=== PATIENT | female | born 1975 | race Caucasian/White ===

== ENCOUNTER → 2022-06-26 08:20 | Outpatient (BNVA) | payer OTHER, SELFPAY | PROVIDERS: PCP Internal Medicine; Visit Provider Internal Medicine Rheumatology | DX: M06.00 Rheumatoid arthritis without rheumatoid factor, unspecified site (principal); G56.00 Carpal tunnel syndrome, unspecified upper limb; M19.072 Primary osteoarthritis, left ankle and foot; F41.8 Other specified anxiety disorders; Z79.620 Long term (current) use of immunosuppressive biologic | CPT/HCPCS: 99212 ==

== ENCOUNTER 2022-06-26 09:45 | Outpatient (REF) | payer OTHER, SELFPAY ==
[2022-06-26 10:43] LABS: MANUAL DIFF FLAG NO
[2022-06-26 10:55] LABS: Basophils Absolute Auto 0.1 X10*3/uL (0.0-0.2); Basophils Percent Auto 1.2 % (0-2); Eosinophils Absolute Auto 0.4 X10*3/uL (0.0-0.4); Hemoglobin 13.3 g/dl (12.0-16.0); Imm Gran Abs Auto 0.02 X10*3/uL (0.00-0.03); Imm Gran Pct Auto 0.3 % (0.0-0.4); Lymphocytes Absolute Auto 2.3 X10*3/uL (1.2-4.9); Lymphocytes Percent Auto 35.8 % (20-40); Mean Corpuscular HGB Conc 33.3 g/dl (31.0-35.0); Mean Corpuscular Hemoglobin 30.9 pg (27.0-33.0); Mean Corpuscular Volume 92.8 fL (80.0-98.0); Mean Platelet Volume 11.5 fL (9.4-12.3); Monocytes Absolute Auto 0.7 X10*3/uL (0.1-1.2); Monocytes Percent Auto 10.6 % (2-11); Neutrophils Percent Auto 46.1 % (45-73); Platelet Count 248 X10*3/uL (160-400); Red Blood Count 4.31 X10*6/uL (4.20-5.50); Red Cell Distribution Width 12.5 % (11.0-16.0); White Blood Count 6.5 X10*3/uL (4.8-10.8)
[2022-06-26 11:38] LABS: Erythrocyte Sedimentation Rate 13 MM/HR (0-20)
[2022-06-26 11:39] LABS: Alanine Aminotransferase 19 U/L (0-31); Albumin Level 4.3 g/dL (3.5-5.0); Alkaline Phosphatase 86 U/L (39-117); Anion Gap 11 (12-20); Aspartate Amino Transferase 21 U/L (5-31); Bilirubin Total 0.3 mg/dL (0.0-1.0); Blood Urea Nitrogen 13 mg/dL (9-16); C Reactive Protein 0.31 mg/dL (< or = 0.50); Calcium 8.9 mg/dL (8.4-10.2); Carbon Dioxide 26 mmol/L (22-29); Chloride 106 mmol/L (96-108); Estimated Glomerular Filt Rate > 60; Glucose Random 98 mg/dL (60-115); Potassium 4.2 mmol/L (3.3-5.1); Sodium 139 mmol/L (135-145)
== END 2022-06-26 09:46 | disposition home or self-care (01) ==
LOC: HO.10HDL 09:45
PROVIDERS: Visit Provider Internal Medicine Rheumatology
DX: M06.00 Rheumatoid arthritis without rheumatoid factor, unspecified site (principal); M19.072 Primary osteoarthritis, left ankle and foot; F41.8 Other specified anxiety disorders; G56.00 Carpal tunnel syndrome, unspecified upper limb; Z79.899 Other long term (current) drug therapy; Z79.620 Long term (current) use of immunosuppressive biologic
CPT/HCPCS: 36415; 80053; 85025; 85652; 86140

== ENCOUNTER → 2022-10-09 10:07 | Outpatient (BNVA) | payer OTHER, SELFPAY | PROVIDERS: PCP Internal Medicine; Visit Provider Internal Medicine Rheumatology | DX: M06.062 Rheumatoid arthritis without rheumatoid factor, left knee (principal); M06.072 Rheumatoid arthritis without rheumatoid factor, left ankle and foot; G56.00 Carpal tunnel syndrome, unspecified upper limb; Q76.0 Spina bifida occulta; F17.200 Nicotine dependence, unspecified, uncomplicated; Z79.620 Long term (current) use of immunosuppressive biologic | CPT/HCPCS: 99212 ==

== ENCOUNTER 2023-01-01 10:37 | Outpatient (AMB) | payer OTHER, SELFPAY ==
--- NOTE | 2023-01-01 11:11 | A.OFFVIS_ITS ---
Intake Vital Signs 01/01/23 11:18 Height 4 ft 11 in Weight 141 lb 1.533 oz BMI 28.5 BP 122/62 Blood Pressure Location Lt brachial Position Sitting Pulse 75 Pulse Source Pulse Oximeter Temp 98.4 F Temp Source Skin Pulse Oximetry (%) 98 Oxygen Delivery Method Room Air Intake Visit Reasons: ra Intake Note: Here to follow up on RA. c/o worsening body pains Advertising Coordinator Required: No Accompanied by: Self / Same As Patient Allergies No Known Allergies Allergy (Verified 01/01/23 11:19) Medication List - Last Reconciled 01/01/23 by Haile Rodriguez MD adalimumab (Humira(CF) Pen) 40 mg (0.4 mL) subcut Q2W 56 days amlodipine-benazepril 5-10 mg 1 cap PO DAILY brexpiprazole (Rexulti) 1 mg PO DAILY calcium carbonate-vitamin D3 600 mg-5 mcg (200 unit) (Calcium 600 + D(3)) 1 tab PO BID cetirizine (Allergy Relief (cetirizine)) 10 mg PO DAILY PRN clonazepam 1 mg PO BID clonidine HCl 0.1 mg PO DAILY PRN clonidine HCl 0.2 mg PO BID cyclobenzaprine 10 mg PO BEDTIME PRN dextroamphetamine-amphetamine 10 mg 1 tab PO BID fluticasone propionate 50 mcg/actuation (Allergy Relief (fluticasone)) 2 sprays intranasal DAILY folic acid 1 mg PO DAILY hydrochlorothiazide 25 mg PO DAILY lamotrigine 200 mg PO BID levonorgestrel (Mirena) intrauterine methotrexate sodium 12.5 mg (5 x 2.5 mg) PO QWEEK naloxone 4 mg/actuation 0 sprays intranasal omeprazole 20 mg PO DAILY pravastatin 40 mg PO DAILY tramadol 50 mg PO Q6H PRN vortioxetine (Trintellix) 20 mg PO DAILY HPI HPI Comments History of Present Illness Details The patient returns for evaluation of her rheumatoid arthritis and osteoarthritis. She remains on the Humira 40 mg every 2 weeks, methotrexate 12.5 mg weekly, folic acid 1 mg daily, and tramadol 100 mg q.i.d.. In spite of this she has been having more pain in the hips and the knees. The hip pain is mostly lateral and radiates to the groin and sometimes with walking. She also notes that she cannot extend fully the left knee. This causes tightness and discomfort anteriorly. The left knee is a bit swollen. The chronic pain in the left ankle and foot remains about the same. She says she walks with a limp at this point. She remains on Rexulti, clonazepam, clonidine, cyclobenzaprine, Ritalin, lamotrigine, and Trintellix from her psychiatric provider. Those seem to be helping but she is more concerned about the joint pains currently. 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 PARKER (obstructive sleep apnea) CTS (carpal tunnel syndrome) Surgical History H/O wisdom tooth extraction History of cholecystectomy Family History Father Myocardial infarct Diabetes Hypertension Kidney disease Dialysis patient Brother Abuse, drug or alcohol Mother Thyroid disease Osteopenia Hypertension Social History (Updated 01/01/23 @ 11:21 by PANCHO Blankenship) Alcohol intake: current Alcohol intake frequency: holidays/special occasions only Patient Tobacco Use Status: Current everyday Tobacco user Cigarettes Per Day: 10 Review of Systems Const Details: Some weight gain and she admits she is less physically active than previously. Negative for appetite change, fever, chills, malaise Eyes Details: Negative for vision change, dry eyes,headaches and dizziness Card Details: Negative chest pain, edema and syncope Resp Details: Negative for SOB, cough and wheezing GI Details: Negative indigestion/heartburn, nausea, abdominal pain, bowel changes, diarrhea, constipation and bloody stool. Skin/Breast Details: Negative for itching, rash, hives, Raynaud's symptoms, sun sensitivity, and skin cancer Psych Details: Anxiety and depression symptoms seem stable. Endo Details: Negative for polyuria and polydypsia Carl/Lymph Details: Negative for excessive bruising or bleeding. Physical Exam Vital Signs: Last Vital Signs Temp 98.4 F 01/01/23 11:18 Pulse 75 01/01/23 11:18 BP 122/62 01/01/23 11:18 Pulse Ox 98 01/01/23 11:18 Oxygen Delivery Method Room Air 01/01/23 11:18 BMI result Body Mass Index 28.5 APPEARANCE: Patient in no acute distress EYES no redness, pupils equal and reactive to light, eyelids normal EXTREMITIES: No edema, no calf tenderness, normal peripheral pulses JOINT EXAM:?? Cervical Spine:.? Full range of motion without pain; no tenderness. Thoracic Spine:.? No scoliosis.? No tenderness on palpation. Lumbar Spine:.? Alignment normal.? Full range of motion without pain, no tenderness. Chest Wall:.? No tenderness, swelling, increased warmth or erythema. Hands:? Normal pain-free range of motion without tenderness, swelling, increased warmth or erythema. 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 Wrists:.? Normal pain-free range of motion with slight dorsal tenderness but no swelling, increased warmth or erythema. Elbows:? Right: She lacks about 10 degrees of full extension at the elbow.? Attempts at full extension are mildly uncomfortable.? There is mild tenderness over the joint space without swelling.? Left:? Normal pain-free range of motion without tenderness, swelling, increased warmth or erythema. Shoulders:.?? Full range of motion without pain. No tenderness, weakness, swelling, increased warmth or erythema. Hips:? Full range of motion with mild buttock and back discomfort at the extremes of internal or external rotation. Questionable groin discomfort with extremes of external rotation and abduction. No groin tenderness or mass. Hip bursa:.? No tenderness. Knees:? Right:? Mild pain with extremes of flexion or extension.? This pain is felt over the medial compartment. There is mild medial compartment tenderness. There is a minimal l effusion without mild patellofemoral crepitus or popliteal swelling. No redness or warmth. Left:? Mild patellofemoral crepitus with extremes of range of motion. There is mild to moderate pain with more than 45 degrees flexion extension; most of that pain occurs with full extension where she may have a small flexion contracture. There is a small effusion evident w ithout redness or warmth. Most of the tenderness is in the medial compartment but it is also evident a bit posteriorly and laterally. Ankles:? Right:? Normal pain-free range of motion with slight valgus deformity but no swelling or tenderness.? Left:? There is more marked valgus deformity, pain with attempts at inversion eversion, and mild to moderate medial and lateral tenderness.? Slight soft tissue swelling without increased warmth or erythema. Feet:? Left:? Some pes planus deformity and medial instep tenderness.? No swelling or redness or warmth.? Right:? Normal pain-free range of motion without tenderness, swelling, increased warmth or erythema. Tender points: Slight tenderness to digital palpation at the? trapezius,? knees, greater trochanter area bilaterally. ? Office Procedures Joint Injection/Drain Joint Injection/Drain Primary Site: left knee Injected: 40 mg of, Kenalog, with 1 mL of and 1% plain lidocaine Coding Details: With the patient's consent the left knee was prepped with ChloraPrep and alcohol. The skin was anesthetized with 2 cc of 1% lidocaine. The knee was then injected with 40 mg of triamcinolone and 1 cc of I % lidocaine. The patient tolerated the procedure with no immediate adverse effects. 84620 - Large joint Procedure code (CPT) selection complete Results Reviewed Results Reviewed: No labs since August. She has had transportation difficulty getting to the office. Assessment & Plan Assessment & Plan (1) Osteoarthritis of knees, bilateral: Code(s): M17.0 - Bilateral primary osteoarthritis of knee (2) Osteoarthritis of foot, left: Comment: OA at left ankle and foot due to RA Code(s): M19.072 - Primary osteoarthritis, left ankle and foot (3) detention (current) use of immunosuppressive biologic: Code(s): Z79.620 - detention (current) use of immunosuppressive biologic (4) Seronegative rheumatoid arthritis: Comment: Juvenile onset: Flare at age 3, age 9. RF negative. Pauciarticular involvement. RF and LEOPOLDO negative More persistent pains at age 21(1995). On methotrexate, sulfasalazine, hydroxychloroquine, sulfasalazine, Enbrel in the past: ? Responses to treatment. Methotrexate started 03/28 04/30 Humira added 03/04: methotrexate held for LFT elevations; restarted at a lower dose 06/05 Code(s): M06.00 - Rheumatoid arthritis without rheumatoid factor, unspecified site Plan Rheumatoid arthritis with a bit more pain in both knees, more on the left than the right. She seems to be walking with the knees flexed so that puts extra stress on the hip region where she has some discomfort. I cannot rule out some early DJD in the hips as well. I think we need to get her knees to be more flexible, particularly on the left. She is also overdue for lab work. A local corticosteroid injection for the left knee is recommended. We reviewed potential side effects of corticosteroid injections. With the patient's consent the left knee was prepped with ChloraPrep and alcohol. The skin was anesthetized with 2 cc of 1% lidocaine. The knee was then injected with 40 mg of triamcinolone and 1 cc of I % lidocaine. The patient tolerated the procedure with no immediate adverse effects. She will see how this works out over the next few weeks. I will also also send her for physical therapy. Knee radiographs are also recommended. She will try to get the lab work done today or at the [facility] lab site. We had expected that she could get the x- rays done in [place] but apparently there is no x-ray facility at that unit. We will aim for follow-up in 3 months. Orders: Orders C Reactive Protein 12/31/22 M06.00 - Rheumatoid arthritis without rheumatoid factor, unspecified site Aspartate Amino Transferase 12/31/22 M06.00 - Rheumatoid arthritis without rheumatoid factor, unspecified site, Z79.899 - Other jail (current) drug therapy XR knee LT 3V Today M06.00 - Rheumatoid arthritis without rheumatoid factor, unspecified site PT Evaluation and Treatment Today M06.00 - Rheumatoid arthritis without rheumatoid factor, unspecified site, M17.0 - Bilateral primary osteoarthritis of knee Alanine Aminotransferase 12/31/22 M06.00 - Rheumatoid arthritis without rheumatoid factor, unspecified site, Z79.899 - Other jail (current) drug therapy Erythrocyte Sedimentation Rate 12/31/22 M06.00 - Rheumatoid arthritis without rheumatoid factor, unspecified site Complete Blood Count Auto Diff 12/31/22 M06.00 - Rheumatoid arthritis without rheumatoid factor, unspecified site, Z79.899 - Other 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 control servicer (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) drug therapy Creatinine 12/31/22 M06.00 - Rheumatoid arthritis without rheumatoid factor, unspecified site, Z79.899 - Other jail (current) drug therapy XR knee RT 3V Today M06.00 - Rheumatoid arthritis without rheumatoid factor, unspecified site AMB Joint Injection/Aspiration Today M06.00 - Rheumatoid arthritis without rheumatoid factor, unspecified site, M17.0 - Bilateral primary osteoarthritis of knee Coding Level of Care Code Est Pt Level 3 (11459) Diagnoses Osteoarthritis of knees, bilateral M17.0 Osteoarthritis of foot, left M19.072 detention (current) use of immunosuppressive biologic Z79.620 Seronegative rheumatoid arthritis M06.00 CPT Codes Coding - 90517 Large joint: 89863 - Large joint ([id number])
[2023-01-01 11:18] VITALS: BP 122/62; PULSE 75; TEMP 36.9; O2SAT 98; BMI 28.5
== END 2023-01-01 12:05 | disposition home or self-care (01) ==
PROVIDERS: PCP Internal Medicine; Visit Provider Internal Medicine Rheumatology
DX: M06.09 Rheumatoid arthritis without rheumatoid factor, multiple sites (principal); M17.0 Bilateral primary osteoarthritis of knee; M19.072 Primary osteoarthritis, left ankle and foot; Z79.620 Long term (current) use of immunosuppressive biologic
CPT/HCPCS: 20610; 99213

== ENCOUNTER → 2023-01-01 10:37 | Outpatient (BNVA) | payer OTHER, SELFPAY | PROVIDERS: PCP Internal Medicine; Visit Provider Internal Medicine Rheumatology | DX: M06.00 Rheumatoid arthritis without rheumatoid factor, unspecified site (principal); M17.0 Bilateral primary osteoarthritis of knee; M19.072 Primary osteoarthritis, left ankle and foot; Z79.620 Long term (current) use of immunosuppressive biologic | CPT/HCPCS: 20610; 99212 ==

== ENCOUNTER 2023-01-02 10:25 | Outpatient (REF) | payer OTHER, SELFPAY ==
[2023-01-02 14:21] LABS: MANUAL DIFF FLAG NO
[2023-01-02 14:38] LABS: Basophils Percent Auto 0.1 % (0-2); Hematocrit 39.4 % (37.0-47.0); Hemoglobin 13.2 g/dl (12.0-16.0); Imm Gran Abs Auto 0.15 X10*3/uL (0.00-0.03); Imm Gran Pct Auto 0.8 % (0.0-0.4); Lymphocytes Absolute Auto 1.1 X10*3/uL (1.2-4.9); Lymphocytes Percent Auto 5.9 % (20-40); Mean Corpuscular HGB Conc 33.5 g/dl (31.0-35.0); Mean Corpuscular Hemoglobin 31.7 pg (27.0-33.0); Mean Corpuscular Volume 94.5 fL (80.0-98.0); Mean Platelet Volume 13.5 fL (9.4-12.3); Monocytes Absolute Auto 1.3 X10*3/uL (0.1-1.2); Monocytes Percent Auto 6.9 % (2-11); Neutrophils Percent Auto 86.3 % (45-73); Platelet Count 295 X10*3/uL (160-400); Red Blood Count 4.17 X10*6/uL (4.20-5.50); Red Cell Distribution Width 13.5 % (11.0-16.0); White Blood Count 18.6 X10*3/uL (4.8-10.8)
[2023-01-02 15:14] LABS: Erythrocyte Sedimentation Rate 11 MM/HR (0-20)
[2023-01-02 15:56] LABS: Alanine Aminotransferase 13 U/L (0-31); Aspartate Amino Transferase 15 U/L (5-31); Estimated Glomerular Filt Rate > 60
== END 2023-01-02 10:26 | disposition home or self-care (01) ==
LOC: HO.WFDLDS 10:25
PROVIDERS: Visit Provider Internal Medicine Rheumatology
DX: M06.00 Rheumatoid arthritis without rheumatoid factor, unspecified site (principal); Z79.899 Other long term (current) drug therapy
CPT/HCPCS: 36415; 82565; 84450; 84460; 85025; 85652; 86140

== ENCOUNTER 2023-03-27 10:35 | Outpatient (AMB) | payer OTHER, SELFPAY ==
--- NOTE | 2023-03-27 10:39 | A.OFFVIS_ITS ---
Intake Vital Signs 03/27/23 10:40 Height 4 ft 11 in Weight 141 lb 1.533 oz BMI 28.5 BP 152/104 H Blood Pressure Location Lt brachial Position Sitting Pulse 107 H Pulse Source Pulse Oximeter Temp 97 F Temp Source Skin Pulse Oximetry (%) 99 Oxygen Delivery Method Room Air Intake Visit Reasons: RA Intake Note: Patient presents to office today for RA follow up. Lockstitch Front Maker Required: No Accompanied by: Self / Same As Patient Allergies No Known Allergies Allergy (Verified 03/27/23 10:40) HPI HPI Comments History of Present Illness Details The patient returns today for evaluation of her rheumatoid arthritis and osteoarthritis. She remains on methotrexate 12.5 mg weekly, folic acid 1 mg daily, Humira 40 mg every 2 weeks, and tramadol 100 mg q.6 hours. The tramadol is prescribed by her primary doctor. She takes the tramadol mostly for left ankle and low back pain that is due to osteoarthritis. She remains on Trintellix, Adderall, clonidine, clonazepam, and Rexulti for her anxiety and depression. Anxiety and depression symptoms seem to be stable. At her last visit she had increased pain in the left knee and was having difficulty walking because of hip pain. I injected the knee and send her for physical therapy. She has now seen PT once. The injection helped quite a bit her left knee pain and some of the hip pain as well. She still has pain in the left ankle where she has osteoarthritis. 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 PARKER (obstructive sleep apnea) CTS (carpal tunnel syndrome) Surgical History H/O wisdom tooth extraction History of cholecystectomy Family History Father Myocardial infarct Diabetes Hypertension Kidney disease Dialysis patient Brother Abuse, drug or alcohol Mother Thyroid disease Osteopenia Hypertension Social History Alcohol intake: current Alcohol intake frequency: holidays/special occasions only Patient Tobacco Use Status: Current everyday Tobacco user Cigarettes Per Day: 10 Review of Systems Const Details: Negative for appetite change, weight change, fever, chills, malaise and fatigue Eyes Details: Negative for vision change, dry eyes,headaches and dizziness ENT Details: Negative for hearing change, tinnitus, oral ulcer, nose bleeds and oral dryness. Card Details: Negative chest pain, edema and syncope Resp Details: Negative for SOB, cough and wheezing GI Details: Negative indigestion/heartburn, nausea, abdominal pain, bowel changes, diarrhea, constipation and bloody stool. Skin/Breast Details: Negative for itching, rash, hives, Raynaud's symptoms, sun sensitivity, and skin cancer Neuro Details: Negative for epilepsy, palsy, stroke, changes in speech, tingling and weakness Endo Details: Negative for polyuria and polydypsia Carl/Lymph Details: Negative for excessive bruising or bleeding. Physical Exam Vital Signs: Last Vital Signs Temp 97 F 03/27/23 10:40 Pulse 107 H 03/27/23 10:40 BP 152/104 H 03/27/23 10:40 Pulse Ox 99 03/27/23 10:40 Oxygen Delivery Method Room Air 03/27/23 10:40 BMI result Body Mass Index 28.5 APPEARANCE: Patient in no acute distress EYES no redness, pupils equal and reactive to light, eyelids normal EXTREMITIES: No edema, no calf tenderness, normal peripheral pulses JOINT EXAM:?? Cervical Spine:.? Full range of motion without pain; no tenderness. Thoracic Spine:.? No scoliosis.? No tenderness on palpation. Lumbar Spine:.? Alignment normal.? Full range of motion without pain, no tenderness. Chest Wall:.? No tenderness, swelling, increased warmth or erythema. Hands:? Normal pain-free range of motion without tenderness, swelling, increased warmth or erythema. 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 Wrists:.? Normal pain-free range of motion with slight dorsal tenderness but no swelling, increased warmth or erythema. Elbows:? Right: She lacks about 10 degrees of full extension at the elbow.? Attempts at full extension are mildly uncomfortable.? There is mild tenderness over the joint space without swelling.? Left:? Normal pain-free range of motion without tenderness, swelling, increased warmth or erythema. Shoulders:.?? Full range of motion without pain. No tenderness, weakness, swelling, increased warmth or erythema. Hips:? Full range of motion with mild buttock and back discomfort at the extremes of internal or external rotation. No groin discomfort with extremes of external rotation and abduction. No groin tenderness or mass. Hip bursa:.? No tenderness. Knees:? Right:? no pain with extremes of flexion or extension.? There is mild medial compartment tenderness. There is a minimal l effusion without mild patellofemoral crepitus or popliteal swelling. No redness or warmth. Left:? Mild patellofemoral crepitus with slight discomfort at full flexion. There is a bit more discomfort with full extension. She has mild medial and posterior tenderness without swelling or effusion. No redness or warmth. Ankles:? Right:? Normal pain-free range of motion with slight valgus deformity but no swelling or tenderness.? Left:? There is more marked valgus deformity, pain with attempts at inversion or eversion but minimal range of motion in those directions is possible. There is mi the ild to moderate medial and lateral tenderness.? Slight soft tissue swelling without increased warmth or erythema. Feet:? Left:? Some pes planus deformity and medial instep tenderness.? No swelling or redness or warmth.? Right:? Normal pain-free range of motion without tenderness, swelling, increased warmth or erythema. Tender points: Slight tenderness to digital palpation at the? trapezius,? 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 RF negative. Pauciarticular involvement. RF and LEOPOLDO negative More persistent pains at age 21(1995). On methotrexate, sulfasalazine, hydroxychloroquine, sulfasalazine, Enbrel in the past: ? Responses to treatment. Methotrexate started 03/28 04/30 Humira added 03/04: methotrexate held for LFT elevations; restarted at a lower dose 06/05 Code(s): M06.00 - Rheumatoid arthritis without rheumatoid factor, unspecified site Plan She has had improvement with corticosteroid injection in the left knee and with the start of physical therapy. I encouraged her to continue with home exercises as taught to her in physical therapy. Today there are no significant signs of active inflammatory arthritis so I think the current treatment should be continued. She has been gaining weight and I cautioned her against further weight gain as that may exacerbate her lower extremity arthritic symptoms. She is going to follow through she says with the x-rays of the knees to asses to what extent there may be OA present radiographically. We know there is OA at the left ankle and foot from previous inflammatory arthritis. She had seen surgery about that in the past but was not interested. We will have her check lab work today to monitor her methotrexate use. A follow-up in 3 months with lab before that visit is recommended. 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
[2023-03-27 10:40] VITALS: BP 152/104; PULSE 107; TEMP 36.1; O2SAT 99; BMI 28.5
== END 2023-03-27 11:14 | disposition home or self-care (01) ==
PROVIDERS: PCP Internal Medicine; Visit Provider Internal Medicine Rheumatology
DX: M17.0 Bilateral primary osteoarthritis of knee (principal); M19.072 Primary osteoarthritis, left ankle and foot; Z79.620 Long term (current) use of immunosuppressive biologic; M06.00 Rheumatoid arthritis without rheumatoid factor, unspecified site
CPT/HCPCS: 99213

== ENCOUNTER 2023-03-27 10:35 | Outpatient (REF) | payer OTHER, SELFPAY ==
--- NOTE | ~2023-03-27 | XR_ITS ---
X-ray bilateral knees CLINICAL HISTORY: Rheumatoid arthritis. COMPARISON: No similar priors. TECHNIQUE: 3 views of each knee. FINDINGS: No acute fracture or subluxation. Moderate bilateral tricompartmental osteoarthritis with joint space narrowing, subcortical sclerosis and small marginal osteophytes more noticeable in the medial and patellofemoral compartments of both knees. Trace chondrocalcinosis in the right knee. No osseous erosions. No significant joint effusion. XR/XR knee LT 3V IMPRESSION: 1. No acute fracture or subluxation. 2. Moderate bilateral tricompartmental osteoarthritis. 3. Trace chondrocalcinosis in the right knee.
--- NOTE | ~2023-03-27 | XR_ITS ---
X-ray bilateral knees CLINICAL HISTORY: Rheumatoid arthritis. COMPARISON: No similar priors. TECHNIQUE: 3 views of each knee. FINDINGS: No acute fracture or subluxation. Moderate bilateral tricompartmental osteoarthritis with joint space narrowing, subcortical sclerosis and small marginal osteophytes more noticeable in the medial and patellofemoral compartments of both knees. Trace chondrocalcinosis in the right knee. No osseous erosions. No significant joint effusion. XR/XR knee RT 3V IMPRESSION: 1. No acute fracture or subluxation. 2. Moderate bilateral tricompartmental osteoarthritis. 3. Trace chondrocalcinosis in the right knee.
== END 2023-03-27 10:36 | disposition home or self-care (01) ==
LOC: HO.XRAY 10:35
PROVIDERS: PCP Internal Medicine; Visit Provider Internal Medicine Rheumatology
DX: M17.0 Bilateral primary osteoarthritis of knee (principal); M06.00 Rheumatoid arthritis without rheumatoid factor, unspecified site; M19.072 Primary osteoarthritis, left ankle and foot; Z79.620 Long term (current) use of immunosuppressive biologic
CPT/HCPCS: 73562; 99212

== ENCOUNTER 2023-03-27 11:40 | Outpatient (REF) | payer OTHER, SELFPAY ==
[2023-03-27 13:26] LABS: MANUAL DIFF FLAG NO
[2023-03-27 13:58] LABS: Basophils Absolute Auto 0.1 X10*3/uL (0.0-0.2); Basophils Percent Auto 1.1 % (0-2); Eosinophils Absolute Auto 0.3 X10*3/uL (0.0-0.4); Eosinophils Percent Auto 3.3 % (0-4); Hematocrit 42.8 % (37.0-47.0); Hemoglobin 14.2 g/dl (12.0-16.0); Imm Gran Abs Auto 0.04 X10*3/uL (0.00-0.03); Imm Gran Pct Auto 0.5 % (0.0-0.4); Lymphocytes Percent Auto 25.8 % (20-40); Mean Corpuscular HGB Conc 33.2 g/dl (31.0-35.0); Mean Corpuscular Hemoglobin 31.8 pg (27.0-33.0); Mean Platelet Volume 11.6 fL (9.4-12.3); Monocytes Absolute Auto 0.9 X10*3/uL (0.1-1.2); Monocytes Percent Auto 11.4 % (2-11); Neutrophils Absolute Auto 4.5 x10*3/uL (2.0-8.3); Neutrophils Percent Auto 57.9 % (45-73); Platelet Count 268 X10*3/uL (160-400); Red Blood Count 4.46 X10*6/uL (4.20-5.50); Red Cell Distribution Width 13.1 % (11.0-16.0); White Blood Count 7.8 X10*3/uL (4.8-10.8)
[2023-03-27 15:03] LABS: Erythrocyte Sedimentation Rate 7 MM/HR (0-20)
[2023-03-27 15:05] LABS: Alanine Aminotransferase 11 U/L (0-31); Aspartate Amino Transferase 17 U/L (5-31); C Reactive Protein 0.14 mg/dL (< or = 0.50); Estimated Glomerular Filt Rate > 60
== END 2023-03-27 11:41 | disposition home or self-care (01) ==
LOC: HO.10HDL 11:40
PROVIDERS: Visit Provider Internal Medicine Rheumatology
DX: M06.00 Rheumatoid arthritis without rheumatoid factor, unspecified site (principal); Z79.899 Other long term (current) drug therapy
CPT/HCPCS: 36415; 82565; 84450; 84460; 85025; 85652; 86140

== ENCOUNTER 2023-06-26 10:45 | Outpatient (AMB) | payer OTHER, SELFPAY ==
[2023-06-26 11:01] VITALS: BP 126/78; PULSE 92; O2SAT 97; BMI 28.9
--- NOTE | 2023-06-26 11:01 | A.OFFVIS_ITS ---
Intake Vital Signs 06/26/23 11:01 Height 4 ft 11 in Weight 142 lb 13.753 oz BMI 28.9 BP 126/78 Blood Pressure Location Rt brachial Position Sitting Pulse 92 Pulse Source Pulse Oximeter Pulse Oximetry (%) 97 Oxygen Delivery Method Room Air Intake Visit Reasons: ra Intake Note: Patient last seen by Dr Rosales on 03/27/23 presents today for follow up and test results. Liability Analyst Required: No Accompanied by: Self / Same As Patient Allergies No Known Allergies Allergy (Verified 06/26/23 11:04) Medication List - Last Reconciled 06/26/23 by Marquis Sousa MD adalimumab (Humira(CF) Pen) 40 mg (0.4 mL) subcut Q2W 56 days amlodipine-benazepril 5-10 mg 1 cap PO DAILY amoxicillin-pot clavulanate 875-125 mg 1 tab PO BID brexpiprazole (Rexulti) 1 mg PO DAILY calcium carbonate-vitamin D3 600 mg-5 mcg (200 unit) (Calcium 600 + D(3)) 1 tab PO BID celecoxib 100 mg PO BID cetirizine (Allergy Relief (cetirizine)) 10 mg PO DAILY PRN clonazepam 1 mg PO BID clonidine HCl 0.1 mg PO DAILY PRN clonidine HCl 0.2 mg PO BID cyclobenzaprine 10 mg PO BEDTIME PRN dextroamphetamine-amphetamine 15 mg 1 tab PO BID fluticasone propionate 50 mcg/actuation (Allergy Relief (fluticasone)) 2 sprays intranasal DAILY folic acid 1 mg PO DAILY hydrochlorothiazide 25 mg PO DAILY lamotrigine 200 mg PO BID levonorgestrel (Mirena) intrauterine methotrexate sodium 12.5 mg (5 x 2.5 mg) PO QWEEK naloxone 4 mg/actuation 0 sprays intranasal omeprazole 20 mg PO DAILY pravastatin 40 mg PO DAILY tramadol 50 mg PO Q6H PRN vortioxetine (Trintellix) 20 mg PO DAILY HPI HPI Comments History of Present Illness Details 48-year-old female with seronegative RA returns for follow-up. Last week patient was bitten by her cat on her left and right hands. She went to [facility] at [place]. She had significant swelling of both hands, worse on the left. She was admitted and received IV antibiotics for about a day and a half. She was discharged to complete a 10 day course of Augmentin. She is due for her methotrexate and Humira this . She states that the redness and pain of her hands has significant resolved but there is still some redness and pain. She is doing about the same overall. She continues to have left foot pain. Most recent history by Dr. Rodriguez 03/2023: The patient returns today for evaluation of her rheumatoid arthritis and osteoarthritis. She remains on methotrexate 12.5 mg weekly, folic acid 1 mg daily, Humira 40 mg every 2 weeks, and tramadol 100 mg q.6 hours. The tramadol is prescribed by her primary doctor. She takes the tramadol mostly for left ankle and low back pain that is due to osteoarthritis. She remains on Trintellix, Adderall, clonidine, clonazepam, and Rexulti for her anxiety and depression. Anxiety and depression symptoms seem to be stable. At her last visit she had increased pain in the left knee and was having difficulty walking because of hip pain. I injected the knee and send her for physical therapy. She has now seen PT once. The injection helped quite a bit her left knee pain and some of the hip pain as well. She still has pain in the left ankle where she has osteoarthritis. [facility] Medical History Hypertension Osteopenia Seizures Anemia Insomnia Depression with anxiety Hypercholesteremia Spina bifida occulta JRA (juvenile rheumatoid arthritis) Seronegative rheumatoid arthritis Allergic rhinitis custodial (current) use of immunosuppressive biologic PARKER (obstructive sleep apnea) CTS (carpal tunnel syndrome) Surgical History H/O wisdom tooth extraction History of cholecystectomy Family History Father Myocardial infarct Diabetes Hypertension Kidney disease Dialysis patient Brother Abuse, drug or alcohol Mother Thyroid disease Osteopenia Hypertension Social History Alcohol intake: current Alcohol intake frequency: holidays/special occasions only Patient Tobacco Use Status: Current everyday Tobacco user Cigarettes Per Day: 10 Review of Systems Const Denies fever(s) Musc Reports deformity and Reports arthralgias Physical Exam Vital Signs: Last Vital Signs Pulse 92 06/26/23 11:01 BP 126/78 06/26/23 11:01 Pulse Ox 97 06/26/23 11:01 Oxygen Delivery Method Room Air 06/26/23 11:01 BMI result Body Mass Index 28.9 Const General: cooperative, healthy appearing and comfortable Nutritional Appearance: overweight Orientation/consciousness: patient oriented x3 Limitations: no limitations HEENT Head: Yes normocephalic and Yes atraumatic Mouth: moist mucous membranes Resp Effort & Inspection: normal respiratory effort and able to speak in complete sentences Auscultation: clear to auscultation bilaterally Cardio Rate: regular rate Rhythm: regular rhythm Neuro General: patient oriented x3 Extrem Other: Minimal erythema at the left 2nd finger mild tenderness at the left 2nd PIP no warmth Mild erythema and tenderness at the right 4th finger, no warmth. Bilateral limited flexion of both knees Limited range of motion of left foot. Mild warmth at the dorsum of left foot No active synovitis noted Assessment & Plan Assessment & Plan (1) Seronegative rheumatoid arthritis: Comment: Juvenile onset: Flare at age 3, age 9. RF negative. Pauciarticular involvement. RF/CCP and LEOPOLDO negative More persistent pains at age 21(1995). On methotrexate, sulfasalazine, hydroxychloroquine, sulfasalazine, Enbrel in the past: ? Responses to treatment. Methotrexate started 03/28 04/30 Humira added 03/04: methotrexate held for LFT elevations; restarted at a lower dose 06/05 Code(s): M06.00 - Rheumatoid arthritis without rheumatoid factor, unspecified site Plan: This is a 48-year-old female with seronegative RA who returns for follow-up. Patient is doing about the same overall. There is no active synovitis on exam. She has bilateral knee pain and left ankle pain likely related to old damage from her inflammatory arthritis. At this point her pain is likely due to osteoarthritis. Last week, patient's Cat bit both her hands, she developed erythema and swelling of both her hands, she was admitted to the hospital and received IV antibiotics for 1 day. And discharged on Augmentin. The erythema has significantly resolved. Almost no swelling or tenderness. Advised patient to hold postpone Humira and methotrexate by 1 week. She has a follow-up appointment with hand surgeon next week. 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
== END 2023-06-26 11:32 | disposition home or self-care (01) ==
PROVIDERS: PCP Internal Medicine; Visit Provider Student in an Organized Health Care Education/Training Program
DX: M06.00 Rheumatoid arthritis without rheumatoid factor, unspecified site (principal); Z79.620 Long term (current) use of immunosuppressive biologic
CPT/HCPCS: 99214

== ENCOUNTER → 2023-06-26 10:45 | Outpatient (BNVA) | payer OTHER, SELFPAY | PROVIDERS: PCP Internal Medicine; Visit Provider Student in an Organized Health Care Education/Training Program | DX: M06.00 Rheumatoid arthritis without rheumatoid factor, unspecified site (principal); Z79.620 Long term (current) use of immunosuppressive biologic | CPT/HCPCS: 99212 ==

== ENCOUNTER 2023-11-07 13:15 | Outpatient (REF) | payer OTHER, SELFPAY ==
[2023-11-07 14:46] LABS: MANUAL DIFF FLAG NO
[2023-11-07 14:53] LABS: Basophils Absolute Auto 0.1 X10*3/uL (0.0-0.2); Basophils Percent Auto 0.9 % (0-2); Eosinophils Absolute Auto 0.3 X10*3/uL (0.0-0.4); Eosinophils Percent Auto 2.8 % (0-4); Hematocrit 43.8 % (37.0-47.0); Hemoglobin 14.8 g/dl (12.0-16.0); Imm Gran Abs Auto 0.05 X10*3/uL (0.00-0.03); Imm Gran Pct Auto 0.5 % (0.0-0.4); Lymphocytes Absolute Auto 2.4 X10*3/uL (1.2-4.9); Lymphocytes Percent Auto 23.4 % (20-40); Mean Corpuscular HGB Conc 33.8 g/dl (31.0-35.0); Mean Corpuscular Hemoglobin 31.5 pg (27.0-33.0); Mean Corpuscular Volume 93.2 fL (80.0-98.0); Mean Platelet Volume 11.7 fL (9.4-12.3); Monocytes Absolute Auto 0.8 X10*3/uL (0.1-1.2); Monocytes Percent Auto 7.9 % (2-11); Neutrophils Absolute Auto 6.6 x10*3/uL (2.0-8.3); Neutrophils Percent Auto 64.5 % (45-73); Platelet Count 357 X10*3/uL (160-400); Red Cell Distribution Width 13.3 % (11.0-16.0); White Blood Count 10.3 X10*3/uL (4.8-10.8)
[2023-11-07 15:22] LABS: Erythrocyte Sedimentation Rate 10 MM/HR (0-20)
[2023-11-07 15:33] LABS: Alanine Aminotransferase 19 U/L (0-31); Albumin Level 4.7 g/dL (3.5-5.0); Alkaline Phosphatase 74 U/L (39-117); Anion Gap 17 (12-20); Aspartate Amino Transferase 19 U/L (5-31); Bilirubin Total 0.3 mg/dL (0.0-1.0); Blood Urea Nitrogen 16 mg/dL (9-16); C Reactive Protein < 0.10 mg/dL (< or = 0.50); Calcium 10.3 mg/dL (8.4-10.2); Carbon Dioxide 26 mmol/L (22-29); Chloride 103 mmol/L (96-108); Estimated Glomerular Filt Rate > 60; Glucose Random 81 mg/dL (60-115); Potassium 3.9 mmol/L (3.3-5.1); Sodium 142 mmol/L (135-145); Total Protein 7.9 g/dL (6.5-8.0)
[2023-11-08 04:54] LABS: HBc Num1 0.11 S/CO (0.00-0.79); HBsAGNum1 0.27 S/CO (0.00-0.99); Hepatitis A Antibody IgM 0.14 Index (0-0.79); Hepatitis B Core Antibody Nonreactive (Nonreactive); Hepatitis B Surface Antigen Negative (Negative); ~HepC Num1 0.09 S/CO (0.00-0.79); ~Hepatitis A Antibody IgM Nonreactive (Nonreactive); ~Hepatitis B Surface Antibody REACTIVE (Nonreactive); ~Hepatitis C Antibody Nonreactive (Nonreactive)
[2023-11-09 22:37] LABS: TS Negative Control Passed; TS Panel A 2; TS Panel B 0; TS Positive Control Passed; TSpotTB Negative (Negative)
== END 2023-11-07 13:16 | disposition home or self-care (01) ==
LOC: HO.WFDLDS 13:15
PROVIDERS: Visit Provider Student in an Organized Health Care Education/Training Program
DX: M06.00 Rheumatoid arthritis without rheumatoid factor, unspecified site (principal); Z11.7 Encounter for testing for latent tuberculosis infection; Z11.59 Encounter for screening for other viral diseases; Z72.89 Other problems related to lifestyle; Z79.620 Long term (current) use of immunosuppressive biologic
CPT/HCPCS: 36415; 80053; 85025; 85652; 86140; 86481; 86704; 86706; 86709; 86803; 87340

== ENCOUNTER 2023-11-14 08:14 | Outpatient (AMB) | payer OTHER, SELFPAY ==
[2023-11-14 08:19] VITALS: BP 130/80; PULSE 104; O2SAT 98; BMI 29.6
--- NOTE | 2023-11-14 08:19 | MHC.OFFVIS ---
Vital Signs 11/14/23 08:19 Height 4 ft 11 in Weight 146 lb 6.191 oz BMI 29.6 BP 130/80 Blood Pressure Location Lt brachial Position Sitting Pulse 104 H Pulse Source Pulse Oximeter Pulse Oximetry (%) 98 Oxygen Delivery Method Room Air Intake Visit Reasons: RA/lm Intake Note: Patient last seen on 06/26/23 present today for follow up and test results. Allergies No Known Allergies Allergy (Verified 11/14/23 08:20) Medication List - Last Reconciled 11/14/23 by Marquis Sousa MD amlodipine-benazepril 5-10 mg 1 cap PO DAILY brexpiprazole (Rexulti) 1 mg PO DAILY calcium carbonate-vitamin D3 600 mg-5 mcg (200 unit) (Calcium 600 + D(3)) 1 tab PO BID celecoxib 100 mg PO BID cetirizine (Allergy Relief (cetirizine)) 10 mg PO DAILY PRN clonazepam 1 mg PO BID clonidine HCl 0.1 mg PO DAILY PRN clonidine HCl 0.2 mg PO BID cyclobenzaprine 10 mg PO BEDTIME PRN dextroamphetamine-amphetamine 15 mg 1 tab PO BID fluticasone propionate 50 mcg/actuation (Allergy Relief (fluticasone)) 2 sprays intranasal DAILY folic acid 1 mg PO DAILY Humira(CF) Pen (adalimumab) 40 mg (0.4 mL) subcut Q2W 56 days NS hydrochlorothiazide 25 mg PO DAILY lamotrigine 200 mg PO BID levonorgestrel (Mirena) intrauterine methotrexate sodium 12.5 mg (5 x 2.5 mg) PO QWEEK naloxone 4 mg/actuation 0 sprays intranasal omeprazole 20 mg PO DAILY pravastatin 40 mg PO DAILY vortioxetine (Trintellix) 20 mg PO DAILY HPI Comments Details: 48-year-old female with seronegative RA returns for follow-up. Remains on Humira 40 mg every other week and methotrexate 12.5 mg weekly. She states that she feels about the same overall in terms of her arthritis. Continues to have bilateral knee ache and stiffness , worse on the left, as well as left ankle pain with walking. No swelling. States that he was taking tramadol 50 mg daily prescribed by her PCP, she missed her urine drug screen and she was weaned off the tramadol. She has been off since September 23. She had some withdrawal symptoms with increased pain and some restlessness but it is improving Most recent history by Dr. Rodriguez 03/2023: The patient returns today for evaluation of her rheumatoid arthritis and osteoarthritis. She remains on methotrexate 12.5 mg weekly, folic acid 1 mg daily, Humira 40 mg every 2 weeks, and tramadol 100 mg q.6 hours. The tramadol is prescribed by her primary doctor. She takes the tramadol mostly for left ankle and low back pain that is due to osteoarthritis. She remains on Trintellix, Adderall, clonidine, clonazepam, and Rexulti for her anxiety and depression. Anxiety and depression symptoms seem to be stable. At her last visit she had increased pain in the left knee and was having difficulty walking because of hip pain. I injected the knee and send her for physical therapy. She has now seen PT once. The injection helped quite a bit her left knee pain and some of the hip pain as well. She still has pain in the left ankle where she has osteoarthritis. [facility] Medical History Hypertension Osteopenia Seizures Anemia Insomnia Depression with anxiety Hypercholesteremia Spina bifida occulta JRA (juvenile rheumatoid arthritis) Seronegative rheumatoid arthritis Allergic rhinitis intermediate (current) use of immunosuppressive biologic PARKER (obstructive sleep apnea) CTS (carpal tunnel syndrome) Surgical History H/O wisdom tooth extraction History of cholecystectomy Family History Father Myocardial infarct Diabetes Hypertension Kidney disease Dialysis patient Brother Abuse, drug or alcohol Mother Thyroid disease Osteopenia Hypertension Social History Alcohol intake: current Alcohol intake frequency: holidays/special occasions only Patient Tobacco Use Status: Current everyday Tobacco user Cigarettes Per Day: 10 Review of Systems Musc Reports arthralgias, Denies joint swelling and Reports stiffness Physical Exam Vital Signs: Last Vital Signs Pulse 104 H 11/14/23 08:19 BP 130/80 11/14/23 08:19 Pulse Ox 98 11/14/23 08:19 Oxygen Delivery Method Room Air 11/14/23 08:19 BMI result Body Mass Index 29.6 Const General: cooperative, healthy appearing and comfortable Nutritional Appearance: overweight Orientation/consciousness: patient oriented x3 Limitations: no limitations HEENT Head: Yes normocephalic and Yes atraumatic Mouth: moist mucous membranes Resp Effort & Inspection: normal respiratory effort and able to speak in complete sentences Auscultation: clear to auscultation bilaterally Cardio Rate: regular rate Rhythm: regular rhythm Neuro General: patient oriented x3 Extrem Other: No active synovitis both hands, wrists, elbows and shoulders Bilateral limited flexion of both knees , pain with full flexion-extension, slightly worse on the left Limited range of motion of left foot. Assessment & Plan Assessment & Plan (1) Seronegative rheumatoid arthritis: Comment: Juvenile onset: Flare at age 3, age 9. RF negative. Pauciarticular involvement. RF/CCP and LEOPOLDO negative More persistent pains at age 21(1995). On methotrexate, sulfasalazine, hydroxychloroquine, sulfasalazine, Enbrel in the past: ? Responses to treatment. Methotrexate started 03/28 04/30 Humira added effective 03/04: methotrexate held for LFT elevations; restarted at a lower dose 06/05 Code(s): M06.00 - Rheumatoid arthritis without rheumatoid factor, unspecified site Category: Medical Plan: This is a 48-year-old female with seronegative RA who returns for follow-up. On Humira 40 mg every other week and methotrexate 12.5 mg weekly. Patient is doing about the same overall. There is no active synovitis on exam. She has bilateral knee pain and left ankle pain likely related to old damage from her inflammatory arthritis. At this point her pain is likely due to osteoarthritis. 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 Side effects of Humira were discussed with the patient in detail including increased risk of infection, demyelinating disease, reactivation of latent TB, possible increased risk of solid and skin tumors. Patient fully aware. Advised patient to seek medical care [facility] if patient has an infection and advised patient to stop the medication until the infection is resolved. (3) Osteoarthritis of knees, bilateral: Code(s): M17.0 - Bilateral primary osteoarthritis of knee Category: Medical Qualifiers: Osteoarthritis type: other secondary Qualified Code(s): M17.4 - Other bilateral secondary osteoarthritis of knee Plan: Left knee seems to be more symptomatic than the right. Left knee was last injected by Dr. Rodriguez 12/2022 with improvement. Advised patient to monitor her symptoms, if the knee pain becomes progressively worse, she can call the office and we can schedule her for an injection Plan I spent 28 minutes reviewing patient's chart, evaluating patient, ordering diagnostic workup, counseling patient and documenting in the chart Orders: Orders Comprehensive Met. Panel 4 Months M06.00 - Rheumatoid arthritis without rheumatoid factor, unspecified site, Z79.620 - intermediate (current) use of immunosuppressive biologic C Reactive Protein 4 Months M06.00 - Rheumatoid arthritis without rheumatoid factor, unspecified site, Z79.620 - intermediate (current) use of immunosuppressive biologic Complete Blood Count Auto Diff 4 Months M06.00 - Rheumatoid arthritis without rheumatoid factor, unspecified site, Z79.620 - intermediate (current) use of immunosuppressive biologic Erythrocyte Sedimentation Rate 4 Months M06.00 - Rheumatoid arthritis without rheumatoid factor, unspecified site, Z79.620 - intermediate (current) use of immunosuppressive biologic Medications: Refilled Humira(CF) Pen (adalimumab) 40 mg (0.4 mL) subcut Q2W 56 days 2 ea 3RF NS M06.00 - Rheumatoid arthritis without rheumatoid factor, unspecified site methotrexate sodium 12.5 mg (5 x 2.5 mg) PO QWEEK 80 tabs 0RF M06.00 - Rheumatoid arthritis without rheumatoid factor, unspecified site Coding Level of Care Code Est Pt Level 4 (01712) Diagnoses Seronegative rheumatoid arthritis M06.00 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
== END 2023-11-14 08:41 | disposition home or self-care (01) ==
PROVIDERS: PCP Internal Medicine; Visit Provider Student in an Organized Health Care Education/Training Program
DX: M06.00 Rheumatoid arthritis without rheumatoid factor, unspecified site (principal); Z79.620 Long term (current) use of immunosuppressive biologic; M17.4 Other bilateral secondary osteoarthritis of knee
CPT/HCPCS: 99214

== ENCOUNTER → 2023-11-14 08:14 | Outpatient (BNVA) | payer OTHER, SELFPAY | PROVIDERS: PCP Internal Medicine; Visit Provider Student in an Organized Health Care Education/Training Program | DX: M06.00 Rheumatoid arthritis without rheumatoid factor, unspecified site (principal); M17.4 Other bilateral secondary osteoarthritis of knee; Z79.620 Long term (current) use of immunosuppressive biologic; Z79.631 Long term (current) use of antimetabolite agent | CPT/HCPCS: 99212 ==

== ENCOUNTER 2024-01-24 09:57 | Outpatient (AMB) | payer OTHER, SELFPAY ==
--- NOTE | 2024-01-24 10:15 | A.OFFVIS_ITS ---
Vital Signs 01/24/24 10:23 Height 4 ft 11 in Weight 141 lb 4 oz BMI 28.5 BP 191/97 H Blood Pressure Location Rt brachial Position Sitting Pulse 87 Pulse Source Pulse Oximeter Pulse Oximetry (%) 97 Oxygen Delivery Method Room Air Intake Visit Reasons: Chronic Pain/Juvenile Arthritis Intake Note: Pain today 11/23 Legal Cashier Required: No Accompanied by: Self / Same As Patient Allergies No Known Allergies Allergy (Verified 01/24/24 10:23) HPI HPI Chronic Pain/Juvenile Arthritis: Details: Patient is a pleasanst 48 years old female with history of chronic pain syndrome due to juvenile rheumatoid arthritis, seronegative rheumatoid arthritis, osteoarthritis of bilateral knee and left subtalar DJD due to RA, has custom AFO, fatigue, osteopenia, anxiety, depression, seizures x2 (2000 and 2007 stopped lorazepam), presents today for initial evaluation for chronic pain syndrome in multipe joints, including elbows, hands, hips, knees and feet. She reports pending evaluation by Orthopedics for potential left ankle fusion. 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 Today we are focusing on bilateral knee pain which significantly affects her daily activities, functioning, mobility, sleep and social interactions. She completed physical therapy at [facility] 9 months with improved function but no pain relief. Pain is constant which she rates at 8-9/10. Bilateral knee pain is localized to anterior aspects both knees with tenderness and occasional swelling per patient. No significant swelling or effusion today. Denies any fever or chills, back pain, instability, knee locking or buckling, bladder or bowel dysfunction or saddle anesthesia. Location: bilateral hands, knees, feet and hips Duration: Chronic pain for years, worsening since September when titrated off Tramadol Characteristics of symptom or complaint: Aching, stabbing, throbbing, shooting, sharp, burning, tingling, tight Aggravating or associated factors: Movements, climbing stairs, bending, standing, walking, cold weather Relieving factors: nothing was on tramadol 100 mg QID since 1996, NSAIDs Treatment: PT, chiropractic manipulation, TENS unit, cortisone injections- multiple [facility] Medical History Hypertension Osteopenia Seizures Anemia Insomnia Depression with anxiety Hypercholesteremia Spina bifida occulta JRA (juvenile rheumatoid arthritis) Seronegative rheumatoid arthritis Allergic rhinitis [facility] (current) use of immunosuppressive biologic PARKER (obstructive sleep apnea) CTS (carpal tunnel syndrome) Surgical History H/O wisdom tooth extraction History of cholecystectomy Family History Father Myocardial infarct Diabetes Hypertension Kidney disease Dialysis patient Brother Abuse, drug or alcohol Mother Thyroid disease Osteopenia Hypertension Social History Alcohol intake: current Alcohol intake frequency: holidays/special occasions only Patient Tobacco Use Status: Current everyday Tobacco user Cigarettes Per Day: 10 Review of Systems Const All systems reviewed & are unremarkable except as noted in HPI and below Physical Exam Vital Signs: Last Vital Signs Pulse 87 01/24/24 10:23 BP 191/97 H 01/24/24 10:23 Pulse Ox 97 01/24/24 10:23 Oxygen Delivery Method Room Air 01/24/24 10:23 BMI result Body Mass Index 28.5 General: Appears afebrile. Alert and oriented. Mood and affect appropriate. Follows and participates in conversation appropriately. Respiratory effort is unlabored. No cough. Able to transition from sit to stand unassisted. Ambulates with bilaterally normal heel strike and toe off. Extrem Right lower extremity: knee (Limited ROM due to pain) Details: normal to inspection, tenderness Location: of the patella, of the medial joint line and of the lateral joint line and crepitus; no swelling, no ecchymosis, no deformity and no unusual warmth Left lower extremity: knee (Limited ROM due to pain) Details: normal to inspection, tenderness Location: of the patella, of the medial joint line and of the lateral joint line and crepitus; no swelling, no ecchymosis and no unusual warmth Results Reviewed Results Reviewed: XR knee Bilateral 3V 03/27/23 CLINICAL HISTORY: Rheumatoid arthritis. COMPARISON: No similar priors. TECHNIQUE: 3 views of each knee. FINDINGS: No acute fracture or subluxation. Moderate bilateral tricompartmental osteoarthritis with joint space narrowing, subcortical sclerosis and small marginal osteophytes more noticeable in the medial and patellofemoral compartments of both knees. Trace chondrocalcinosis in the right knee. No osseous erosions. No significant joint effusion. IMPRESSION: 1. No acute fracture or subluxation. 2. Moderate bilateral tricompartmental osteoarthritis. 3. Trace chondrocalcinosis in the right knee. Assessment & Plan Assessment & Plan (1) Osteoarthritis of knees, bilateral: Code(s): M17.0 - Bilateral primary osteoarthritis of knee Category: Medical Qualifiers: Osteoarthritis type: other secondary Qualified Code(s): M17.4 - Other bilateral secondary osteoarthritis of knee (2) Bilateral knee pain: Code(s): M25.561 - Pain in right knee; M25.562 - Pain in left knee Category: Medical (3) Osteoarthritis of foot, left: Comment: OA at left ankle and foot due to RA Code(s): M19.072 - Primary osteoarthritis, left ankle and foot Category: Medical (4) Seronegative rheumatoid arthritis: Comment: Juvenile onset: Flare at age 3, age 9. RF negative. Pauciarticular involvement. RF/CCP and LEOPOLDO negative More persistent pains at age 21(1995). On methotrexate, sulfasalazine, hydroxychloroquine, sulfasalazine, Enbrel in the past: ? Responses to treatment. Methotrexate started 03/28 04/30 Humira added effective 03/04: methotrexate held for LFT elevations; restarted at a lower dose 06/05 Code(s): M06.00 - Rheumatoid arthritis without rheumatoid factor, unspecified site Category: Medical Plan Discussed interventional treatments for bilateral knee pain, including diagnostic vs therapeutic injections (cortisone vs gel), neuromodulation with PNS trials and genicular RFA procedures. Informational pamphlets provided to patient. Schedule Bilateral Knee Synvisc One intra-articular injections with local and fluoroscopy. If no significant pain relief, will proceed with diagnostic genicular nerve blocks for potential genicular RFA procedure. Expectations, risks and benefits were reviewed. Patient is aware she will be contacted to schedule this procedure. All questions were answered and the patient is in agreement of plan. Follow-up after injections and sooner as needed. Medications: New lidocaine 5% 2 patches topical DAILY 60 ea 0RF pain 30 days M17.4 - Other bilateral secondary osteoarthritis of knee, M25.561 - Pain in right knee, M25.562 - Pain in left knee Coding Level of Care Code New Pt Level 4 (94458) Complex EM visit Add On G2211 Diagnoses Other secondary osteoarthritis of both knees M17.4 Osteoarthritis type: other secondary Bilateral knee pain M25.561; M25.562 Osteoarthritis of foot, left M19.072 Seronegative rheumatoid arthritis M06.00
[2024-01-24 10:23] VITALS: BP 191/97; PULSE 87; O2SAT 97; BMI 28.5
== END 2024-01-24 11:00 | disposition home or self-care (01) ==
PROVIDERS: PCP Internal Medicine; Visit Provider Nurse Practitioner Family
DX: M17.4 Other bilateral secondary osteoarthritis of knee (principal); M25.561 Pain in right knee; M25.562 Pain in left knee; M19.072 Primary osteoarthritis, left ankle and foot; M06.00 Rheumatoid arthritis without rheumatoid factor, unspecified site
CPT/HCPCS: 99204; G2211

== ENCOUNTER → 2024-01-24 09:57 | Outpatient (BNVA) | payer OTHER, SELFPAY | PROVIDERS: PCP Internal Medicine; Visit Provider Nurse Practitioner Family | DX: M17.4 Other bilateral secondary osteoarthritis of knee (principal); M25.561 Pain in right knee; M25.562 Pain in left knee; G89.29 Other chronic pain; M08.00 Unspecified juvenile rheumatoid arthritis of unspecified site; M06.00 Rheumatoid arthritis without rheumatoid factor, unspecified site; M19.072 Primary osteoarthritis, left ankle and foot | CPT/HCPCS: 99202 ==

== ENCOUNTER 2024-02-21 06:24 | Outpatient (REF) | payer OTHER, SELFPAY | END 2024-02-21 06:25 | disposition home or self-care (01) | LOC: CF 06:24 | PROVIDERS: Visit Provider Internal Medicine | DX: M17.4 Other bilateral secondary osteoarthritis of knee (principal) | CPT/HCPCS: 20611; J7318 ==

== ENCOUNTER 2024-02-21 11:22 | Outpatient (REF) | payer OTHER, SELFPAY ==
[2024-02-21 12:40] LABS: MANUAL DIFF FLAG NO
[2024-02-21 12:52] LABS: Basophils Absolute Auto 0.1 X10*3/uL (0.0-0.2); Basophils Percent Auto 1.5 % (0-2); Eosinophils Absolute Auto 0.4 X10*3/uL (0.0-0.4); Eosinophils Percent Auto 4.9 % (0-4); Hematocrit 41.4 % (37.0-47.0); Hemoglobin 14.2 g/dl (12.0-16.0); Imm Gran Abs Auto 0.02 X10*3/uL (0.00-0.03); Imm Gran Pct Auto 0.3 % (0.0-0.4); Lymphocytes Absolute Auto 2.3 X10*3/uL (1.2-4.9); Lymphocytes Percent Auto 28.7 % (20-40); Mean Corpuscular HGB Conc 34.3 g/dl (31.0-35.0); Mean Corpuscular Hemoglobin 31.2 pg (27.0-33.0); Monocytes Absolute Auto 0.9 X10*3/uL (0.1-1.2); Monocytes Percent Auto 11.4 % (2-11); Neutrophils Absolute Auto 4.3 x10*3/uL (2.0-8.3); Neutrophils Percent Auto 53.2 % (45-73); Platelet Count 332 X10*3/uL (160-400); Red Blood Count 4.55 X10*6/uL (4.20-5.50); Red Cell Distribution Width 12.9 % (11.0-16.0)
[2024-02-21 13:28] LABS: Alanine Aminotransferase 16 U/L (0-31); Albumin Level 4.3 g/dL (3.5-5.0); Alkaline Phosphatase 75 U/L (39-117); Anion Gap 16 (12-20); Aspartate Amino Transferase 24 U/L (5-31); Bilirubin Total 0.5 mg/dL (0.0-1.0); Blood Urea Nitrogen 9 mg/dL (9-16); C Reactive Protein 0.23 mg/dL (< or = 0.50); Calcium 9.4 mg/dL (8.4-10.2); Carbon Dioxide 22 mmol/L (22-29); Chloride 107 mmol/L (96-108); Estimated Glomerular Filt Rate > 60; Glucose Random 101 mg/dL (60-115); Potassium 3.6 mmol/L (3.3-5.1); Sodium 141 mmol/L (135-145); Total Protein 7.5 g/dL (6.5-8.0)
[2024-02-21 13:33] LABS: Erythrocyte Sedimentation Rate 16 MM/HR (0-20)
== END 2024-02-21 11:23 | disposition home or self-care (01) ==
LOC: HO.LAB 11:22
PROVIDERS: PCP Internal Medicine; Visit Provider Student in an Organized Health Care Education/Training Program
DX: M06.00 Rheumatoid arthritis without rheumatoid factor, unspecified site (principal); Z79.620 Long term (current) use of immunosuppressive biologic
CPT/HCPCS: 36415; 80053; 85025; 85652; 86140

== ENCOUNTER 2024-02-21 11:44 | Outpatient (AMB) | payer OTHER, SELFPAY ==
[2024-02-21 11:49] VITALS: BP 147/87; PULSE 104; O2SAT 100
--- NOTE | 2024-02-21 11:49 | MHC.OFFVIS ---
Vital Signs 02/21/24 11:49 02/21/24 12:15 BP 147/87 H 158/87 H Blood Pressure Location Lt brachial Lt brachial Position Sitting Sitting Pulse 104 H 96 Pulse Source Pulse Oximeter Pulse Oximeter Pulse Oximetry (%) 100 98 Oxygen Delivery Method Room Air Room Air Intake Visit Reasons: Left knee Durolane Allergies No Known Allergies Allergy (Verified 01/24/24 10:23) HPI HPI Left knee Durolane: Details: Patient presents for scheduled procedure. Denies any recent cough, cold, infection, fever or other significant changes in medical history since last office visit. 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 PARKER (obstructive sleep apnea) CTS (carpal tunnel syndrome) Surgical History H/O wisdom tooth extraction History of cholecystectomy Family History Father Myocardial infarct Diabetes Hypertension Kidney disease Dialysis patient Brother Abuse, drug or alcohol Mother Thyroid disease Osteopenia Hypertension Social History Alcohol intake: current Alcohol intake frequency: holidays/special occasions only Patient Tobacco Use Status: Current everyday Tobacco user Cigarettes Per Day: 10 Physical Exam Vital Signs: Last Vital Signs Pulse 96 02/21/24 12:15 BP 158/87 H 02/21/24 12:15 Pulse Ox 98 02/21/24 12:15 Oxygen Delivery Method Room Air 02/21/24 12:15 Office Procedures AMB Joint Injection/Aspiration Joint Injection/Aspiration Primary Site: left knee Prep: site was prepped using sterile technique Injected: with 3 mL of (Durolane) and in the joint Approach Used: other (US guided supra-patellar) Procedure: The patient tolerated the procedure well Coding 80085 - Large joint Additional procedure code (CPT) needed Office Meds Durolane 60 mg/3 mL intra-articular syringe Performing Provider: Case Choi MD Performing Location: [facility] Administered by: Case Choi MD on 02/21/24 13:14 Dose Route Admin Location Dispensed Lot Number Expiration Date NDC Quarter Inspector 60 mg intra-articular 3 mL [id number] 07/14/26 Assessment & Plan Assessment & Plan (1) Osteoarthritis of knees, bilateral: Code(s): M17.0 - Bilateral primary osteoarthritis of knee Category: Medical Qualifiers: Osteoarthritis type: other secondary Qualified Code(s): M17.4 - Other bilateral secondary osteoarthritis of knee Plan Patient is status post procedure. Patient tolerated procedure well and was discharged home in stable condition with discharge instructions. All questions were answered. We will follow-up via telephone or in clinic to assess response to therapy. A follow-up appointment was made during today's visit. Orders: Orders US guide needle placement Today Brigette Marcelo APRN, AUTOMATION TEST DEVELOPER M25.561 - Pain in right knee, M25.562 - Pain in left knee AMB Joint Injection/Aspiration Today Case Choi MD M17.4 - Other bilateral secondary osteoarthritis of knee Coding Level of Care Code Procedure Only Diagnoses Other secondary osteoarthritis of both knees M17.4 Osteoarthritis type: other secondary CPT Codes Coding - 48849 Large joint: 05566 - Large joint ([id number])
[2024-02-21 12:15] VITALS: BP 158/87; PULSE 96; O2SAT 98
== END 2024-02-21 12:38 | disposition home or self-care (01) ==
LOC: HO.PMCPRC 11:44
PROVIDERS: PCP Internal Medicine; Visit Provider Internal Medicine
DX: M25.562 Pain in left knee (principal); M17.0 Bilateral primary osteoarthritis of knee
CPT/HCPCS: 20611

== ENCOUNTER 2024-02-22 08:16 | Outpatient (AMB) | payer OTHER, SELFPAY ==
--- NOTE | 2024-02-22 08:22 | A.OFFVIS_ITS ---
Vital Signs 02/22/24 08:25 Height 4 ft 11 in Weight 139 lb 1.787 oz BMI 28.1 BP 122/80 Blood Pressure Location Lt brachial Position Sitting Pulse 101 H Pulse Source Pulse Oximeter Pulse Oximetry (%) 98 Oxygen Delivery Method Room Air Intake Visit Reasons: RA/cm Intake Note: Patient presents for RA. Allergies No Known Allergies Allergy (Verified 02/22/24 08:24) Medication List - Last Reconciled 02/22/24 by Marquis Sousa MD amlodipine-benazepril 5-10 mg 1 cap PO DAILY brexpiprazole (Rexulti) 2 mg PO DAILY calcium carbonate-vitamin D3 600 mg-5 mcg (200 unit) (Calcium 600 + D(3)) 1 tab PO BID celecoxib 100 mg PO BID cetirizine (Allergy Relief (cetirizine)) 10 mg PO DAILY PRN clonazepam 1 mg PO BID clonidine HCl 0.1 mg PO DAILY PRN clonidine HCl 0.2 mg PO BID cyclobenzaprine 10 mg PO BEDTIME PRN dextroamphetamine-amphetamine 15 mg 1 tab PO BID fluticasone propionate 50 mcg/actuation (Allergy Relief (fluticasone)) 2 sprays intranasal DAILY folic acid 1 mg PO DAILY Humira(CF) Pen (adalimumab) 40 mg (0.4 mL) subcut Q2W 56 days NS hydrochlorothiazide 25 mg PO DAILY lamotrigine 200 mg PO BID levonorgestrel (Mirena) intrauterine lidocaine 5% 2 patches topical DAILY 30 days methotrexate sodium 12.5 mg (5 x 2.5 mg) PO QWEEK naloxone 4 mg/actuation 0 sprays intranasal omeprazole 20 mg PO DAILY pravastatin 40 mg PO DAILY vortioxetine (Trintellix) 20 mg PO DAILY HPI Comments Details: 48-year-old female with seronegative RA returns for follow-up. Remains on Humira 40 mg every other week and methotrexate 12.5 mg weekly. She states that her arthritis has been worse in the last few months. Affecting both her knees worse on the left as well as her left ankle. He denies any joint swelling. She was evaluated by pain management and had a Durolane injection in her left knee yesterday. She is scheduled to do the right knee next week. Most recent history by Dr. Rodriguez 03/2023: The patient returns today for evaluation of her rheumatoid arthritis and osteoarthritis. She remains on methotrexate 12.5 mg weekly, folic acid 1 mg daily, Humira 40 mg every 2 weeks, and tramadol 100 mg q.6 hours. The tramadol is prescribed by her primary doctor. She takes the tramadol mostly for left ankle and low back pain that is due to osteoarthritis. She remains on Trintellix, Adderall, clonidine, clonazepam, and Rexulti for her anxiety and depression. Anxiety and depression symptoms seem to be stable. At her last visit she had increased pain in the left knee and was having difficulty walking because of hip pain. I injected the knee and send her for physical therapy. She has now seen PT once. The injection helped quite a bit her left knee pain and some of the hip pain as well. She still has pain in the left ankle where she has osteoarthritis. 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 PARKER (obstructive sleep apnea) CTS (carpal tunnel syndrome) Surgical History H/O wisdom tooth extraction History of cholecystectomy Family History Father Myocardial infarct Diabetes Hypertension Kidney disease Dialysis patient Brother Abuse, drug or alcohol Mother Thyroid disease Osteopenia Hypertension Social History Alcohol intake: current Alcohol intake frequency: holidays/special occasions only Patient Tobacco Use Status: Current everyday Tobacco user Cigarettes Per Day: 10 Review of Systems [facility] [place] arthralgias, Denies joint swelling and Reports stiffness Physical Exam Vital Signs: Last Vital Signs Pulse 101 H 02/22/24 08:25 BP 122/80 02/22/24 08:25 Pulse Ox 98 02/22/24 08:25 Oxygen Delivery Method Room Air 02/22/24 08:25 BMI result Body Mass Index 28.1 Const General: cooperative, healthy appearing and comfortable Nutritional Appearance: overweight Orientation/consciousness: patient oriented x3 Limitations: no limitations HEENT Head: Yes normocephalic and Yes atraumatic Mouth: moist mucous membranes Resp Effort & Inspection: normal respiratory effort and able to speak in complete sentences Auscultation: clear to auscultation bilaterally Cardio Rate: regular rate Rhythm: regular rhythm Neuro General: patient oriented x3 Extrem Other: No active synovitis both hands, wrists, elbows and shoulders Bilateral limited flexion of both knees , pain with full flexion-extension, slightly worse on the left Limited range of motion of left ankle Assessment & Plan Assessment & Plan (1) Seronegative rheumatoid arthritis: Comment: Juvenile onset: Flare at age 3, age 9. RF negative. Pauciarticular involvement. RF/CCP and LEOPOLDO negative More persistent pains at age 21(1995). On methotrexate, sulfasalazine, hydroxychloroquine, sulfasalazine, Enbrel in the past: ? Responses to treatment. Methotrexate started 03/28 04/30 Humira added effective 03/04: methotrexate held for LFT elevations; restarted at a lower dose 06/05 Code(s): M06.00 - Rheumatoid arthritis without rheumatoid factor, unspecified site Category: Medical Plan: This is a 48-year-old female with seronegative RA who returns for follow-up. On Humira 40 mg every other week and methotrexate 12.5 mg weekly. Patient is doing about the same overall. There is no active synovitis on exam. Inflammatory markers are normal She has bilateral knee pain and left ankle pain likely related to old damage from her inflammatory arthritis. At this point her pain is likely due to osteoarthritis. 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 Side effects of Humira were discussed with the patient in detail including increased risk of infection, demyelinating disease, reactivation of latent TB, possible increased risk of solid and skin tumors. Patient fully aware. Advised patient to seek medical care [facility] if patient has an infection and advised patient to stop the medication until the infection is resolved. (3) Osteoarthritis of knees, bilateral: Code(s): M17.0 - Bilateral primary osteoarthritis of knee Category: Medical Qualifiers: Osteoarthritis type: other secondary Qualified Code(s): M17.4 - Other bilateral secondary osteoarthritis of knee Plan: Recently evaluated by pain management and had a Durolane injection yesterday by Pain Management and scheduled to do the right knee next week. Plan I spent 28 minutes reviewing patient's chart, evaluating patient, ordering diagnostic workup, counseling patient and documenting in the chart Orders: Orders Complete Blood Count Auto Diff 4 Months M06.00 - Rheumatoid arthritis without rheumatoid factor, unspecified site Comprehensive Met. 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
[2024-02-22 08:25] VITALS: BP 122/80; PULSE 101; O2SAT 98; BMI 28.1
== END 2024-02-22 08:47 | disposition home or self-care (01) ==
LOC: HO.RHE 08:16
PROVIDERS: PCP Internal Medicine; Visit Provider Student in an Organized Health Care Education/Training Program
DX: M06.00 Rheumatoid arthritis without rheumatoid factor, unspecified site (principal); Z79.620 Long term (current) use of immunosuppressive biologic; M17.4 Other bilateral secondary osteoarthritis of knee
CPT/HCPCS: 99214; G2211

== ENCOUNTER → 2024-02-22 08:16 | Outpatient (BNVA) | payer OTHER, SELFPAY | PROVIDERS: PCP Internal Medicine; Visit Provider Student in an Organized Health Care Education/Training Program | DX: M06.00 Rheumatoid arthritis without rheumatoid factor, unspecified site (principal); M17.4 Other bilateral secondary osteoarthritis of knee; Z79.620 Long term (current) use of immunosuppressive biologic | CPT/HCPCS: 99212 ==

== ENCOUNTER 2024-02-29 10:51 | Outpatient (AMB) | payer OTHER, SELFPAY ==
--- NOTE | 2024-02-29 10:53 | MHC.OFFVIS ---
Vital Signs 02/29/24 10:57 02/29/24 10:57 02/29/24 11:40 Height 4 ft 11 in Weight 131 lb BMI 26.5 BP 189/129 H 188/125 H 186/124 H Blood Pressure Location Lt brachial Rt brachial Rt radial Position Sitting Sitting Sitting Respiration 20 Pulse 143 H 148 H 124 H Pulse Source Pulse Oximeter Pulse Oximeter Palpation Pulse Oximetry (%) 97 97 Oxygen Delivery Method Room Air Room Air Comment bp recheck Intake Visit Reasons: pain s/p Synvisc inj Intake Note: Pain today 11/23 Fruit Cutter Required: No Accompanied by: Family/Other Allergies No Known Allergies Allergy (Verified 02/29/24 10:58) HPI Comments Details: Patient presents today to assess response to left knee Durolane injection on 02/22/[address] Choi. Patient reports she developed diarrhea, nausea and vomiting, decreased appetite, generalized weakness, headache and burning pain in right knee since injection. Denies redness, itching, swelling, or warmth since injection. She cancelled her right knee Durolane injection this week. Right knee is without swelling, erythema or swelling. Patient might had systemic reaction to Durolane injection. Reports mild improvement in her right knee pain, we will consider left knee Durolane in the future. Patient also presents with significantly elevated BP and heart rate without chest pain, nausea, headache, shortness of breaths, chest pressure or tightness, chills or fever, or cough. She reports taking amlodipine-benazepril and HCTZ this morning around 0800. She is advised to go to ER, patient reports she will go to [facility]. Patient attributes elevated BP due to constant and chronic daily pain. She has been taking tramadol for over 20 years and unfortunately has been titrated off tramadol by PCP due to missing her visit for transportations issues. On evaluation, it was determined that there was a continued need to continue palliative chronic opioid prescribing. PHQ-9 SCORE: 10 OPIOID RISK STRATIFICATION SURVEY SCORE: 21 Given this, patient is deemed to be a MODERATE RISK for chronic opioid addiction. 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 The patient understands that the medication she is requesting is an opioid, which carries risks of dependence, tolerance, hyperalgesia, addiction, respiratory failure and possibly . Patient verbalized understanding of this and accepted these risks on her own volition. The patient accepts the responsibility to adhere to the opioid medication use agreement. There is no evidence of misuse, abuse or diversion at this time. Patient is aware she will be required to attend monthly pill counts and if there are any discrepancies, because of her risk of addiction she will be suspended for ONE YEAR. 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 She reports pending evaluation by Orthopedics for potential left ankle fusion. 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 Today we are focusing on bilateral knee pain which significantly affects her daily activities, functioning, mobility, sleep and social interactions. She completed physical therapy at [facility] 9 months with improved function but no pain relief. Pain is constant which she rates at 8-9/10. Bilateral knee pain is localized to anterior aspects both knees with tenderness and occasional swelling per patient. No significant swelling or effusion today. Denies any fever or chills, back pain, instability, knee locking or buckling, bladder or bowel dysfunction or saddle anesthesia. Location: bilateral hands, knees, feet and hips Duration: Chronic pain for years, worsening since September when titrated off Tramadol Characteristics of symptom or complaint: Aching, stabbing, throbbing, shooting, sharp, burning, tingling, tight Aggravating or associated factors: Movements, climbing stairs, bending, standing, walking, cold weather Relieving factors: nothing was on tramadol 100 mg QID since 1996, NSAIDs Treatment: PT, chiropractic manipulation, TENS unit, cortisone injections-multiple [facility] Medical History Hypertension Osteopenia Seizures Anemia Insomnia Depression with anxiety Hypercholesteremia Spina bifida occulta JRA (juvenile rheumatoid arthritis) Seronegative rheumatoid arthritis Allergic rhinitis 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 PARKER (obstructive sleep apnea) CTS (carpal tunnel syndrome) Surgical History H/O wisdom tooth extraction History of cholecystectomy Family History Father Myocardial infarct Diabetes Hypertension Kidney disease Dialysis patient Brother Abuse, drug or alcohol Mother Thyroid disease Osteopenia Hypertension Social History Alcohol intake: current Alcohol intake frequency: holidays/special occasions only Patient Tobacco Use Status: Current everyday Tobacco user Cigarettes Per Day: 10 Review of Systems Const All systems reviewed & are unremarkable except as noted in HPI and below Physical Exam Vital Signs: Last Vital Signs Pulse 148 H 02/29/24 10:57 BP 188/125 H 02/29/24 10:57 Pulse Ox 97 02/29/24 10:57 Oxygen Delivery Method Room Air 02/29/24 10:57 BMI result Body Mass Index 26.5 General: Appears afebrile. Anxious. Alert and oriented. Mood and affect appropriate. Follows and participates in conversation appropriately. Respiratory effort is unlabored. No cough. Able to transition from sit to stand unassisted. Ambulates with bilaterally normal heel strike and toe off. Resp Effort & Inspection: normal respiratory effort, able to speak in complete sentences, no cough, no respiratory distress and symmetric chest movement Cardio Jugular venous distension: no JVD Rate: regular rate and tachycardic Peripheral pulses: Peripheral pulses 2+ throughout Extrem General: Yes capillary refill normal, Yes no clubbing, cyanosis or edema and Yes no calf tenderness Right lower extremity: knee (Limited ROM due to pain) Details: normal to inspection, tenderness Location: of the patella, of the medial joint line and of the lateral joint line and crepitus; no swelling, no ecchymosis, no deformity and no unusual warmth Left lower extremity: knee (Limited ROM due to pain) Details: normal to inspection, tenderness Location: of the patella, of the medial joint line and of the lateral joint line and crepitus; no swelling, no ecchymosis and no unusual warmth Quality Reporting (2019) Depression/Bipolar (159/160/161/177) PHQ-9: Total score: 10 Results Reviewed Results Reviewed: XR knee Bilateral 3V 03/27/23 CLINICAL HISTORY: Rheumatoid arthritis. COMPARISON: No similar priors. TECHNIQUE: 3 views of each knee. FINDINGS: No acute fracture or subluxation. Moderate bilateral tricompartmental osteoarthritis with joint space narrowing, subcortical sclerosis and small marginal osteophytes more noticeable in the medial and patellofemoral compartments of both knees. Trace chondrocalcinosis in the right knee. No osseous erosions. No significant joint effusion. IMPRESSION: 1. No acute fracture or subluxation. 2. Moderate bilateral tricompartmental osteoarthritis. 3. Trace chondrocalcinosis in the right knee. Assessment & Plan Assessment & Plan (1) Osteoarthritis of knees, bilateral: Code(s): M17.0 - Bilateral primary osteoarthritis of knee Category: Medical Qualifiers: Osteoarthritis type: other secondary Qualified Code(s): M17.4 - Other bilateral secondary osteoarthritis of knee (2) Bilateral knee pain: Code(s): M25.561 - Pain in right knee; M25.562 - Pain in left knee Category: Medical (3) Osteoarthritis of foot, left: Comment: OA at left ankle and foot due to RA Code(s): M19.072 - Primary osteoarthritis, left ankle and foot Category: Medical (4) Seronegative rheumatoid arthritis: Comment: Juvenile onset: Flare at age 3, age 9. RF negative. Pauciarticular involvement. RF/CCP and LEOPOLDO negative More persistent pains at age 21(1995). On methotrexate, sulfasalazine, hydroxychloroquine, sulfasalazine, Enbrel in the past: ? Responses to treatment. Methotrexate started 03/28 04/30 Humira added effective 03/04: methotrexate held for LFT elevations; restarted at a lower dose 06/05 Code(s): M06.00 - Rheumatoid arthritis without rheumatoid factor, unspecified site Category: Medical (5) Hypertension: Code(s): I10 - Essential (primary) hypertension Category: Medical Plan Patient is status post left knee Durolane last week with no pain relief and worsening of her left knee pain. She declined gel injection on the right knee this week and will continue to monitor her symptoms. Right knee is without swelling, erythema or swelling. Patient might had systemic reaction to Durolane injection. Reports mild improvement in her right knee pain, will consider left knee Durolane in the future. On evaluation, it was determined that there was a continued need to continue palliative chronic opioid prescribing. Risks and benefits were discussed with the patient. She believes she was more functional and less symptomatic on tramadol 50 mg BID prn which she was receiving for over 20 years. MassPAT was reviewed and is consistent with her history. Opiod risk-moderate. Will obtain UDS today. Patient is advised to go to ER to further evaluate elevated BP and HR. Patient declined [facility] [place] [facility] and prefers [facility] as this is closer to her home. Reports taking her regular BP medications around 0800 this morning. All questions were answered and the patient is in agreement of plan. Follow-up after injections and sooner as needed. Medications: New tramadol 50 mg PO BID 15 days PRN 30 tabs 0RF pain M06.00 - Rheumatoid arthritis without rheumatoid factor, unspecified site, M25.561 - Pain in right knee, M25.562 - Pain in left knee Coding Level of Care Code Est Pt Level 4 (81660) Complex EM visit Add On G2211 Diagnoses Other secondary osteoarthritis of both knees M17.4 Osteoarthritis type: other secondary Bilateral knee pain M25.561; M25.562 Osteoarthritis of foot, left M19.072 Seronegative rheumatoid arthritis M06.00 Hypertension I10 Additional Codes PHQ-9 - 94837 - PHQ-9 Billing: Yes ([id number]) PHQ-9 Over the last 2 weeks, how often have you been bothered by any of the following problems? 1. Little interest or pleasure in doing things: more than half the days 2. Feeling down, depressed, or hopeless: several days 3. Trouble falling or staying asleep, or sleeping too much: several days 4. Feeling tired or having little energy: more than half the days 5. Poor appetite or overeating: several days 6. Feeling bad about yourself - or that you are a failure or have let yourself or your family down: several days 7. Trouble concentrating on things, such as reading the newspaper or watching television: several days 8. Moving or speaking so slowly that other people could have noticed. Or the opposite - being so fidgety or restless that you have been moving around a lot more than usual: several days 9. Thoughts that you would be better off or of hurting yourself in some way: not at all Total score: 10 Depression Screening Interpretation: Positive Depression Screening Follow-up: Existing condition and In treatment Depression Screening Done: Yes 55768 - PHQ-9 Billing: Yes Source: Developed by Drs. Tre Michelle, Grazyna Gaston, Teo Good and colleagues, with an educational erasto from [employer]
[2024-02-29 10:57] VITALS: BP 188/125; BP 189/129; PULSE 143; PULSE 148; O2SAT 97; BMI 26.5
[2024-02-29 11:40] VITALS: BP 186/124; PULSE 124; RESP 20; O2SAT 97
== END 2024-02-29 11:45 | disposition home or self-care (01) ==
PROVIDERS: PCP Internal Medicine; Visit Provider Nurse Practitioner Family
DX: M17.4 Other bilateral secondary osteoarthritis of knee (principal); M25.561 Pain in right knee; M25.562 Pain in left knee; M19.072 Primary osteoarthritis, left ankle and foot; M06.00 Rheumatoid arthritis without rheumatoid factor, unspecified site; I10 Essential (primary) hypertension
CPT/HCPCS: 99214; G2211

== ENCOUNTER → 2024-02-29 10:51 | Outpatient (BNVA) | payer OTHER, SELFPAY | PROVIDERS: PCP Internal Medicine; Visit Provider Nurse Practitioner Family | DX: M17.4 Other bilateral secondary osteoarthritis of knee (principal); M25.561 Pain in right knee; M25.562 Pain in left knee; M19.072 Primary osteoarthritis, left ankle and foot; M06.00 Rheumatoid arthritis without rheumatoid factor, unspecified site; I10 Essential (primary) hypertension | CPT/HCPCS: 96127; 99212 ==

== ENCOUNTER 2024-03-10 09:11 | Outpatient (AMB) | payer OTHER, SELFPAY ==
--- NOTE | 2024-03-10 09:18 | MHC.OFFVIS ---
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 Patient was provided short script of tramadol given significant exacerbation of left knee pain s/p Durolane injection. She reports left knee pain has been minimal. She reports being more functional and less symptomatic with tramadol and is able to walk a longer distances without significant pain. Patient denies any changes to medications, medical history or recent hospitalizations. PHQ-9 SCORE: 10 OPIOID RISK STRATIFICATION SURVEY SCORE: 21 Given this, patient is deemed to be a MODERATE RISK for chronic opioid addiction. Educated patient on senior care effects of opioid use including sexual dysfunction, cardiac, renal and immunosuppressive effects. The patient understands that the medication she is requesting is an opioid, which carries risks of dependence, tolerance, hyperalgesia, addiction, respiratory failure and possibly . Patient verbalized understanding of this and accepted these risks on her own volition. The patient accepts the responsibility to adhere to the opioid medication use agreement. There is no evidence of misuse, abuse or diversion at this time. Patient is aware she will be required to attend monthly pill counts and if there are any discrepancies, because of her risk of addiction she will be suspended for ONE YEAR. 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 She reports pending evaluation by Orthopedics for potential left ankle fusion. 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 Today we are focusing on bilateral knee pain which significantly affects her daily activities, functioning, mobility, sleep and social interactions. She completed physical therapy at [facility] 9 months with improved function but no pain relief. Pain is constant which she rates at 8-9/10. Bilateral knee pain is localized to anterior aspects both knees with tenderness and occasional swelling per patient. No significant swelling or effusion today. Denies any fever or chills, back pain, instability, knee locking or buckling, bladder or bowel dysfunction or saddle anesthesia. Location: bilateral hands, knees, feet and hips Duration: Chronic pain for years, worsening since September when titrated off Tramadol Characteristics of symptom or complaint: Aching, stabbing, throbbing, shooting, sharp, burning, tingling, tight Aggravating or associated factors: Movements, climbing stairs, bending, standing, walking, cold weather Relieving factors: nothing was on tramadol 100 mg QID since 1996, NSAIDs Treatment: PT, chiropractic manipulation, TENS unit, cortisone injections-multiple [facility] Medical History Hypertension Osteopenia Seizures Anemia Insomnia Depression with anxiety Hypercholesteremia Spina bifida occulta JRA (juvenile rheumatoid arthritis) Seronegative rheumatoid arthritis 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 PARKER (obstructive sleep apnea) CTS (carpal tunnel syndrome) Surgical History H/O wisdom tooth extraction History of cholecystectomy Family History Father Myocardial infarct Diabetes Hypertension Kidney disease Dialysis patient Brother Abuse, drug or alcohol Mother Thyroid disease Osteopenia Hypertension Social History Alcohol intake: current Alcohol intake frequency: holidays/special occasions only Patient Tobacco Use Status: Current everyday Tobacco user Cigarettes Per Day: 10 Review of Systems Const All systems reviewed & are unremarkable except as noted in HPI and below Physical Exam Vital Signs: Last Vital Signs Pulse 63 03/10/24 09:22 BP 115/60 03/10/24 09:22 Pulse Ox 97 03/10/24 09:22 Oxygen Delivery Method Room Air 03/10/24 09:22 BMI result Body Mass Index 28.5 General: Appears afebrile. Alert and oriented. Mood and affect appropriate. Follows and participates in conversation appropriately. Respiratory effort is unlabored. No cough. No nasal discharge. Able to transition from sit to stand unassisted. Ambulates with bilaterally normal heel strike and toe off. Results Reviewed Results Reviewed: XR knee Bilateral 3V 03/27/23 CLINICAL HISTORY: Rheumatoid arthritis. COMPARISON: No similar priors. TECHNIQUE: 3 views of each knee. FINDINGS: No acute fracture or subluxation. Moderate bilateral tricompartmental osteoarthritis with joint space narrowing, subcortical sclerosis and small marginal osteophytes more noticeable in the medial and patellofemoral compartments of both knees. Trace chondrocalcinosis in the right knee. No osseous erosions. No significant joint effusion. IMPRESSION: 1. No acute fracture or subluxation. 2. Moderate bilateral tricompartmental osteoarthritis. 3. Trace chondrocalcinosis in the right knee. Assessment & Plan Assessment & Plan (1) Opioid contract exists: Code(s): Z79.891 - snf (current) use of opiate analgesic Category: Medical (2) Bilateral knee pain: Code(s): M25.561 - Pain in right knee; M25.562 - Pain in left knee Category: Medical (3) Seronegative rheumatoid arthritis: Comment: Juvenile onset: Flare at age 3, age 9. RF negative. Pauciarticular involvement. RF/CCP and LEOPOLDO negative More persistent pains at age 21(1995). On methotrexate, sulfasalazine, hydroxychloroquine, sulfasalazine, Enbrel in the past: ? Responses to treatment. Methotrexate started 03/28 04/30 Humira added effective 03/04: methotrexate held for LFT elevations; restarted at a lower dose 06/05 Code(s): M06.00 - Rheumatoid arthritis without rheumatoid factor, unspecified site Category: Medical (4) Osteoarthritis of knees, bilateral: Code(s): M17.0 - Bilateral primary osteoarthritis of knee Category: Medical Qualifiers: Osteoarthritis type: other secondary Qualified Code(s): M17.4 - Other bilateral secondary osteoarthritis of knee (5) Osteoarthritis of foot, left: Comment: OA at left ankle and foot due to RA Code(s): M19.072 - Primary osteoarthritis, left ankle and foot Category: Medical Plan Patient reports mild improvement in her left knee pain since Durolane injection 2 weeks ago. She had moderate exacerbation of pain immediately post injection but is doing well and will consider right knee Durolane injection in the future. On evaluation, it was determined that there was a continued need to continue palliative chronic opioid prescribing. Risks and benefits were discussed with the patient. She believes she was more functional and less symptomatic on tramadol 50 mg BID prn which she was receiving for over 20 years. MassPAT was reviewed and is consistent with her history. Opiod risk-moderate. Risks and benefits were discussed with the patient. The patient completed all pain management opioid program screening paperwork and contracts, which were reviewed in detail. Her UDS came back concordant Script provided for tramadol 50 mg BID prn. Side effects and precautions were reviewed with patient. Discussed with the patient the risks associated with benzodiazepine and opioid use. She is aware and verbalized an agreement to take the medications at least two hours apart and she has Narcan at home. All questions were answered and the patient is in agreement of plan. Follow-up after injections and sooner as needed. 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
[2024-03-10 09:22] VITALS: BP 115/60; PULSE 63; O2SAT 97; BMI 28.5
== END 2024-03-10 09:36 | disposition home or self-care (01) ==
PROVIDERS: PCP Internal Medicine; Visit Provider Nurse Practitioner Family
DX: Z79.891 Long term (current) use of opiate analgesic (principal); M25.561 Pain in right knee; M25.562 Pain in left knee; M06.00 Rheumatoid arthritis without rheumatoid factor, unspecified site; M17.4 Other bilateral secondary osteoarthritis of knee; M19.072 Primary osteoarthritis, left ankle and foot
CPT/HCPCS: 99214; G2211

== ENCOUNTER → 2024-03-10 09:11 | Outpatient (BNVA) | payer OTHER, SELFPAY | PROVIDERS: PCP Internal Medicine; Visit Provider Nurse Practitioner Family | DX: G89.4 Chronic pain syndrome (principal); M08.3 Juvenile rheumatoid polyarthritis (seronegative); M17.4 Other bilateral secondary osteoarthritis of knee; M19.072 Primary osteoarthritis, left ankle and foot; M25.561 Pain in right knee; M25.562 Pain in left knee; Z79.891 Long term (current) use of opiate analgesic | CPT/HCPCS: 99212 ==

== ENCOUNTER 2024-03-24 09:54 | Outpatient (AMB) | payer OTHER, SELFPAY ==
--- NOTE | 2024-03-24 09:57 | A.OFFVIS_ITS ---
Vital Signs 03/24/24 10:10 Height 4 ft 11 in Weight 140 lb BMI 28.3 BP 165/103 H Blood Pressure Location Rt brachial Position Standing Pulse 99 Pulse Source Pulse Oximeter Pulse Oximetry (%) 97 Oxygen Delivery Method Room Air Intake Visit Reasons: 2 week pill count Intake Note: Carmenza comes in today for a pill count to Tramadol, patient should have 10 tablets and presents with 7 tablets which she last took today 03/24/24 at 7am. Patient is unfortunately 3 tablets short which is over the daily limit to be short, patient also had 1 green tablet of another medication that was in her prescription bottle at the time of the count which was not counted. She states that she did not take any extra tablets of the Tramadol. 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 Patient is supposed to have #10 pills, in her possession she has #7 pills. Unfortunately, her pill count is over one day short. Patient declined she was taking more than twice daily of tramadol and states current medication regime is adequate. She stated it she must have left her extra tramadol pills at home at pill box and forgot to bring all medication in original container. Patient was apologetic and sad regarding this situation. She reports tramadol 50 mg BID prn allows her to be more functional and less symptomatic. We had a long discussion today about opioid medication contract and will give one pass. Patient is aware to always bring all of her prescribed medication in its original container without any other medication. Denies any constipation, nausea, sedation, dizziness, or urinary retention. Patient also reports significant improvement in left knee ROM and mobility with significant decrease in pain with bending and less tightness around left knee. She is requesting to proceed with Durolane injeciton for right knee. 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 She reports pending evaluation by Orthopedics for potential left ankle fusion. 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 Today we are focusing on bilateral knee pain which significantly affects her daily activities, functioning, mobility, sleep and social interactions. She completed physical therapy at [facility] 9 months with improved function but no pain relief. Pain is constant which she rates at 8-9/10. Bilateral knee pain is localized to anterior aspects both knees with tenderness and occasional swelling per patient. No significant swelling or effusion today. Denies any fever or chills, back pain, instability, knee locking or buckling, bladder or bowel dysfunction or saddle anesthesia. Location: bilateral hands, knees, feet and hips Duration: Chronic pain for years, worsening since September when titrated off Tramadol Characteristics of symptom or complaint: Aching, stabbing, throbbing, shooting, sharp, burning, tingling, tight Aggravating or associated factors: Movements, climbing stairs, bending, standing, walking, cold weather Relieving factors: nothing was on tramadol 100 mg QID since 1996, NSAIDs Treatment: PT, chiropractic manipulation, TENS unit, cortisone injections- multiple [facility] Medical History Hypertension Osteopenia Seizures Anemia Insomnia Depression with anxiety Hypercholesteremia Spina bifida occulta JRA (juvenile rheumatoid arthritis) Seronegative rheumatoid arthritis Allergic rhinitis 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 PARKER (obstructive sleep apnea) CTS (carpal tunnel syndrome) Surgical History H/O wisdom tooth extraction History of cholecystectomy Family History Father Myocardial infarct Diabetes Hypertension Kidney disease Dialysis patient Brother Abuse, drug or alcohol Mother Thyroid disease Osteopenia Hypertension Social History Alcohol intake: current Alcohol intake frequency: holidays/special occasions only Patient Tobacco Use Status: Current everyday Tobacco user Cigarettes Per Day: 10 Review of Systems Const All systems reviewed & are unremarkable except as noted in HPI and below Physical Exam General: Appears afebrile. Alert and oriented. Mood and affect appropriate. Follows and participates in conversation appropriately. Respiratory effort is unlabored. No cough. Able to transition from sit to stand unassisted. Ambulates with bilaterally normal heel strike and toe off. Resp Effort & Inspection: normal respiratory effort, able to speak in complete sentences, no cough, no respiratory distress and symmetric chest movement Extrem General: Yes capillary refill normal, Yes no clubbing, cyanosis or edema and Yes no calf tenderness Right lower extremity: knee (Limited ROM due to pain) Details: normal to inspection, tenderness Location: of the medial joint line and of the lateral joint line and crepitus; no swelling, no ecchymosis and no unusual warmth Left lower extremity: knee (Limited ROM due to pain) Details: normal to inspection, tenderness (mild TTP) Location: of the patella, of the medial joint line and of the lateral joint line and crepitus; no swelling, no ecchymosis and no unusual warmth Results Reviewed Results Reviewed: XR knee Bilateral 3V 03/27/23 CLINICAL HISTORY: Rheumatoid arthritis. COMPARISON: No similar priors. TECHNIQUE: 3 views of each knee. FINDINGS: No acute fracture or subluxation. Moderate bilateral tricompartmental osteoarthritis with joint space narrowing, subcortical sclerosis and small marginal osteophytes more noticeable in the medial and patellofemoral compartments of both knees. Trace chondrocalcinosis in the right knee. No osseous erosions. No significant joint effusion. IMPRESSION: 1. No acute fracture or subluxation. 2. Moderate bilateral tricompartmental osteoarthritis. 3. Trace chondrocalcinosis in the right knee. Assessment & Plan Assessment & Plan (1) Osteoarthritis of knees, bilateral: Code(s): M17.0 - Bilateral primary osteoarthritis of knee Category: Medical Qualifiers: Osteoarthritis type: other secondary Qualified Code(s): M17.4 - Other bilateral secondary osteoarthritis of knee (2) Bilateral knee pain: Code(s): M25.561 - Pain in right knee; M25.562 - Pain in left knee Category: Medical (3) Seronegative rheumatoid arthritis: Comment: Juvenile onset: Flare at age 3, age 9. RF negative. Pauciarticular involvement. RF/CCP and LEOPOLDO negative More persistent pains at age 21(1995). On methotrexate, sulfasalazine, hydroxychloroquine, sulfasalazine, Enbrel in the past: ? Responses to treatment. Methotrexate started 03/28 04/30 Humira added effective 03/04: methotrexate held for LFT elevations; restarted at a lower dose 06/05 Code(s): M06.00 - Rheumatoid arthritis without rheumatoid factor, unspecified site Category: Medical Plan Patient has shown accountability for her medication regimen and the pill count was short 1.5 days today. We had a long discussion today about opioid medication contract and will give one pass. Patient is aware to always bring all of her prescribed medication in its original container without any other medication. There is no evidence of misuse, abuse or diversion at this time. MassPat reviewed. Patient also reports significant improvement in left knee ROM and mobility with significant decrease in pain with bending and less tightness around left knee. She is requesting to proceed with Durolane injeciton for right knee. Schedule Right Knee Durolane intra-articular injections with local and fluoroscopy. Expectations, risks and benefits were reviewed. Patient is aware she will be contacted to schedule this procedure. All questions were answered and the patient is in agreement of plan. Follow-up in 4 weeks for pill count and after injections and sooner as needed. Medications: Changed From tramadol 50 mg PO BID 15 days PRN 30 tabs 0RF pain M06.00 - Rheumatoid arthritis without rheumatoid factor, unspecified site, M25.561 - Pain in right knee, M25.562 - Pain in left knee, Z79.891 - alf (current) use of opiate analgesic To tramadol 50 mg PO BID 30 days PRN 60 tabs 0RF pain M06.00 - Rheumatoid arthritis without rheumatoid factor, unspecified site, M25.561 - Pain in right knee, M25.562 - Pain in left knee, Z79.891 - alf (current) use of opiate analgesic Coding Level of Care Code Est Pt Level 4 (46881) Complex EM visit Add On G2211 Diagnoses Other secondary osteoarthritis of both knees M17.4 Osteoarthritis type: other secondary Bilateral knee pain M25.561; M25.562 Seronegative rheumatoid arthritis M06.00
[2024-03-24 10:10] VITALS: BP 165/103; PULSE 99; O2SAT 97; BMI 28.3
== END 2024-03-24 10:18 | disposition home or self-care (01) ==
PROVIDERS: PCP Internal Medicine; Visit Provider Nurse Practitioner Family
DX: M17.4 Other bilateral secondary osteoarthritis of knee (principal); M25.561 Pain in right knee; M25.562 Pain in left knee; M06.00 Rheumatoid arthritis without rheumatoid factor, unspecified site
CPT/HCPCS: 99214; G2211

== ENCOUNTER → 2024-03-24 09:54 | Outpatient (BNVA) | payer OTHER, SELFPAY | PROVIDERS: PCP Internal Medicine; Visit Provider Nurse Practitioner Family | DX: Z51.81 Encounter for therapeutic drug level monitoring (principal); M17.4 Other bilateral secondary osteoarthritis of knee; M06.00 Rheumatoid arthritis without rheumatoid factor, unspecified site | CPT/HCPCS: 99212 ==

== ENCOUNTER 2024-04-21 09:35 | Outpatient (REF) | payer OTHER, SELFPAY ==
--- NOTE | ~2024-04-21 | XR_ITS ---
CLINICAL HISTORY: M25.551 - Pain in right hip 5 view, pelvis and bilateral hips Comparison: None Findings: No acute fracture or dislocation. No significant arthritic change. The soft tissues are unremarkable. There is an intrauterine device within the pelvis. IMPRESSION: No acute findings. This document has been electronically signed by: Alida Kitchen MD on 04/22/2024 14:36:54
== END 2024-04-21 09:36 | disposition home or self-care (01) ==
LOC: HO.XRAY 09:35
PROVIDERS: PCP Internal Medicine; Visit Provider Nurse Practitioner Family
DX: M25.551 Pain in right hip (principal); M25.552 Pain in left hip; M25.561 Pain in right knee; M25.562 Pain in left knee; Z79.891 Long term (current) use of opiate analgesic; G89.4 Chronic pain syndrome
CPT/HCPCS: 73521; 99212

== ENCOUNTER 2024-04-21 09:35 | Outpatient (AMB) | payer OTHER, SELFPAY ==
--- NOTE | 2024-04-21 09:37 | A.OFFVIS_ITS ---
Vital Signs 04/21/24 09:46 Height 4 ft 11 in Weight 133 lb 2 oz BMI 26.9 BP 154/90 H Blood Pressure Location Rt brachial Position Sitting Pulse 101 H Pulse Source Pulse Oximeter Pulse Oximetry (%) 97 Oxygen Delivery Method Room Air Intake Visit Reasons: PILL COUNT Intake Note: Carmenza comes in today for a pill count to Tramadol, patient should have 20 tablets and presents with 21 tablets which she last took today 04/21/24 at 7:30am. Pain today 10/23 Patient resigned opioid contract in office, copy of signed contract was provided to patient. Product Safety Officer Required: No Accompanied by: Self / Same As Patient Allergies No Known Allergies Allergy (Verified 04/21/24 09:46) HPI Comments Details: Patient presents today for pill count. Patient is supposed to have #20 pills, in her possession she has #21 pills. This demonstrates a responsible attitude in regards to the medication regimen. Patient reports increased pain in bilateral hip without significant groin pain. Patient reports left knee has been doing well since gel injection and she is scheduled for right knee Durolane injection on 04/24/23. Denies any fever or chills, shortness of breaths, chest pain, weakness, bladder or bowel dysfunction, saddle anesthesia, constipation, nausea, sedation, dizziness, or urinary retention. Denies any changes to medications, medical history or recent hospitalizations. 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 She reports pending evaluation by Orthopedics for potential left ankle fusion. 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 Today we are focusing on bilateral knee pain which significantly affects her daily activities, functioning, mobility, sleep and social interactions. She completed physical therapy at [facility] 9 months with improved function but no pain relief. Pain is constant which she rates at 8-9/10. Bilateral knee pain is localized to anterior aspects both knees with tenderness and occasional swelling per patient. No significant swelling or effusion today. Denies any fever or chills, back pain, instability, knee locking or buckling, bladder or bowel dysfunction or saddle anesthesia. Location: bilateral hands, knees, feet and hips Duration: Chronic pain for years, worsening since September when titrated off Tramadol Characteristics of symptom or complaint: Aching, stabbing, throbbing, shooting, sharp, burning, tingling, tight Aggravating or associated factors: Movements, climbing stairs, bending, standing, walking, cold weather Relieving factors: nothing was on tramadol 100 mg QID since 1996, NSAIDs Treatment: PT, chiropractic manipulation, TENS unit, cortisone injections- multiple [facility] Medical History Hypertension Osteopenia Seizures Anemia Insomnia Depression with anxiety Hypercholesteremia Spina bifida occulta JRA (juvenile rheumatoid arthritis) Seronegative rheumatoid arthritis 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 PARKER (obstructive sleep apnea) CTS (carpal tunnel syndrome) Surgical History H/O wisdom tooth extraction History of cholecystectomy Family History Father Myocardial infarct Diabetes Hypertension Kidney disease Dialysis patient Brother Abuse, drug or alcohol Mother Thyroid disease Osteopenia Hypertension Social History Alcohol intake: current Alcohol intake frequency: holidays/special occasions only Patient Tobacco Use Status: Current everyday Tobacco user Cigarettes Per Day: 10 Review of Systems Const All systems reviewed & are unremarkable except as noted in HPI and below Physical Exam Vital Signs: Last Vital Signs Pulse 101 H 04/21/24 09:46 BP 154/90 H 04/21/24 09:46 Pulse Ox 97 04/21/24 09:46 Oxygen Delivery Method Room Air 04/21/24 09:46 BMI result Body Mass Index 26.9 General: Appears afebrile. Alert and oriented. Mood and affect appropriate. Follows and participates in conversation appropriately. Respiratory effort is unlabored. No cough. Able to transition from sit to stand unassisted. Ambulates with bilaterally normal heel strike and toe off. Resp Effort & Inspection: normal respiratory effort, able to speak in complete sentences, no cough, no respiratory distress and symmetric chest movement Back/Spine/Pelvis Other: No groin pain with I/E hip rotations. Cervical Spine: cervical ROM normal and No Cervical spine tenderness Thoracic/Lumbar Spine: thoracic and lumbar spine normal to inspection, Lasegue's sign negative, straight leg raise negative bilaterally, pain with thoraco-lumbar ROM, No thoracic spinal tenderness and No lumbar spinal tenderness Pelvis: no buttock tenderness Sacroiliac joints: bilaterally nontender Extrem General: Yes capillary refill normal, Yes no clubbing, cyanosis or edema and Yes no calf tenderness Results Reviewed Results Reviewed: XR knee Bilateral 3V 03/27/23 CLINICAL HISTORY: Rheumatoid arthritis. COMPARISON: No similar priors. TECHNIQUE: 3 views of each knee. FINDINGS: No acute fracture or subluxation. Moderate bilateral tricompartmental osteoarthritis with joint space narrowing, subcortical sclerosis and small marginal osteophytes more noticeable in the medial and patellofemoral compartments of both knees. Trace chondrocalcinosis in the right knee. No osseous erosions. No significant joint effusion. IMPRESSION: 1. No acute fracture or subluxation. 2. Moderate bilateral tricompartmental osteoarthritis. 3. Trace chondrocalcinosis in the right knee. 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 There is no evidence of misuse, abuse or diversion at this time. [employer] reviewed. Script sent for tramadol with increased dose of 50 mg TID prn with advanced date of 04/27/24. Patient has Narcan at home. Patient is aware of monitoring for side effects. Hips with pelvic view imaging to assess for degree of arthritis and degenerative changes. All questions were answered and the patient is in agreement with the plan. Follow up in 4 weeks for a pill count/xray review or sooner if needed. Orders: Orders XR hip BI 1V w/wo pel Today M25.551 - Pain in right hip, M25.552 - Pain in left hip Medications: New tramadol 50 mg PO TID 30 days PRN 90 tabs 0RF pain (scale score 7-10) M25.551 - Pain in right hip, M25.552 - Pain in left hip, M25.561 - Pain in right knee, M25.562 - Pain in left knee, Z79.891 - nursing home (current) use of opiate analgesic Coding Level of Care Code Est Pt Level 4 (02007) Complex EM visit Add On G2211 Diagnoses Bilateral hip pain M25.551; M25.552 Bilateral knee pain M25.561; M25.562 Opioid contract exists Z79.891 Chronic pain syndrome G89.4
[2024-04-21 09:46] VITALS: BP 154/90; PULSE 101; O2SAT 97; BMI 26.9
== END 2024-04-21 10:04 | disposition home or self-care (01) ==
PROVIDERS: PCP Internal Medicine; Visit Provider Nurse Practitioner Family
DX: M25.551 Pain in right hip (principal); M25.552 Pain in left hip; M25.561 Pain in right knee; M25.562 Pain in left knee; Z79.891 Long term (current) use of opiate analgesic; G89.4 Chronic pain syndrome
CPT/HCPCS: 99214; G2211

== ENCOUNTER → 2024-04-21 10:17 | Outpatient (BNV) | payer OTHER, SELFPAY | PROVIDERS: PCP Internal Medicine; Visit Provider Radiology Diagnostic Radiology | DX: M25.551 Pain in right hip (principal); M25.552 Pain in left hip | CPT/HCPCS: 73521 ==

== ENCOUNTER 2024-04-24 06:26 | Outpatient (REF) | payer OTHER, SELFPAY ==
--- NOTE | ~2024-04-24 | FL_ITS ---
EXAMINATION: FL GUIDANCE ONLY HISTORY: M25.561 - Pain in right knee COMPARISON: None available. TECHNIQUE: Fluoroscopy time: Less than 1 minute. Cumulative Dose: 0.131 mGy. DAP: 0.0141 uGy-m2 (microgray-meter squared). Images: 2. FINDINGS: Images demonstrate a needle within, and subsequently contrast within, the right knee joint. FL/FL guidance in treatment room IMPRESSION: Fluoroscopy during procedure. Please see procedure report for additional information. Electronically signed by: Tre Amor MD 05/05/2024 03:27 PM RONY
== END 2024-04-24 06:27 | disposition home or self-care (01) ==
LOC: CF 06:26
PROVIDERS: Visit Provider Internal Medicine
DX: M17.4 Other bilateral secondary osteoarthritis of knee (principal)
CPT/HCPCS: 20610; J7318; Q9967

== ENCOUNTER 2024-04-24 12:08 | Outpatient (AMB) | payer OTHER, SELFPAY ==
--- NOTE | 2024-04-24 12:17 | A.OFFVIS_ITS ---
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) use of immunosuppressive biologic PARKER (obstructive sleep apnea) CTS (carpal tunnel syndrome) Surgical History H/O wisdom tooth extraction History of cholecystectomy Family History Father Myocardial infarct Diabetes Hypertension Kidney disease Dialysis patient Brother Abuse, drug or alcohol Mother Thyroid disease Osteopenia Hypertension Social History Alcohol intake: current Alcohol intake frequency: holidays/special occasions only Patient Tobacco Use Status: Current everyday Tobacco user Cigarettes Per Day: 10 Physical Exam Vital Signs: Last Vital Signs Pulse 105 H 04/24/24 12:18 BP 165/102 H 04/24/24 12:18 Pulse Ox 98 04/24/24 12:18 Oxygen Delivery Method Room Air 04/24/24 12:18 Office Procedures AMB Joint Injection/Aspiration Joint Injection/Aspiration Primary Site: right knee Prep: site was prepped using sterile technique Injected: with 3 mL of and other (Durolane 3 mL) Approach Used: medial parapatellar (Fluoroscopy guided, with confirmation of Omnipaque injection/arthrogram) Procedure: The patient tolerated the procedure well Coding Details: Fluoroscopy images saved to the patient's record [id number] - Large joint Additional procedure code (CPT) needed Office Meds Durolane 60 mg/3 mL intra-articular syringe Performing Provider: Case Choi MD Performing Location: [facility] Administered by: Case Choi MD on 04/24/24 12:35 Dose Route Admin Location Dispensed Lot Number Expiration Date [employer] Produce Service Team Member 60 mg intra-articular 3 mL [id number] 04/15/26 [employer] Assessment & Plan Assessment & Plan (1) Osteoarthritis of knees, bilateral: Code(s): M17.0 - Bilateral primary osteoarthritis of knee Category: Medical Qualifiers: Osteoarthritis type: other secondary Qualified Code(s): M17.4 - Other bilateral secondary osteoarthritis of knee Plan Patient is status post right knee arthrogram followed by Durolane injection. Patient tolerated procedure well and was discharged home in stable condition with discharge instructions. All questions were answered. We will follow-up via telephone or in clinic to assess response to therapy. A follow-up appointment was made during today's visit. Orders: Orders FL guidance in treatment room Today Brigette Marcelo APRN, GAS APPLIANCE INSTALLER M25.561 - Pain in right knee, M25.562 - Pain in left knee AMB Joint Injection/Aspiration Today Case Choi MD M17.4 - Other bilateral secondary osteoarthritis of knee Medications: New Durolane (hyaluronate sodium, stabilized) 60 mg (3 mL) intra-articular ONCE 3 mL 0RF NS Case Choi MD M17.4 - Other bilateral secondary osteoarthritis of knee Coding Level of Care Code Procedure Only Diagnoses Other secondary osteoarthritis of both knees M17.4 Osteoarthritis type: other secondary CPT Codes Coding - Large joint: 72604 - Large joint ([id number])
[2024-04-24 12:18] VITALS: BP 165/102; PULSE 105; O2SAT 98
[2024-04-24 12:37] VITALS: BP 155/102; PULSE 100; O2SAT 97
== END 2024-04-24 12:29 | disposition home or self-care (01) ==
LOC: HO.PMCPRC 12:08
PROVIDERS: PCP Internal Medicine; Visit Provider Internal Medicine
DX: M25.561 Pain in right knee (principal)
CPT/HCPCS: 20610; 77002

== ENCOUNTER 2024-05-19 10:08 | Outpatient (AMB) | payer OTHER, SELFPAY ==
--- NOTE | 2024-05-19 10:18 | MHC.OFFVIS ---
Vital Signs 05/19/24 10:19 Height 4 ft 11 in Weight 128 lb 2 oz BMI 25.9 BP 170/97 H Blood Pressure Location Rt brachial Position Sitting Pulse 119 H Pulse Source Pulse Oximeter Intake Visit Reasons: PILL COUNT + post op Intake Note: Carmenza comes in today for a pill count to tramadol, patient should have 21 tablets and presents with 26 tablets which she last took today 05/19/24 at 7am. Pain today 10/23 Wiper Blender Required: No Accompanied by: Self / Same As Patient Allergies No Known Allergies Allergy (Verified 05/19/24 10:20) HPI Comments Details: Patient presents today for pill count. Patient is supposed to have #21 pills, in her possession she has #26 pills. This demonstrates a responsible attitude in regards to the medication regimen. Patient reports mild analgesia on current pain regime without any side effects. She also recently underwent right knee Durolane injection with partial pain relief but does notice increased ROM and better bending since procedure. Patient continues to have ongoing relief in her left knee. Reports increased generalized joint pain and body pain for past months and has follow up with Rheumatology next months. Denies any fever or chills, shortness of breaths, chest pain, weakness, bladder or bowel dysfunction, saddle anesthesia, constipation, nausea, sedation, dizziness, or urinary retention. Denies any changes to medications, medical history or recent hospitalizations. 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 She reports pending evaluation by Orthopedics for potential left ankle fusion. 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 Today we are focusing on bilateral knee pain which significantly affects her daily activities, functioning, mobility, sleep and social interactions. She completed physical therapy at [facility] 9 months with improved function but no pain relief. Pain is constant which she rates at 8-9/10. Bilateral knee pain is localized to anterior aspects both knees with tenderness and occasional swelling per patient. No significant swelling or effusion today. Denies any fever or chills, back pain, instability, knee locking or buckling, bladder or bowel dysfunction or saddle anesthesia. Location: bilateral hands, knees, feet and hips Duration: Chronic pain for years, worsening since September when titrated off Tramadol Characteristics of symptom or complaint: Aching, stabbing, throbbing, shooting, sharp, burning, tingling, tight Aggravating or associated factors: Movements, climbing stairs, bending, standing, walking, cold weather Relieving factors: nothing was on tramadol 100 mg QID since 1996, NSAIDs Treatment: PT, chiropractic manipulation, TENS unit, cortisone injections-multiple [facility] Medical History Hypertension Osteopenia Seizures Anemia Insomnia Depression with anxiety Hypercholesteremia Spina bifida occulta JRA (juvenile rheumatoid arthritis) Seronegative rheumatoid arthritis 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 PARKER (obstructive sleep apnea) CTS (carpal tunnel syndrome) Surgical History H/O wisdom tooth extraction History of cholecystectomy Family History Father Myocardial infarct Diabetes Hypertension Kidney disease Dialysis patient Brother Abuse, drug or alcohol Mother Thyroid disease Osteopenia Hypertension Social History Alcohol intake: current Alcohol intake frequency: holidays/special occasions only Patient Tobacco Use Status: Current everyday Tobacco user Cigarettes Per Day: 10 Review of Systems Const All systems reviewed & are unremarkable except as noted in HPI and below Physical Exam Vital Signs: Last Vital Signs Pulse 119 H 05/19/24 10:19 BP 170/97 H 05/19/24 10:19 BMI result Body Mass Index 25.9 General: Appears afebrile. Alert and oriented. Mood and affect appropriate. Follows and participates in conversation appropriately. Respiratory effort is unlabored. No cough. Able to transition from sit to stand unassisted. Ambulates with bilaterally normal heel strike and toe off. Back/Spine/Pelvis Other: No groin pain with I/E hip rotations. Cervical Spine: cervical ROM normal and No Cervical spine tenderness Thoracic/Lumbar Spine: thoracic and lumbar spine normal to inspection, Lasegue's sign negative, straight leg raise negative bilaterally, pain with thoraco-lumbar ROM, No thoracic spinal tenderness and No lumbar spinal tenderness Pelvis: no buttock tenderness Sacroiliac joints: bilaterally nontender Extrem General: Yes capillary refill normal, Yes no clubbing, cyanosis or edema and Yes no calf tenderness Psych Appearance: grossly normal and well kempt Mental Status: mental status grossly normal Speech and movement: Normal speech and movement present and Clear speech present Affect: normal affect Attitude: cooperative Thought process: Normal thought process present Thought content: Normal thought content present, suicidality (none), no hallucinations and Depressive thoughts present Insight: Good insight present (Psych) Judgement: Good judgement present (Psych) Results Reviewed Results Reviewed: XR knee Bilateral 3V 03/27/23 CLINICAL HISTORY: Rheumatoid arthritis. COMPARISON: No similar priors. TECHNIQUE: 3 views of each knee. FINDINGS: No acute fracture or subluxation. Moderate bilateral tricompartmental osteoarthritis with joint space narrowing, subcortical sclerosis and small marginal osteophytes more noticeable in the medial and patellofemoral compartments of both knees. Trace chondrocalcinosis in the right knee. No osseous erosions. No significant joint effusion. IMPRESSION: 1. No acute fracture or subluxation. 2. Moderate bilateral tricompartmental osteoarthritis. 3. Trace chondrocalcinosis in the right knee. XR hip BI 1V w/wo pel 04/22/24 5 view, pelvis and bilateral hips Comparison: None Findings: No acute fracture or dislocation. No significant arthritic change. The soft tissues are unremarkable. There is an intrauterine device within the pelvis. IMPRESSION: No acute findings. Assessment & Plan Assessment & Plan (1) Seronegative rheumatoid arthritis: Comment: Juvenile onset: Flare at age 3, age 9. RF negative. Pauciarticular involvement. RF/CCP and LEOPOLDO negative More persistent pains at age 21(1995). On methotrexate, sulfasalazine, hydroxychloroquine, sulfasalazine, Enbrel in the past: ? Responses to treatment. Methotrexate started 03/28 04/30 Humira added effective 03/04: methotrexate held for LFT elevations; restarted at a lower dose 06/05 Code(s): M06.00 - Rheumatoid arthritis without rheumatoid factor, unspecified site Category: Medical (2) Bilateral knee pain: Code(s): M25.561 - Pain in right knee; M25.562 - Pain in left knee Category: Medical (3) Opioid contract exists: Code(s): Z79.891 - penitentiary (current) use of opiate analgesic Category: Medical (4) Chronic pain syndrome: Code(s): G89.4 - Chronic pain syndrome Category: Medical (5) Bilateral hip pain: Code(s): M25.551 - Pain in right hip; M25.552 - Pain in left hip Category: Medical Plan Patient has shown accountability for her medication regimen and the pill count was accurate. There is no evidence of misuse, abuse or diversion at this time. [employer] reviewed. Script sent for tramadol with increased dose of 50 mg QID prn with advanced date of 05/24/24. Patient has Narcan at home. Patient is aware of monitoring for side effects. All questions were answered and the patient is in agreement with the plan. Follow up in 4-5 weeks for a pill count or sooner if needed. 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 50 mg PO Q6H 30 days PRN 120 tabs 0RF pain G89.4 - Chronic pain syndrome, M06.00 - Rheumatoid arthritis without rheumatoid factor, unspecified site, M25.561 - Pain in right knee, M25.562 - Pain in left knee, Z79.891 - penitentiary (current) use of opiate analgesic Coding Level of Care Code Est Pt Level 4 (96714) Complex EM visit Add On G2211 Diagnoses Seronegative rheumatoid arthritis M06.00 Bilateral knee pain M25.561; M25.562 Opioid contract exists Z79.891 Chronic pain syndrome G89.4 Bilateral hip pain M25.551; M25.552
[2024-05-19 10:19] VITALS: BP 170/97; PULSE 119; BMI 25.9
--- OUTSIDE RECORDS SUMMARY | 2024-05-19 10:47 | XMS_ITS | Encounter Summary ---
Author Organization [facility] Address [address] [place] [address] Care Team Providers Care Delinquency Prevention Officer Name Role Phone Lorin Norton MD Primary Care Provider Ameena Thompson MD Primary Care Provider Giovanna Anguiano Ch MD Primary Care Provider [phone] Reason for Visit * Reason Comments E-prescribe Rx Request Encounter Details Date Type Department Care Team Description 03/18/2019 Refill Rheumatology - [place] [address] [place] [id number] Haile Rodriguez MD E-prescribe Rx Request Social History Tobacco Use Types Packs/Day Years Used Date Smoking Tobacco: Former Cigarettes 0.5 17 Q uit: 2015 Smokeless Tobacco: Never Alcohol Use Standard Drinks/Week Comments No 0 (1 standard drink = 0.6 oz pur e alcohol) Sex Assigned at Date Recorded Female 12/27/2023 4:59 PM E DT Job Start Date Occupation Industry Not on file Not on file Not on file documented as of this encounter Miscellaneous Notes * Telephone Encounter - Lizette Duncan M.A. - 03/18/2019 2:21 PM EST Lab Results Component Value Date WBC 10.9 03/06/2019 HGB 15.4 03/06/2019 HCT 46.4 03/06/2019 MCV 96.1 03/06/2019 PLTCT 314 03/06/2019 Lab Results Component Value Date ALB 4.6 03/06/2019 SGOT 55 03/06/2019 SGPT 76 03/06/2019 TBILI 0.5 03/06/2019 DBILI 0.1 08/18/2016 IBILI 0.2 08/18/2016 ALKPHOS 84 03/06/2019 TP 7.6 03/06/2019 * Telephone Encounter - Arlet Vargas - 03/18/2019 2:03 PM EST Refill request. documented in this encounter Plan of Treatment Not on file documented as of this encounter Visit Diagnoses Diagnosis Seronegative rheumatoid arthritis (HCC) Rheumatoid arthritis documented in this encounter Care Teams Delinquency Prevention Officer Relationship Specialty Start Date End Date Lorin Norton MD PCP - General Internal Medicine 01/25/15 07/15/20 Ameena Medellin MD PCP - General Internal Medicine 07/16/20 10/10/20 Keiko Anguiano MD [address] [place] [id number] PCP - General Internal Medicine 10/11/20 documented as of this encounter
--- OUTSIDE RECORDS SUMMARY | 2024-05-19 10:47 | XMS_ITS | Encounter Summary ---
Author Organization [facility] Address [address] [place] [address] Care Team Providers Care Forest Fire Prevention Specialist Name Role Phone Lorin Norton MD Primary Care Provider Ameena Thompson MD Primary Care Provider Giovanna Anguiano Ch MD Primary Care Provider +1 -[phone] Reason for Visit * Reason Comments E-prescribe Rx Request Encounter Details Date Type Department Care Team Description 03/17/2019 Refill Medicine/Pediatrics - [address] [phone] Jase Lemos MD E-prescribe Rx Request Social History Tobacco [...] encounter Miscellaneous Notes * Telephone Encounter - Emy Cross - 03/17/2019 11:34 AM EST Rx sent to pharmacy. * Telephone Encounter - Maged Erwin M.A. - 03/17/2019 10:56 AM EST Rx pended, * Telephone Encounter - Jeannie Henry - 03/17/2019 10:13 AM EST Patient would like script to be: E-PRESCRIBED/FAXED TO PHARMACY WHEN WAS THE PATIENT'S LAST APPOINTMENT IN ADULT MEDICINE? 03-06-19 WHEN WAS THE LAST TIME THE PATIENT SAW THEIR PCP? Same as above Does patient have an upcoming appointment? Yes 08-18-19 (THE MEDICATION REQUESTED IS ON THE MED LIST ABOVE) All of the medications requested were on the CURRENT MEDS list Did you check the Pharmacy information above?: YES Patient wants: 30 -day supply Is this a mail order prescription request ? NO If the refill is from a FAXED refill request what is the RX # listed on the fax? N/A Patients current insurance carrier is: Payor: [employer] [facility] MCR / Plan: [facility] / Product Type: HMO [id number] documented in this encounter Plan of Treatment Not on file documented as of this encounter Visit Diagnoses Not on filedocumented in this encounter Care Teams Forest Fire Prevention Specialist Relationship Specialty Start Date End Date Lorin Norton MD PCP - General Internal Medicine 01/25/15 07/15/20 Ameena Medellin MD PCP - General Internal Medicine 07/16/20 10/10/20 Keiko Anguiano, [address] [place] [address] PCP - General Internal Medicine 10/11/20 documented as of this encounter
--- OUTSIDE RECORDS SUMMARY | 2024-05-19 10:47 | XMS_ITS | Encounter Summary ---
Author Organization [facility] Address [address] [place] [address] Care Team Providers Care Cosmetology Instructor Name Role Phone Lorin Norton MD Primary Care Provider Ameena Thompson MD Primary Care Provider Giovanna Anguiano Ch MD Primary Care Provider +1 -[phone] Encounter Details Date Type Department Care Team Description 06/18/2019 [facility] Medical Records [address] [place] [address] Abstract, Provider Social History Tobacco Use Types Packs/Day Years [...] on file documented as of this encounter Plan of Treatment Not on file documented as of this encounter Visit Diagnoses Not on filedocumented in this encounter Care Teams Cosmetology Instructor Relationship Specialty Start Date End Date Lorin Norton MD PCP - General Internal Medicine 01/25/15 07/15/20 Ameena Medellin MD PCP - General Internal Medicine 07/16/20 10/10/20 Keiko Anguiano MD [address] [place] [address] PCP - General Internal Medicine 10/11/20 documented as of this encounter
--- OUTSIDE RECORDS SUMMARY | 2024-05-19 10:47 | XMS_ITS | Encounter Summary ---
Author Organization [facility] Address [address] [place] [address] Care Team Providers Care Maple Syrup Maker Name Role Phone Lorin Norton MD Primary Care Provider Ameena Thompson MD Primary Care Provider Giovanna Anguiano Ch MD Primary Care Provider +1 -[phone] Encounter Details Date Type Department Care Team Description 08/12/2019 [facility] Medical [facility] [address] [place] [address] Abstract, Provider Social History Tobacco Use Types [...] on filedocumented in this encounter Care Teams Maple Syrup Maker Relationship Specialty Start Date End Date Lorin Norton MD PCP - General Internal Medicine 01/25/15 07/15/20 Ameena Medellin MD PCP - General Internal Medicine 07/16/20 10/10/20 Keiko Anguiano MD [address] [place] [address] PCP - General Internal Medicine 10/11/20 documented as of this encounter
--- OUTSIDE RECORDS SUMMARY | 2024-05-19 10:47 | XMS_ITS | Encounter Summary ---
Author Organization [facility] Address [address] [place] [address] Care Team Providers Care Machine Precision Etcher Name Role Phone Lorin Norton MD Primary Care Provider Ameena Thompson MD Primary Care Provider Giovanna Anguiano Ch MD Primary Care Provider +1 -[phone] Reason for Visit * Reason Comments E-prescribe Rx Request Encounter Details Date Type Department Care Team Description 06/22/2019 Refill Rheumatology - [place] [address] [place] [address] Haile Rodriguez MD E-prescribe Rx Request Social [...] encounter Miscellaneous Notes * Telephone Encounter - Sylwia Cruz L.P.N. - 06/24/2019 9:24 AM EDT She is fine... Taking 3 tabs This was a pharmacy error * Telephone Encounter - Haile Rodriguez MD - 06/23/2019 5:17 PM EDT Brisa, please call patient [phone] (home) [phone] (work) I sent in a prescription for 12 weeks of this about a month ago. Why is there a request for refill?If she taking more than 3 tablets once a week? Haile Rodriguez MD * Telephone Encounter - Lizette Duncan M.A. - 06/23/2019 11:35 AM EDT Last Appt: 05/12 Next visit: 07/10 Lab Results Component Value Date WBC 9.0 04/24/2019 HGB 15.4 04/24/2019 HCT 46.7 04/24/2019 MCV 95.5 04/24/2019 PLTCT 313 04/24/2019 Lab Results Component Value Date ALB 4.0 05/26/2019 SGOT 15 05/26/2019 SGPT 16 05/26/2019 TBILI 0.3 05/26/2019 DBILI 0.1 05/26/2019 IBILI 0.2 05/26/2019 ALKPHOS 74 05/26/2019 TP 7.0 05/26/2019 * Telephone Encounter - Dimas Radford - 06/23/2019 11:31 AM EDT Patient would like script to be: E-PRESCRIBED/FAXED TO PHARMACY WHEN WAS THE PATIENT'S LAST APPOINTMENT IN ADULT MEDICINE? 05/12/2019 WHEN WAS THE LAST TIME THE PATIENT SAW THEIR PCP? Same as above Does patient have an upcoming appointment? Yes 07/11/2019 (THE MEDICATION REQUESTED IS ON THE MED [...] N/A Patients current insurance carrier is: Payor: [employer] [facility] MCR / Plan: [facility] / Product Type: HMO [id number] documented in this encounter Plan of Treatment Not on file documented as of this encounter Visit Diagnoses Diagnosis Seronegative rheumatoid arthritis (HCC) Rheumatoid arthritis documented in this encounter Care Teams Machine Precision Etcher Relationship Specialty Start Date End Date Lorin Norton MD PCP - General Internal Medicine 01/25/15 07/15/20 Ameena Medellin MD PCP - General Internal Medicine 07/16/20 10/10/20 Keiko Anguiano MD [address] [place] [address] PCP - General Internal Medicine 10/11/20 documented as of this encounter
--- OUTSIDE RECORDS SUMMARY | 2024-05-19 10:48 | XMS_ITS | Encounter Summary ---
Author Organization [facility] Address [address] [place] [address] Care Team Providers Care Manager Family Name Role Phone Lorin Norton MD Primary Care Provider Ameena Thompson MD Primary Care Provider Giovanna Anguiano Ch MD Primary Care Provider +1 [phone] Encounter Details Date Type Department Care Team Description 11/22/2016 [facility] Medical Records [address] [place] [address] Abstract, Provider Social History Tobacco Use Types [...] on filedocumented in this encounter Care Teams Manager Family Relationship Specialty Start Date End Date Lorin Norton MD PCP - General Internal Medicine 01/25/15 07/15/20 Ameena Medellin MD PCP - General Internal Medicine 07/16/20 10/10/20 Keiko Anguiano MD [address] [place] [address] PCP - General Internal Medicine 10/11/20 documented as of this encounter
--- OUTSIDE RECORDS SUMMARY | 2024-05-19 10:48 | XMS_ITS | Encounter Summary ---
Author Organization [facility] Address [address] [place] [address] Care Team Providers Care Sterile Instrument Technician Name Role Phone Lorin Norton MD Primary Care Provider Ameena Thompson MD Primary Care Provider Giovanna Anguiano Ch MD Primary Care Provider +1 [phone] Encounter Details Date Type Department Care Team Description 08/12/2019 Telephone Rheumatology - [place] [address] [place] [address] Haile Rodriguez MD Social History Tobacco Use Types Packs/Day Years [...] encounter Miscellaneous Notes * Telephone Encounter - Haile Rodriguez MD - 08/12/2019 3:[address] Rodriguez * Telephone Encounter - Lizette Duncan M.A. - 08/12/2019 2:22 PM EDT FYI, patient will be doing August labs at the end of September. documented in this encounter Plan of Treatment Not on file documented as of this encounter Visit Diagnoses Not on filedocumented in this encounter Care Teams Sterile Instrument Technician Relationship Specialty Start Date End Date Lorin Norton MD PCP - General Internal Medicine 01/25/15 07/15/20 Ameena Medellin MD PCP - General Internal Medicine 07/16/20 10/10/20 Keiko Anguiano MD [address] [place] [address] PCP - General Internal Medicine 10/11/20 documented as of this encounter
--- OUTSIDE RECORDS SUMMARY | 2024-05-19 10:48 | XMS_ITS | Encounter Summary ---
Author Organization [facility] Address [address] [place] [address] Care Team Providers Care Yarder Boss Name Role Phone Lorin Norton MD Primary Care Provider Ameena Thompson MD Primary Care Provider Giovanna Anguiano Ch MD Primary Care Provider [phone] [phone] Encounter Details Date Type Department Care Team Description 02/15/2017 [facility] Medical Records [address] [place] [address] Abstract, Provider Social History Tobacco Use Types [...] on filedocumented in this encounter Care Teams Yarder Boss Relationship Specialty Start Date End Date Lorin Norton MD PCP - General Internal Medicine 01/25/15 07/15/20 Ameena Medellin MD PCP - General Internal Medicine 07/16/20 10/10/20 Keiko Anguiano MD [address] [place] [address] PCP - General Internal Medicine 10/11/20 documented as of this encounter
--- OUTSIDE RECORDS SUMMARY | 2024-05-19 10:48 | XMS_ITS | Encounter Summary ---
Author Organization [facility] Address [address] [place] [address] Care Team Providers Care Fixed Wing Aircraft Flight Engineer Name Role Phone Ameena Medellin MD Primary Care Provider Giovanna Anguiano Ch MD Primary Care Provider [phone] [phone] Reason for Referral * EXTERNAL (Routine) - Authorized/Booked Specialty Diagnoses / Procedures Referred By Contmahin bo Referred To Contact Podiatry Diagnoses Osteoarthritis of left ankle and foot Seronegative rheumatoid arthritis (HCC) Procedures REFERRAL TO PODIATRY (OUT OF NETWORK) Haile Rodriguez MD [address] [place] [address] External Podiatry Referral ID Status Reason Start Date Expiration Date V isits Requested Visits Authorized [id number] Authorized/B ooked 07/16/2020 11/03/2020 1 1 Encounter Details Date Type Department Care Team Description 07/16/2020 Telephone Rheumatology - [address] [address] Haile Rodriguez MD Social History Tobacco Use Types Packs/Day Years Used Date Smoking Tobacco: Every Day Cigarettes 0.5 28 Started: 11/10/2018 Smokeless Tobacco: Never Alcohol Use Standard Drinks/Week Comments No 0 (1 standard drink = 0.6 oz pur e alcohol) Sex Assigned at Date Recorded Female 12/27/2023 4:59 PM E DT Job Start Date Occupation Industry Not on file Not on file Not on file COVID-19 Exposure Response Date Recorded In the last month, have you been in contact with someone who was confirmed or suspected to have Coronavirus / COVID-19? No / Unsure 07/13/2020 8:12 AM EDT documented as of this encounter Miscellaneous Notes * Telephone Encounter - Johanna Sage L.P.N. - 07/16/2020 9:52 AM EDT Referral to Podiatry pended to Dr Rodriguez documented in this encounter Plan of Treatment Not on file documented as of this encounter Visit Diagnoses Diagnosis Osteoarthritis of left ankle and foot- Primary Seronegative rheumatoid arthritis (HCC) Rheumatoid arthritis documented in this encounter Care Teams Fixed Wing Aircraft Flight Engineer Relationship Specialty Start Date End Date Ameena Medellin MD PCP - General Internal Medicine 07/16/20 10/10/20 Keiko Anguiano MD [address] [place] [address] PCP - General Internal Medicine 10/11/20 documented as of this encounter
--- OUTSIDE RECORDS SUMMARY | 2024-05-19 10:48 | XMS_ITS | Encounter Summary ---
Author Organization [facility] Address [address] [place] [address] Care Team Providers Care Cement Worker Name Role Phone Tim Flor MD Primary Care Provider Unavail Lorin Mejía MD Primary Care Provider Ameena Thompson MD Primary Care Provider Giovanna Anguiano Ch MD Primary Care Provider [phone] [phone] Encounter Details Date Type Department Care Team Description 10/06/2013 Release of Information Medical Records [address] [place] [address] Abstract, Provider Social History Tobacco Use Types Packs/Day Years Used Date Smoking Tobacco: Every Day Cigarettes 1 17 Smokeless Tobacco: Never Alcohol Use Standard Drinks/Week [...] on filedocumented in this encounter Care Teams Cement Worker Relationship Specialty Start Date End Date Tim Flor MD PCP - General 01/06/08 01/24/15 Lorin Norton MD PCP - General Internal Medicine 01/25/15 07/15/20 Ameena Medellin MD PCP - General Internal Medicine 07/16/20 10/10/20 Keiko Anguiano MD [address] [place] [address] PCP - General Internal Medicine 10/11/20 documented as of this encounter
--- OUTSIDE RECORDS SUMMARY | 2024-05-19 10:48 | XMS_ITS | Encounter Summary ---
Author Organization [facility] Address [address] [place] [address] Care Team Providers Care Auto Customize Painter Name Role Phone Lorin Norton MD Primary Care Provider Ameena Thompson MD Primary Care Provider Giovanna Anguiano Primary Care Provider [phone] -[phone] Reason for Visit * Reason Comments E-prescribe Rx Request Encounter Details Date Type Department Care Team Description 07/15/2020 Refill Adult Medicine - [place] [address] [place] [address] Ameena Medellin MD E-prescribe Rx Request Social History Tobacco [...] encounter Miscellaneous Notes * Telephone Encounter - Mirian Jacinto - 07/15/2020 1:59 PM EDT Patient would like script to be: E-PRESCRIBED/FAXED TO PHARMACY WHEN WAS THE PATIENT'S LAST APPOINTMENT IN ADULT MEDICINE? 04/29/20 WHEN WAS THE LAST TIME THE PATIENT SAW THEIR PCP? Same as above Does patient have an upcoming appointment? Yes 10/27/20 (THE MEDICATION REQUESTED IS ON THE MED LIST ABOVE) All of the medications requested were on the CURRENT MEDS list Did you check the Pharmacy information above?: YES Patient wants: 90 -day supply Is this a mail order prescription request ? NO If the refill is from a FAXED refill request what is the RX # listed on the fax? N/A Patients current insurance carrier is: Payor: [employer] [facility] [employer] MCR / Plan: [facility] / Product Type: HMO [id number] documented in this encounter Plan of Treatment Not on file documented as of this encounter Visit Diagnoses Not on filedocumented in this encounter Care Teams Auto Customize Painter Relationship Specialty Start Date End Date Lorin Norton MD PCP - General Internal Medicine 01/25/15 07/15/20 Ameena Medellin MD PCP - General Internal Medicine 07/16/20 10/10/20 Keiko Anguiano MD [address] [place] [address] PCP - General Internal Medicine 10/11/20 documented as of this encounter
--- OUTSIDE RECORDS SUMMARY | 2024-05-19 10:48 | XMS_ITS | Encounter Summary ---
Author Organization [facility] Address [address] [place] [address] Care Team Providers Care Program Associate Name Role Phone Lorin Norton MD Primary Care Provider Ameena Thompson MD Primary Care Provider Giovanna Anguiano Ch MD Primary Care Provider [phone] [phone] Reason for Visit * Reason Onset Date Comments Prior Authorization 08/11/2019 FUADIRA APPRO DELLA Encounter Details Date Type Department Care Team Description 08/11/2019 Telephone Rheumatology - [address] [address] Haile Rodriguez MD Prior Authorization (HUMIRA APPROVED) Social History Tobacco Use Types Packs/Day Years [...] Telephone Encounter - Lizette Duncan M.A. - 08/11/2019 8:40 AM EDT Ladan Pen approved from 08/08/19 to 08/07/20. PA # not provided Papers filed. Script already sent to [facility] on 08/04/19. Approval faxed today. PA done through [facility], paper form. documented in this encounter Plan of Treatment Not on file documented as of this encounter Visit Diagnoses Not on filedocumented in this encounter Care Teams Program Associate Relationship Specialty Start Date End Date Lorin Norton MD PCP - General Internal Medicine 01/25/15 07/15/20 Ameena Medellin MD PCP - General Internal Medicine 07/16/20 10/10/20 Keiko Anguiano MD [address] [place] [address] PCP - General Internal Medicine 10/11/20 documented as of this encounter
--- OUTSIDE RECORDS SUMMARY | 2024-05-19 10:48 | XMS_ITS | Encounter Summary ---
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
--- OUTSIDE RECORDS SUMMARY | 2024-05-19 10:48 | XMS_ITS | Encounter Summary ---
Author Organization [facility] Address [address] [place] [address] Care Team Providers Care Machine Ceramic Coater Name Role Phone Lorin Norton MD Primary Care Provider Ameena Thompson MD Primary Care Provider Giovanna Anguiano Ch MD Primary Care Provider +1 -[phone] Encounter Details Date Type Department Care Team Description 09/11/2019 [facility] Medical Records [address] [place] [address] Abstract, Provider Social History Tobacco Use Types [...] on filedocumented in this encounter Care Teams Machine Ceramic Coater Relationship Specialty Start Date End Date Lorin Norton MD PCP - General Internal Medicine 01/25/15 07/15/20 Ameena Medellin MD PCP - General Internal Medicine 07/16/20 10/10/20 Keiko Anguiano MD [address] [place] [address] PCP - General Internal Medicine 10/11/20 documented as of this encounter
--- OUTSIDE RECORDS SUMMARY | 2024-05-19 10:48 | XMS_ITS | Encounter Summary ---
Author Organization [facility] Address [address] [place] [address] Care Team Providers Care Departmental Shipping Clerk Name Role Phone Keiko Anguiano MD Primary Care Provider +1 -[phone] Encounter Details Date Type Department Care Team Description 02/27/2022 [facility] Medical Records [address] [place] [address] Abstract, Provider Social History Tobacco Use Types Packs/Day Years Used Date Smoking Tobacco: Every Day Cigarettes 0.5 28 Started: 11/10/2018 Smokeless Tobacco: Never Alcohol Use Standard Drinks/Week Comments Yes 0 (1 standard drink = 0.6 oz pur e alcohol) social Sex Assigned at Date Recorded Female 12/27/2023 4:59 PM E DT Job Start Date Occupation Industry Not on file Not on file Not on file COVID-19 Exposure Response Date Recorded In the last 10 days, have yo u been in contact with someone who was confirmed or suspected to have Coronavirus/COVID-19? No / Unsure 03/02/2022 2:17 PM EST documented as of this encounter Plan of Treatment Not on file documented as of this encounter Visit Diagnoses Not on filedocumented in this encounter Care Teams Departmental Shipping Clerk Relationship Specialty Start Date End Date Keiko Anguiano MD [address] [place] [address] PCP - General Internal Medicine 10/11/20 documented as of this encounter
--- OUTSIDE RECORDS SUMMARY | 2024-05-19 10:48 | XMS_ITS | Encounter Summary ---
Author Organization [facility] Address [address] [place] [address] Care Team Providers Care Winder Hand Name Role Phone Tim Flor MD Primary Care Provider Unavail Lorin Mejía MD Primary Care Provider Ameena Thompson MD Primary Care Provider Unavailronen Anguiano Ch MD Primary Care Provider +1 -[phone] Encounter Details Date Type Department Care Team Description 08/12/2013 [facility] Medical Records [address] [place] [address] Tuan Mota MD Social History Tobacco Use Types Packs/Day [...] on filedocumented in this encounter Care Teams Winder Hand Relationship Specialty Start Date End Date Tim Flor MD PCP - General 01/06/08 01/24/15 Lorin Norton MD PCP - General Internal Medicine 01/25/15 07/15/20 Ameena Medellin MD PCP - General Internal Medicine 07/16/20 10/10/20 Keiko Anguiano, [address] [place] [id number] PCP - General Internal Medicine 10/11/20 documented as of this encounter
--- OUTSIDE RECORDS SUMMARY | 2024-05-19 10:48 | XMS_ITS | Encounter Summary ---
Author Organization [facility] Address [address] [place] [address] Care Team Providers Care Working Supervisor Name Role Phone Lorin Norton MD Primary Care Provider Ameena Thompson MD Primary Care Provider Giovanna Anguiano Ch MD Primary Care Provider +1 -[phone] Encounter Details Date Type Department Care Team Description 12/24/2018 [facility] Medical Records [address] [place] [address] Abstract, Provider Social History Tobacco Use Types [...] on filedocumented in this encounter Care Teams Working Supervisor Relationship Specialty Start Date End Date Lorin Norton MD PCP - General Internal Medicine 01/25/15 07/15/20 Ameena Medellin MD PCP - General Internal Medicine 07/16/20 10/10/20 Keiko Anguiano MD [address] [place] [address] PCP - General Internal Medicine 10/11/20 documented as of this encounter
--- OUTSIDE RECORDS SUMMARY | 2024-05-19 10:48 | XMS_ITS | Encounter Summary ---
Author Organization [facility] Address [address] [place] [address] Care Team Providers Care Assembler Wire Group Name Role Phone Ameena Medellin MD Primary Care Provider Giovanna Anguiano Ch MD Primary Care Provider [phone] -[phone] Reason for Visit * Reason Onset Date Comments Prior Authorization 08/27/2020 Encounter Details Date Type Department Care Team Description 08/27/2020 Telephone Rheumatology - [place] [address] [place] [address] Haile Rodriguez MD Prior Authorization Social History Tobacco Use Types Packs/Day Years [...] Notes * Telephone Encounter - Johanna Sage L.P.NHerbie - 08/30/2020 4:52 PM EDT Humira Pen 40 mg /0.4 ml approved from 08/30/2020 to 08/30/2021 PA # N/A PA done through [facility] on CMM ID# n/a Approval dates to pharmacy Script faxed to [facility] Papers filed. Patient notified Provider notified * Telephone Encounter - Haile Rodriguez MD - 08/29/2020 8:25 PM EDT CMMeds form completed on line Haile Rodriguez MD * Telephone Encounter - Johanna SanchezPHerbieN. - 08/27/2020 11:33 AM EDT Prior authorization [facility] filled out on CMM and forwarded to provider. Humira pen 40 mg /0.4 ml ID # [id number] To be faxed to [facility] documented in this encounter Plan of Treatment Not on file documented as of this encounter Visit Diagnoses Diagnosis Seronegative rheumatoid arthritis (HCC)- Primary Rheumatoid arthritis documented in this encounter Care Teams Assembler Wire Group Relationship Specialty Start Date End Date Ameena Medellin MD PCP - General Internal Medicine 07/16/20 10/10/20 Keiko Anguiano MD [address] [place] [address] PCP - General Internal Medicine 10/11/20 documented as of this encounter
--- OUTSIDE RECORDS SUMMARY | 2024-05-19 10:48 | XMS_ITS | Clinical Summary ---
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 12:26 PM [facility] MCHC 32.9 32.0 - 37.0 g/dL LAB HEMETOLOGY METHOD 04/22/2024 12:26 PM [facility] RDW 13.0 11.0 - 15.0 % LAB HEMETOLOGY METHOD 04/22/2024 12:26 PM [facility] Platelets 331 130 - 400 K/mcL LAB HEMETOLOGY METHOD 04/22/2024 12:26 PM [facility] MPV 13.6(H) 7.0 - 11.0 FL LAB HEMETOLOGY METHOD 04/22/2024 12:26 PM [facility] NRBC 0.0 <1.0 % LAB HEMETOLOGY METHOD 04/22/2024 12:26 PM [facility] NRBC Absolute 0.00 <0.10 K/mcL LAB HEMETOLOGY METHOD 04/22/2024 12:26 PM [facility] Neutrophils Relative 52.8 % LAB HEMETOLOGY METHOD 04/22/2024 12:26 PM [facility] Lymphocytes Relative 31.6 % LAB HEMETOLOGY METHOD 04/22/2024 12:26 PM [facility] Monocytes Relative 7.6 % LAB HEMETOLOGY METHOD 04/22/2024 12:26 PM [facility] Eosinophils Relative 6.8 % LAB HEMETOLOGY METHOD 04/22/2024 12:26 PM [facility] Basophils Relative 0.9 % LAB HEMETOLOGY METHOD 04/22/2024 12:26 PM [facility] Immature Granulocytes Relative 0.3 % LAB HEMETOLOGY METHOD 04/22/2024 12:26 PM EST [facility] Neutrophils Absolute 3.98 1.50 - 7.00 K/mcL LAB HEMETOLOGY METHOD 04/22/2024 12:26 PM [facility] Lymphocytes Absolute 2.38 1.00 - 5.00 K/mcL LAB HEMETOLOGY METHOD 04/22/2024 12:26 PM [facility] Monocytes Absolute 0.57 0.20 - 1.00 K/mcL LAB HEMETOLOGY METHOD 04/22/2024 12:26 PM [facility] Eosinophils Absolute 0.51(H) 0.00 - 0.50 K/mcL LAB HEMETOLOGY METHOD 04/22/2024 12:26 PM [facility] Basophils Absolute 0.07 0.00 - 0.20 K/mcL LAB HEMETOLOGY METHOD 04/22/2024 12:26 PM [facility] Immature Granulocytes Absolute 0.02 0.00 - 0.03 K/mcL LAB HEMETOLOGY METHOD 04/22/2024 12:26 PM [facility] Blood Venous blood specimen / Unknown Venipuncture / Unknown 04/22/2024 10:37 AM EST 04/22/2024 10:37 AM EST Jeffrey MEDRANO LAB BLOOD ORDERABLES [facility] [address] [place] [address], * Vitamin D 1,25 dihydroxy (04/22/2024 10:37 AM EST) Pathologist [facility] Vitamin D, 1, 25-Dihydroxy 45 20 - 79 pg/mL 04/24/2024 7:51 PM EST [facility] Comment: Vitamin D 1, 25 dihydroxy levels should be primarily used to assess Vitamin D status in patients with renal disease and hypercalcemia. Vitamin D 1,25-dihydroxy levels are generally less than 5 pg/mL in end stage renal disease patients. The preferred initial test for assessing Vitamin D status in the general population is Vitamin D 25-hydroxy (VITD). Test performed at [facility], [address] , [place], [place] ??[address] ? [phone] Елена Ritchie MD, PhD - Training Mgr Blood Venous blood specimen / Unknown Venipuncture / Unknown 04/22/2024 10:37 AM EST 04/22/2024 10:37 AM EST Jeffrey MEDRANO LAB BLOOD ORDERABLES [facility] [address] [place] [address] * Triiodothyronine free (04/22/2024 10:37 AM EST) T3, Free 379 230 - 420 pcg/dL LAB CHEMISTRY METHOD 04/22/2024 3:11 PM EST [facility] Blood Venous blood specimen / Unknown Venipuncture / Unknown 04/22/2024 10:37 AM EST 04/22/2024 10:37 AM EST Jeffrey MEDRANO LAB BLOOD ORDERABLES Performing Organization Address City/[facility]/ZIP Co de Phone Number [facility] [address] [place] [address], * (ABNORMAL) Comprehensive metabolic panel (04/22/2024 10:37 AM EST) Only the most recent of2 resultswithin the time period is included. Sodium 137 133 - 145 mmol/L LAB CHEMISTRY METHOD 04/22/2024 2:13 PM EST [facility] Potassium 3.6 3.5 - 5.5 mmol/L LAB CHEMISTRY METHOD 04/22/2024 2:13 PM [facility] Chloride 105 96 - 110 mmol/L LAB CHEMISTRY METHOD 04/22/2024 2:13 PM EST [facility] CO2 29 21 - 32 mmol/L LAB CHEMISTRY METHOD 04/22/2024 2:13 PM [facility] Anion Gap 3 3 - 11 LAB CHEMISTRY METHOD 04/22/2024 2:13 PM [facility] Glucose 101(H) 70 - 100 mg/dL LAB CHEMISTRY METHOD 04/22/2024 2:13 PM [facility] BUN 8 5 - 25 mg/dL LAB CHEMISTRY METHOD 04/22/2024 2:13 PM [facility] Creatinine 0.88 0.50 - 1.10 mg/dL LAB CHEMISTRY METHOD 04/22/2024 2:13 PM [facility] eGFR 81 >=60 mL/min/1. 73m2 LAB CHEMISTRY METHOD 04/22/2024 2:13 PM [facility] Comment:Calculation based on the??Chronic Kidney Disease Epidemiology Collaboration (CKD-EPI) equation refit??without adjustment for race. BUN/Creatinine Ratio 9.1 LAB CHEMISTRY METHOD 04/22/2024 2:13 PM [facility] Calcium 8.8 8.5 - 10.5 mg/dL LAB CHEMISTRY METHOD 04/22/2024 2:13 PM [facility] AST (SGOT) 16 10 - 42 unit/L LAB CHEMISTRY METHOD 04/22/2024 2:13 PM [facility] ALT (SGPT) 23 10 - 60 unit/L LAB CHEMISTRY METHOD 04/22/2024 2:13 PM [facility] Alkaline Phosphatase 71 42 - 121 unit/L LAB CHEMISTRY METHOD 04/22/2024 2:13 PM [facility] Total Protein 7.4 6.0 - 8.0 g/dL LAB CHEMISTRY METHOD 04/22/2024 2:13 PM [facility] Albumin 4.1 3.2 - 5.0 g/dL LAB CHEMISTRY METHOD 04/22/2024 2:13 PM [facility] Total Bilirubin 0.3 0.0 - 1.4 mg/dL LAB CHEMISTRY METHOD 04/22/2024 2:13 PM EST [facility] Blood Venous blood specimen / Unknown Venipuncture / Unknown 04/22/2024 10:37 AM EST 04/22/2024 10:37 AM EST Jeffrey MEDRANO LAB BLOOD ORDERABLES [facility] [address] [place] [address], * Cervical Cancer Screening: HPV (10/20/2022) Pathologist [facility] Cervical Cancer Screening: HPV No interpretation with Negative, abstracted Historical Provider MD ROSELYN Rudd from Last 3 Months or Most Recently Relevant to Health Maintenance Care Teams Bareback Rider Relationship Specialty Start Date End Date Aby Anguiano MD [address] [place] [id number] PCP - General Internal Medicine 10/11/20
--- OUTSIDE RECORDS SUMMARY | 2024-05-19 10:49 | XMS_ITS | Encounter Summary ---
Author Organization [facility] Address [address] [place] [address] Care Team Providers Care Manager Cardiac Cath Name Role Phone Tim Flor MD Primary Care Provider Unavail Lorin Mejía MD Primary Care Provider UnavailAmeena Magaña MD Primary Care Provider Unavaila christi Anguiano Ch MD Primary Care Provider +1 -[phone] Reason for Referral * Specialist (Routine) - Authorized/Booked Specialty Diagnoses / Procedures Referred By Contmahin bo Referred To Contact Rheumatology Procedures REFERRAL TO RHEUMATOLOGY Tim Flor MD Schumacher, James R., MD Referral ID Status Reason Start Date Expiration Date V isits Requested Visits Authorized NOT REQUIRED Authorized/ Booked 01/29/2013 01/29/2014 1 1 Reason for Visit * Reason Onset Date Comments Prototype Machinist Feedback 01/29/2013 Dr Rodriguez Encounter Details Date Type Department Care Team Description 01/29/2013 Telephone Medicine/Pediatrics - [address] [phone] Tim Flor MD Prototype Machinist Feedback (Dr Rodriguez) Social History Tobacco Use Types Packs/Day Years [...] encounter Miscellaneous Notes * Telephone Encounter - Tim Flor MD - 01/29/2013 11:54 AM EDT Referral completed. * Telephone Encounter - Mayte Damian - 01/29/2013 11:16 AM EDT Please review this patients new referral request. The referral has been pended. Please complete thefollowing: If approved> sign order If denied>please give instructions and route to your practice nursing pool. Practice nurse should inform referrals and the patient if denied. * Telephone Encounter - Martha Diaz - 01/29/2013 11:09 AM EDT Request for a referral to a [facility] Specialist for a patient with a [facility] PCP. If patient does NOT have a [facility] PCP they must obtain a referral from their PCP before being seen-do not submit request to Referrals department-contact patient. Dakota MEDRANO and Antonio MEDRANO should not see patients with community PCP's as they are not billed as specialists. Specialty patient is being referred to: rheumatology Name of Specialist patient is seeing: Dr Rodriguez Reason/diagnosis for visit: rheumatoid arthritis Date of appoinment: no appt yet If retro, date referral needs to start: Tim Flor Payor: [employer] Plan: [employer] Product Type: MEDICARE [id number] documented in this encounter Plan of Treatment Not on file documented as of this encounter Visit Diagnoses Not on filedocumented in this encounter Care Teams Manager Cardiac Cath Relationship Specialty Start Date End Date Tim Flor MD PCP - General 01/06/08 01/24/15 Lorin Norton MD PCP - General Internal Medicine 01/25/15 07/15/20 Ameena Medellin MD PCP - General Internal Medicine 07/16/20 10/10/20 Keiko Anguiano MD [address] [place] [address] [place] [address] PCP - General Internal Medicine 10/11/20 documented as of this encounter
--- OUTSIDE RECORDS SUMMARY | 2024-05-19 10:49 | XMS_ITS | Encounter Summary ---
Author Organization [facility] Address [address] [place] [address] Care Team Providers Care Stock Selector Name Role Phone Lorin Norton MD Primary Care Provider Ameena Thompson MD Primary Care Provider Giovanna Anguiano Ch MD Primary Care Provider [phone] [phone] Encounter Details Date Type Department Care Team Description 03/14/2016 [facility] Medical Records [address] [place] [address] Abstract, Provider Social History Tobacco Use Types [...] on filedocumented in this encounter Care Teams Stock Selector Relationship Specialty Start Date End Date Lorin Norton MD PCP - General Internal Medicine 01/25/15 07/15/20 Ameena Medellin MD PCP - General Internal Medicine 07/16/20 10/10/20 Keiko Anguiano MD [address] [place] [address] PCP - General Internal Medicine 10/11/20 documented as of this encounter
--- OUTSIDE RECORDS SUMMARY | 2024-05-19 10:49 | XMS_ITS | Encounter Summary ---
Author Organization [facility] Address [address] [place] [address] Care Team Providers Care Air Twist Operator Name Role Phone Lorin Norton MD Primary Care Provider Ameena Thompson MD Primary Care Provider Giovanna Anguiano Ch MD Primary Care Provider [phone] [phone] Reason for Visit * Reason Onset Date Comments refill request 04/15/2020 Encounter Details Date Type Department Care Team Description 04/15/2020 Refill Rheumatology - [place] [address] [place] [address] Haile Rodriguez MD refill request Social History Tobacco Use Types Packs/Day Years Used Date Smoking Tobacco: Every Day Cigarettes 0.5 17 Started: 11/10/2018 Smokeless Tobacco: Never Alcohol Use Standard Drinks/Week Comments No 0 (1 standard drink = 0.6 oz pur e alcohol) Sex Assigned at Date Recorded Female 12/27/2023 4:59 PM E DT Job Start Date Occupation Industry Not on file Not on file Not on file documented as of this encounter Miscellaneous Notes * Telephone Encounter - Johanna Sage L.P.N. 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
--- OUTSIDE RECORDS SUMMARY | 2024-05-19 10:49 | XMS_ITS | Encounter Summary ---
Author Organization [facility] Address [address] [place] [address] Care Team Providers Care Aquaculture Director Name Role Phone Lorin Norton MD Primary Care Provider Ameena Thompson MD Primary Care Provider Giovanna Anguiano Ch MD Primary Care Provider [phone] [phone] Encounter Details Date Type Department Care Team Description 12/11/2019 [facility] Medical Records [address] [place] [address] Abstract, Provider Social History Tobacco Use Types Packs/Day Years Used Date Smoking Tobacco: Former Cigarettes 0.5 17 S tarted: 11/10/2018 Smokeless Tobacco: Never Alcohol Use Standard [...] on filedocumented in this encounter Care Teams Aquaculture Director Relationship Specialty Start Date End Date Lorin Norton MD PCP - General Internal Medicine 01/25/15 07/15/20 Ameena Medellin MD PCP - General Internal Medicine 07/16/20 10/10/20 Keiko Anguiano MD [address] [place] [id number] PCP - General Internal Medicine 10/11/20 documented as of this encounter
--- OUTSIDE RECORDS SUMMARY | 2024-05-19 10:49 | XMS_ITS | Encounter Summary ---
Author Organization [facility] Address [address] [place] [address] Care Team Providers Care Intake Rn Name Role Phone Keiko Anguiano MD Primary Care Provider [phone] Reason for Visit * Reason Comments E-prescribe Rx Request Encounter Details Date Type Department Care Team Description 04/11/2022 Refill Adult Medicine - [place] [address] [place] [address] Keiko Anguiano MD [address] [place] [address] E-prescribe Rx Request Social History Tobacco Use [...] encounter Miscellaneous Notes * Telephone Encounter - Aby Wilcox M.A. - 04/11/2022 3:32 PM EST Images from the original note were not included. Controlled substance contract and last issue date of medication reviewed. Patient is due for medication. Medication request(s) pended for review Last appt- 03/02/22 Next appt- 04/26/22 Last appt w/ PCP- 11/29/21 Lab Results Component Value Date URBENZO NONE DETECTED 01/11/2022 UROPIATES NONE DETECTED 01/11/2022 UROXYCODONE NONE DETECTED 01/11/2022 URBARBITUATE NONE DETECTED 01/11/2022 PAINAMPHETAM POSITIVE 01/11/2022 PAINCOCAINE NONE DETECTED 01/11/2022 PAINCANNABIN NONE DETECTED 01/11/2022 ADOBE ARCHITECT * Telephone Encounter - Guille Bryant - 04/11/2022 3:12 PM EST Patient would like script to be: E-PRESCRIBED/FAXED TO PHARMACY WHEN WAS THE PATIENT'S LAST APPOINTMENT IN ADULT MEDICINE? 03/02/2022 WHEN WAS THE LAST TIME THE PATIENT SAW THEIR PCP? Does patient have an upcoming appointment? Yes 04/26/2022 (THE MEDICATION REQUESTED IS ON THE MED [...] N/A Patients current insurance carrier is: Payor: [employer] [facility] MCR / Plan: [facility] / Product Type: HMO [id number] documented in this encounter Plan of Treatment Not on file documented as of this encounter Visit Diagnoses Diagnosis Osteoarthritis of ankle and foot, left documented in this encounter Care Teams Intake Rn Relationship Specialty Start Date End Date Keiko Anguiano MD [address] [place] [id number] PCP - General Internal Medicine 10/11/20 documented as of this encounter
--- OUTSIDE RECORDS SUMMARY | 2024-05-19 10:49 | XMS_ITS | Encounter Summary ---
Author Organization [facility] Address [address] [place] [address] Care Team Providers Care Battery Mechanic Name Role Phone Tim Flor MD Primary Care Provider Unavail Lorin Mejía MD Primary Care Provider Ameena Thompson MD Primary Care Provider Giovanna Anguiano Ch MD Primary Care Provider [phone] [phone] Encounter Details Date Type Department Care Team Description 03/12/2012 Flat Grinder Operator Report Medical Records [address] [place] [address] Social History Tobacco Use Types Packs/Day Years [...] on filedocumented in this encounter Care Teams Battery Mechanic Relationship Specialty Start Date End Date Tim Flor MD PCP - General 01/06/08 01/24/15 Lorin Norton MD PCP - General Internal Medicine 01/25/15 07/15/20 Ameena Medellin MD PCP - General Internal Medicine 07/16/20 10/10/20 Keiko Anguiano MD [address] [place] [address] PCP - General Internal Medicine 10/11/20 documented as of this encounter
--- OUTSIDE RECORDS SUMMARY | 2024-05-19 10:49 | XMS_ITS | Encounter Summary ---
Author Organization [facility] Address [address] [place] [address] Care Team Providers Care Signal Technician Name Role Phone Tim Flor MD Primary Care Provider Unavail Lorin Mejía MD Primary Care Provider Ameena Thompson MD Primary Care Provider Unavailronen Anguiano Ch MD Primary Care Provider [phone] [phone] Encounter Details Date Type Department Care Team Description 06/11/2012 Artillery Maintenance Supervisor Report Medical Records [address] [place] [address] Toby Cleaning MD Social History Tobacco Use Types Packs/Day [...] on filedocumented in this encounter Care Teams Signal Technician Relationship Specialty Start Date End Date Tim Flor MD PCP - General 01/06/08 01/24/15 Lorin Norton MD PCP - General Internal Medicine 01/25/15 07/15/20 Ameena Medellin MD PCP - General Internal Medicine 07/16/20 10/10/20 Keiko Anguiano, [address] [place] [id number] PCP - General Internal Medicine 10/11/20 documented as of this encounter
--- OUTSIDE RECORDS SUMMARY | 2024-05-19 10:49 | XMS_ITS | Encounter Summary ---
Author Organization [facility] Address [address] [place] [address] Care Team Providers Care Electronic Equipment Repairer Name Role Phone Keiko Anguiano MD Primary Care Provider [phone] [phone] Encounter Details Date Type Department Care Team Description 12/27/2023 Refill Adult Medicine - [place] [address] [place] [address] Jeffrey Cruz PA-C [address] [place] [address] Social History Tobacco Use Types Packs/Day Years [...] on filedocumented in this encounter Care Teams Electronic Equipment Repairer Relationship Specialty Start Date End Date Keiko Anguiano MD [address] [place] [address] PCP - General Internal Medicine 10/11/20 documented as of this encounter
--- OUTSIDE RECORDS SUMMARY | 2024-05-19 10:49 | XMS_ITS | Encounter Summary ---
Author Organization [facility] Address [address] [place] [address] Care Team Providers Care Home Care Manager Rn Name Role Phone Keiko Anguiano MD Primary Care Provider [phone] [phone] Encounter Details Date Type Department Care Team Description 10/08/2023 Pt. Non Urgent Medic al Question Adult Medicine - [place] [address] [place] [address] Jeffrey Cruz PA-C [address] [place] [address] Social History Tobacco Use Types Packs/Day Years [...] encounter Miscellaneous Notes * Telephone Encounter - Dorinda Lim L.P.N. - 10/08/2023 12:49 PM EDT From: [facility] To: Milan Cruz Sent: 10/08/2023 12:23 PM EDT Subject: UTI I forgot to let you know last Sunday appointment,that I have been having UTI.,for few weeks now. documented in this encounter Plan of Treatment Not on file documented as of this encounter Visit Diagnoses Not on filedocumented in this encounter Care Teams Home Care Manager Rn Relationship Specialty Start Date End Date Keiko Anguiano MD [address] [place] [address] PCP - General Internal Medicine 10/11/20 documented as of this encounter
--- OUTSIDE RECORDS SUMMARY | 2024-05-19 10:49 | XMS_ITS | Encounter Summary ---
Author Organization [facility] Address [address] [place] [address] Care Team Providers Care Web Development Manager Name Role Phone Lorin Norton MD Primary Care Provider Ameena Thompson MD Primary Care Provider Giovanna Anguiano Ch MD Primary Care Provider [phone] [phone] Encounter Details Date Type Department Care Team Description 02/18/2020 [facility] Medical Records [address] [place] [address] Abstract, Provider Social History Tobacco Use Types [...] have Coronavirus / COVID-19? No / Unsure 01/23/2020 9:01 AM EDT documented as of this encounter Plan of Treatment Not on file documented as of this encounter Visit Diagnoses Not on filedocumented in this encounter Care Teams Web Development Manager Relationship Specialty Start Date End Date Lorin Norton MD PCP - General Internal Medicine 01/25/15 07/15/20 Ameena Medellin MD PCP - General Internal Medicine 07/16/20 10/10/20 Keiko Anguiano, [address] [place] [address] [place] [address] PCP - General Internal Medicine 10/11/20 documented as of this encounter
--- OUTSIDE RECORDS SUMMARY | 2024-05-19 10:49 | XMS_ITS | Encounter Summary ---
Author Organization [facility] Address [address] [place] [address] Care Team Providers Care Gravure Press Set Up Operator Name Role Phone Lorin Norton MD Primary Care Provider Ameena Thompson MD Primary Care Provider Giovanna Anguiano Ch MD Primary Care Provider +1 -[phone] Encounter Details Date Type Department Care Team Description 2018 [facility] Medical Records [address] [place] [address] Abstract, Provider Social History Tobacco Use Types [...] on filedocumented in this encounter Care Teams Gravure Press Set Up Operator Relationship Specialty Start Date End Date Lorin Norton MD PCP - General Internal Medicine 01/25/15 07/15/20 Ameena Medellin MD PCP - General Internal Medicine 07/16/20 10/10/20 Keiko Anguiano MD [address] [place] [address] PCP - General Internal Medicine 10/11/20 documented as of this encounter
--- OUTSIDE RECORDS SUMMARY | 2024-05-19 10:49 | XMS_ITS | Encounter Summary ---
Author Organization [facility] Address [address] [place] [address] Care Team Providers Care Telecom Analyst Name Role Phone Lorin Norton MD Primary Care Provider Ameena Thompson MD Primary Care Provider Giovanna Anguiano Ch MD Primary Care Provider [phone] [phone] Encounter Details Date Type Department Care Team Description 11/10/2015 Controlled Substance Contract with Plan Medical Records [address] [place] [address] Lorin Norton MD Social History Tobacco Use [...] on filedocumented in this encounter Care Teams Telecom Analyst Relationship Specialty Start Date End Date Lorin Norton MD PCP - General Internal Medicine 01/25/15 07/15/20 Ameena Medellin MD PCP - General Internal Medicine 07/16/20 10/10/20 Keiko Anguiano MD [address] [place] [address] PCP - General Internal Medicine 10/11/20 documented as of this encounter
--- OUTSIDE RECORDS SUMMARY | 2024-05-19 10:49 | XMS_ITS | Encounter Summary ---
Author Organization [facility] Address [address] [place] [address] Care Team Providers Care Factory Supervisor Name Role Phone Keiko Anguiano MD Primary Care Provider [phone] [phone] Encounter Details Date Type Department Care Team Description 12/27/2023 Refill Adult Medicine - [place] [address] [place] [address] Jeffrey Cruz PA-C [address] [place] [address] Social History Tobacco Use Types Packs/Day Years [...] on filedocumented in this encounter Care Teams Factory Supervisor Relationship Specialty Start Date End Date Keiko Anguiano MD [address] [place] [address] PCP - General Internal Medicine 10/11/20 documented as of this encounter
--- OUTSIDE RECORDS SUMMARY | 2024-05-19 10:49 | XMS_ITS | Encounter Summary ---
Author Organization [facility] Address [address] [place] [address] Care Team Providers Care Residence Director Name Role Phone Lorin Norton MD Primary Care Provider Ameena Thompson MD Primary Care Provider Giovanna Anguiano Ch MD Primary Care Provider [phone] [phone] Reason for Visit * Reason Comments E-prescribe Rx Request Encounter Details Date Type Department Care Team Description 01/20/2016 Refill Rheumatology - [place] [address] [place] [address] Haile Rodriguez MD E-prescribe Rx Request Social [...] Telephone Encounter - Sylwia Cruz L.P.N. - 01/24/2016 3:25 PM EDT called and informed * Telephone Encounter - Luci Lora MD - 01/21/2016 1:38 PM EDT Only refilled 2 weeks of the medication. Needs labs prior to more refills. Labs are ordered . Please ask patient to do labs prior to more refills . BH * Telephone Encounter - Katya Adam M.A. - 01/21/2016 9:38 AM EDT Component Value Date WBC 11.3 11/08/2015 HGB 13.4 11/08/2015 HCT 40.7 11/08/2015 MCV 93.3 11/08/2015 PLTCT 438 11/08/2015 Component Value Date ALB 4.5 03/05/2014 SGOT 25 11/08/2015 SGPT 36 11/08/2015 TBILI 0.2 03/05/2014 DBILI 0.1 03/05/2014 IBILI 0.1 03/05/2014 ALKPHOS 104 03/05/2014 TP 7.6 03/05/2014 * Telephone Encounter - Lala Weber - 01/21/2016 8:20 AM EDT Patient would like script to be: E-PRESCRIBED/FAXED TO PHARMACY WHEN WAS THE PATIENT'S LAST APPOINTMENT IN ADULT MEDICINE? 11/08/15 WHEN WAS THE LAST TIME THE PATIENT SAW THEIR PCP? Does patient have an upcoming appointment? (THE MEDICATION REQUESTED IS ON THE MED LIST ABOVE) All of the medications requested were on the CURRENT MEDS list Did you check the Pharmacy information above?: YES Patient wants: 30 -day supply Is this a mail order prescription request ? NO Patients current insurance carrier is: [place] / Product Type: MEDICARE [id number] documented in this encounter Plan of Treatment Not on file documented as of this encounter Visit Diagnoses Not on filedocumented in this encounter Care Teams Residence Director Relationship Specialty Start Date End Date Lorin Norton MD PCP - General Internal Medicine 01/25/15 07/15/20 Ameena Medellin MD PCP - General Internal Medicine 07/16/20 10/10/20 Keiko Anguiano MD [address] [place] [address] PCP - General Internal Medicine 10/11/20 documented as of this encounter
--- OUTSIDE RECORDS SUMMARY | 2024-05-19 10:49 | XMS_ITS | Encounter Summary ---
Author Organization [facility] Address [address] [place] [address] Care Team Providers Care Moss Gatherer Name Role Phone Keiko Anguiano MD Primary Care Provider [phone] [phone] Encounter Details Date Type Department Care Team Description 12/27/2023 Refill Adult Medicine - [facility] [address] [place] [address] Jeffrey Cruz PA-C [address] [place] [address] Social History Tobacco Use Types Packs/Day Years [...] arthritis documented in this encounter Care Teams Moss Gatherer Relationship Specialty Start Date End Date Keiko Anguiano MD [address] [place] [address] PCP - General Internal Medicine 10/11/20 documented as of this encounter
--- OUTSIDE RECORDS SUMMARY | 2024-05-19 10:49 | XMS_ITS | Encounter Summary ---
Author Organization [facility] Address [address] [place] [address] Care Team Providers Care Forest Supervisor Name Role Phone Tim Flor MD Primary Care Provider Unavail Lorin Mejía MD Primary Care Provider Ameena Thompson MD Primary Care Provider Unavailronen Anguiano Ch MD Primary Care Provider [phone] Encounter Details Date Type Department Care Team Description 05/22/2012 Respiratory Physician Report Medical Records [address] [place] [address] Jeffrey Dejesus Social History Tobacco Use Types Packs/Day Years [...] filedocumented in this encounter Care Teams Forest Supervisor Relationship Specialty Start Date End Date Tim Flor MD PCP - General 01/06/08 01/24/15 Lorin Norton MD PCP - General Internal Medicine 01/25/15 07/15/20 Ameena Medellin MD PCP - General Internal Medicine 07/16/20 10/10/20 Keiko Anguiano MD [address] [place] [address] PCP - General Internal Medicine 10/11/20 documented as of this encounter
--- OUTSIDE RECORDS SUMMARY | 2024-05-19 10:49 | XMS_ITS | Encounter Summary ---
Author Organization [facility] Address [address] [place] [address] Care Team Providers Care Public Safety Teacher Name Role Phone Lorin Norton MD Primary Care Provider Ameena Thompsno MD Primary Care Provider Giovanna Anguiano Ch MD Primary Care Provider [phone] [phone] Encounter Details Date Type Department Care Team Description 06/15/2020 [facility] Medical Records [address] [place] [address] Abstract, Provider Social History Tobacco Use Types [...] have Coronavirus / COVID-19? No / Unsure 06/16/2020 10:58 AM EST documented as of this encounter Plan of Treatment Not on file documented as of this encounter Visit Diagnoses Not on filedocumented in this encounter Care Teams Public Safety Teacher Relationship Specialty Start Date End Date Lorin Norton MD PCP - General Internal Medicine 01/25/15 07/15/20 Ameena Medellin MD PCP - General Internal Medicine 07/16/20 10/10/20 Keiko Anguiano, [address] [place] [address] PCP - General Internal Medicine 10/11/20 documented as of this encounter
--- OUTSIDE RECORDS SUMMARY | 2024-05-19 10:49 | XMS_ITS | Encounter Summary ---
Author Organization [facility] Address [address] [place] [address] Care Team Providers Care Incubator Tender Name Role Phone Keiko Anguiano MD Primary Care Provider [phone] [phone] Encounter Details Date Type Department Care Team Description 12/27/2023 Refill Adult Medicine - [place] [address] [place] [address] Jeffrey Cruz PA-C [address] [place] [address] Social History Tobacco Use Types Packs/Day Years [...] on filedocumented in this encounter Care Teams Incubator Tender Relationship Specialty Start Date End Date Keiko Anguiano MD [address] [place] [address] PCP - General Internal Medicine 10/11/20 documented as of this encounter
--- OUTSIDE RECORDS SUMMARY | 2024-05-19 10:49 | XMS_ITS | Encounter Summary ---
Author Organization [facility] Address [address] [place] [address] Care Team Providers Care Still Operator Brandy Name Role Phone Lorin Norton MD Primary Care Provider Ameena Thompson MD Primary Care Provider Giovanna Anguiano Ch MD Primary Care Provider [phone] [phone] Encounter Details Date Type Department Care Team Description 01/22/2018 [facility] Medical Records [address] [place] [address] Abstract, Provider Social History Tobacco Use Types [...] on filedocumented in this encounter Care Teams Still Operator Brandy Relationship Specialty Start Date End Date Lorin Norton MD PCP - General Internal Medicine 01/25/15 07/15/20 Ameena Medellin MD PCP - General Internal Medicine 07/16/20 10/10/20 Keiko Anguiano MD [address] [place] [address] PCP - General Internal Medicine 10/11/20 documented as of this encounter
--- OUTSIDE RECORDS SUMMARY | 2024-05-19 10:50 | XMS_ITS | Encounter Summary ---
Author Organization [facility] Address [address] [place] [address] Care Team Providers Care Assistant Engineer Name Role Phone Keiko Anguiano MD Primary Care Provider [phone] [phone] Encounter Details Date Type Department Care Team Description 05/17/2023 Pt. Non Urgent Medic al Question Adult Medicine - [place] [address] [place] [address] Keiko Anguiano MD [address] [place] [address] Social History Tobacco Use Types Packs/Day Years [...] Telephone Encounter - Dorinda Lim L.P.N. - 05/17/2023 11:46 AM EST From: [facility] To: Brandon Anguiano Sent: 05/17/2023 11:24 AM EST Subject: Flu I had instED come over yesterday and I tested negative for covid, strep and flu. He advised me to continue using inhaler. Doctor prescribed me benzonatate 100mg, and said to use either my Flonase or saline rinse. Also continue musinex. I'm still feeling rundown, but can breathe through nose. Do to transportation issues, I have not pic ked up my prescription yet. I will get it tomorrow. Also my chest sounded clear. documented in this encounter Plan of Treatment Not on file documented as of this encounter Visit Diagnoses Not on filedocumented in this encounter Care Teams Assistant Engineer Relationship Specialty Start Date End Date Keiko Anguiano MD [address] [place] [address] PCP - General Internal Medicine 10/11/20 documented as of this encounter
--- OUTSIDE RECORDS SUMMARY | 2024-05-19 10:50 | XMS_ITS | Encounter Summary ---
Author Organization [facility] Address [address] [place] [address] Care Team Providers Care Plating Inspector Name Role Phone Keiko Anguiano MD Primary Care Provider [phone] [phone] Encounter Details Date Type Department Care Team Description 03/30/2023 Tongue And Groove Machine Operator Report Medical Records [address] [place] [address] Haile Rodriguez MD Social History Tobacco Use [...] on filedocumented in this encounter Care Teams Plating Inspector Relationship Specialty Start Date End Date Keiko Anguiano MD [address] [place] [address] PCP - General Internal Medicine 10/11/20 documented as of this encounter
--- OUTSIDE RECORDS SUMMARY | 2024-05-19 10:50 | XMS_ITS | Encounter Summary ---
Author Organization [facility] Address [address] [place] [address] Care Team Providers Care Homeland Security Program Specialist Name Role Phone Keiko Anguiano MD Primary Care Provider [phone] [phone] Encounter Details Date Type Department Care Team Description 03/13/2023 Orders Only Medical Records [address] [place] [address] Keiko Anguiano MD [address] [place] [address] Social History Tobacco Use Types Packs/Day Years [...] on file documented as of this encounter Procedures Procedure Name Priority Date/Time Associated Diagnosis Comments OUTSIDE MAMMO Routine 08/25/2022 documented in this encounter Results * OUTSIDE MAMMO (08/25/2022) Keiko Anguiano MD RADIOLOGY documented in this encounter Visit Diagnoses Not on filedocumented in this encounter Care Teams Homeland Security Program Specialist Relationship Specialty Start Date End Date Keiko Anguiano MD [address] [place] [address] PCP - General Internal Medicine 10/11/20 documented as of this encounter
--- OUTSIDE RECORDS SUMMARY | 2024-05-19 10:50 | XMS_ITS | Encounter Summary ---
Author Organization [facility] Address [address] [place] [address] Care Team Providers Care Continuous Improvement Coordinator Name Role Phone Keiko Anguiano MD Primary Care Provider [phone] [phone] Reason for Referral * Non LUPE (Routine) - Authorized/Booked Specialty Diagnoses / Procedures Referred By Susana bo Referred To Contact Endocrinology Procedures REFERRAL TO ENDOCRINOLOGY Jeffrey Cruz PA-C [address] [place], [place] [facility]/[address] [address] Referral ID Status Reason Start Date Expiration Date V isits Requested Visits Authorized [id number] Authorized/B ooked 09/29/2022 09/29/2023 1 1 Encounter Details Date Type Department Care Team Description 09/29/2022 Orders Only Adult Medicine - [place] [address] [place] [address] Jeffrey Cruz PA-C [address] [place] [address] Social History Tobacco Use Types Packs/Day Years [...] suspected to have Coronavirus/COVID-19? No / Unsure 09/28/2022 1:43 PM EDT documented as of this encounter Plan of Treatment Not on file documented as of this encounter Visit Diagnoses Not on filedocumented in this encounter Care Teams Continuous Improvement Coordinator Relationship Specialty Start Date End Date Keiok Anguiano MD [address] [place] [address] PCP - General Internal Medicine 10/11/20 documented as of this encounter
--- OUTSIDE RECORDS SUMMARY | 2024-05-19 10:50 | XMS_ITS | Encounter Summary ---
Author Organization [facility] Address [address] [place] [address] Care Team Providers Care Shipping & Receiving Lead Name Role Phone Keiko Anguiano MD Primary Care Provider [phone] [phone] Reason for Visit * Reason Onset Date Comments Provider Call Back 08/22/2022 Encounter Details Date Type Department Care Team Description 08/22/2022 Telephone [facility] [address] [phone] Dorinda Martell MD [address] [address] Provider Call Back Social History Tobacco Use Types Packs/Day Years [...] suspected to have Coronavirus/COVID-19? No / Unsure 08/16/2022 10:08 AM EDT documented as of this encounter Miscellaneous Notes * Telephone Encounter - Marielena Montez - 09/04/2022 9:04 AM EDT Spoke to pt, she is going to lab today to repeat UA and culture * Telephone Encounter - Nicol Lopez - 08/23/2022 10:06 AM EDT Surgery cancelled, patient still taking abx for a UTI. Urinalysis and culture pended. Will need to reschedule surgery. * Telephone Encounter - Nicol Lopez - 08/22/2022 1:[address] Martell, Please advise, happy to call the patient and follow up on this, just need to know how to proceed. Looks like she tried reaching out to PCP, but they are leaving this up to the surgeons discretion. -Nicol * Telephone Encounter - Tanvi Casiano - 08/22/2022 9:38 AM EDT Received call from patient, she states she is having SX tomorrow with Dr Martell for [facility], and she noticed yesterday that her eyes were very itchy, and she oticed a discharge from one of her eyelids. She is going to call her PCP today, to see if she possibly may have [facility]. She states she will call our office back once she speaks with her PCP office. Please call patient back at [phone]. Thanks. documented in this encounter Plan of Treatment Not on file documented as of this encounter Results * URINE, CULTURE (09/28/2022 3:02 PM EDT) Urine (Urine) 09/28/2022 3:0 2 PM EDT 09/28/2022 3:03 PM EDT Narrative [facility] - 09/29/2022 1:35 PM EDT Release to patient->Immediate 10,000 - 49,000 CFU/mL NORMAL SKIN/UROGENITAL DAXA PRESENT. Dorinda Martell MD LAB [employer] documented in this encounter Visit Diagnoses Diagnosis Preoperative testing- Primary Preoperative examination, unspecified Urinary tract infection without hematuria, site unspecified documented in this encounter Care Teams Shipping & Receiving Lead Relationship Specialty Start Date End Date Keiko Anguiano MD [address] [place] [address] PCP - General Internal Medicine 10/11/20 documented as of this encounter
--- OUTSIDE RECORDS SUMMARY | 2024-05-19 10:50 | XMS_ITS | Encounter Summary ---
Author Organization [facility] Address [address] [place] [address] Care Team Providers Care Certified Control Systems Technician Name Role Phone Keiko Anguiano MD Primary Care Provider [phone] [phone] Reason for Visit * Reason Comments E-prescribe Rx Request Encounter Details Date Type Department Care Team Description 08/02/2021 Refill Rheumatology - [place] [address] [place] [address] Haile Rodriguez MD E-prescribe Rx Request Social [...] suspected to have Coronavirus/COVID-19? No / Unsure 08/02/2021 1:02 PM EDT documented as of this encounter Miscellaneous Notes * Telephone Encounter - Jeanette Khan M.A. - 08/03/2021 1:46 PM EDT Patient would like script to be: E-PRESCRIBED/FAXED TO PHARMACY WHEN WAS THE PATIENT'S LAST APPOINTMENT IN ADULT MEDICINE? 05/13/21 WHEN WAS THE LAST TIME THE PATIENT SAW THEIR PCP? Same as above Does patient have an upcoming appointment? Yes 08/29/21 (THE MEDICATION REQUESTED IS ON THE MED LIST ABOVE) All of the medications requested were on the CURRENT MEDS list Did you check the Pharmacy information above?: NO Patient wants: 30 -day supply Is this a mail order prescription request ? NO If the refill is from a FAXED refill request what is the RX # listed on the fax? N/A Patients current insurance carrier is: Payor: [employer] [facility] / Plan: [facility] / Product Type: HMO [id number] documented in this encounter Plan of Treatment Not on file documented as of this encounter Visit Diagnoses Diagnosis Seronegative rheumatoid arthritis (HCC) Rheumatoid arthritis documented in this encounter Care Teams Certified Control Systems Technician Relationship Specialty Start Date End Date Keiko Anguiano MD [address] [place] [address] PCP - General Internal Medicine 10/11/20 documented as of this encounter
--- OUTSIDE RECORDS SUMMARY | 2024-05-19 10:50 | XMS_ITS | Encounter Summary ---
Author Organization [facility] Address [address] [place] [address] Care Team Providers Care Nuts And Bolts Assembler Name Role Phone Keiko Anguiano MD Primary Care Provider [phone] [phone] Encounter Details Date Type Department Care Team Description 04/10/2023 Orders Only Adult Medicine - [place] [address] [place] [address] Breana de la vega Ch, MD [address] [place] [address] Osteoarthritis of ankle and foot, left Social History Tobacco Use Types Packs/Day Years [...] left documented in this encounter Care Teams Nuts And Bolts Assembler Relationship Specialty Start Date End Date Keiko Anguiano MD [address] [place] [address] PCP - General Internal Medicine 10/11/20 documented as of this encounter
--- OUTSIDE RECORDS SUMMARY | 2024-05-19 10:50 | XMS_ITS | Encounter Summary ---
Author Organization [facility] Address [address] [place] [address] Care Team Providers Care Wire Frame Maker Name Role Phone Lorin Norton MD Primary Care Provider Ameena Thompson MD Primary Care Provider Giovanna Anguiano Ch MD Primary Care Provider [phone] [phone] Encounter Details Date Type Department Care Team Description 05/11/2017 [facility] Medical Records [address] [place] [address] Abstract, Provider Social History Tobacco Use Types [...] on filedocumented in this encounter Care Teams Wire Frame Maker Relationship Specialty Start Date End Date Lorin Norton MD PCP - General Internal Medicine 01/25/15 07/15/20 Ameena Medellin MD PCP - General Internal Medicine 07/16/20 10/10/20 Keiko Anguiano MD [address] [place] [address] PCP - General Internal Medicine 10/11/20 documented as of this encounter
--- OUTSIDE RECORDS SUMMARY | 2024-05-19 10:50 | XMS_ITS | Data Portability ---
Author Organization [facility] [employer] [facility] [employer] [facility] Address [address] [place] [id number] Care Team Providers Care Flattening Machine Operator Name Role Phone [facility] Referring Provider Assessment Encounter Date Assessment Date Assessment LastModified by Organization Details LastModified Time 05/16/2023 05/16/2023 I have reviewed and agree with the assessment and plan as documented by the associate scientist. I provided real time medical direction for this encounter and was immediately available to provide additional phone based assistance as needed. History as noted by associate scientist. Pt with history of RA on MTX, reports URI symptoms since Apr 04 with cough, rhinorrhea, congestion and sore throat. She was seen in the ED on May 04 and reportedly tested negative for Covid and RSV. Pt diagnosed with bronchitis and was treated with 5 days of azithromycin, prednisone and an albuterol inhaler. She has also been using Mucinex but ran out. Pt reports that she initially felt improved symptoms after completing the azithromycin and prednisone but since then, her symptoms have returned with cough productive of clear sputum, rhinorrhea, congestion and sore throat. She denies any fevers, chills, CP or SOB. On exam, pt appears well. Vitals are normal, lungs clear. Rapid Flu, Covid and strep all negative. Impression: Pt with viral URI with likely viral bronchitis. No e/o pneumonia at this time. Covid/Flu/Strep all negative. Diagnosis d/w pt. She is requesting Flonase as she has run out. I prescribe Flonase to use as well as benzonatate and guaifenesin for her symptoms. Pt is informed that she will likely have to pay for the benzonatate, but she still wants it prescribed. Pt told to call and f/u with her primary care team if her symptoms do not start to improve after 1 week, and to call or seek medical attention with any worsening or new symptoms, discussed with her. [email or web address] Not available 05/16/2023 15:12:17 Plan of Treatment Reminders Order Date Submit Date Provider Last Modified By Organization Details Last Modified Time Details Appointments None recorded. Lab rapid SARS CoV 2 Ag, QL IA, respiratory specimen 2023 [facility], [address] [place] [address], [id number], 4 13:36:28 rapid flu (A+B) 2023 [facility], [address] [place] [address], [id number], 4 13:36:29 rapid strep group A, throat 2023 [facility], [address] [place] [address], [id number], 4 13:36:30 Referral None recorded. Procedures None recorded. Surgeries None recorded. Imaging None recorded. Medication Orders fluticasone propionate 50 mcg/actuati on nasal spray,suspe nsion 2023 024 [facility], [address] [place], [id number], 4 13:36:29 guaifenesin ER 600 mg tablet, extended release 12 hr 2023 024 [facility], [address] [place], [id number], 4 13:36:28 benzonatate 100 mg capsule 2023 024 [facility], [address] [place], [id number], 4 13:36:28 Patient TargetsNo targets recorded. Patient InstructionsNo instructions recorded. Reason for Referral None Reported. Results Created Date Observation Date Name Description Value Unit Range Abnormal Flag Note LastModifiedBy Organization Detail LastModifiedTime 05/16/19 24 05/16/2023 rapid strep group A, throa t Strep negati ve Not Available Main - [facility] ed [address] [place] [address], [id number], 05/16/2023 13:30:48 05/16/19 24 05/16/2023 rapid flu (A+B) Flu negati ve Not Available [facility] ed [address] [place] [address], [id number], 05/16/2023 13:30:39 05/16/19 24 05/16/2023 rapid SARS CoV 2 Ag, QL IA, respi rator y speci men rapid SARS CoV 2 Ag, QL IA, respiratory specimen negati ve Not Available [facility] ed [address] [place] [address], [id number], 05/16/2023 13:30:26 Result Notes None recorded. Medical Equipment None Reported. Medications Name Sig Start Date Stop Date Status Note LastModified by Organization Details LastModified Time cyclobenzapr ine 10 mg tablet TAKE 1 TABLET BY MOUTH DAILY NEEDED FOR MUSCLE SPASMS. active Not Available Not Available No t Available amoxicillin 500 mg capsule TAKE 1 TABLET BY MOUTH THREE TIMES A DAY FOR 7 DAYS active Not Available Not Available N ot Available lamotrigine 150 mg tablet TAKE 1 TABLET BY MOUTH TWICE A DAY active Not Available Not Available No t Available clonidine HCl 0.1 mg tablet TAKE 1 TABLET BY MOUTH ONCE A DAY NEEDED ANXIETY active Not Available Not Available No t Available lamotrigine 200 mg tablet TAKE 1 TABLET BY MOUTH TWICE A DAY active Not Available Not Available No t Available cetirizine 10 mg tablet TAKE 1 TABLET BY MOUTH EVERY DAY active Not Available Not Available No t Available azithromycin 250 mg tablet TAKE 1 TABLET BY MOUTH DAILY FOR 4 DAYS active Not Available Not Available N ot Available pravastatin 40 mg tablet TAKE 1 TABLET BY MOUTH EVERY DAY active Not Available Not Available No t Available prednisone 20 mg tablet TAKE 2 TABLETS BY MOUTH DAILY FOR 4 DAYS active Not Available Not Available N ot Available dextroamphet amine-amphet amine 10 mg tablet TAKE 1 TABLET BY MOUTH TWICE A DAY active Not Available Not Available No t Available clonazepam 0.5 mg tablet TAKE 1 TABLET BY MOUTH THREE TIMES A DAY active Not Available Not Available Not Available prednisone 5 mg tablet TAKE 4 TABS ONCE DAILY X3 DAYS, 3TABS DAILY X3 DAYS, THEN 2TABS X3 DAYS THEN ONE DAILY FOR 3 DAYS active Not Available Not Available No t Available clonazepam 1 mg tablet TAKE 1 TABLET BY MOUTH TWICE A DAY active Not Available Not Available No t Available amlodipine 5 mg tablet TAKE 1 TABLET BY MOUTH EVERY DAY active Not Available Not Available No t Available tramadol 50 mg tablet TAKE 2 TABLETS BY MOUTH 2 TIMES DAILY FOR 28 DAYS. active Not Available Not Available No t Available lamotrigine 25 mg tablet TAKE 2 TABLETS BY MOUTH EVERY MORNING WITH 150 MG TABLET FOR TOTAL MORNING DOSE OF 200 MG active Not Available Not Available No t Available clonidine HCl 0.2 mg tablet TAKE 2 TABLETS BY MOUTH EVERY DAY AT BEDTIME active Not Available Not Available No t Available methotrexate sodium 2.5 mg tablet 12.5 MG (5 X 2.5 MG) ORALLY EVERY WEEK active Not Available Not Available N ot Available amlodipine 5 mg-benazepri l 10 mg capsule TAKE 1 CAPSULE BY MOUTH DAILY FOR 360 DAYS. active Not Available Not Available No t Available benzonatate 100 mg capsule TAKE 1 CAPSULE BY MOUTH THREE TIMES A DAY NEEDED FOR 10 DAYS active Not Available Not Available Not Available dextroamphet amine-amphet amine 15 mg tablet TAKE 1 TABLET BY MOUTH TWICE A DAY active Not Available Not Available No t Available omeprazole 20 mg capsule,antonio yed release TAKE 1 CAPSULE BY MOUTH EVERY DAY active Not Available Not Available No t Available folic acid 1 mg tablet TAKE 1 TABLET BY MOUTH EVERY DAY active Not Available Not Available No t Available codeine 10 mg-guaifenes in 100 mg/5 mL oral liquid TAKE 5 ML BY MOUTH 3 TIMES DAILY NEEDED FOR COUGH FOR UP TO 10 DAYS. active Not Available Not Available No t Available hydrochlorot hiazide 25 mg tablet TAKE 1 TABLET BY MOUTH EVERY DAY active Not Available Not Available No t Available celecoxib 100 mg capsule TAKE 1 CAPSULE BY MOUTH TWICE A DAY active Not Available Not Available No t Available fluticasone propionate 50 mcg/actuatio n nasal spray,suspen nolberto USE 1 SPRAY TO BOTH NOSTRILS ONCE DAILY active Not Available Not Available N ot Available dextroamphet amine-amphet amine 5 mg tablet TAKE 2 TABLETS BY MOUTH TWICE DAILY. active Not Available Not Available No t Available nitrofuranto in monohydrate/ macrocrystal s 100 mg capsule TAKE 1 CAPSULE BY MOUTH TWICE A DAY FOR 5 DAYS active Not Available Not Available No t Available guaifenesin ER 600 mg tablet, extended release 12 hr Take 1 tablet every 12 hours by oral route as needed for 28 days. 2023 active Not Available Not Available Not Avai lable Rexulti 1 mg tablet TAKE 1 TABLET BY MOUTH EVERY DAY active Not Available Not Available No t Available Rexulti 2 mg tablet TAKE 1 TABLET BY MOUTH EVERY DAY active Not Available Not Available No t Available naloxone 4 mg/actuation nasal spray PLEASE SEE ATTACHED FOR DETAILED DIRECTIONS active Not Available Not Available N ot Available Trintellix 20 mg tablet TAKE 1 TABLET BY MOUTH EVERY DAY WITH FOOD active Not Available Not Available No t Available Humira(CF) Pen 40 mg/0.4 mL subcutaneous kit active Not Available Not Available Not Available Vitals Date Recorded Body weight Respiratory rate Body temperature Heart rate Body height Oxygen saturation Oxygen saturation in Arterial blood by Pulse oximetry Systolic blood pressure Diastolic blood pressure Provider Name and Address Organization Details Last Updated DateTime 4 86364.6 g 14 /min 98.4 [degF] 98 /min 167.64 cm 98 % 98 % 124 mm[Hg] 86 mm[Hg] Not Available [facility] - production 13:24:49 Social History None recorded. Functional Status None recorded. Mental Status None recorded. Family History Nothing Reported. Medical History No medical history recorded. Gynecological HistoryNo gynecological history recorded. Obstetrics History GPAL:G 0 P 0 0 0 0 Past Encounters Encounter ID Performer Location Encounter Start Date Encounter Closed Date Diagnosis/Indication Diagnosis SNOMED-CT Code Diagnosis ICD10 Code Diagnosis Note [id number] Thomas Garsia MD Main - [facility] [address] [place] [phone] 05/16/2023 13:24:32 05/17/2023 09:29:40 Viral upper respiratory tract infection 507844262 J06.9 Health Concerns Section Related Observation LastModified by Organization Detai ls LastModified Time None Recorded Concern Status LastModified by Organization Details LastModified Time None Recorded Advance Directives Directive None Recorded Payers Encounter Date Sequence Insurance Name Policy Number Policy Sinha Covered Member ID Sinha Member ID Guarantor Name 05/16/2023 1 [facility] - DOS ON OR AFTER 2022 - DUAL ELIGIBLE - LONG TERM OPTIONS AND ONE CARE (MEDICARE REPLACEMENT/AD VANTAGE - HMO) [facility] [id number] [facility] Notes Date Note Type Note Provider Name and Address Organization Details Recorded Time 05/16/2023 text/html This was a supervised home visit with associate scientist Tuan Martin. [facility] Nurse Triage Notes (Padmini Marin): Reason For Request: pt reporting flu symptoms>runny nose, rough cough, run down, sore throat, sneezing, weakness>symptoms persisting since APR 04 2023>mbr mentions bad immune system. Chief Complaints: Cough, Weakness/Lethargy PMH: Hypertension, Other Allergies: No Known Comments: Member is a a 48 yr old female Member has had symptoms since apr 04. Member on apr 06 had a PCP appt , was tested for COVID and RSV and was negative, encouraged her to rest and manage symptoms. Member then got worse and PCP diagnosed member with bronchitis and was prescribed cough syrup, then went to the ER , which confirmed bronchitis, was given prednisone and inhaler. Member called PCP and told her to call [facility] . Member is still having congestion , cough, sore throat. Member completed meds but is taking OTC Nyquil . Member has JR Arthritis , HTN , High Chol, depression, PTSD . ADD .................. .................. .................. .................. .................. .................. .................. ............... Business Administration Teacher Note From Tuan Martin: PT caox3 complains of runny congested nose, sore throat, productive cough that keeps her up at night. Pt reports she ended zpak 6 days ago, felt better, now has felt symptoms again for the last 3 days. Pt denies tiredness, n/v/d, chest pain or difficulty breathing. Pt states she has run out of mucinex and flonase. Pt was in ED May 04, 2023. Pt pink warm and dry, secondary exam unremarkable. Oropharynx unremarkable, neck supple, lung sounds clear, negative increased work of breathing. Pt negative for covid flu and strep via rapid POC. [facility] will Rx flonase, mucinex and benzonatate to pt's local pharmacy. Supportive care including nasal decongestant, fluids, nasal rinse, and red flags and pt education discussed. .................. .................. .................. .................. .................. .................. .................. ............... Disposition: Fulfilled Thomas Garsia MD [address] [facility],[address], [place], [phone], [employer] 05/16/2023 15:12:32 OBGyn Episode No OBEpisode recorded.
--- OUTSIDE RECORDS SUMMARY | 2024-05-19 10:50 | XMS_ITS | Encounter Summary ---
Author Organization [facility] Address [address] [place] [address] Care Team Providers Care Copy Operator Name Role Phone Keiko Anguiano MD Primary Care Provider [phone] [phone] Encounter Details Date Type Department Care Team Description 05/17/2021 PNO Controlled Substance Contract Medical Records [address] [place] [address] Vanessa Alvarado PA-C Social History Tobacco Use Types Packs/Day Years [...] have Coronavirus / COVID-19? No / Unsure 05/13/2021 11:19 AM EST documented as of this encounter Plan of Treatment Not on file documented as of this encounter Visit Diagnoses Not on filedocumented in this encounter Care Teams Copy Operator Relationship Specialty Start Date End Date Keiko Anguiano, [address] [place] [address] PCP - General Internal Medicine 10/11/20 documented as of this encounter
--- OUTSIDE RECORDS SUMMARY | 2024-05-19 10:50 | XMS_ITS | Encounter Summary ---
Author Organization [facility] Address [address] [place] [address] Care Team Providers Care Medical Staff Director Name Role Phone Keiko Anguiano MD Primary Care Provider [phone] [phone] Encounter Details Date Type Department Care Team Description 04/27/2023 Refill Adult Medicine - [place] [address] [place] [address] eKiko Anguiano MD [address] [place] [address] Social History Tobacco Use Types Packs/Day Years [...] on filedocumented in this encounter Care Teams Medical Staff Director Relationship Specialty Start Date End Date Keiko Anguiano MD [address] [place] [address] PCP - General Internal Medicine 10/11/20 documented as of this encounter
--- OUTSIDE RECORDS SUMMARY | 2024-05-19 10:50 | XMS_ITS | Encounter Summary ---
Author Organization [facility] Address [address] [place] [address] Care Team Providers Care Client Strategist Name Role Phone Keiko Anguiano MD Primary Care Provider [phone] [phone] Encounter Details Date Type Department Care Team Description 09/23/2021 Mender [employer]s Report Medical Records [address] [place] [address] Horacio Barnrad MD Social History Tobacco Use Types Packs/Day [...] suspected to have Coronavirus/COVID-19? No / Unsure 08/29/2021 1:12 PM EDT documented as of this encounter Plan of Treatment Not on file documented as of this encounter Visit Diagnoses Not on filedocumented in this encounter Care Teams Client Strategist Relationship Specialty Start Date End Date Keiko Anguiano MD [address] [place] [address] PCP - General Internal Medicine 10/11/20 documented as of this encounter
--- OUTSIDE RECORDS SUMMARY | 2024-05-19 10:50 | XMS_ITS | Encounter Summary ---
Author Organization [facility] Address [address] [place] [address] Care Team Providers Care Steel Plate Caulker Name Role Phone Keiko Anguiano MD Primary Care Provider [phone] [phone] Encounter Details Date Type Department Care Team Description 09/27/2023 Orders Only Medical Records [address] [place] [address] Keiko Anguiano MD [address] [place] [address] Social History Tobacco Use Types Packs/Day Years [...] Date/Time Associated Diagnosis Comments OUTSIDE MAMMO Routine 08/29/2023 documented in this encounter Results * OUTSIDE MAMMO (08/29/2023) Keiko Anguiano MD RADIOLOGY documented in this encounter Visit Diagnoses Not on filedocumented in this encounter Care Teams Steel Plate Caulker Relationship Specialty Start Date End Date Keiko Anguiano MD [address] [place] [address] PCP - General Internal Medicine 10/11/20 documented as of this encounter
--- OUTSIDE RECORDS SUMMARY | 2024-05-19 10:50 | XMS_ITS | Encounter Summary ---
Author Organization [facility] Address [address] [place] [address] Care Team Providers Care Construction Project Assistant Name Role Phone Keiko Anguiano MD Primary Care Provider [phone] [phone] Encounter Details Date Type Department Care Team Description 12/13/2020 Orders Only Medical Records [address] [place] [address] Tyra Lezama PA-C Social History Tobacco Use Types Packs/Day [...] Name Priority Date/Time Associated Diagnosis Comments OUTSIDE SLEEP STUDY Routine 11/30/2020 documented in this encounter Results * OUTSIDE SLEEP STUDY (11/30/2020) Tyra Lezama PA-C PULMONOLOGY documented in this encounter Visit Diagnoses Not on filedocumented in this encounter Care Teams Construction Project Assistant Relationship Specialty Start Date End Date Keiko Anguiano MD [address] [place] [address] PCP - General Internal Medicine 10/11/20 documented as of this encounter
--- OUTSIDE RECORDS SUMMARY | 2024-05-19 10:50 | XMS_ITS | Encounter Summary ---
Author Organization [facility] Address [address] [place] [address] Care Team Providers Care Coke Crane Operator Name Role Phone Keiko Anguiano MD Primary Care Provider [phone] [phone] Encounter Details Date Type Department Care Team Description 08/09/2021 [facility] Medical Records [address] [place] [address] Abstract, Provider Social History Tobacco Use Types [...] on filedocumented in this encounter Care Teams Coke Crane Operator Relationship Specialty Start Date End Date Keiko Anguiano MD [address] [place] [address] PCP - General Internal Medicine 10/11/20 documented as of this encounter
--- OUTSIDE RECORDS SUMMARY | 2024-05-19 10:50 | XMS_ITS | Encounter Summary ---
Author Organization [facility] Address [address] [place] [address] Care Team Providers Care Extrusion Supervisor Name Role Phone Tim Flor MD Primary Care Provider Unavail Lorin Mejía MD Primary Care Provider Ameena Thompson MD Primary Care Provider Unavailronen Anguiano Ch MD Primary Care Provider [phone] [phone] Encounter Details Date Type Department Care Team Description 08/18/2014 PUBLIC HEALTH ADVISOR/[employer] Report Medical Records [address] [place] [address] Abstract, Provider Social History Tobacco Use Types [...] on filedocumented in this encounter Care Teams Extrusion Supervisor Relationship Specialty Start Date End Date Tim Flor MD PCP - General 01/06/08 01/24/15 Lorin Norton MD PCP - General Internal Medicine 01/25/15 07/15/20 Ameena Medellin MD PCP - General Internal Medicine 07/16/20 10/10/20 Keiko Anguiano, [address] [place] [id number] PCP - General Internal Medicine 10/11/20 documented as of this encounter
--- OUTSIDE RECORDS SUMMARY | 2024-05-19 10:50 | XMS_ITS | Encounter Summary ---
Author Organization [facility] Address [address] [place] [address] Care Team Providers Care Power Shovel Engineer Name Role Phone Keiko Anguiano MD Primary Care Provider [phone] [phone] Encounter Details Date Type Department Care Team Description 03/27/2023 Financial Investment Adviser Report Medical Records [address] [place] [address] Haile Rodriguez MD Social History Tobacco Use [...] on filedocumented in this encounter Care Teams Power Shovel Engineer Relationship Specialty Start Date End Date Keiko Anguiano MD [address] [place] [address] PCP - General Internal Medicine 10/11/20 documented as of this encounter
--- OUTSIDE RECORDS SUMMARY | 2024-05-19 10:50 | XMS_ITS | Encounter Summary ---
Author Organization [facility] Address [address] [place] [address] Care Team Providers Care Principal Archaeologist Name Role Phone Keiko Anguiano MD Primary Care Provider [phone] [phone] Reason for Visit * Reason Comments E-prescribe Rx Request Encounter Details Date Type Department Care Team Description 10/29/2020 Refill Adult Medicine - [place] [address] [place] [address] Lisa Oakley PA-C E-prescribe Rx Request Social History Tobacco Use [...] have Coronavirus / COVID-19? No / Unsure 10/25/2020 1:36 PM EDT documented as of this encounter Miscellaneous Notes * Telephone Encounter - Jazlyn Gao - 10/29/2020 10:32 AM EDT Patient would like script to be: E-PRESCRIBED/FAXED TO PHARMACY WHEN WAS THE PATIENT'S LAST APPOINTMENT IN ADULT MEDICINE? 04/29/20 WHEN WAS THE LAST TIME THE PATIENT SAW THEIR PCP? Does patient have an upcoming appointment? Yes 11/10/20 (THE MEDICATION REQUESTED IS ON THE MED [...] N/A Patients current insurance carrier is: Payor: [employer] / Plan: [facility] / Product Type: HMO [id number] documented in this encounter Plan of Treatment Not on file documented as of this encounter Visit Diagnoses Not on filedocumented in this encounter Care Teams Principal Archaeologist Relationship Specialty Start Date End Date Keiko Anguiano MD [address] [place] [id number] PCP - General Internal Medicine 10/11/20 documented as of this encounter
--- OUTSIDE RECORDS SUMMARY | 2024-05-19 10:50 | XMS_ITS | Encounter Summary ---
Author Organization [facility] Address [address] [place] [address] Care Team Providers Care Last Puller Name Role Phone Keiko Anguiano MD Primary Care Provider [phone] [phone] Encounter Details Date Type Department Care Team Description 06/18/2023 [facility] Medical Records [address] [place] [address] Zach Harris MD Social History Tobacco Use Types Packs/Day [...] on filedocumented in this encounter Care Teams Last Puller Relationship Specialty Start Date End Date Keiko Anguiano MD [address] [place] [address] PCP - General Internal Medicine 10/11/20 documented as of this encounter
--- OUTSIDE RECORDS SUMMARY | 2024-05-19 10:50 | XMS_ITS | Encounter Summary ---
Author Organization [facility] Address [address] [place] [address] Care Team Providers Care Bone Crusher Name Role Phone Keiko Anguiano MD Primary Care Provider [phone] [phone] Encounter Details Date Type Department Care Team Description 08/09/2023 Automation Tender Report Medical Records [address] [place] [address] Abstract, Provider Social History Tobacco Use Types [...] on filedocumented in this encounter Care Teams Bone Crusher Relationship Specialty Start Date End Date Keiko Anguiano, [address] [place] [address] PCP - General Internal Medicine 10/11/20 documented as of this encounter
--- OUTSIDE RECORDS SUMMARY | 2024-05-19 10:50 | XMS_ITS | Encounter Summary ---
Author Organization [facility] Address [address] [place] [address] Care Team Providers Care Freezer Worker Name Role Phone Keiko Anguiano MD Primary Care Provider [phone] [phone] Encounter Details Date Type Department Care Team Description 10/14/2021 Water Chemist Report Medical Records [address] [place] [address] Theron Colunga Social History Tobacco Use Types Packs/Day Years [...] suspected to have Coronavirus/COVID-19? No / Unsure 10/14/2021 2:35 PM EDT documented as of this encounter Plan of Treatment Not on file documented as of this encounter Visit Diagnoses Not on filedocumented in this encounter Care Teams Freezer Worker Relationship Specialty Start Date End Date Keiko Anguiano MD [address] [place] [address] PCP - General Internal Medicine 10/11/20 documented as of this encounter
--- OUTSIDE RECORDS SUMMARY | 2024-05-19 10:50 | XMS_ITS | Encounter Summary ---
Author Organization [facility] Address [address] [place] [address] Care Team Providers Care Shorthand Teacher Name Role Phone Keiko Anguiano MD Primary Care Provider [phone] Encounter Details Date Type Department Care Team Description 11/23/2020 [facility] Medical Records [address] [place] [address] Abstract, Provider Social History Tobacco Use Types [...] have Coronavirus / COVID-19? No / Unsure 11/10/2020 10:12 AM EDT documented as of this encounter Plan of Treatment Not on file documented as of this encounter Visit Diagnoses Not on filedocumented in this encounter Care Teams Shorthand Teacher Relationship Specialty Start Date End Date Keiko Anguiano, [address] [place] [address] PCP - General Internal Medicine 10/11/20 documented as of this encounter
--- OUTSIDE RECORDS SUMMARY | 2024-05-19 10:50 | XMS_ITS | Encounter Summary ---
Author Organization [facility] Address [address] [place] [address] Care Team Providers Care Early Head Start Teacher Name Role Phone Keiko Anguiano MD Primary Care Provider [phone] Encounter Details Date Type Department Care Team Description 06/20/2023 Telephone Adult Medicine - [place] [address] [place] [address] Jeffrey Cruz PA-C [address] [place] [address] Social History Tobacco Use Types Packs/Day Years [...] encounter Miscellaneous Notes * Telephone Encounter - Jenise Lisa M.A. - 06/20/2023 12:29 PM EST Patient received bone density in 03/2023. documented in this encounter Plan of Treatment Not on file documented as of this encounter Visit Diagnoses Not on filedocumented in this encounter Care Teams Early Head Start Teacher Relationship Specialty Start Date End Date Keiko Anguiano, [address] [place] [address] [place] [address] PCP - General Internal Medicine 10/11/20 documented as of this encounter
--- OUTSIDE RECORDS SUMMARY | 2024-05-19 10:51 | XMS_ITS | Encounter Summary ---
Author Organization [facility] Address [address] [place] [address] Care Team Providers Care Mastic Floor Layer Name Role Phone Kieko Anguiano MD Primary Care Provider [phone] Encounter Details Date Type Department Care Team Description 03/05/2023 Pt. Non Urgent Medical Question Adult Medicine - [place] [address] [place] [address] Mer huang Ch, MD [address] [place] [address] Osteoarthritis of ankle and foot, left Social [...] Telephone Encounter - Dorinda Lim L.P.N. - 03/05/2023 12:47 PM EST From: Carmenza Pastrana To: Brandon Anguiano Sent: 03/05/2023 11:31 AM EST Subject: Missed a urine screen test I was supposed to come on to do a urine test on the and could not get a ride. I just figured out how to use my chart yesterday. I message on the about coming in another time. I'm away for holiday and tramadol due .i have been on tramadol for 30 years and since I will not receive it. Extweek I don' t know if I should go to a detox center to avoid withdrawal. I don't know what to do. Itried to not take it 4 a day and got very sick please let me what to do when I I run out on . Could u please give me some advice because I'm scared and don't know what to do or where to go. Should I go to hospital? Do I get new doctors. I have no car and the car service I use was booked on , that is why I couldn't make it in. t ried to reach out to you to via phone but didn't hear back. I have never had a problem in 30 years with tramadol. I have always come in for test. So I would just like to no what to do. Who do I call. I return home on Sunday. I'm so concerned about withdrawal. Is there any other medicine to help me? If you have a chance please let me know. Do I goto an outpatient, I've [employer] what to do about dealing with rheumatoid arthritis pain. I j ust don't know. My number is [phone], Dr. Rodriguez is leaving and I don't think they prescribe. Note said from youwe would discuss tramadol before refill do on . Please let me know what I should do, thanks..Carmenza pastrana, 1975 documented in this encounter Plan of Treatment Not on file documented as of this encounter Visit Diagnoses Diagnosis Osteoarthritis of ankle and foot, left documented in this encounter Care Teams Mastic Floor Layer Relationship Specialty Start Date End Date Keiko Anguiano MD [address] [place] [id number] PCP - General Internal Medicine 10/11/20 documented as of this encounter
--- OUTSIDE RECORDS SUMMARY | 2024-05-19 10:51 | XMS_ITS | Encounter Summary ---
Author Organization [facility] Address [address] [place] [address] Care Team Providers Care Artificial Stone Applicator Name Role Phone Aby Anguiano MD Primary Care Prov ider Encounter Details Date Type Department Care Team (Late st Contact Info) Description 05/08/2024 8:02 AM EST Anesthesia Event [facility] Endoscopy [address] [place] [address] Tony Parham DO [address] [place] [address] Nessa Henry CRNA [address] [place] [address] Anesthesia Record Procedure Summary Procedure Name Responsible Anesthesiologist Anesthesia Start Time Anesthesia Stop Time COLONOSCOPY Tony Parham DO 05/08/24 0802 0829 Events Date Time Event Comment 05/08/2024 0740 0802 An Start 0803 An Start Data The patient wa s reevaluated immediately before moderate or deep sedation use and before anesthesia induction. 0803 In Room 0805 Anesthesia Ready 0824 an stop data 0826 Out of Room 0827 Handoff to RN I completed my handoff to the receiving nurse during which we: 1. Identified the patient 2. Identified the responsible provider 3. Reviewed the pertinent medical history 4. Discussed the surgical course 5. Reviewed intra-op anesthesia management and issues during anesthesia 6. Set expectations for post-procedure period 7. Allowed opportunity for questions and acknowledgement of understanding. 828 An Stop Meds Name Total propofol (DIPRIVAN) injection 10 mg/mL 2 00 mg lidocaine PF (XYLOCAINE-MPF) local injec tion 2% 50 mg lactated Ringer's infusion 100 mL * Agents No agents on file. * Blood No blood administrations on file. Lines, Drains, and Airways Type Details Placement Removal Peripheral IV Placement Date: 05/08/24; Placement Time: 738; Catheter Size: 20 G; Orientation: Posterior, Right; Location: Hand; Site Prep: Chlorhexidine; Insertion Attempts: 1; Patient Tolerance: Tolerated well; Removal Date: 05/08/24; Removal Time: 84805/08/24 07 by Alina Lynn RN 05/08/24 08 by Lupe Leong RN documented in this encounter Social History Tobacco Use Types Packs/Day Years [...] care for your loved ones. For example, director child development center or elderly care for an older adult? [...] on file documented as of this encounter Progress Notes * Nessa Henry CRNA - 05/08/2024 8:30 AM EST Patient: Carmenza House Procedure Summary Date: 05/08/24 Room / Location: [facility] Endoscopy Anesthesia Start: 801 Anesthesia Stop: 828 Procedure: COLONOSCOPY Diagnosis: Colon cancer screening (Screening for colorectal malignant neoplasm) Scheduled Providers: Flo Fernandez MD; Tony Parham DO; Nessa Henry CRNA Responsible Provider: Tony Parahm DO Anesthesia Type: MAC ASA Status: 3 Anesthesia Plan: MAC Last Vitals: Vitals Value Taken Time BP 99/72 05/08/24 0830 Temp 05/08/24 0830 Pulse 64 05/08/24 0830 Resp 10 05/08/24 0830 SpO2 100 05/08/24 0830 No data recorded Anesthesia Post Evaluation Patient location during evaluation: PACU (phase 2) Patient participation: complete - patient participated Level of consciousness: awake Pain score: 0 Pain management: adequate Anesthetic complications: no Cardiovascular status: stable Respiratory status: spontaneous ventilation Hydration status: acceptable Comments: Report to RN VSS No c/o. Nausea: No Vomiting: No There were no known notable events for this encounter. * Tony Parham DO - 05/08/2024 7:39 AM EST 49 y.o. 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 Ht Readings from Last 1 Encounters: 05/08/24 1.499 m (59 ) Wt Readings from Last 1 Encounters: 05/08/24 59 kg (130 lb) Body mass index is 26.26 kg/m??. Past Medical History: Diagnosis Date Allergic rhinitis 08/27/2013 DX:Allergic rhinitis Anemia DX:Anemia Depression DX:Depression Depressive disorder, not elsewhere classified 03/03/2008 DX:Depressive disorder, not elsewhere classified Elevated serum alkaline phosphatase level DX:Elevated serum alkaline phosphatase level GERD (gastroesophageal reflux disease) Hypertension Insomnia, unspecified 03/03/2008 DX:Insomnia, unspecified JRA (juvenile rheumatoid arthritis) ([facility]) 03/03/2008 DX:JRA (juvenile rheumatoid arthritis) ([facility]) intermediate frame tender current use of immunosuppressive drug 07/11/2019 DX:intermediate frame tender current use of immunosuppressive drug PARKER (obstructive sleep apnea) Osteopenia DX:Osteopenia; COMMENT: Fosamax RA (rheumatoid arthritis) ([facility]) DX:RA (rheumatoid arthritis) ([facility]) Seizure ([facility]) DX:Seizure ([facility]); COMMENT: x 2 Subclinical hypothyroidism 04/25/2024 Vitamin D deficiency DX:Vitamin D deficiency Past Surgical History: Procedure Laterality Date CHOLECYSTECTOMY 1996 PROCEDURE: HISTORICAL CHOLECYSTECTOMY; COMMENT: Lap WISDOM TOOTH EXTRACTION PROCEDURE: HISTORICAL WISDOM TEETH EXTRACTION Denies anesthesia complications No Known Allergies Current Outpatient Medications on File Prior to Encounter Medication Sig Dispense Refill amLODIPine-benazepril (LOTREL) 5-10 mg per capsule Take 1 Capsule by mouth daily. amphetamine-dextroamphetamine (ADDERALL) 10 mg tablet Take 1.5 tablets (15 mg total) by mouth 2 (two) times a day. Take 1 Tablet by mouth 2 times daily. brexpiprazole (Rexulti) 1 mg tablet Take 1 Tablet by mouth daily. calcium carbonate-vitamin D3 600 mg-5 mcg (200 unit) per tablet 1 po bid celecoxib (CeleBREX) 100 mg capsule TAKE 1 CAPSULE BY MOUTH TWICE A DAY 180 capsule 0 cetirizine (ZyrTEC) 10 mg tablet TAKE 1 TABLET BY MOUTH EVERY DAY cloNIDine (CATAPRES) 0.1 mg tablet TAKE 1 TABLET BY MOUTH ONCE A DAY NEEDED ANXIETY cloNIDine (CATAPRES) 0.2 mg tablet 3 tablets HS fluticasone propionate (FLONASE) 50 mcg/actuation nasal spray INSTILL 2 SPRAYS INTO NOSTRILS DAILY DIRECTED folic acid (FOLVITE) 1 mg tablet Take 1 Tablet by mouth daily. hydroCHLOROthiazide (HYDRODIURIL) 25 mg tablet Daily lamoTRIgine (LaMICtal) 100 mg tablet 1 tablet in the am, 1.5 tablet at bedtime levonorgestreL (MIRENA) 21 mcg/24hr (up to 8 yrs) 52 mg IUD 1 Each by Intrauterine route once. methotrexate 2.5 mg tablet 1 tablet (2.5 mg total) 1 (one) time per week Take 5 Tablets by mouth once a week. omeprazole (PriLOSEC) [address] capsule TAKE 1 CAPSULE BY MOUTH EVERY DAY pravastatin (PRAVACHOL) 40 mg tablet Take 1 Tablet by mouth daily. traMADoL (ULTRAM) 50 mg tablet TAKE 1 TABLET BY MOUTH TWICE DAILY FOR 15 DAYS NEEDED FOR PAIN vortioxetine (TRINTELLIX) 10 mg tablet Take 20 mg by mouth daily. adalimumab (Humira,CF, Pen) 40 mg/0.4 mL pen Inject 0.4 mL (40 mg total) under the skin every 14 (fourteen) days. cyclobenzaprine (FLEXERIL) 10 mg tablet Take 1 Tablet by mouth daily as needed for Muscle spasms. methotrexate 25 mg/mL solution Weekly naloxone (Narcan) 4 mg/0.1 mL nasal spray PLEASE SEE ATTACHED FOR DETAILED DIRECTIONS No current facility-administered medications on file prior to encounter. Current In-hospital Medications Prior to Admission medications Medication Sig Start Date End Date Taking? Authorizing Provider amLODIPine-benazepril (LOTREL) 5-10 mg per capsule Take 1 Capsule by mouth daily. 10/01/23 Yes Historical Provider, amphetamine-dextroamphetamine (ADDERALL) 10 mg tablet Take 1.5 tablets (15 mg total) by mouth 2 (two) times a day. Take 1 Tablet by mouth 2 times daily. Yes Historical Provider, brexpiprazole (Rexulti) 1 mg tablet Take 1 Tablet by mouth daily. 09/25/22 Yes Historical Provider, calcium carbonate-vitamin D3 600 mg-5 mcg (200 unit) per tablet 1 po bid 09/23/08 Yes Historical Provider, celecoxib (CeleBREX) 100 mg capsule TAKE 1 CAPSULE BY MOUTH TWICE A DAY 04/02/24 Yes Aby Anguiano MD cetirizine (ZyrTEC) 10 mg tablet TAKE 1 TABLET BY MOUTH EVERY DAY 01/21/24 Yes Historical Provider, cloNIDine (CATAPRES) 0.1 mg tablet TAKE 1 TABLET BY MOUTH ONCE A DAY NEEDED ANXIETY 09/06/22 Yes Historical Provider, cloNIDine (CATAPRES) 0.2 mg tablet 3 tablets HS Yes Historical Provider, fluticasone propionate (FLONASE) 50 mcg/actuation nasal spray INSTILL 2 SPRAYS INTO NOSTRILS DAILY DIRECTED 04/06/21 Yes Historical Provider, folic acid (FOLVITE) 1 mg tablet Take 1 Tablet by mouth daily. 01/21/24 Yes Historical Provider, hydroCHLOROthiazide (HYDRODIURIL) 25 mg tablet Daily Yes Historical Provider, lamoTRIgine (LaMICtal) 100 mg tablet 1 tablet in the am, 1.5 tablet at bedtime Yes Historical Provider, levonorgestreL (MIRENA) 21 mcg/24hr (up to 8 yrs) 52 mg IUD 1 Each by Intrauterine route once. Yes Historical Provider, methotrexate 2.5 mg tablet 1 tablet (2.5 mg total) 1 (one) time per week Take 5 Tablets by mouth once a week. 01/17/22 Yes Historical Provider, omeprazole (PriLOSEC) [address] capsule TAKE 1 CAPSULE BY MOUTH EVERY DAY 01/21/24 Yes Historical Provider, pravastatin (PRAVACHOL) 40 mg tablet Take 1 Tablet by mouth daily. 01/21/24 Yes Historical Provider, traMADoL (ULTRAM) 50 mg tablet TAKE 1 TABLET BY MOUTH TWICE DAILY FOR 15 DAYS NEEDED FOR PAIN Yes Historical Provider, vortioxetine (TRINTELLIX) 10 mg tablet Take 20 mg by mouth daily. 03/06/19 Yes Historical Provider, adalimumab (Humira,CF, Pen) 40 mg/0.4 mL pen Inject 0.4 mL (40 mg total) under the skin every 14 (fourteen) days. Historical Provider, cyclobenzaprine (FLEXERIL) 10 mg tablet Take 1 Tablet by mouth daily as needed for Muscle spasms. 01/21/24 Historical Provider, methotrexate 25 mg/mL solution Weekly Historical Provider, naloxone (Narcan) 4 mg/0.1 mL nasal spray PLEASE SEE ATTACHED FOR DETAILED DIRECTIONS 08/03/20 Historical Provider, Social History Tobacco Use Smoking status: Every Day Current packs/day: 0.50 Average packs/day: 0.5 packs/day for 30.1 years (15.0 ttl pk-yrs) Types: Cigarettes Start date: 04/1994 Smokeless tobacco: Never Vaping Use Vaping status: Never Used Substance Use Topics Alcohol use: Yes Drug use: No Is the patient a current smoker (e.g. cigarette, cigar, pip, e-cigarette, or mariajuana)? Yes [] No[] Patient previously instructed to abstain from smoking on the day of procedure? Yes [] No[] Patient smoked on the day of procedure? Yes [] No[] ASPIRE smoking VBR: [] Not interested in quitting [] Interested in quitting- referred to treatment [] Interested in quitting - treatment provided Visit Vitals BP 109/78 Pulse 72 Temp 36.5 ??C (97.7 ??F) Resp 20 Ht 1.499 m (59 ) Wt 59 kg (130 lb) SpO2 98% BMI 26.26 kg/m?? Smoking Status Every Day BSA 1.54 m?? LABS: Lab Results Component Value Date WBC 7.5 04/22/2024 HGB 13.6 04/22/2024 HCT 41.4 04/22/2024 MCV 94.1 04/22/2024 PLT 331 04/22/2024 Lab Results Component Value Date GLUCOSE 101 (H) 04/22/2024 CALCIUM 8.8 04/22/2024 NA 137 04/22/2024 K 3.6 04/22/2024 CO2 29 04/22/2024 CL 105 04/22/2024 BUN 8 04/22/2024 CREATININE 0.88 04/22/2024 No results found for: INR , PROTIME No results found for: PTT EKG No results found for this or any previous visit (from the past 4464 hour(s)). ECHO No results found for this or any previous visit. CATH No results found for this or any previous visit. Relevant Problems Cardio (+) Essential hypertension Pulmonary (+) Obstructive sleep apnea Neuro/Psych (+) Seizure (CMS/HCC) Endo (+) Subclinical hypothyroidism GI (+) GERD (gastroesophageal reflux disease) Other (+) Anemia in chronic illness (+) JRA (juvenile rheumatoid arthritis) (CMS/HCC) (+) Seronegative rheumatoid arthritis (CMS/HCC) Clinical information reviewed: Tobacco Allergies Meds Problems Med Hx Surg Hx OB Status Fam Hx Soc Hx Anesthesia Plan ASA 3 Anesthesia Plan: MAC Anesthesia Risks Discussed serious complications Induction method: intravenous Anesthetic plan and risks discussed with patient. Anesthesia Evaluation Patient summary reviewed Airway Mallampati: II Dental - normal exam Pulmonary - normal exam Cardiovascular - normal exam Neuro/Psych GI/Hepatic/Renal Endo/Other Abdominal PONV RISK SCORE: 1 Vitals: 05/08/24 0728 BP: 109/78 Pulse: 72 Resp: 20 Temp: 36.5 ??C (97.7 ??F) SpO2: 98% Weight: 59 kg (130 lb) Height: 1.499 m (59 ) SpO2 Readings from Last 1 Encounters: 05/08/24 98% WBC Date Value Ref Range Status 04/22/2024 7.5 4.8 - 10.8 K/mcL Final RBC Date Value Ref Range Status 04/22/2024 4.40 3.80 - 4.80 M/mcL Final Hemoglobin Date Value Ref Range Status 04/22/2024 13.6 11.5 - 16.0 g/dL Final Hematocrit Date Value Ref Range Status 04/22/2024 41.4 35.0 - 47.0 % Final Platelets Date Value Ref Range Status 04/22/2024 331 130 - 400 K/mcL Final MCV Date Value Ref Range Status 04/22/2024 94.1 79.0 - 98.0 FL Final No Known Allergies STOP BANG: No data recorded NPO Status: Time of Last Liquid: 0530 documented in this encounter Plan of Treatment Upcoming Encounters Date Type Department Care Team (Late st Contact Info) Description 09/25/2024 9:30 AM EDT Office Visit Adult Medicine - [place] [address] [place] [address] Jeffrey Cruz PA [address] [place], [place] documented as of this encounter Visit Diagnoses Not on filedocumented in this encounter Administered Medications Inactive Administered Medications - up to 3 most recent administrations Medication Order MAR Action Action Date Dose Rate Site lactated Ringer's infusion 100 mL/hr, intravenous, Continuous, Starting on Melissa 05/08/24 at 0800, Preprocedure New Bag 05/08/2024 7:59 AM EST lidocaine (PF) (XYLOCAINE-MPF) 2 % injection injection, As needed, Starting on Melissa 05/08/24 at 0805, Anesthesia Intraprocedure Given 05/08/2024 8:05 AM EST 50 mg propofoL (DIPRIVAN) injection intravenous, As needed, Starting on Melissa 05/08/24 at 0805, Anesthesia Intraprocedure Given 05/08/2024 8:20 AM EST 50 mg Given 05/08/2024 8:15 AM EST 50 mg Given 05/08/2024 8:05 AM EST 100 mg documented in this encounter Additional Health Concerns Assessment Noted Time PHQ-9 Depression Total Score: 11 024 2:45 PM EST documented as of this encounter Care Teams Artificial Stone Applicator Relationship Specialty Start Date End Date Aby Anguiano MD [address] [place], [place] PCP - General Internal Medicine 10/11/20 documented as of this encounter
--- OUTSIDE RECORDS SUMMARY | 2024-05-19 10:51 | XMS_ITS | Encounter Summary ---
Author Organization [facility] Address [address] [place] [address] Care Team Providers Care Offline Cutter Name Role Phone Aby Anguiano MD Primary Care Prov ider Encounter Details Date Type Department Care Team ([facility] st Contact Info) Description 05/06/2024 Telephone Gastroenterology - [address] [phone] Flo Fernandez MD [address] [address] Social History Tobacco Use Types Packs/Day Years [...] Record ed Within the last 3 months, geovani carcamo many times did you visit the emergency [...] care for your loved ones. For example, early childhood services coordinator or elderly care for an older adult? [...] as of this encounter Progress Notes * Juju Novoa MA - 05/07/2024 7:32 AM EST Lmom instructions sent to my chart. * Saumya Haney - 05/06/2024 4:16 PM EST PT CALLED NEEDING PREP INSTRUCTIONS FOR 05/08/24 PROCEDURE. documented in this encounter Plan of Treatment Upcoming Encounters Date Type Department Care Team (Late st Contact Info) Description 09/25/2024 9:30 AM EDT Office Visit Adult Medicine - [place] [address] [place] [address] Jeffrey Cruz PA [address] [place] [address] documented as of this encounter Visit Diagnoses Not on filedocumented in this encounter Additional Health Concerns Assessment Noted Time PHQ-9 Depression Total Score: 11 024 2:45 PM EST documented as of this encounter Care Teams Offline Cutter Relationship Specialty Start Date End Date Aby Anguiano MD [address] [place] [address] PCP - General Internal Medicine 10/11/20 documented as of this encounter
--- OUTSIDE RECORDS SUMMARY | 2024-05-19 10:51 | XMS_ITS | Encounter Summary ---
Author Organization [facility] Address [address] [place] [address] Care Team Providers Care Rf Technician Name Role Phone Aby Anguiano MD Primary Care Prov ider Reason for Referral * Hospital - Outpatient (Routine) - Closed Specialty Diagnoses / Procedures Referred By Susana t Referred To Contact Gastroenterology Diagnoses Colon cancer screening Procedures COLONOSCOPY Anesthesia - MAC; RUST ENDOSCOPY Flo Fernandez MD [address] [address] [facility] Endoscopy [address] [place] [address] Referral ID Status Reason Start Date Expiration Date Visits Re quested Visits Authorized [id number] Closed 04/11/2024 04/11/2025 1 1 Reason for Visit * Hospital - Outpatient (Routine) - Closed Specialty Diagnoses / Procedures Referred By Susana bo Referred To Contact Gastroenterology Diagnoses Colon cancer screening Procedures COLONOSCOPY Anesthesia - MAC; RUST ENDOSCOPY Flo Fernandez MD [address] [address] [facility] Endoscopy [address] [place] [address] Referral ID Status Reason Start Date Expiration Date Visits Re quested Visits Authorized [id number] Closed 04/11/2024 04/11/2025 1 1 Encounter Details Date Type Department Care Team (Latest Contact Info) Description 05/08/2024 7:07 AM EST - 05/08/2024 11:59 PM EST Hospital Encounter [facility] Endoscopy [address] [place] [address] Flo Fernandez MD 229 [facility] [address] [place] [address] Nessa Henry CRNA [address] [place] [address] Tuan Berry MD [address] [place] [address] Colon cancer screening Discharge Disposition: Home or Self Care Social History Tobacco Use Types Packs/Day Years [...] for your loved ones. For example, children's minister or elderly care for an older adult? [...] on file documented as of this encounter Last Filed Vital Signs Vital Sign Reading [...] Mass Index 26.26 05/08/2024 7:28 AM EST documented in this encounter Discharge Instructions * Attachments The following attachments cannot be sent through Care Everywhere. * Colonoscopy: Post-op (Burmese) documented in this encounter Medications at Time of Discharge Medication Sig Dispensed Refills Start Date End Date amLODIPine-benazepril (LOTREL) 5-10 mg per capsule Take 1 Capsule by mouth daily. 10/01/2023 amphetamine-dextroamp hetamine (ADDERALL) 10 mg tablet Take 1.5 tablets (15 mg total) by mouth 2 (two) times a day. Take 1 Tablet by mouth 2 times daily. brexpiprazole (Rexulti) 1 mg tablet Take 1 Tablet by mouth daily. 09/25/2022 calcium carbonate-vitamin D3 600 mg-5 mcg (200 unit) per tablet 1 po bid 09/23/2008 celecoxib (CeleBREX) 100 mg capsule TAKE 1 CAPSULE BY MOUTH TWICE A DAY 180 capsule 04/02/2024 cetirizine (ZyrTEC) 10 mg tablet TAKE 1 TABLET BY MOUTH EVERY DAY 01/21/2024 cloNIDine (CATAPRES) 0.1 mg tablet TAKE 1 TABLET BY MOUTH ONCE A DAY NEEDED ANXIETY 09/06/2022 cloNIDine (CATAPRES) 0.2 mg tablet 3 tablets HS fluticasone propionate (FLONASE) 50 mcg/actuation nasal spray INSTILL 2 SPRAYS INTO NOSTRILS DAILY DIRECTED 04/06/2021 folic acid (FOLVITE) 1 mg tablet Take 1 Tablet by mouth daily. 01/21/2024 hydroCHLOROthiazide (HYDRODIURIL) 25 mg tablet Daily lamoTRIgine (LaMICtal) 100 mg tablet 1 tablet in the am, 1.5 tablet at bedtime levonorgestreL (MIRENA) 21 mcg/24hr (up to 8 yrs) 52 mg IUD 1 Each by Intrauterine route once. methotrexate 2.5 mg tablet 1 tablet (2.5 mg total) 1 (one) time per week Take 5 Tablets by mouth once a week. 01/17/2022 omeprazole (PriLOSEC) [address] capsule TAKE 1 CAPSULE BY MOUTH EVERY DAY 01/21/2024 pravastatin (PRAVACHOL) 40 mg tablet Take 1 Tablet by mouth daily. 01/21/2024 traMADoL (ULTRAM) 50 mg tablet TAKE 1 TABLET BY MOUTH TWICE DAILY FOR 15 DAYS NEEDED FOR PAIN vortioxetine (TRINTELLIX) 10 mg tablet Take 20 mg by mouth daily. 03/06/2019 adalimumab (Humira,CF, Pen) 40 mg/0.4 mL pen Inject 0.4 mL (40 mg total) under the skin every 14 (fourteen) days. cyclobenzaprine (FLEXERIL) 10 mg tablet Take 1 Tablet by mouth daily as needed for Muscle spasms. 01/21/2024 methotrexate 25 mg/mL solution Weekly naloxone (Narcan) 4 mg/0.1 mL nasal spray PLEASE SEE ATTACHED FOR DETAILED DIRECTIONS 08/03/2020 documented as of this encounter Discharge Disposition Disposition Code Departure Means Destination Home or Self Care documented in this encounter Progress Notes * Jenise Tidwell RN - 05/08/2024 8:11 AM EST Abdominal pressure applied flaviastacy dolan * Alina Lynn RN - 05/08/2024 7:22 AM EST Problem: Cognitive:Periop Procedure - Minor Goal: Knowledge of disease or condition will improve Outcome: Progressing Problem: Sensory:Periop Procedure - Minor Goal: Demonstrates/reports adequate pain control Outcome: Progressing PATIENT VERBALIZES UNDERSTANDING OF DISCHARGE INSTRUCTIONS documented in this encounter H&P Notes * Flo Fernandez MD - 05/08/2024 8:00 AM EST Pre-Op Diagnosis: Screen Proposed Procedure: colon Performing Surgeon/MD/Endoscopist: Flo Fernandez MD Medical/History: Past Medical History: Diagnosis Date Allergic rhinitis 08/27/2013 DX:Allergic rhinitis Anemia DX:Anemia Depression DX:Depression Depressive disorder, not elsewhere classified 03/03/2008 DX:Depressive disorder, not elsewhere classified Elevated serum alkaline phosphatase level DX:Elevated serum alkaline phosphatase level GERD (gastroesophageal reflux disease) Hypertension Insomnia, unspecified 03/03/2008 DX:Insomnia, unspecified JRA (juvenile rheumatoid arthritis) ([facility]) 03/03/2008 DX:JRA (juvenile rheumatoid arthritis) ([facility]) 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/11/2019 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 PARKER (obstructive sleep apnea) Osteopenia DX:Osteopenia; COMMENT: Fosamax RA (rheumatoid arthritis) ([facility]) DX:RA (rheumatoid arthritis) (HCC) Seizure ([facility]) DX:Seizure ([facility]); COMMENT: x 2 Subclinical hypothyroidism 04/25/2024 Vitamin D deficiency DX:Vitamin D deficiency Past Surgical History: Procedure Laterality Date CHOLECYSTECTOMY 1996 PROCEDURE: HISTORICAL CHOLECYSTECTOMY; COMMENT: Lap WISDOM TOOTH EXTRACTION PROCEDURE: HISTORICAL WISDOM TEETH EXTRACTION Medications/Allergies: Prior to Admission medications Medication Sig Start [...] ATTACHED FOR DETAILED DIRECTIONS 08/03/20 Historical Provider, Patient Age:49 y.o. Vitals: Vitals: 05/08/24 0728 BP: 109/78 Pulse: 72 Resp: 20 Temp: 36.5 ??C (97.7 ??F) SpO2: 98% Physical Exam: Mental Status: Clear HEENT: WNL Heart: WNL Lungs: WNL Abdomen: WNL Extremities: WNL Neuro: WNL Labs: Imaging: Diagnosis/Plan: Colonoscopy documented in this encounter Plan of Treatment Upcoming Encounters Date Type Department Care Team (Late st Contact Info) Description 09/25/2024 9:30 AM EDT Office Visit Adult Medicine [facility] [address] [place] [address] Jeffrey Cruz PA [address] [place] [address] Pending Results Name Type Priority Associated Diagnoses Date /Time POC , urine NO CHARGE screening manually resulted Point of Care Testing Routine 05/08/2024 7:38 AM EST Scheduled Orders Name Type Priority Associated Diagnoses Orde r Schedule POC , urine NO CHARGE screening manually resulted Point of Care Testing Routine Once for 1 Occurrences starting 05/08/2024 until 05/08/2024 documented as of this encounter Procedures Procedure Name Priority Date/Time Associated Diagnosis Comments COLONOSCOPY Routine 05/08/2024 8:26 AM EST Colon cancer screening documented in this encounter Results * COLONOSCOPY Anesthesia - MAC; RUST ENDOSCOPY (05/08/2024 8:26 AM EST) Anatomical Region Laterality Modality Endoscopy 05/08/2024 8:05 AM EST Impressions 05/08/2024 8:25 AM EST - The entire examined colon is normal on direct and ? retroflexion views. ? - No specimens collected. Recommendation: ?- Repeat colonoscopy in 10 years for screening ? purposes. Narrative 05/08/2024 8:25 AM EST [facility] GI Patient Name: Carmenza House Procedure Date: [...] malignant neoplasm ? of colon CPT copyright 2020 [employer]. All rights reserved. The codes documented in this report are preliminary and upon heat and frost insulator review may be revised to meet current compliance requirements. Flo Fernandez MD 05/08/2024 8:25:10 AM This report has been signed electronically.Flo Fernandez MD Number of Addenda: 0 Note Initiated On: 05/08/2024 8:05 AM Scope In: Scope Out: ? Endoscopy Department at [facility] - [address] [place] [address], ? [place] [address] Procedure Note Flo Fernandez MD - 05/08/2024 [facility] GI Patient Name: Carmenza House Procedure Date: [...] for malignantneoplasm of colon CPT copyright 2020 [employer]. All rights reserved. The codes documented in this report are preliminary and upon heat and frost insulator reviewmay be revised to meet current compliance requirements. Flo Fernandez MD 05/08/2024 8:25:10 AM This report has been signed electronically.lFo Fernandez MD Number of Addenda: 0 Note Initiated On: 05/08/2024 8:05 AM Scope In: Scope Out: Endoscopy Department at [facility] - [address] [place] [id number] IMPRESSION: - The entire examined colon is normal on direct and retroflexion views. - No specimens collected. Recommendation: - Repeat colonoscopy in 10 years for screening purposes. Flo Fernandez MD GI~PROCEDURE ORDERA BLES documented in this encounter Visit Diagnoses Diagnosis Colon cancer screening Special screening for malignant neoplasms, colon documented in this encounter Historical Medications * This list may reflect changes made after this encounter. Medication Sig Dispensed Refills Start Date End Date adalimumab (Humira,CF, Pen) 40 mg/0.4 mL pen Inject 0.4 mL (40 mg total) under the skin every 14 (fourteen) days. added in this encounter Orders Medications Ordered That Frederick ht Not Have Been Administered Count Last Ordered Date First Ordered Date lactated Ringer's infusion 1 05/08/2024 sodium chloride 0.9 % flush 10 mL 2 025 Discharge Count Last Ordered Date First Orde red Date DISCHARGE PATIENT 1 05/08/2024 documented in this encounter Additional Health Concerns Assessment Noted Time PHQ-9 Depression Total Score: 11 024 2:45 PM EST documented as of this encounter Care Teams Rf Technician Relationship Specialty Start Date End Date Aby Anguiano MD [address] [place] [address] PCP - General Internal Medicine 10/11/20 documented as of this encounter
--- OUTSIDE RECORDS SUMMARY | 2024-05-19 10:51 | XMS_ITS | Encounter Summary ---
Author Organization [facility] Address [address] [place] [address] Care Team Providers Care Automatic Vulcanizing Lead Operator Name Role Phone Keiko Anguiano MD Primary Care Provider [phone] Reason for Visit * Reason Onset Date Comments CSC Urine Drug Screen 02/12/2023 Encounter Details Date Type Department Care Team Description 02/12/2023 Telephone Adult Medicine - [place] [address] [place] [address] Keiko Anguiano MD [address] [place] [address] [facility] Urine Drug Screen Social History Tobacco Use Types Packs/Day Years [...] encounter Miscellaneous Notes * Telephone Encounter - Keiko Anguiano MD - 02/19/2023 3:44 PM EST Thank you letter sent * Telephone Encounter - Aby Wilcox M.A. - 02/19/2023 3:26 PM EST Okay, letter pended - FYI updated CSC Violation * Telephone Encounter - Keiko Anguiano MD - 02/19/2023 12:07 PM EST Then she has violated her contract we should send her a letter I will start tapering on her next refill she is on high-dose of tramadol. This is going to be difficult * Telephone Encounter - bAy Wilcox M.A. - 02/19/2023 8:08 AM EST Pt was advised to complete UDS for 02/15/23 when she had transportation. UDS was NOT completed. Please advise. * Telephone Encounter - Aby Wilcox M.A. - 02/13/2023 1:59 PM EDT Pt advised * Telephone Encounter - Keiko Anguiano MD - 02/13/2023 1:25 PM EDT Okay to wait * Telephone Encounter - bAy Wilcox M.A. - 02/13/2023 1:22 PM EDT Spoke with patient - states does not have any transportation until and is asking if she can complete UDS on . Please advise. * Telephone Encounter - Barbara Sanchez - 02/13/2023 1:19 PM EDT Pt notified of UDS at 1:18pm 02/13/23. * Telephone Encounter - Aby Wilcox M.A. - 02/12/2023 11:29 AM EDT 1st Message left for pt to call back. Needs to be informed of UDS must be performed within 24 hoursof notification. * Telephone Encounter - Keiko Anguiano MD - 02/12/2023 10:54 AM EDT Order signed * Telephone Encounter - Aby Wilcox M.A. - 02/12/2023 9:05 AM EDT DUE for UDS - orders pended, please sign and route back to route back to [facility] [employer] Refills Pool B ( P [phone] pool # ) documented in this encounter Plan of Treatment Scheduled Orders Name Type Priority Associated Diagnoses Orde r Schedule [facility] DRUG SCREENING OPIATES 1 OR MORE Lab Routine Encounter for long-term (current) use of medications Expected: 02/12/2023, Expires: 02/12/2024 DRUG OF ABUSE SCREEN Lab Routine Encounter for long-term (current) use of medications Expected: 02/12/2023, Expires: 02/12/2024 OXYCODONE, URINE Lab Routine Encounter for long-term (current) use of medications Expected: 02/12/2023, Expires: 02/12/2024 [facility] DRUG SCREENING CANNABINOIDS NATURAL Lab Routine Encounter for long-term (current) use of medications Expected: 02/12/2023, Expires: 02/12/2024 [facility] DRUG SCREENING COCAINE Lab Routine Encounter for long-term (current) use of medications Expected: 02/12/2023, Expires: 02/12/2024 [facility] DRUG SCREEN QUANT AMPHETAMINES 3 OR 4 Lab Routine Encounter for long-term (current) use of medications Expected: 02/12/2023, Expires: 02/12/2024 [facility] DRUG/SUBSTANCE DEFINITIVE QUAL/QUANT NOS 1-3 Lab Routine Encounter for long-term (current) use of medications Expected: 02/12/2023, Expires: 02/12/2024 [facility] DRUG SCREENING BENZODIAZEPINES 1-12 Lab Routine Encounter for long-term (current) use of medications Expected: 02/12/2023, Expires: 02/12/2024 documented as of this encounter Visit Diagnoses Diagnosis Encounter for long-term (current) use of medications- Primary Encounter for long-term (current) use of other medications documented in this encounter Care Teams Automatic Vulcanizing Lead Operator Relationship Specialty Start Date End Date Keiko Anguiano MD [address] [place] [address] PCP - General Internal Medicine 10/11/20 documented as of this encounter
== END 2024-05-19 10:28 | disposition home or self-care (01) ==
PROVIDERS: PCP Internal Medicine; Visit Provider Nurse Practitioner Family
DX: G89.4 Chronic pain syndrome (principal); M25.561 Pain in right knee; M25.562 Pain in left knee; Z79.891 Long term (current) use of opiate analgesic; M06.00 Rheumatoid arthritis without rheumatoid factor, unspecified site; M25.551 Pain in right hip; M25.552 Pain in left hip
CPT/HCPCS: 99214; G2211

== ENCOUNTER → 2024-05-19 10:08 | Outpatient (BNVA) | payer OTHER, SELFPAY | PROVIDERS: PCP Internal Medicine; Visit Provider Nurse Practitioner Family | DX: Z51.81 Encounter for therapeutic drug level monitoring (principal); F11.20 Opioid dependence, uncomplicated; M06.00 Rheumatoid arthritis without rheumatoid factor, unspecified site; M25.561 Pain in right knee; M25.562 Pain in left knee; M25.551 Pain in right hip; M25.552 Pain in left hip; G89.4 Chronic pain syndrome; Z79.891 Long term (current) use of opiate analgesic | CPT/HCPCS: 99212 ==

== ENCOUNTER 2024-06-16 09:31 | Outpatient (AMB) | payer OTHER, SELFPAY ==
--- NOTE | 2024-06-16 09:45 | A.OFFVIS_ITS ---
Vital Signs 06/16/24 09:52 Height 4 ft 11 in Weight 123 lb 2 oz BMI 24.9 BP 157/86 H Blood Pressure Location Rt brachial Position Sitting Pulse 119 H Pulse Source Pulse Oximeter Pulse Oximetry (%) 98 Oxygen Delivery Method Room Air Intake Visit Reasons: PILL COUNT Intake Note: Carmenza comes in today for a pill count to tramadol, patient should have 28 tablets and presents with 34 tablets which she last took today 06/16/24 at 6:45am. Pain today 10/23 Allergies No Known Allergies Allergy (Verified 06/16/24 09:52) HPI Comments Details: Patient presents today for pill count. Patient is supposed to have #28 pills, in her possession she has #34 pills. This demonstrates a responsible attitude in regards to the medication regimen. Patient reports reasonable analgesia on current pain regime without any side effects. Patient reports current medication regime does not alleviate all of her pain related to RA but does allow her to be more functional and less symptomatic. She is seeing Rheumatology next week. Denies any fever or chills, shortness of breaths, chest pain, weakness, bladder or bowel dysfunction, saddle anesthesia, constipation, nausea, sedation, dizziness, or urinary retention. Denies any changes to medications, medical history or recent hospitalizations. 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 She reports pending evaluation by Orthopedics for potential left ankle fusion. 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 Today we are focusing on bilateral knee pain which significantly affects her daily activities, functioning, mobility, sleep and social interactions. She completed physical therapy at [facility] 9 months with improved function but no pain relief. Pain is constant which she rates at 8-9/10. Bilateral knee pain is localized to anterior aspects both knees with tenderness and occasional swelling per patient. No significant swelling or effusion today. Denies any fever or chills, back pain, instability, knee locking or buckling, bladder or bowel dysfunction or saddle anesthesia. Location: bilateral hands, knees, feet and hips Duration: Chronic pain for years, worsening since September when titrated off Tramadol Characteristics of symptom or complaint: Aching, stabbing, throbbing, shooting, sharp, burning, tingling, tight Aggravating or associated factors: Movements, climbing stairs, bending, standing, walking, cold weather Relieving factors: nothing was on tramadol 100 mg QID since 1996, NSAIDs Treatment: PT, chiropractic manipulation, TENS unit, cortisone injections- multiple [facility] Medical History Hypertension Osteopenia Seizures Anemia Insomnia Depression with anxiety Hypercholesteremia Spina bifida occulta JRA (juvenile rheumatoid arthritis) Seronegative rheumatoid arthritis Allergic rhinitis 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 PARKER (obstructive sleep apnea) CTS (carpal tunnel syndrome) Surgical History H/O wisdom tooth extraction History of cholecystectomy Family History Father Myocardial infarct Diabetes Hypertension Kidney disease Dialysis patient Brother Abuse, drug or alcohol Mother Thyroid disease Osteopenia Hypertension Social History Alcohol intake: current Alcohol intake frequency: holidays/special occasions only Patient Tobacco Use Status: Current everyday Tobacco user Cigarettes Per Day: 10 Review of Systems Const All systems reviewed & are unremarkable except as noted in HPI and below Physical Exam General: Appears afebrile. Alert and oriented. Mood and affect appropriate. Follows and participates in conversation appropriately. Respiratory effort is unlabored. No cough. Able to transition from sit to stand unassisted. Ambulates with bilaterally normal heel strike and toe off. Psych Appearance: grossly normal and well kempt Mental Status: mental status grossly normal Speech and movement: Normal speech and movement present and Clear speech present Affect: normal affect Attitude: cooperative Thought process: Normal thought process present Thought content: Normal thought content present, suicidality (none), no hallucinations and No Depressive thoughts present Insight: Good insight present (Psych) Judgement: Good judgement present (Psych) Assessment & Plan Assessment & Plan (1) Bilateral knee pain: Code(s): M25.561 - Pain in right knee; M25.562 - Pain in left knee Category: Medical (2) Opioid contract exists: Code(s): Z79.891 - intermediate project manager (current) use of opiate analgesic Category: Medical (3) Chronic pain syndrome: Code(s): G89.4 - Chronic pain syndrome Category: Medical (4) Bilateral hip pain: Code(s): M25.551 - Pain in right hip; M25.552 - Pain in left hip Category: Medical Plan Patient has shown accountability for her medication regimen and the pill count was accurate. There is no evidence of misuse, abuse or diversion at this time. MassPat reviewed. Script sent for tramadol with increased dose of 50 mg QID prn with advanced date of 06/20/24. Patient has Narcan at home. Patient is aware of monitoring for side effects. All questions were answered and the patient is in agreement with the plan. Follow up in 4-5 weeks for a pill count or sooner if needed. Medications: Refilled tramadol Partial Fill upon patient request. 50 mg PO Q6H 30 days PRN 120 tabs 1RF pain G89.4 - Chronic pain syndrome, M06.00 - Rheumatoid arthritis without rheumatoid factor, unspecified site, M25.561 - Pain in right knee, M25.562 - Júnior n in left knee, Z79.891 - intermediate project manager (current) use of opiate analgesic Coding Level of Care Code Est Pt Level 4 (41647) Complex EM visit Add On G2211 Diagnoses Bilateral knee pain M25.561; M25.562 Opioid contract exists Z79.891 Chronic pain syndrome G89.4 Bilateral hip pain M25.551; M25.552
[2024-06-16 09:52] VITALS: BP 157/86; PULSE 119; O2SAT 98; BMI 24.9
--- OUTSIDE RECORDS SUMMARY | 2024-06-16 10:31 | XMS_ITS | Encounter Summary ---
Author Organization [facility] Address [address] [place] [address] Care Team Providers Care Armature [employer]inder [employer] Name Role Phone Keiko Anguiano MD Primary Care Provider [phone] Encounter Details Date Type Department Care Team Description 02/27/2022 [facility] Medical Records [address] [place] [address] Abstract, Provider Social History Tobacco Use Types [...] on filedocumented in this encounter Care Teams Armature [employer] Relationship Specialty Start Date End Date Keiko Anguiano MD [address] [place] [address] PCP - General Internal Medicine 10/11/20 documented as of this encounter
--- OUTSIDE RECORDS SUMMARY | 2024-06-16 10:31 | XMS_ITS | Encounter Summary ---
Author Organization [facility] Address [address] [place] [address] Care Team Providers Care Medical Massage Therapist Name Role Phone Lorin Norton MD Primary Care Provider Ameena Thompson MD Primary Care Provider Giovanna Anguiano Ch MD Primary Care Provider [phone] Encounter Details Date Type Department Care Team Description 08/12/2019 Telephone Rheumatology - [place] [address] [place] [address] Haile Rodriguez MD Social History Tobacco Use [...] filedocumented in this encounter Care Teams Medical Massage Therapist Relationship Specialty Start Date End Date Lorin Norton MD PCP - General Internal Medicine 01/25/15 07/15/20 Ameena Medellin MD PCP - General Internal Medicine 07/16/20 10/10/20 Keiko Anguiano MD [address] [place] [address] PCP - General Internal Medicine 10/11/20 documented as of this encounter
--- OUTSIDE RECORDS SUMMARY | 2024-06-16 10:31 | XMS_ITS | Encounter Summary ---
Author Organization [facility] Address [address] [place] [address] Care Team Providers Care Assistant Printer Floor Covering Name Role Phone Tim Flor MD Primary Care Provider Unavail Lorin Mejía MD Primary Care Provider Ameena Thompson MD Primary Care Provider Giovanna Anguiano Ch MD Primary Care Provider [phone] Encounter Details Date Type Department Care Team Description 10/06/2013 Release of Information Medical Records [address] [place] [id number] Abstract, Provider Social History Tobacco Use Types [...] filedocumented in this encounter Care Teams Assistant Printer Floor Covering Relationship Specialty Start Date End Date Tim Flor MD PCP - General 01/06/08 01/24/15 Lorin Norton MD PCP - General Internal Medicine 01/25/15 07/15/20 Ameena Medellin MD PCP - General Internal Medicine 07/16/20 10/10/20 Keiko Anguiano MD [address] [place] [id number] PCP - General Internal Medicine 10/11/20 documented as of this encounter
--- OUTSIDE RECORDS SUMMARY | 2024-06-16 10:31 | XMS_ITS | Encounter Summary ---
Author Organization [facility] Address [address] [place] [address] Care Team Providers Care Wire Coiner Name Role Phone Lorin Norton MD Primary Care Provider Ameena Thompson MD Primary Care Provider Giovanna Anguiano Ch MD Primary Care Provider [phone] Reason for Visit * Reason Comments E-prescribe Rx Request Encounter Details Date Type Department Care Team Description 10/17/2018 Refill Rheumatology - [place] [address] [place] [id number] Haile Rodriguez MD E-prescribe Rx Request Social [...] encounter Miscellaneous Notes * Telephone Encounter - Lorin Villafana L.P.N. - 10/21/2018 9:30 AM EDT Faxed to pharmacy * Telephone Encounter - Lorin Villafana L.P.N. - 10/21/2018 8:31 AM EDT Lab Results Component Value Date WBC 9.5 09/05/2018 HGB 14.4 09/05/2018 HCT 45.2 09/05/2018 MCV 95.8 09/05/2018 PLTCT 320 09/05/2018 Lab Results Component Value Date ALB 4.8 08/18/2016 SGOT 14 08/14/2018 SGPT 26 08/14/2018 TBILI 0.3 08/18/2016 DBILI 0.1 08/18/2016 IBILI 0.2 08/18/2016 ALKPHOS 85 08/18/2016 TP 7.3 08/18/2016 * Telephone Encounter - Betty Guerrero - 10/18/2018 7:29 AM EDT Patient would like script to be: E-PRESCRIBED/FAXED TO PHARMACY ?? WHEN WAS THE PATIENT'S LAST APPOINTMENT IN ADULT MEDICINE? 09/05/18 ?? WHEN WAS THE LAST TIME THE PATIENT SAW THEIR PCP? Same as above ?? Does patient have an upcoming appointment? Yes 01/10/19 ?? (THE MEDICATION REQUESTED IS ON THE MED LIST ABOVE) All of the medications requested were on the CURRENT MEDS list ?? Did you check the Pharmacy information above?: YES ?? Patient wants: 90 -day supply ?? Is this a mail order prescription request ? NO ?? If the refill is from a FAXED refill request what is the RX # listed on the fax? N/A ? Patients current insurance carrier is: Payor: [employer] [facility] M[employer] / Plan: [facility] [place] [place] / Product Type: HMO [id number] ? documented in this encounter Plan of Treatment Not on file documented as of this encounter Visit Diagnoses Diagnosis Seronegative rheumatoid arthritis (HCC) Rheumatoid arthritis documented in this encounter Care Teams Wire Coiner Relationship Specialty Start Date End Date Lorin Norton MD PCP - General Internal Medicine 01/25/15 07/15/20 Ameena Medellin MD PCP - General Internal Medicine 07/16/20 10/10/20 Keiko Anguiano MD [address] [place] [id number] PCP - General Internal Medicine 10/11/20 documented as of this encounter
--- OUTSIDE RECORDS SUMMARY | 2024-06-16 10:31 | XMS_ITS | Encounter Summary ---
Author Organization [facility] Address [address] [place] [address] Care Team Providers Care Nutrition Services Associate Name Role Phone Tim Flor MD Primary Care Provider Unavail Lorin Mejía MD Primary Care Provider Ameena Thompson MD Primary Care Provider Unavailronen Anguiano Ch MD Primary Care Provider [phone] Encounter Details Date Type Department Care Team Description 10/02/2013 Extrusion Die Corrector Report Medical Records [address] [place] [address] Gerson Tinajero Social History Tobacco Use Types Packs/Day Years [...] on filedocumented in this encounter Care Teams Nutrition Services Associate Relationship Specialty Start Date End Date Tim Flor MD PCP - General 01/06/08 01/24/15 Lorin Norton MD PCP - General Internal Medicine 01/25/15 07/15/20 Ameena Medellin MD PCP - General Internal Medicine 07/16/20 10/10/20 Keiko Anguiano, [address] [place] [address] [id number] PCP - General Internal Medicine 10/11/20 documented as of this encounter
--- OUTSIDE RECORDS SUMMARY | 2024-06-16 10:31 | XMS_ITS | Encounter Summary ---
Author Organization [facility] Address [address] [place] [address] Care Team Providers Care Charge Loader Name Role Phone Keiko Anguiano MD Primary Care Provider [phone] Encounter Details Date Type Department Care Team Description 11/17/2021 Leaflet Distributor Report Medical Records [address] [place] [address] Wali Sawyer MD Social History Tobacco Use Types Packs/Day [...] suspected to have Coronavirus/COVID-19? No / Unsure 10/18/2021 1:03 PM EDT documented as of this encounter Plan of Treatment Not on file documented as of this encounter Visit Diagnoses Not on filedocumented in this encounter Care Teams Charge Loader Relationship Specialty Start Date End Date Keiko Anguiano MD [address] [place] [address] PCP - General Internal Medicine 10/11/20 documented as of this encounter
--- OUTSIDE RECORDS SUMMARY | 2024-06-16 10:31 | XMS_ITS | Encounter Summary ---
Author Organization [facility] Address [address] [place] [address] Care Team Providers Care Injection Molding Technician Name Role Phone Lorin Norton MD Primary Care Provider Ameena Thompson MD Primary Care Provider Giovanna Anguiano Ch MD Primary Care Provider [phone] Reason for Visit * Reason Comments E-prescribe Rx Request Encounter Details Date Type Department Care Team Description 06/22/2019 Refill Rheumatology - [place] [address] [place] [id number] Haile Rodriguez MD E-prescribe Rx Request Social [...] Miscellaneous Notes * Telephone Encounter - Sylwia Crzu L.P.N. - 06/24/2019 9:24 AM EDT She is fine... Taking 3 tabs This was a pharmacy error * Telephone Encounter - Haile Rodriguez MD - 06/23/2019 5:17 PM EDT Brisa, please call patient [phone] (home) [phone] (work) I sent in a prescription for [...] N/A Patients current insurance carrier is: Payor: [employer] [facility] M[facility] / Plan: [facility] / Product Type: HMO [id number] documented in this encounter Plan of Treatment Not on file documented as of this encounter Visit Diagnoses Diagnosis Seronegative rheumatoid arthritis (HCC) Rheumatoid arthritis documented in this encounter Care Teams Injection Molding Technician Relationship Specialty Start Date End Date Lorin Norton MD PCP - General Internal Medicine 01/25/15 07/15/20 Ameena Medellin MD PCP - General Internal Medicine 07/16/20 10/10/20 Keiko Anguiano MD [address] [place] [id number] PCP - General Internal Medicine 10/11/20 documented as of this encounter
--- OUTSIDE RECORDS SUMMARY | 2024-06-16 10:31 | XMS_ITS | Encounter Summary ---
Author Organization [facility] Address [address] [place] [address] Care Team Providers Care Oracle [employer]ile [employer]m Consultant Name Role Phone Lorin Norton MD Primary Care Provider Ameena Thompson MD Primary Care Provider Giovanna Anguiano Ch MD Primary Care Provider [phone] Encounter Details Date Type Department Care Team Description 02/17/2019 Refill Adult Medicine [address] [address] Lorin Norton MD Social History Tobacco Use [...] left documented in this encounter Care Teams [employer] Consultant Relationship Specialty Start Date End Date Lorin Norton MD PCP - General Internal Medicine 01/25/15 07/15/20 Ameena Medellin MD PCP - General Internal Medicine 07/16/20 10/10/20 Keiko Anguiano MD [address] [place] [address] PCP - General Internal Medicine 10/11/20 documented as of this encounter
--- OUTSIDE RECORDS SUMMARY | 2024-06-16 10:31 | XMS_ITS | Encounter Summary ---
Author Organization [facility] Address [address] [place] [address] Care Team Providers Care Lan Administrator Name Role Phone Lorin Norton MD Primary Care Provider Ameena Thompson MD Primary Care Provider Giovanna Anguiano Ch MD Primary Care Provider [phone] Encounter Details Date Type Department Care Team Description 07/03/2016 [facility] Medical Records [address] [place] [address] Abstract, Provider Social History Tobacco Use Types [...] on filedocumented in this encounter Care Teams Lan Administrator Relationship Specialty Start Date End Date Lorin Norton MD PCP - General Internal Medicine 01/25/15 07/15/20 Ameena Medellin MD PCP - General Internal Medicine 07/16/20 10/10/20 Keiko Anguiano MD [address] [place] [id number] PCP - General Internal Medicine 10/11/20 documented as of this encounter
--- OUTSIDE RECORDS SUMMARY | 2024-06-16 10:31 | XMS_ITS | Encounter Summary ---
Author Organization [facility] Address [address] [place] [address] Care Team Providers Care Medical Educator Name Role Phone Lorin Norton MD Primary Care Provider Ameena Thompson MD Primary Care Provider Giovanna Anguiano Ch MD Primary Care Provider [phone] Encounter Details Date Type Department Care Team Description 11/22/2016 [facility] Medical Records [address] [place] [address] Abstract, Provider Social History Tobacco Use Types [...] filedocumented in this encounter Care Teams Medical Educator Relationship Specialty Start Date End Date Lorin Norton MD PCP - General Internal Medicine 01/25/15 07/15/20 Ameena Medellin MD PCP - General Internal Medicine 07/16/20 10/10/20 Keiko Anguiano MD [address] [place] [id number] PCP - General Internal Medicine 10/11/20 documented as of this encounter
--- OUTSIDE RECORDS SUMMARY | 2024-06-16 10:31 | XMS_ITS | Clinical Summary ---
Author Organization [facility] [address] Address [address] [place] [address] Phone Care Team Providers Care Custom Tailor Apprentice Name Role Phone Aby Anguiano MD Primary Care Prov ider Allergies No known active allergies Medications amLODIPine-bhargav zepril (LOTREL) 5-10 mg per capsule Take 1 Capsule by mouth daily. 4 Active brexpiprazole (Rexulti) 1 mg tablet Take 1 Tablet by mouth daily. 3 Active calcium carbonate-vitam in D3 600 mg-5 mcg (200 unit) per tablet 1 po bid 9 Active cetirizine (ZyrTEC) 10 mg tablet TAKE 1 TABLET BY MOUTH EVERY DAY 4 Active cloNIDine (CATAPRES) 0.1 mg tablet TAKE 1 TABLET BY MOUTH ONCE A DAY NEEDED ANXIETY 3 Active cloNIDine (CATAPRES) 0.2 mg tablet 3 tablets HS Active cyclobenzaprine (FLEXERIL) 10 mg tablet Take 1 Tablet by mouth daily as needed for Muscle spasms. 4 Active amphetamine-dex troamphetamine (ADDERALL) 10 mg tablet Take 1.5 tablets (15 mg total) by mouth 2 (two) times a day. Take 1 Tablet by mouth 2 times daily. Active fluticasone propionate (FLONASE) 50 mcg/actuation nasal spray INSTILL 2 SPRAYS INTO NOSTRILS DAILY DIRECTED 1 Active folic acid (FOLVITE) 1 mg tablet Take 1 Tablet by mouth daily. 4 Active hydroCHLOROthia zide (HYDRODIURIL) 25 mg tablet Daily Active lamoTRIgine (LaMICtal) 100 mg tablet 1 tablet in the am, 1.5 tablet at bedtime Active levonorgestreL (MIRENA) 21 mcg/24hr (up to 8 yrs) 52 mg IUD 1 Each by Intrauterine route once. Active methotrexate 2.5 mg tablet 1 tablet (2.5 mg total) 1 (one) time per week Take 5 Tablets by mouth once a week. 2 Active naloxone (Narcan) 4 mg/0.1 mL nasal spray PLEASE SEE ATTACHED FOR DETAILED DIRECTIONS 1 Active omeprazole (PriLOSEC) [address] capsule TAKE 1 CAPSULE BY MOUTH EVERY DAY 4 Active pravastatin (PRAVACHOL) 40 mg tablet Take 1 Tablet by mouth daily. 4 Active vortioxetine (TRINTELLIX) 10 mg tablet Take 20 mg by mouth daily. 9 Active methotrexate 25 mg/mL solution Weekly Activ e traMADoL (ULTRAM) 50 mg tablet TAKE 1 TABLET BY MOUTH TWICE DAILY FOR 15 DAYS NEEDED FOR PAIN Active celecoxib (CeleBREX) 100 mg capsule TAKE 1 CAPSULE BY MOUTH TWICE A DAY 180 capsule 4 Active adalimumab (Humira,CF, Pen) 40 mg/0.4 mL [...] 08/03/2021 Obstructive sleep apnea 12/13/2020 Overview (01/31/2024): [facility] Home Sleep Apnea Test: Date 11/30/2020; Wt [...] Description 05/08/2024 8:02 AM EST Anesthesia Event [facility] Endoscopy [address] [place] [phone] Tony Parham DO Pierce, Trudy A, CRNA 05/08/2024 7:07 AM EST - 05/08/2024 11:59 PM EST Hospital Encounter [facility] Endoscopy [address] [place] [phone] Flo Fernandez MD Pierce, Trudy A, CRNA Dasilva, John E, MD Colon cancer screening Discharge Disposition: Home or Self Care 05/06/2024 Telephone Gastroenterology - [address] [phone] Flo Fernandez MD 04/11/2024 Telephone Gastroenterology - [address] [phone] Juju Novoa [place] 04/11/2024 Telephone Gastroenterology - [address] [phone] Flo Fernandez MD 03/18/2024 10:45 AM EST Office Visit Adult Medicine [address] [phone] Jeffrey Cruz PA Adult general medical examination [...] Surgical History Surgery Date Site/Laterality Comments CHOLECYSTECTOMY 1996 PROCEDURE: HISTORICAL CHOLECYSTECTOMY; COMMENT: Lap WISDOM TOOTH EXTRACTION PROCEDURE: HISTORICAL WISDOM TEETH EXTRACTION Medical History Medical History Date Comments RA (rheumatoid arthritis) ([facility]) DX:RA (rheumatoid arthritis) ([facility]) Osteopenia DX:Osteopenia; C OMMENT: Fosamax Depression DX:Depression Seizure ([facility]) DX:Seizure ( C); COMMENT: x 2 JRA (juvenile rheumatoid art hritis) ([facility]) 03/03/2008 DX:JRA (juvenile rheumatoid arthritis) ([facility]) Insomnia, unspecified 03/03/2008 DX:Insomni a, unspecified Depressive disorder, not els ewhere classified 03/03/2008 DX:Depressive disorder, not elsewhere classified Vitamin D deficiency DX:Vitamin D deficiency Anemia DX:Anemia Elevated serum alkaline phos phatase level DX:Elevated serum alkaline phosphatase level Allergic rhinitis 08/27/2013 DX:Allergic rh initis longterm current use of immunosuppressive drug 07/11/2019 DX:buttermaker continuous churn current use of immunosuppressive drug Subclinical hypothyroidism [...] Date Smoking Tobacco: Every Day Cigarettes 0.5 30.2 Started: 04/1994 Smokeless Tobacco: Never Alcohol Use [...] care for your loved ones. For example, attendant children's institution or elderly care for an older adult? [...] ed Physical Abuse 05/08/2024 Verbal Abuse 05/08/2024 Comments No Sex and Gender Information Value Date Recorded Sex Assigned at Not on file Legal Sex Female 9:41 PM EST Gender Identity Not on file Sexual Orientation Not on file Obstetrics History Last Filed [...] 9:30 AM EDT Office Visit Adult Medicine [place] [address] [place] [phone] Jeffrey Cruz PA [address] [place] [address] Health Maintenance Due Date Last Done Comments [...] on patient's age to complete this topic Meningococcal B Vacine Aged Out No lo nger eligible based on patient's age to complete [...] Maintenance Results * COLONOSCOPY Anesthesia - MAC; SP ENDOSCOPY (05/08/2024 8:26 AM EST) Anatomical Region Laterality Modality Endoscopy 05/08/2024 8:05 AM EST Impressions 05/08/2024 8:25 AM EST - The entire examined colon is normal on direct and ? retroflexion views. ? - No specimens collected. Recommendation: ?- Repeat colonoscopy in 10 years for screening ? purposes. Narrative 05/08/2024 8:25 AM EST [facility] GI Patient Name: Carmenza House Procedure [...] malignant neoplasm ? of colon CPT copyright 202 [employer]. All rights reserved. The codes documented in this report are preliminary and upon pasting inspector review may be revised to meet current compliance requirements. Flo Fernandez MD 05/08/2024 8:25:10 AM This report has been signed electronically.Flo Fernandez MD Number of Addenda: 0 Note Initiated On: 05/08/2024 8:05 AM Scope In: Scope Out: ? Endoscopy Department at [facility] - [address] [place] [address], ? [place] [address] Procedure Note Flo Fernandez MD - 05/08/2024 [facility] GI Patient Name: Carmenza House Procedure [...] screening for malignantneoplasm of colon CPT copyright 202 [employer]. All rights reserved. The codes documented in this report are preliminary and upon pasting inspector reviewmay be revised to meet current compliance requirements. Flo Fernandez MD 05/08/2024 8:25:10 AM This report has been signed electronically.Flo Fernandez MD Number of Addenda: 0 Note Initiated On: 05/08/2024 8:05 AM Scope In: Scope Out: Endoscopy Department at [facility] - [address] [place] [phone] IMPRESSION: - The entire examined colon is normal on direct and retroflexion views. - No specimens collected. Recommendation: - Repeat colonoscopy in 10 years for screening purposes. Flo Fernandez MD GI~PROCEDURE ORDERABLES Fin al Result * Hepatitis C antibody (04/22/2024 10:37 AM EST) [facility] Hepatitis C Antibody Negative Negative LAB CHEMISTRY METHOD 04/22/2024 3:00 PM [facility] Blood Venous blood specimen / Unknown Venipuncture / Unknown 04/22/2024 10:37 AM EST 04/22/2024 10:37 AM EST Jeffrey MEDRANO LAB BLOOD ORDERABLES Final Res ult [facility] [address] [place] [address], [place] [phone] * (ABNORMAL) Urinalysis with reflex microscopic (04/22/2024 10:37 AM EST) [facility] Specific [place] Urine 1.020 1.003 - 1.030 LAB URINALYSIS - AUTOMATED METHOD 04/22/2024 2:42 PM [facility] pH, Urine 6.0 5.0 - 8.0 pH LAB URINALYSIS - AUTOMATED METHOD 04/22/2024 2:42 PM [facility] Leukocytes, Urine Small(A) Negative LAB URINALYSIS - AUTOMATED METHOD 04/22/2024 2:42 PM [facility] Nitrite, Urine Positive(A) Negative LAB URINALYSIS - AUTOMATED METHOD 04/22/2024 2:42 PM [facility] Protein, Urine Negative <=Trace mg/dL LAB URINALYSIS - AUTOMATED METHOD 04/22/2024 2:42 PM [facility] Glucose, Urine Negative Negative mg/dL LAB URINALYSIS - AUTOMATED METHOD 04/22/2024 2:42 PM [facility] Ketones, Urine Negative Negative mg/dL LAB URINALYSIS - AUTOMATED METHOD 04/22/2024 2:42 PM [facility] Urobilinogen , Urine 0.2 0.2 - 1.0 mg/dL LAB URINALYSIS - AUTOMATED METHOD 04/22/2024 2:42 PM [facility] Bilirubin, Urine Negative Negative LAB URINALYSIS - AUTOMATED METHOD 04/22/2024 2:42 PM [facility] Blood, Urine Negative Negative LAB URINALYSIS - AUTOMATED METHOD 04/22/2024 2:42 PM [facility] RBC, Urine 2.1 0 - 4 /HPF LAB URINALYSIS - AUTOMATED METHOD 04/22/2024 2:42 PM [facility] WBC, Urine 40.5(H) 0 - 4 /HPF LAB URINALYSIS - AUTOMATED METHOD 04/22/2024 2:42 PM [facility] Squamous Epithelial, Urine >100(H) 0 - 60 /LPF LAB URINALYSIS - AUTOMATED METHOD 04/22/2024 2:42 PM [facility] Bacteria, Urine Many(A) Negative /HPF LAB URINALYSIS - AUTOMATED METHOD 04/22/2024 2:42 PM [facility] Hyaline Casts, Urine 0.00 0 - 3 /LPF LAB URINALYSIS - AUTOMATED METHOD 04/22/2024 2:42 PM [facility] Urine Urine specimen obtained by clean catch procedure / Unknown Non-blood Collection / Unknown 04/22/2024 10:37 AM EST 04/22/2024 10:37 AM EST us Jeffrey MEDRANO LAB URINE ORDERABLES Final Res ult Performing Organization Address [facility]/ZIP Co de Phone Number [facility] [address] [place] [address], [place] [phone] * (ABNORMAL) Thyroid stimulating hormone with reflex to free t4 and free t3 (04/22/2024 10:37 AM EST) TSH 4.41(H) 0.40 - 4.00 mcIU/mL LAB CHEMISTRY METHOD 04/22/2024 2:21 PM EST [facility] Blood Venous blood specimen / Unknown Venipuncture / Unknown 04/22/2024 10:37 AM EST 04/22/2024 10:37 AM EST Jeffrey MEDRANO LAB BLOOD ORDERABLES Final Res ult Performing Organization Address [facility] de Phone Number [facility] [address] [place] [address], [place] [phone] * Free thyroxine with reflex to free triiodothyronine (04/22/2024 10:37 AM EST) [facility] Free T4 1.14 0.70 - 1.80 ng/dL LAB CHEMISTRY METHOD 04/22/2024 2:46 PM EST [facility] Blood Venous blood specimen / Unknown Venipuncture / Unknown 04/22/2024 10:37 AM EST 04/22/2024 10:37 AM EST us Jeffrey MEDRANO LAB BLOOD ORDERABLES Final Res ult Performing Organization Address [facility] Co de Phone Number [facility] [address] [place] [address], [place] [phone] * (ABNORMAL) Lipid panel with reflex to direct LDL (04/22/2024 10:37 AM EST) Cholesterol 232(H) 0 - 200 mg/dL LAB CHEMISTRY METHOD 04/22/2024 2:13 PM EST [facility] Triglycerides 168(H) 0 - 150 mg/dL LAB CHEMISTRY METHOD 04/22/2024 2:13 PM [facility] HDL 64 >=40 mg/dL LAB CHEMISTRY METHOD 04/22/2024 2:13 PM [facility] LDL Calculated 134(H) 0 - 100 mg/dL LAB CHEMISTRY METHOD 04/22/2024 2:13 PM EST [facility] VLDL Cholesterol Joe 33.6 mg/dL LAB CHEMISTRY METHOD 04/22/2024 2:13 PM [facility] Non HDL Chol. (LDL+VLDL) 168(H) <145 mg/dL LAB CHEMISTRY METHOD 04/22/2024 2:13 PM [facility] Chol/HDL Ratio 3.6 0.0 - 4.4 LAB CHEMISTRY METHOD 04/22/2024 2:13 PM [facility] Blood Venous blood specimen / Unknown Venipuncture / Unknown 04/22/2024 10:37 AM EST 04/22/2024 10:37 AM EST us Jeffrey MEDRANO LAB BLOOD ORDERABLES Final Res ult [facility] [address] [place] [address], * (ABNORMAL) CBC auto differential (04/22/2024 10:37 AM EST) WBC 7.5 4.8 - 10.8 K/mcL LAB HEMETOLOGY METHOD 04/22/2024 12:26 PM [facility] RBC 4.40 3.80 - 4.80 M/mcL LAB HEMETOLOGY METHOD 04/22/2024 12:26 PM [facility] Hemoglobin 13.6 11.5 - 16.0 g/dL LAB HEMETOLOGY METHOD 04/22/2024 12:26 PM [facility] Hematocrit 41.4 35.0 - 47.0 % LAB HEMETOLOGY METHOD 04/22/2024 12:26 PM [facility] MCV 94.1 79.0 - 98.0 FL LAB HEMETOLOGY METHOD 04/22/2024 12:26 PM [facility] MCH 30.9 27.0 - 32.0 pcg LAB HEMETOLOGY METHOD 04/22/2024 12:26 PM [facility] MCHC 32.9 32.0 - 37.0 g/dL LAB HEMETOLOGY METHOD 04/22/2024 12:26 PM [facility] RDW 13.0 11.0 - 15.0 % LAB HEMETOLOGY METHOD 04/22/2024 12:26 PM [facility] Platelets 331 130 - 400 K/mcL LAB HEMETOLOGY METHOD 04/22/2024 12:26 PM [facility] MPV 13.6(H) 7.0 - 11.0 FL LAB HEMETOLOGY METHOD 04/22/2024 12:26 PM [facility] NRBC 0.0 <1.0 % LAB HEMETOLOGY METHOD 04/22/2024 12:26 PM [facility] NRBC Absolute 0.00 <0.10 K/mcL LAB HEMETOLOGY METHOD 04/22/2024 12:26 PM [facility] Neutrophils Relative 52.8 % LAB HEMETOLOGY METHOD 04/22/2024 12:26 PM [facility] Lymphocytes Relative 31.6 % LAB HEMETOLOGY METHOD 04/22/2024 12:26 PM [facility] Monocytes Relative 7.6 % LAB HEMETOLOGY METHOD 04/22/2024 12:26 PM [facility] Eosinophils Relative 6.8 % LAB HEMETOLOGY METHOD 04/22/2024 12:26 PM [facility] Basophils Relative 0.9 % LAB HEMETOLOGY METHOD 04/22/2024 12:26 PM [facility] Immature Granulocytes Relative 0.3 % LAB HEMETOLOGY METHOD 04/22/2024 12:26 PM [facility] Neutrophils Absolute 3.98 1.50 - 7.00 K/mcL LAB HEMETOLOGY METHOD 04/22/2024 12:26 PM [facility] Lymphocytes Absolute 2.38 1.00 - 5.00 K/mcL LAB HEMETOLOGY METHOD 04/22/2024 12:26 PM [facility] Monocytes Absolute 0.57 0.20 - 1.00 K/mcL LAB HEMETOLOGY METHOD 04/22/2024 12:26 PM [facility] Eosinophils Absolute 0.51(H) 0.00 - 0.50 K/mcL LAB HEMETOLOGY METHOD 04/22/2024 12:26 PM [facility] Basophils Absolute 0.07 0.00 - 0.20 K/mcL LAB HEMETOLOGY METHOD 04/22/2024 12:26 PM [facility] Immature Granulocytes Absolute 0.02 0.00 - 0.03 K/mcL LAB HEMETOLOGY METHOD 04/22/2024 12:26 PM [facility] Blood Venous blood specimen / Unknown Venipuncture / Unknown 04/22/2024 10:37 AM EST 04/22/2024 10:37 AM EST us Jeffrey MEDRANO LAB BLOOD ORDERABLES Final Res ult [facility] [address] [place] [address], * Vitamin D 1,25 dihydroxy (04/22/2024 10:37 AM EST) Pathologist [facility] Vitamin D, 1, 25-Dihydroxy 45 20 - 79 pg/mL 04/24/2024 7:[address] [facility] Comment: Vitamin D 1, 25 dihydroxy levels should be primarily used to assess Vitamin D status in patients with renal disease and hypercalcemia. Vitamin D 1,25-dihydroxy levels are generally less than 5 pg/mL in end stage renal disease patients. The preferred initial test for assessing Vitamin D status in the general population is Vitamin D 25-hydroxy (VITD). Test performed at [facility], [address] , [place], [place] ??[address] ? [phone] Елена Ritchie MD, PhD - Steel Construction Worker Blood Venous blood specimen / Unknown Venipuncture / Unknown 04/22/2024 10:37 AM EST 04/22/2024 10:37 AM EST Jeffrey MEDRANO LAB BLOOD ORDERABLES Final Res ult [facility] [address] [place] [address] * Triiodothyronine free (04/22/2024 10:37 AM EST) [facility] T3, Free 379 230 - 420 pcg/dL LAB CHEMISTRY METHOD 04/22/2024 3:11 PM EST [facility] Blood Venous blood specimen / Unknown Venipuncture / Unknown 04/22/2024 10:37 AM EST 04/22/2024 10:37 AM EST Jeffrey MEDRANO LAB BLOOD ORDERABLES Final Res ult [facility] [address] [place] [address], [place] [phone] * (ABNORMAL) Comprehensive metabolic panel (04/22/2024 10:37 AM EST) Only the most recent of2 resultswithin the time period is included. [facility] Sodium 137 133 - 145 mmol/L LAB CHEMISTRY METHOD 04/22/2024 2:13 PM [facility] Potassium 3.6 3.5 - 5.5 mmol/L LAB CHEMISTRY METHOD 04/22/2024 2:13 PM [facility] Chloride 105 96 - 110 mmol/L LAB CHEMISTRY METHOD 04/22/2024 2:13 PM [facility] CO2 29 21 - 32 mmol/L LAB CHEMISTRY METHOD 04/22/2024 2:13 PM [facility] Anion Gap 3 3 - 11 LAB CHEMISTRY METHOD 04/22/2024 2:13 PM [facility] Glucose 101(H) 70 - 100 mg/dL LAB CHEMISTRY METHOD 04/22/2024 2:13 PM [facility] BUN 8 5 - 25 mg/dL LAB CHEMISTRY METHOD 04/22/2024 2:13 PM [facility] Creatinine 0.88 0.50 - 1.10 mg/dL LAB CHEMISTRY METHOD 04/22/2024 2:13 PM [facility] eGFR 81 >=60 mL/min/1. 73m2 LAB CHEMISTRY METHOD 04/22/2024 2:13 PM [facility] Comment:Calculation based on the??Chronic Kidney Disease Epidemiology Collaboration (CKD-EPI) equation refit??without adjustment for race. BUN/Creatinine Ratio 9.1 LAB CHEMISTRY METHOD 04/22/2024 2:13 PM [facility] Calcium 8.8 8.5 - 10.5 mg/dL LAB CHEMISTRY METHOD 04/22/2024 2:13 PM [facility] AST (SGOT) 16 10 - 42 unit/L LAB CHEMISTRY METHOD 04/22/2024 2:13 PM [facility] ALT (SGPT) 23 10 - 60 unit/L LAB CHEMISTRY METHOD 04/22/2024 2:13 PM [facility] Alkaline Phosphatase 71 42 - 121 unit/L LAB CHEMISTRY METHOD 04/22/2024 2:13 PM [facility] Total Protein 7.4 6.0 - 8.0 g/dL LAB CHEMISTRY METHOD 04/22/2024 2:13 PM EST [facility] Albumin 4.1 3.2 - 5.0 g/dL LAB CHEMISTRY METHOD 04/22/2024 2:13 PM EST [facility] Total Bilirubin 0.3 0.0 - 1.4 mg/dL LAB CHEMISTRY METHOD 04/22/2024 2:13 PM EST [facility] Blood Venous blood specimen / Unknown Venipuncture / Unknown 04/22/2024 10:37 AM EST 04/22/2024 10:37 AM EST Jeffrey MEDRANO LAB BLOOD ORDERABLES Final Res ult [facility] [address] [place] [address], * Cervical Cancer Screening: HPV (10/20/2022) Pathologist [facility] Cervical Cancer Screening: HPV No interpretation with Negative, abstracted Historical Provider HEALTH MAINTENANCE Final Result from Last 3 Months or Most Recently Relevant to Health Maintenance Insurance [facility] MEDICARE Member Subscriber Plan / Payer (Ef fective 2018-Present) Name:[facility] Relation to Subscriber:Self Name:C[facility]enza [facility] Payer ID:[id number] Group ID:[id number] Type:Not on file Address: [place] [address] [place] [id number] Care Teams Custom Tailor Apprentice Relationship Specialty Start Date End Date Aby Anguiano MD [address] [place] [id number] PCP - General Internal Medicine 10/11/20
--- OUTSIDE RECORDS SUMMARY | 2024-06-16 10:31 | XMS_ITS | Encounter Summary ---
Author Organization [facility] Address [address] [place] [address] Care Team Providers Care Culturist Name Role Phone Lorin Norton MD Primary Care Provider Ameena Thompson MD Primary Care Provider Giovanna Anguiano Ch MD Primary Care Provider [phone] Reason for Visit * Reason Onset Date Comments Prior Authorization 08/11/2019 FUADIRA APPRO DELLA Encounter Details Date Type Department Care Team Description 08/11/2019 Telephone Rheumatology - [address] [address] Haile Rodriguez MD Prior Authorization (HUMIRA APPROVED) [...] on filedocumented in this encounter Care Teams Culturist Relationship Specialty Start Date End Date Lorin Norton MD PCP - General Internal Medicine 01/25/15 07/15/20 Ameena Medellin MD PCP - General Internal Medicine 07/16/20 10/10/20 Keiko Anguiano MD [address] [place] [address] PCP - General Internal Medicine 10/11/20 documented as of this encounter
--- OUTSIDE RECORDS SUMMARY | 2024-06-16 10:31 | XMS_ITS | Encounter Summary ---
Author Organization [facility] Address [address] [place] [address] Care Team Providers Care Child Center Assistant Name Role Phone Ameena Medellin MD Primary Care Provider Giovanna Anguiano Ch MD Primary Care Provider [phone] Reason for Referral * EXTERNAL (Routine) - Authorized/Booked Specialty Diagnoses / Procedures Referred By Contmahin bo Referred To Contact Podiatry Diagnoses Osteoarthritis of left ankle and foot Seronegative rheumatoid arthritis (HCC) Procedures REFERRAL TO PODIATRY (OUT OF NETWORK) Haile Rodriguez MD [address] [place] [id number] External Podiatry Referral ID Status Reason Start Date Expiration Date V isits Requested Visits Authorized [id number] Authorized/B ooked 07/16/2020 11/03/2020 1 1 Encounter Details Date Type Department Care Team Description 07/16/2020 Telephone Rheumatology - [address] [address] Haile Rodriguez MD Social History Tobacco Use [...] arthritis documented in this encounter Care Teams Child Center Assistant Relationship Specialty Start Date End Date Ameena Medellin MD PCP - General Internal Medicine 07/16/20 10/10/20 Keiko Anguiano MD [address] [place] [address] PCP - General Internal Medicine 10/11/20 documented as of this encounter
--- OUTSIDE RECORDS SUMMARY | 2024-06-16 10:31 | XMS_ITS | Encounter Summary ---
Author Organization [facility] Address [address] [place] [address] Care Team Providers Care Community Marketing Manager Name Role Phone Lorin Norton MD Primary Care Provider Ameena Thompson MD Primary Care Provider Giovanna Anguiano Ch MD Primary Care Provider [phone] Reason for Visit * Reason Comments E-prescribe Rx Request Encounter Details Date Type Department Care Team Description 11/08/2016 Refill Rheumatology - [place] [address] [place] [id number] Haile Rodriguez MD E-prescribe Rx Request Social [...] encounter Miscellaneous Notes * Telephone Encounter - Venturamanav Prabhakar - 11/08/2016 9:06 AM EDT MAIL ORDER REFILL REQUEST When was the patients last visit with PCP?: 02/24/16 When was the patients last visit in Medicine: 08/18/16 Does the patient have a future appointment? Yes 02/19/17 Is the doctor here today?: YES Is the med requested on the list?:Yes What mail order pharmacy does patient have?: [facility] Let the patient know that if their pharmacy is participating we will automatically route this mail order refill to them via their mail order pharmacy. Is the following the patients current home address: [address] [address] yes If their mail order pharmacy is NOT a participating pharmacy we can:Print script and mail to their home address Is this the patients current medical insurance carrier? [place] / [place] / Product Type: MED[place]ARE [id number] YES documented in this encounter Plan of Treatment Not on file documented as of this encounter Visit Diagnoses Diagnosis Seronegative rheumatoid arthritis (HCC) Rheumatoid arthritis documented in this encounter Care Teams Community Marketing Manager Relationship Specialty Start Date End Date Lorin Norton MD PCP - General Internal Medicine 01/25/15 07/15/20 Ameena Medellin MD PCP - General Internal Medicine 07/16/20 10/10/20 Keiko Anguiano MD [address] [place] [address] PCP - General Internal Medicine 10/11/20 documented as of this encounter
--- OUTSIDE RECORDS SUMMARY | 2024-06-16 10:31 | XMS_ITS | Encounter Summary ---
Author Organization [facility] Address [address] [place] [address] Care Team Providers Care Radiology Specialist Name Role Phone Lorin Norton MD Primary Care Provider Ameena Thompson MD Primary Care Provider Giovanna Anguiano Ch MD Primary Care Provider [phone] [phone] Reason for Visit * Reason Comments E-prescribe Rx Request Encounter Details Date Type Department Care Team Description 03/18/2019 Refill Rheumatology - [place] [address] [place] [address] Haile Rodriguez MD E-prescribe Rx Request Social [...] arthritis documented in this encounter Care Teams Radiology Specialist Relationship Specialty Start Date End Date Lorin Norton MD PCP - General Internal Medicine 01/25/15 07/15/20 Ameena Medellin MD PCP - General Internal Medicine 07/16/20 10/10/20 Keiko Anguiano MD [address] [place] [address] PCP - General Internal Medicine 10/11/20 documented as of this encounter
--- OUTSIDE RECORDS SUMMARY | 2024-06-16 10:31 | XMS_ITS | Encounter Summary ---
Author Organization [facility] Address [address] [place] [address] Care Team Providers Care Clinical Resource Nurse Name Role Phone Lorin Norton MD Primary Care Provider Ameena Thompson MD Primary Care Provider Giovanna Anguiano Ch MD Primary Care Provider [phone] [phone] Reason for Visit * Reason Comments E-prescribe Rx Request Encounter Details Date Type Department Care Team Description 03/17/2019 Refill Medicine/Pediatrics - [address] [address] Jase Lemos MD E-prescribe Rx Request Social [...] N/A Patients current insurance carrier is: Payor: [employer] [facility] MCR / Plan: ONE [facility] / Product Type: HMO [id number] documented in this encounter Plan of Treatment Not on file documented as of this encounter Visit Diagnoses Not on filedocumented in this encounter Care Teams Clinical Resource Nurse Relationship Specialty Start Date End Date Lorin Norton MD PCP - General Internal Medicine 01/25/15 07/15/20 Ameena Medellin MD PCP - General Internal Medicine 07/16/20 10/10/20 Keiko Anguiano, [address] [place] [address] PCP - General Internal Medicine 10/11/20 documented as of this encounter
--- OUTSIDE RECORDS SUMMARY | 2024-06-16 10:31 | XMS_ITS | Encounter Summary ---
Author Organization [facility] Address [address] [place] [address] Care Team Providers Care Ring Conductor Name Role Phone Lorin Norton MD Primary Care Provider Ameena Thompson MD Primary Care Provider Giovanna Anguiano Ch MD Primary Care Provider [phone] [phone] Reason for Visit * Reason Comments E-prescribe Rx Request Encounter Details Date Type Department Care Team Description 06/24/2019 Refill Rheumatology - [place] [address] [place] [address] Haile Rodriguez MD E-prescribe Rx Request Social [...] Telephone Encounter - Lizette Duncan M.A. - 06/24/2019 2:05 PM EDT Last Appt: 05/12 Next visit: 07/10 Lab Results Component Value Date WBC 9.0 04/24/2019 HGB 15.4 04/24/2019 HCT 46.7 04/24/2019 MCV 95.5 04/24/2019 PLTCT 313 04/24/2019 Lab Results Component Value Date ALB 4.0 05/26/2019 SGOT 15 05/26/2019 SGPT 16 05/26/2019 TBILI 0.3 05/26/2019 DBILI 0.1 05/26/2019 IBILI 0.2 05/26/2019 ALKPHOS 74 05/26/2019 TP 7.0 05/26/2019 * Telephone Encounter - Dimas Radford - 06/24/2019 11:43 AM EDT Patient would like script to [...] N/A Patients current insurance carrier is: Payor: [employer] MCR / Plan: ONE CARE [facility] / Product Type: HMO [id number] * Telephone Encounter - Gwendolyn Abbott - 06/24/2019 11:43 AM EDT Patient would like script to be: E-PRESCRIBED/FAXED TO PHARMACY WHEN WAS THE PATIENT'S LAST APPOINTMENT IN ADULT MEDICINE? 03-06-19 WHEN WAS THE LAST TIME THE PATIENT SAW THEIR PCP? Same as above Does patient have an upcoming appointment? Yes 08-19-19 (THE MEDICATION REQUESTED IS ON THE MED LIST ABOVE) One or some of the medications requested were on the HISTORICAL MED list Did you check the Pharmacy information above?: YES Patient wants: 30 -day supply Is this a mail order prescription request ? NO If the refill is from a FAXED refill request what is the RX # listed on the fax? N/A Patients current insurance carrier is: Payor: [employer] [facility] [employer] MCR / Plan: [facility] / Product Type: HMO [place] documented in this encounter Plan of Treatment Not on file documented as of this encounter Visit Diagnoses Diagnosis Seronegative rheumatoid arthritis (HCC) Rheumatoid arthritis documented in this encounter Care Teams Ring Conductor Relationship Specialty Start Date End Date Lorin Norton MD PCP - General Internal Medicine 01/25/15 07/15/20 Ameena Medellin MD PCP - General Internal Medicine 07/16/20 10/10/20 Keiko Anguiano MD [address] [place] [address] PCP - General Internal Medicine 10/11/20 documented as of this encounter
--- OUTSIDE RECORDS SUMMARY | 2024-06-16 10:32 | XMS_ITS | Encounter Summary ---
Author Organization [facility] Address [address] [place] [address] Care Team Providers Care Data Support Analyst Name Role Phone Lorin Norton MD Primary Care Provider Ameena Thompson MD Primary Care Provider Giovanna Anguiano Ch MD Primary Care Provider [phone] Encounter Details Date Type Department Care Team Description 01/24/2018 Release of Information Medical Records [address] [place] [address] Abstract, Provider Social History Tobacco Use Types [...] on filedocumented in this encounter Care Teams Data Support Analyst Relationship Specialty Start Date End Date Lorin Norton MD PCP - General Internal Medicine 01/25/15 07/15/20 Ameena Medellin MD PCP - General Internal Medicine 07/16/20 10/10/20 Keiko Anguiano MD [address] [place] [address] PCP - General Internal Medicine 10/11/20 documented as of this encounter
--- OUTSIDE RECORDS SUMMARY | 2024-06-16 10:32 | XMS_ITS | Encounter Summary ---
Author Organization [facility] Address [address] [place] [address] Care Team Providers Care Bias Binding Cutter Name Role Phone Keiko Anguiano MD Primary Care Provider [phone] [phone] Encounter Details Date Type Department Care Team Description 03/30/2023 Licensed Chemical Spray Technician Report Medical Records [address] [place] [address] Haile Rodriguez MD Social History Tobacco Use [...] on filedocumented in this encounter Care Teams Bias Binding Cutter Relationship Specialty Start Date End Date Keiko Anguiano MD [address] [place] [address] PCP - General Internal Medicine 10/11/20 documented as of this encounter
--- OUTSIDE RECORDS SUMMARY | 2024-06-16 10:32 | XMS_ITS | Encounter Summary ---
Author Organization [facility] Address [address] [place] [address] Care Team Providers Care Wood Boat Builder Supervisor Name Role Phone Lorin Norton MD Primary Care Provider Ameena Thompson MD Primary Care Provider Giovanna Anguiano Ch MD Primary Care Provider [phone] Encounter Details Date Type Department Care Team Description 02/18/2018 [facility] Medical Records [address] [place] [address] Abstract, Provider Social History Tobacco Use Types [...] on filedocumented in this encounter Care Teams Wood Boat Builder Supervisor Relationship Specialty Start Date End Date Lorin Norton MD PCP - General Internal Medicine 01/25/15 07/15/20 Ameena Medellin MD PCP - General Internal Medicine 07/16/20 10/10/20 Keiko Anguiano MD [address] [place] [address] PCP - General Internal Medicine 10/11/20 documented as of this encounter
--- OUTSIDE RECORDS SUMMARY | 2024-06-16 10:32 | XMS_ITS | Encounter Summary ---
Author Organization [facility] Address [address] [place] [address] Care Team Providers Care Refrigerator Assembler Name Role Phone Lorin Norton MD Primary Care Provider Ameena Thompson MD Primary Care Provider Giovanna Anguiano Ch MD Primary Care Provider [phone] [phone] Encounter Details Date Type Department Care Team Description 09/03/2015 Release of Information Medical Records [address] [place] [address] Abstract, Provider Social History Tobacco Use Types [...] on filedocumented in this encounter Care Teams Refrigerator Assembler Relationship Specialty Start Date End Date Lorin Norton MD PCP - General Internal Medicine 01/25/15 07/15/20 Ameena Medellni MD PCP - General Internal Medicine 07/16/20 10/10/20 Keiko Anguiano MD [address] [place] [address] PCP - General Internal Medicine 10/11/20 documented as of this encounter
--- OUTSIDE RECORDS SUMMARY | 2024-06-16 10:32 | XMS_ITS | Encounter Summary ---
Author Organization [facility] Address [address] [place] [address] Care Team Providers Care Law Firm Receptionist Name Role Phone Tim Flor MD Primary Care Provider Unavail Lorin Mejía MD Primary Care Provider Ameena Thompson MD Primary Care Provider Unavailronen Anguiano Ch MD Primary Care Provider [phone] Encounter Details Date Type Department Care Team Description 12/12/2011 Processing Inspector Report Medical Records [address] [place] [address] Toby Cleaning MD Social History Tobacco Use [...] on filedocumented in this encounter Care Teams Law Firm Receptionist Relationship Specialty Start Date End Date Tim Flor MD PCP - General 01/06/08 01/24/15 Lorin Norton MD PCP - General Internal Medicine 01/25/15 07/15/20 Ameena Medellin MD PCP - General Internal Medicine 07/16/20 10/10/20 Keiko Anguiano, [address] [place] [id number] PCP - General Internal Medicine 10/11/20 documented as of this encounter
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
--- OUTSIDE RECORDS SUMMARY | 2024-06-16 10:32 | XMS_ITS | Encounter Summary ---
Author Organization [facility] Address [address] [place] [address] Care Team Providers Care Shuttle Truck Driver Name Role Phone Keiko Anguiano MD Primary Care Provider [phone] [phone] Reason for Referral * EXTERNAL (Priority) - Authorized/Booked Specialty Diagnoses / Procedures Referred By Susana bo Referred To Contact PAIN MANAGEMENT / Pain Management Procedures REFERRAL TO PAIN MANAGEMENT Jeffrey Cruz PA-C [address] [place] [id number] Default, Provider Referral ID Status Reason Start Date Expiration Date V isits Requested Visits Authorized [id number] Authorized/B ooked 01/01/2024 12/31/2024 1 1 Encounter Details Date Type Department Care Team Description 12/31/2023 Pt. Non Urgent Medic al Question Adult Medicine - [place] [address] [place] [address] Jeffrey Cruz PA-C [address] [place] [address] Social History Tobacco Use Types Packs/Day Years [...] Telephone Encounter - Dorinda Lim L.P.N. - 12/31/2023 2:45 PM EDT From: Carmenza Pastrana To: Milan Cruz Sent: 12/31/2023 2:13 PM EDT Subject: Pain management Hel, I wanted to let you know that the referral for pain management at [facility] never gotthere. I've tried dealing with the pain but has gotten worse and was wondering if I can get a referral for the [facility] pain management center at [address] [place] [address]. I spoke to them and they take my insurance,they just said I needed a referral. Thank you, Carmenza pastrana documented in this encounter Plan of Treatment Not on file documented as of this encounter Visit Diagnoses Not on filedocumented in this encounter Care Teams Shuttle Truck Driver Relationship Specialty Start Date End Date Keiko Anguiano MD [address] [place] [address] PCP - General Internal Medicine 10/11/20 documented as of this encounter
--- OUTSIDE RECORDS SUMMARY | 2024-06-16 10:32 | XMS_ITS | Encounter Summary ---
Author Organization [facility] Address [address] [place] [address] Care Team Providers Care Field Property Loss Specialist Name Role Phone Keiko Anguiano MD Primary Care Provider [phone] [phone] Reason for Visit * Reason Comments E-prescribe Rx Request Encounter Details Date Type Department Care Team Description 04/11/2022 Refill Adult Medicine - [place] [address] [place] [address] Keiko Anguiano MD [address] [place] [address] E-prescribe Rx Request Social History Tobacco Use [...] NONE DETECTED 01/11/2022 PAINCANNABIN NONE DETECTED 01/11/2022 LUMBER CUTTER * Telephone Encounter - Guille Bryant - [...] N/A Patients current insurance carrier is: Payor: [employer] [facility] [employer] MCR / Plan: ONE [facility] / Product Type: HMO [id number] documented in this encounter Plan of Treatment Not on file documented as of this encounter Visit Diagnoses Diagnosis Osteoarthritis of ankle and foot, left documented in this encounter Care Teams Field Property Loss Specialist Relationship Specialty Start Date End Date Keiko Anguiano MD [address] [place] [address] PCP - General Internal Medicine 10/11/20 documented as of this encounter
--- OUTSIDE RECORDS SUMMARY | 2024-06-16 10:32 | XMS_ITS | Data Portability ---
Author Organization [employer] [facility] [employer] Address [address] [place] [id number] Care Team Providers Care Finance Lead Name Role Phone [facility] PRIMARY CARE Referring Provider Assessment Encounter Date Assessment Date Assessment LastModified by Organization Details LastModified Time 05/16/2023 05/16/2023 I have reviewed and agree with the assessment and plan as documented by the cheese sprayer. I provided real time medical direction for this encounter and was immediately available to provide additional phone based assistance as needed. History as noted by cheese sprayer. Pt with history of RA on MTX, [...] 2 Ag, QL IA, respiratory specimen 2023 [facility], [address] [place] [address], [id number], 4 13:36:28 rapid flu (A+B) 2023 [facility], [address] [place] [address], [id number], 4 13:36:29 rapid strep group A, throat 2023 [facility], [address] [place] [address], [id number], 4 13:36:30 Referral None recorded. Procedures None recorded. Surgeries None recorded. Imaging None recorded. Medication Orders fluticasone propionate 50 mcg/actuati on nasal spray,suspe nsion [address] [id number], [address] [place], [address], 4 13:36:29 guaifenesin ER 600 mg tablet, extended release [address] [facility], [address] [place], [address], 4 13:36:28 benzonatate 100 mg capsule [address] [facility], [address] [place], [address], 4 13:36:28 Patient TargetsNo targets recorded. Patient InstructionsNo instructions recorded. Reason for Referral None Reported. Results Created Date Observation Date Name Description Value Unit Range Abnormal Flag Note LastModifiedBy Organization Detail LastModifiedTime 05/16/19 24 05/16/2023 rapid strep group A, throa t Strep negati ve Not Available Main - [facility] ed [address] [place] [address], [id number], 05/16/2023 13:30:48 05/16/19 24 05/16/2023 rapid flu (A+B) Flu negati ve Not Available [facility] ed [address] [place] [address], [id number], 05/16/2023 13:30:39 05/16/19 24 05/16/2023 rapid SARS CoV 2 Ag, QL IA, respi rator y speci men rapid SARS CoV 2 Ag, QL IA, respiratory specimen negati ve Not Available [facility] ed [address] [place] [address], [id number], 05/16/2023 13:30:26 Result Notes None recorded. Medical [...] Address Organization Details Last Updated DateTime 4 98929.6 g 14 /min 98.4 [degF] 98 /min [...] SNOMED-CT Code Diagnosis ICD10 Code Diagnosis Note 56100 Thomas Garsia MD Main - [facility] [address] [place] [phone] 05/16/2023 13:24:32 05/17/2023 09:29:40 Viral upper respiratory tract infection 967779364 J06.9 Health Concerns Section Related Observation LastModified by Organization Detai ls LastModified Time None Recorded Concern Status LastModified by Organization Details LastModified Time None Recorded Advance Directives Directive None Recorded Payers Encounter Date Sequence Insurance Name Policy Number Policy Sinha Covered Member ID Sinha Member ID Guarantor Name 05/16/2023 1 [facility] - DOS ON OR AFTER 2022 - DUAL ELIGIBLE - [facility] OPTIONS AND ONE CARE (MEDICARE REPLACEMENT/AD VANTAGE - HMO) [facility] [id number] [facility] Notes Date Note Type Note Provider Name and Address Organization Details Recorded Time 05/16/2023 text/html This was a supervised home visit with cheese sprayer Tuan Martin. CRC Nurse Triage Notes (Padmini [...] .................. .................. .................. .................. .................. .................. ............... [facility] Note From Tuan Martin: PT caox3 complains [...] covid flu and strep via rapid POC. [facility] will Rx flonase, mucinex and benzonatate to pt's local pharmacy. Supportive care including nasal decongestant, fluids, nasal rinse, and red flags and pt education discussed. .................. .................. .................. .................. .................. .................. .................. ............... Disposition: Fulfilled Thomas Garsia MD [address] [facility],[address], [place], [address], pushd - [facility] 05/16/2023 15:12:32 OBGyn Episode No OBEpisode recorded.
--- OUTSIDE RECORDS SUMMARY | 2024-06-16 10:32 | XMS_ITS | Encounter Summary ---
Author Organization [facility] Address [address] [place] [address] Care Team Providers Care Sludge Mill Operator Name Role Phone Keiko Anguiano MD Primary Care Provider +1 -[phone] Encounter Details Date Type Department Care Team Description 04/10/2023 Orders Only Adult Medicine - [place] [address] [place] [address] Breana de la vega Ch, MD [address] [place] [address] Osteoarthritis of ankle and foot, left Social [...] left documented in this encounter Care Teams Sludge Mill Operator Relationship Specialty Start Date End Date Keiko Anguiano MD [address] [place] [address] PCP - General Internal Medicine 10/11/20 documented as of this encounter
--- OUTSIDE RECORDS SUMMARY | 2024-06-16 10:32 | XMS_ITS | Encounter Summary ---
Author Organization [facility] Address [address] [place] [address] Care Team Providers Care Infusion Nurse Name Role Phone Tim Flor MD Primary Care Provider Unavail Lorin Mejía MD Primary Care Provider Ameena Thompson MD Primary Care Provider Giovanna Anguiano Ch MD Primary Care Provider +1 -[phone] Encounter Details Date Type Department Care Team Description 03/12/2012 Jigger Operator Report Medical Records [address] [place] [address] Social History Tobacco Use Types Packs/Day Years [...] on filedocumented in this encounter Care Teams Infusion Nurse Relationship Specialty Start Date End Date Tim Flor MD PCP - General 01/06/08 01/24/15 Lorin Norton MD PCP - General Internal Medicine 01/25/15 07/15/20 Ameena Medellin MD PCP - General Internal Medicine 07/16/20 10/10/20 Keiko Anguiano MD [address] [place] [address] PCP - General Internal Medicine 10/11/20 documented as of this encounter
--- OUTSIDE RECORDS SUMMARY | 2024-06-16 10:32 | XMS_ITS | Encounter Summary ---
Author Organization [facility] Address [address] [place] [address] Care Team Providers Care It Business Analyst Name Role Phone Keiko Anguiano MD Primary Care Provider +1 -[phone] Encounter Details Date Type Department Care Team Description 05/17/2021 PNO Controlled Substance Contract Medical Records [address] [place] [address] Vanessa Alvarado PA-C Social History Tobacco Use [...] on filedocumented in this encounter Care Teams It Business Analyst Relationship Specialty Start Date End Date Keiko Anguiano, [address] [place] [address] PCP - General Internal Medicine 10/11/20 documented as of this encounter
--- OUTSIDE RECORDS SUMMARY | 2024-06-16 10:32 | XMS_ITS | Encounter Summary ---
Author Organization [facility] Address [address] [place] [address] Care Team Providers Care Lubricator Granulator Name Role Phone Lorin Norton MD Primary Care Provider Ameena Thompson MD Primary Care Provider Giovanna Anguiano Ch MD Primary Care Provider +1 -[phone] Encounter Details Date Type Department Care Team Description 06/15/2020 SCAN Medical Records [address] [place] [address] Abstract, Provider Social History Tobacco Use Types [...] on filedocumented in this encounter Care Teams Lubricator Granulator Relationship Specialty Start Date End Date Lorin Norton MD PCP - General Internal Medicine 01/25/15 07/15/20 Ameena Medellin MD PCP - General Internal Medicine 07/16/20 10/10/20 Keiko Anguiano, [address] [place] [address] PCP - General Internal Medicine 10/11/20 documented as of this encounter
--- OUTSIDE RECORDS SUMMARY | 2024-06-16 10:32 | XMS_ITS | Encounter Summary ---
Author Organization [facility] Address [address] [place] [address] Care Team Providers Care Cellophane Tester Name Role Phone Keiko Anguiano MD Primary Care Provider [phone] -[phone] Encounter Details Date Type Department Care Team Description 03/13/2023 Orders Only Medical Records [address] [place] [address] Keiko Anguiano MD [address] [place] [address] Social History Tobacco Use Types Packs/Day Years [...] on filedocumented in this encounter Care Teams Cellophane Tester Relationship Specialty Start Date End Date Keiko Anguiano MD [address] [place] [address] PCP - General Internal Medicine 10/11/20 documented as of this encounter
--- OUTSIDE RECORDS SUMMARY | 2024-06-16 10:32 | XMS_ITS | Encounter Summary ---
Author Organization [facility] Address [address] [place] [address] Care Team Providers Care Paraffin Plant Sweater Operator Name Role Phone Lorin Norton MD Primary Care Provider Ameena Thompson MD Primary Care Provider Giovanna Anguiano Ch MD Primary Care Provider [phone] -[phone] Encounter Details Date Type Department Care Team Description 04/25/2018 Release of Information Medical Records [address] [place] [address] Abstract, Provider Social History Tobacco Use Types [...] on filedocumented in this encounter Care Teams Paraffin Plant Sweater Operator Relationship Specialty Start Date End Date Lorin Norton MD PCP - General Internal Medicine 01/25/15 07/15/20 Ameena Medellin MD PCP - General Internal Medicine 07/16/20 10/10/20 Keiko Agnuiano MD [address] [place] [address] PCP - General Internal Medicine 10/11/20 documented as of this encounter
--- OUTSIDE RECORDS SUMMARY | 2024-06-16 10:32 | XMS_ITS | Encounter Summary ---
Author Organization [facility] Address [address] [place] [address] Care Team Providers Care Spring Inspector Name Role Phone Lorin Norton MD Primary Care Provider Ameena Thompson MD Primary Care Provider Giovanna Anguiano Ch MD Primary Care Provider [phone] [phone] Reason for Visit * Reason Comments E-prescribe Rx Request Encounter Details Date Type Department Care Team Description 04/15/2020 Refill Rheumatology - [place] [address] [place] [address] Haile Rodriguez MD E-prescribe Rx Request Social [...] Encounter - Johanna Sage L.P.N. - 04/15/2020 12:00 PM EST 2nd msg left for pt to call me re Sally Sage L.P.N. Ext [phone] * Telephone Encounter - Johanna Sage L.P.N. - 04/15/2020 9:53 AM EST Message left for patient to return my call. Johanna Sage L.P.N. Tramadol hard copy faxed to pharmacy * Telephone Encounter - Haile Rodriguez MD - 04/15/2020 9:21 AM EST Lesli, please call patient [phone] (home) [phone] (work) Is she taking the Chantix? We got the starter pack in February so she should just be on 1 mg daily at this point. In that case she would need just the [address] Rodriguez * Telephone Encounter - Johanna Sage L.P.N. - 04/15/2020 9:08 AM EST [facility] report reviewed today for [facility] documented in this encounter Plan of Treatment Not on file documented as of this encounter Visit Diagnoses Diagnosis Osteoarthritis of ankle and foot, left Osteoarthritis of left ankle and foot Tobacco use disorder documented in this encounter Care Teams Spring Inspector Relationship Specialty Start Date End Date Lorin Norton MD PCP - General Internal Medicine 01/25/15 07/15/20 Ameena Medellin MD PCP - General Internal Medicine 07/16/20 10/10/20 Keiko Anguiano MD [address] [place] [address] PCP - General Internal Medicine 10/11/20 documented as of this encounter
--- OUTSIDE RECORDS SUMMARY | 2024-06-16 10:32 | XMS_ITS | Encounter Summary ---
Author Organization [facility] Address [address] [place] [address] Care Team Providers Care Launch Manager Name Role Phone Lorin Norton MD Primary Care Provider Ameena Thompson MD Primary Care Provider Giovanna Anguiano Ch MD Primary Care Provider [phone] [phone] Encounter Details Date Type Department Care Team Description 02/18/2020 [facility] Medical Records [address] [place] [address] Abstract, Provider Social History Tobacco Use Types [...] on filedocumented in this encounter Care Teams Launch Manager Relationship Specialty Start Date End Date Lorin Norton MD PCP - General Internal Medicine 01/25/15 07/15/20 Ameena Medellin MD PCP - General Internal Medicine 07/16/20 10/10/20 Keiko Anguiano, [address] [place] [address] [place] [address] PCP - General Internal Medicine 10/11/20 documented as of this encounter
--- OUTSIDE RECORDS SUMMARY | 2024-06-16 10:32 | XMS_ITS | Encounter Summary ---
Author Organization [facility] Address [address] [place] [address] Care Team Providers Care Manager Transfer Name Role Phone Tim Flor MD Primary Care Provider Unavail Lorin Mejía MD Primary Care Provider Ameena Thompson MD Primary Care Provider Unavailronen Anguiano Ch MD Primary Care Provider [phone] [phone] Encounter Details Date Type Department Care Team Description 06/11/2012 Field Cane Scaler Helper Report Medical Records [address] [place] [address] Toby Cleaning MD Social History Tobacco Use [...] filedocumented in this encounter Care Teams Manager Transfer Relationship Specialty Start Date End Date Tim Flor MD PCP - General 01/06/08 01/24/15 Lroin Norton MD PCP - General Internal Medicine 01/25/15 07/15/20 Ameena Medellin MD PCP - General Internal Medicine 07/16/20 10/10/20 Keiko Anguiano, [address] [place] [id number] PCP - General Internal Medicine 10/11/20 documented as of this encounter
--- OUTSIDE RECORDS SUMMARY | 2024-06-16 10:32 | XMS_ITS | Encounter Summary ---
Author Organization [facility] Address [address] [place] [address] Care Team Providers Care Pricer Name Role Phone Tim Flor MD Primary Care Provider Unavail Lorin Mejía MD Primary Care Provider Ameena Thompson MD Primary Care Provider Unavailronen Anguiano Ch MD Primary Care Provider +1 [phone] Encounter Details Date Type Department Care Team Description 04/29/2014 CLEANER TOUCH UP WORKER/[facility] Report Medical Records [address] [place] [address] Abstract, Provider Social History Tobacco Use Types [...] on filedocumented in this encounter Care Teams Pricer Relationship Specialty Start Date End Date Tim Flor MD PCP - General 01/06/08 01/24/15 Lorin Norton MD PCP - General Internal Medicine 01/25/15 07/15/20 Ameena Medellin MD PCP - General Internal Medicine 07/16/20 10/10/20 Keiko Anguiano, [address] [place] [id number] PCP - General Internal Medicine 10/11/20 documented as of this encounter
--- OUTSIDE RECORDS SUMMARY | 2024-06-16 10:32 | XMS_ITS | Encounter Summary ---
Author Organization [facility] Address [address] [place] [address] Care Team Providers Care Imaging Manager Name Role Phone Keiko Anguiano MD Primary Care Provider [phone] [phone] Encounter Details Date Type Department Care Team Description 06/26/2022 Interlocking Installer Report Medical Records [address] [place] [address] Haile Rodriguez MD Social History Tobacco Use [...] on filedocumented in this encounter Care Teams Imaging Manager Relationship Specialty Start Date End Date Keiko Anguiano MD [address] [place] [address] PCP - General Internal Medicine 10/11/20 documented as of this encounter
--- OUTSIDE RECORDS SUMMARY | 2024-06-16 10:32 | XMS_ITS | Patient Health Record ---
Author Organization [facility] Address [address] [place] [address] Care Team Providers Care Tombstone Polisher Name Role Phone Aby Sarkar Primary Care Provide r Theron Ayala Unavailable [phone] Allergies No Known Allergies Reason For Referral No Information Medications Medication SIG (Take, Route, Frequency, Duration) Notes Start Date End Date Status cloNIDine 0.3 MG/24HR 1 patch to skin Transdermal for 30 day(s) Active Humira Active Adderall 7.5 MG 1 tablet Orally Twic e a day Active Methotrexate 2.5 MG as directed Orally Active Trintellix 20 MG 1 tablet Orally Once a day for 30 day(s) Active lamoTRIgine Active KlonoPIN 1 MG 1 tablet Orally Once a day Active Physical Therapy . . . 2-3x/week for 3- 4 weeks Active PriLOSEC Active Cetirizine HCl 10 MG 1 tablet Orally Onc e a day for 30 day(s) Active hydroCHLOROthiazide 25 MG 1 tablet in th e morning Orally Once a day for 30 day(s) Active Pravastatin Sodium 40 MG 1 tablet Orally Once a day for 30 day(s) Active Folic Acid Active traMADol HCl 50 MG 1 tablet as needed O rally Once a day Active Night Splint AFO - L1930 as directed Active Voltaren 1 % as directed Externally Active Custom Orthotics as directed A ctive Social History Tobacco Use: Social History Observation Description Date Details (start date - stop date) Current Smoker NA - NA Tobacco Use/Smoking Question Answer Notes Are you a: current smoker Alcohol Screen Question Answer Notes Did you have a drink contain ing alcohol in the past year? Yes How often did you have a dri nk containing alcohol in the past year? 2 to 4 times a month (2 points) Points 2 Interpretation Negative Tobacco use other than smoking: Question Answer Notes Are you an other tobacco user? No Problems Problem Type SNOMED Code ICD Code Onset Dates Problem Status W/U Status Risk Notes Problem Localized, primary osteoarthritis of the ankle and/or foot ([id number]) Primary osteoarthritis , left ankle and foot (M19.072) Active confirmed Problem [id number] JRA (juvenile rheumatoid arthritis) (M08.00) Active confirmed Plan Of Treatment Pending Test Test Name Order Date X ray : Ankle, left 3V 10/14/2021 X ray : Foot, left 3V 10/14/2021 Insurance Providers Payer Name Payer Address Payer Phone Subscriber Number Group Number Insured Name Patient Relationship to Insured Coverage Start Date Coverage End Date [facility] Claims [address] [place] [phone] [id number] [facility] i Self - patient is the insured Medical (General) History Medical History History ICD Code Anxiety Arthritis Depression Gall bladder problems High blood pressure Numbness Psychiatric disorder Reflux ( GERD) ptsd Surgical History Surgery Date(Month/Year) gall bladder 1997
--- OUTSIDE RECORDS SUMMARY | 2024-06-16 10:32 | XMS_ITS | Encounter Summary ---
Author Organization [facility] Address [address] [place] [address] Care Team Providers Care Expressive Therapist Name Role Phone Lorin Norton MD Primary Care Provider Ameena Thompson MD Primary Care Provider Giovanna Anguiano Ch MD Primary Care Provider [phone] [phone] Encounter Details Date Type Department Care Team Description 03/12/2017 SCAN Medical Records [address] [place] [address] Abstract, Provider Screening breast examination Social History Tobacco Use Types Packs/Day Years [...] Procedure Name Priority Date/Time Associated Diagnosis Comments SCR MAMMO BI INCL CAD Routine 02/28/2017 Screening breast examination documented in this encounter Results * SCR MAMMO BI INCL CAD (02/28/2017) Lorin Norton MD MAMMOGRAPHY documented in this encounter Visit Diagnoses Diagnosis Screening breast examination Other screening breast examination documented in this encounter Care Teams Expressive Therapist Relationship Specialty Start Date End Date Lorin Norton MD PCP - General Internal Medicine 01/25/15 07/15/20 Ameena Medellin MD PCP - General Internal Medicine 07/16/20 10/10/20 Keiko Anguiano, [address] [place] [address] PCP - General Internal Medicine 10/11/20 documented as of this encounter
--- OUTSIDE RECORDS SUMMARY | 2024-06-16 10:32 | XMS_ITS | Encounter Summary ---
Author Organization [facility] Address [address] [place] [address] Care Team Providers Care Foundry Worker General Name Role Phone Lorin Norton MD Primary Care Provider Ameena Thompson MD Primary Care Provider Giovanna Anguiano Ch MD Primary Care Provider +1 -[phone] Reason for Visit * Reason Comments E-prescribe Rx Request Encounter Details Date Type Department Care Team Description 01/20/2016 Refill Rheumatology - [place] [address] [place] [address] Haile Rodriguez MD E-prescribe Rx Request Social [...] / Plan: [place] / Product Type: MEDICARE [id number] documented in this encounter Plan of Treatment Not on file documented as of this encounter Visit Diagnoses Not on filedocumented in this encounter Care Teams Foundry Worker General Relationship Specialty Start Date End Date Lorin Norton MD PCP - General Internal Medicine 01/25/15 07/15/20 Ameena Medellin MD PCP - General Internal Medicine 07/16/20 10/10/20 Keiko Anguiano MD [address] [place] [address] PCP - General Internal Medicine 10/11/20 documented as of this encounter
--- OUTSIDE RECORDS SUMMARY | 2024-06-16 10:32 | XMS_ITS | Encounter Summary ---
Author Organization [facility] Address [address] [place] [address] Care Team Providers Care Fixed Income Portfolio Manager Name Role Phone Lorin Norton MD Primary Care Provider Ameena Thompson MD Primary Care Provider Giovanna Anguiano Ch MD Primary Care Provider +1 -[phone] Encounter Details Date Type Department Care Team Description 03/14/2016 [facility] Medical Records [address] [place] [address] Abstract, Provider Social History Tobacco Use Types [...] on filedocumented in this encounter Care Teams Fixed Income Portfolio Manager Relationship Specialty Start Date End Date Lorin Norton MD PCP - General Internal Medicine 01/25/15 07/15/20 Ameena Medellin MD PCP - General Internal Medicine 07/16/20 10/10/20 Keiko Anguiano MD [address] [place] [address] PCP - General Internal Medicine 10/11/20 documented as of this encounter
--- OUTSIDE RECORDS SUMMARY | 2024-06-16 10:32 | XMS_ITS | Encounter Summary ---
Author Organization [facility] Address [address] [place] [address] Care Team Providers Care Mica Sizer Name Role Phone Lorin Norton MD Primary Care Provider Ameena Thompson MD Primary Care Provider Giovanna Anguiano Ch MD Primary Care Provider +1 -[phone] Encounter Details Date Type Department Care Team Description 05/11/2017 [facility] Medical Records [address] [place] [address] Abstract, Provider Social History Tobacco Use Types [...] on filedocumented in this encounter Care Teams Mica Sizer Relationship Specialty Start Date End Date Lorin Norton MD PCP - General Internal Medicine 01/25/15 07/15/20 Ameena Medellin MD PCP - General Internal Medicine 07/16/20 10/10/20 Keiko Anguiano MD [address] [place] [address] PCP - General Internal Medicine 10/11/20 documented as of this encounter
--- OUTSIDE RECORDS SUMMARY | 2024-06-16 10:32 | XMS_ITS | Encounter Summary ---
Author Organization [facility] Address [address] [place] [address] Care Team Providers Care Juice Mixer Name Role Phone Tim Flor MD Primary Care Provider Unavail Lorin Mejía MD Primary Care Provider Ameena Thompson MD Primary Care Provider Unavailronen Anguiano Ch MD Primary Care Provider +1 -[phone] Encounter Details Date Type Department Care Team Description 05/22/2012 Cloth Painter Report Medical Records [address] [place] [address] Jeffrey Dejesus Social History Tobacco Use Types [...] on filedocumented in this encounter Care Teams Juice Mixer Relationship Specialty Start Date End Date Tim Flor MD PCP - General 01/06/08 01/24/15 Lorin Norton MD PCP - General Internal Medicine 01/25/15 07/15/20 Ameena Medellin MD PCP - General Internal Medicine 07/16/20 10/10/20 Keiko Anguiano MD [address] [place] [address] PCP - General Internal Medicine 10/11/20 documented as of this encounter
--- OUTSIDE RECORDS SUMMARY | 2024-06-16 10:32 | XMS_ITS | Encounter Summary ---
Author Organization [facility] Address [address] [place] [address] Care Team Providers Care Floor And Wall Applier Liquid Name Role Phone Keiko Anguiano MD Primary Care Provider +1 -[phone] Encounter Details Date Type Department Care Team Description 06/18/2023 [facility] Medical Records [address] [place] [address] Zach Harris MD Social History Tobacco Use [...] on filedocumented in this encounter Care Teams Floor And Wall Applier Liquid Relationship Specialty Start Date End Date Keiko Anguiano MD [address] [place] [address] PCP - General Internal Medicine 10/11/20 documented as of this encounter
--- OUTSIDE RECORDS SUMMARY | 2024-06-16 10:32 | XMS_ITS | Encounter Summary ---
Author Organization [facility] Address [address] [place] [address] Care Team Providers Care Registered Art Therapist Name Role Phone Lorin Norton MD Primary Care Provider Ameena Thompson MD Primary Care Provider Giovanna Anguiano Ch MD Primary Care Provider +1 -[phone] Encounter Details Date Type Department Care Team Description 01/22/2018 [facility] Medical Records [address] [place] [address] Abstract, Provider Social History Tobacco Use Types [...] on filedocumented in this encounter Care Teams Registered Art Therapist Relationship Specialty Start Date End Date Lorin Norton MD PCP - General Internal Medicine 01/25/15 07/15/20 Ameena Medellin MD PCP - General Internal Medicine 07/16/20 10/10/20 Keiko Anguiano MD [address] [place] [address] PCP - General Internal Medicine 10/11/20 documented as of this encounter
--- OUTSIDE RECORDS SUMMARY | 2024-06-16 10:32 | XMS_ITS | Encounter Summary ---
Author Organization [facility] Address [address] [place] [address] Care Team Providers Care Hide Curer Name Role Phone Tim Flor MD Primary Care Provider Unavail Lorin Mejía MD Primary Care Provider Ameena Thompson MD Primary Care Provider Giovanna Anguiano Ch MD Primary Care Provider [phone] [phone] Encounter Details Date Type Department Care Team Description 04/05/2011 [facility] Medical Records [address] [place] [address] Abstract, Provider Social History Tobacco Use Types [...] on filedocumented in this encounter Care Teams Hide Curer Relationship Specialty Start Date End Date Tim Flor MD PCP - General 01/06/08 01/24/15 Lorin Norton MD PCP - General Internal Medicine 01/25/15 07/15/20 Ameena Medellin MD PCP - General Internal Medicine 07/16/20 10/10/20 Keiko Anguiano MD [address] [place] [id number] PCP - General Internal Medicine 10/11/20 documented as of this encounter
--- OUTSIDE RECORDS SUMMARY | 2024-06-16 10:32 | XMS_ITS | Encounter Summary ---
Author Organization [facility] Address [address] [place] [address] Care Team Providers Care Subway Repair Supervisor Name Role Phone Keiko Anguiano MD Primary Care Provider [phone] -[phone] Encounter Details Date Type Department Care Team Description 05/17/2023 Pt. Non Urgent Medic al Question Adult Medicine - [place] [address] [place] [address] Keiko Anguiano MD [address] [place] [address] Social History Tobacco Use Types Packs/Day Years [...] on filedocumented in this encounter Care Teams Subway Repair Supervisor Relationship Specialty Start Date End Date Keiko Anguiano MD [address] [place] [address] PCP - General Internal Medicine 10/11/20 documented as of this encounter
--- OUTSIDE RECORDS SUMMARY | 2024-06-16 10:32 | XMS_ITS | Encounter Summary ---
Author Organization [facility] Address [address] [place] [address] Care Team Providers Care Program Services Planner Name Role Phone Keiko Anguiano MD Primary Care Provider [phone] -[phone] Encounter Details Date Type Department Care Team Description 12/27/2023 Refill Adult Medicine - [place] [address] [place] [address] Jeffrey Cruz PA-C [address] [place] [address] Social History Tobacco Use Types Packs/Day Years [...] filedocumented in this encounter Care Teams Program Services Planner Relationship Specialty Start Date End Date Keiko Anguiano MD [address] [place] [address] PCP - General Internal Medicine 10/11/20 documented as of this encounter
--- OUTSIDE RECORDS SUMMARY | 2024-06-16 10:32 | XMS_ITS | Encounter Summary ---
Author Organization [facility] Address [address] [place] [address] Care Team Providers Care Flag Maker Name Role Phone Keiko Anguiano MD Primary Care Provider [phone] -[phone] Reason for Visit * Reason Onset Date Comments lab test 05/05/2022 Encounter Details Date Type Department Care Team Description 05/05/2022 Telephone Adult Medicine - [place] [address] [place], [place] [id number] Keiko Anguiano MD [address] [place] [address] lab test Social History Tobacco Use Types Packs/Day Years [...] was confirmed or suspected to have Coronavirus/COVID-19? Unable to assess 04/25/2022 2:35 PM EST documented as of this encounter Miscellaneous Notes * Telephone Encounter - Veronica Adam M.A. - 05/08/2022 9:20 AM EST Just an FYI--Patient called stating she was asked to come in and have a cholesterol lab work done this week, but she was tested positive for covid on 05/02/22 and have symptoms. Patient is stating shewill come in ad do the lab work as soon as she will be negative for Covid. * Telephone Encounter - Guille Bryant - 05/05/2022 4:40 PM EST Patient called stating she was asked to come in and have a cholesterol lab work done this week, butshe was tested positive for covid on 05/02/22 and have symptoms. Patient is stating she will come inad do the lab work as soon as she will be negative for Covid---FYI documented in this encounter Plan of Treatment Not on file documented as of this encounter Visit Diagnoses Not on filedocumented in this encounter Care Teams Flag Maker Relationship Specialty Start Date End Date Keiko Anguiano MD [address] [place] [address] PCP - General Internal Medicine 10/11/20 documented as of this encounter
--- OUTSIDE RECORDS SUMMARY | 2024-06-16 10:33 | XMS_ITS | Encounter Summary ---
Author Organization [facility] Address [address] [place] [address] Care Team Providers Care Drying Can Worker Name Role Phone Keiko Anguiano MD Primary Care Provider [phone] [phone] Encounter Details Date Type Department Care Team Description 12/13/2020 Orders Only Medical Records [address] [place] [address] Tyra Lezama PA-C Social History Tobacco Use [...] on filedocumented in this encounter Care Teams Drying Can Worker Relationship Specialty Start Date End Date Keiko Anguiano MD [address] [place] [address] PCP - General Internal Medicine 10/11/20 documented as of this encounter
--- OUTSIDE RECORDS SUMMARY | 2024-06-16 10:33 | XMS_ITS | Encounter Summary ---
Author Organization [facility] Address [address] [place] [address] Care Team Providers Care Hollow Core Door Frame Assembler Name Role Phone Keiko Anguiano MD Primary Care Provider [phone] [phone] Encounter Details Date Type Department Care Team Description 06/20/2023 Telephone Adult Medicine - [place] [address] [place] [address] Jeffrey Cruz PA-C [address] [place] [address] Social History Tobacco Use Types Packs/Day Years [...] on filedocumented in this encounter Care Teams Hollow Core Door Frame Assembler Relationship Specialty Start Date End Date Keiko Anguiano, [address] [place] [address] [place] [address] PCP - General Internal Medicine 10/11/20 documented as of this encounter
--- OUTSIDE RECORDS SUMMARY | 2024-06-16 10:33 | XMS_ITS | Encounter Summary ---
Author Organization [facility] Address [address] [place] [address] Care Team Providers Care Naturopathic Physician Name Role Phone Keiko Anguiano MD Primary Care Provider [phone] -[phone] Encounter Details Date Type Department Care Team Description 10/03/2022 [facility] Medical Records [address] [place] [address] Abstract, Provider Social History Tobacco Use Types [...] on filedocumented in this encounter Care Teams Naturopathic Physician Relationship Specialty Start Date End Date Keiko Anguiano MD [address] [place] [address] PCP - General Internal Medicine 10/11/20 documented as of this encounter
--- OUTSIDE RECORDS SUMMARY | 2024-06-16 10:33 | XMS_ITS | Encounter Summary ---
Author Organization [facility] Address [address] [place] [address] Care Team Providers Care Skating Rink Ice Maker Name Role Phone Keiko Anguiano MD Primary Care Provider +1 -[phone] Encounter Details Date Type Department Care Team Description 09/27/2023 Orders Only Medical Records [address] [place] [address] Keiko Anguiano MD [address] [place] [address] Social History Tobacco Use Types Packs/Day Years [...] on filedocumented in this encounter Care Teams Skating Rink Ice Maker Relationship Specialty Start Date End Date Keiko Anguiano MD [address] [place] [address] PCP - General Internal Medicine 10/11/20 documented as of this encounter
--- OUTSIDE RECORDS SUMMARY | 2024-06-16 10:33 | XMS_ITS | Encounter Summary ---
Author Organization [facility] Address [address] [place] [address] Care Team Providers Care Lead C Developer Name Role Phone Keiko nAguiano MD Primary Care Provider +1 -[phone] Encounter Details Date Type Department Care Team Description 07/05/2023 Manager Er Report Medical Records [address] [place] [address] Marquis Sousa MD Social History Tobacco Use Types Packs/Day [...] on filedocumented in this encounter Care Teams Lead C Developer Relationship Specialty Start Date End Date Keiko Anguiano MD [address] [place] [address] PCP - General Internal Medicine 10/11/20 documented as of this encounter
--- OUTSIDE RECORDS SUMMARY | 2024-06-16 10:33 | XMS_ITS | Encounter Summary ---
Author Organization [facility] Address [address] [place] [address] Care Team Providers Care Electronic Security Technician Name Role Phone Keiko Anguiano MD Primary Care Provider +1 -[phone] Encounter Details Date Type Department Care Team Description 11/23/2020 [facility] Medical Records [address] [place] [address] Abstract, Provider Social History Tobacco Use Types [...] filedocumented in this encounter Care Teams Electronic Security Technician Relationship Specialty Start Date End Date Keiko Anguiano, [address] [place] [address] PCP - General Internal Medicine 10/11/20 documented as of this encounter
--- OUTSIDE RECORDS SUMMARY | 2024-06-16 10:33 | XMS_ITS | Encounter Summary ---
Author Organization [facility] Address [address] [place] [address] Care Team Providers Care Information Support Project Manager Name Role Phone Keiko Anguiano MD Primary Care Provider +1 -[phone] Reason for Visit * Reason Onset Date Comments Provider Call Back 08/22/2022 Encounter Details Date Type Department Care Team Description 08/22/2022 Telephone [facility] [address] [phone] Dorinda Martell MD [address] [address] Provider Call Back Social History Tobacco Use [...] to see if she possibly may have [facility]. She states she will call our office back once she speaks with her PCP office. Please call patient back at [phone]. Thanks. documented in this encounter Plan of Treatment Not on file documented as of this encounter Results * URINE, CULTURE (09/28/2022 3:02 PM EDT) Urine (Urine) 09/28/2022 3:0 2 PM EDT 09/28/2022 3:03 PM EDT Narrative [facility] - 09/29/2022 1:35 PM EDT Release to patient->Immediate 10,000 - 49,000 CFU/mL NORMAL SKIN/UROGENITAL DAXA PRESENT. Dorinda Martell MD LAB [facility] documented in this encounter Visit Diagnoses Diagnosis Preoperative testing- Primary Preoperative examination, unspecified Urinary tract infection without hematuria, site unspecified documented in this encounter Care Teams Information Support Project Manager Relationship Specialty Start Date End Date Keiko Anguiano MD [address] [place] [address] PCP - General Internal Medicine 10/11/20 documented as of this encounter
--- OUTSIDE RECORDS SUMMARY | 2024-06-16 10:33 | XMS_ITS | Encounter Summary ---
Author Organization [facility] Address [address] [place] [address] Care Team Providers Care Steam Pipe Fitter Name Role Phone Keiko Anguiano MD Primary Care Provider [phone] [phone] Reason for Visit * Reason Comments E-prescribe Rx Request Encounter Details Date Type Department Care Team Description 11/10/2020 Refill Adult Medicine - [place] [address] [place] [address] Ameena Medellin MD E-prescribe Rx Request Social [...] encounter Miscellaneous Notes * Telephone Encounter - Savannah Estes - 11/10/2020 9:47 AM EDT Patient would like script to be: E-PRESCRIBED/FAXED TO PHARMACY WHEN WAS THE PATIENT'S LAST APPOINTMENT IN ADULT MEDICINE? 04/29/2020 WHEN WAS THE LAST TIME THE PATIENT SAW THEIR PCP? Does patient have an upcoming appointment? Yes 11/10/2020 (THE MEDICATION REQUESTED IS ON THE MED [...] N/A Patients current insurance carrier is: Payor: [employer] [facility] MCR / Plan: [facility] / Product Type: HMO [id number] documented in this encounter Plan of Treatment Not on file documented as of this encounter Visit Diagnoses Not on filedocumented in this encounter Care Teams Steam Pipe Fitter Relationship Specialty Start Date End Date Keiko Anguiano MD [address] [place] [address] PCP - General Internal Medicine 10/11/20 documented as of this encounter
--- OUTSIDE RECORDS SUMMARY | 2024-06-16 10:33 | XMS_ITS | Encounter Summary ---
Author Organization [facility] Address [address] [place] [address] Care Team Providers Care Sales Development Executive Name Role Phone Keiko Anguiano MD Primary Care Provider +1 -[phone] Reason for Visit * Reason Comments E-prescribe Rx Request Encounter Details Date Type Department Care Team Description 08/02/2021 Refill Rheumatology - [place] [address] [place] [address] Haile Rodriguez MD E-prescribe Rx Request Social [...] N/A Patients current insurance carrier is: Payor: [employer] [facility] MCR / Plan: [facility] / Product Type: HMO [id number] documented in this encounter Plan of Treatment Not on file documented as of this encounter Visit Diagnoses Diagnosis Seronegative rheumatoid arthritis (HCC) Rheumatoid arthritis documented in this encounter Care Teams Sales Development Executive Relationship Specialty Start Date End Date Keiko Anguiano MD [address] [place] [address] PCP - General Internal Medicine 10/11/20 documented as of this encounter
--- OUTSIDE RECORDS SUMMARY | 2024-06-16 10:33 | XMS_ITS | Encounter Summary ---
Author Organization [facility] Address [address] [place] [address] Care Team Providers Care Mexican Food Maker Name Role Phone Keiko Anguiano MD Primary Care Provider +1 -[phone] Encounter Details Date Type Department Care Team Description 02/17/2021 [facility] Medical Records [address] [place] [address] Abstract, Provider Social History Tobacco Use Types [...] on filedocumented in this encounter Care Teams Mexican Food Maker Relationship Specialty Start Date End Date Keiko Anguiano, [address] [place] [address] PCP - General Internal Medicine 10/11/20 documented as of this encounter
== END 2024-06-16 09:58 | disposition home or self-care (01) ==
PROVIDERS: PCP Internal Medicine; Visit Provider Nurse Practitioner Family
DX: M25.561 Pain in right knee (principal); M25.562 Pain in left knee; Z79.891 Long term (current) use of opiate analgesic; G89.4 Chronic pain syndrome; M25.551 Pain in right hip; M25.552 Pain in left hip
CPT/HCPCS: 99214; G2211

== ENCOUNTER → 2024-06-16 09:31 | Outpatient (BNVA) | payer OTHER, SELFPAY | PROVIDERS: PCP Internal Medicine; Visit Provider Nurse Practitioner Family | DX: Z51.81 Encounter for therapeutic drug level monitoring (principal); F11.20 Opioid dependence, uncomplicated; M25.561 Pain in right knee; M25.562 Pain in left knee; M25.551 Pain in right hip; M25.552 Pain in left hip; G89.4 Chronic pain syndrome; Z79.891 Long term (current) use of opiate analgesic | CPT/HCPCS: 99212 ==

== ENCOUNTER 2024-06-24 09:13 | Outpatient (AMB) | payer OTHER, SELFPAY ==
--- NOTE | 2024-06-24 09:15 | A.OFFVIS_ITS ---
Vital Signs 06/24/24 09:20 Height 4 ft 11 in Weight 128 lb 11.999 oz BMI 26.0 BP 115/78 Blood Pressure Location Lt brachial Position Sitting Pulse 75 Pulse Source Pulse Oximeter Pulse Oximetry (%) 97 Oxygen Delivery Method Room Air Intake Visit Reasons: RA Intake Note: Patient presents for RA. Allergies No Known Allergies Allergy (Verified 06/24/24 09:17) Medication List - Last Reconciled 06/24/24 by Jazzy Sarabia MD amlodipine-benazepril 5-10 mg 1 cap PO DAILY brexpiprazole (Rexulti) 2 mg PO DAILY calcium carbonate-vitamin D3 600 mg-5 mcg (200 unit) (Calcium 600 + D(3)) 1 tab PO BID celecoxib 100 mg PO BID cetirizine (Allergy Relief (cetirizine)) 10 mg PO DAILY PRN clonazepam 1 mg PO BID clonidine HCl 0.1 mg PO DAILY PRN clonidine HCl 0.2 mg PO BID dextroamphetamine-amphetamine 15 mg 1 tab PO BID fluticasone propionate 50 mcg/actuation (Allergy Relief (fluticasone)) 2 sprays intranasal DAILY folic acid 1 mg PO DAILY Humira(CF) Pen (adalimumab) 40 mg (0.4 mL) subcut Q2W 56 days NS hydrochlorothiazide 25 mg PO DAILY lamotrigine 200 mg PO BID levonorgestrel (Mirena) intrauterine lidocaine 5% 2 patches topical DAILY 30 days methotrexate sodium 12.5 mg (5 x 2.5 mg) PO QWEEK naloxone 4 mg/actuation 0 sprays intranasal omeprazole 20 mg PO DAILY pravastatin 40 mg PO DAILY tramadol 50 mg PO Q6H PRN 30 days vortioxetine (Trintellix) 20 mg PO DAILY HPI Comments Details: Patient is a 49-year-old female with hypertension, hyperlipidemia, seizure disorder, depression with anxiety, osteopenia, polyarticular osteoarthritis, and juvenile rheumatoid arthritis/seronegative rheumatoid arthritis here today for follow up Interval History: Patient last seen 02/22/[address] Sousa. At that time she was on Humira every other week and methotrexate 12.5 mg weekly. Noting that she has had worsening of her arthritis affecting both knees as well as her left ankle. Was in the process of getting Durolane injections in her knees. On exam there was no evidence of active synovitis and her pain was attributed to osteoarthritis and no changes were made to her medications. Today, Patient reports that she is in a lot of pain, especially involving her ankles (left) and her bilateral hips. Has been seeing pain management and was placed on Tramadol which has not helped much Unable to stand for prolonged periods Other joints feel achy with no associated swelling except the left ankle which she notes is definitely swollen. No stiffness to the hands but feels like her entire lower extremity bilaterally is stiff. Rheumatologic History: Juvenile onset: Flare at age 3, age 9. RF negative. Pauciarticular involvement. RF/CCP and LEOPOLDO negative More persistent pains at age 21(1995). On methotrexate, sulfasalazine, hydroxychloroquine, sulfasalazine, Enbrel in the past: ? Responses to treatment. Methotrexate started 03/28 04/30 Humira added effective 03/04: methotrexate held for LFT elevations; restarted at a lower dose 06/05 Most recent history by Dr. Rodriguez 03/2023: The patient returns today for evaluation of her rheumatoid arthritis and osteoarthritis. She remains on methotrexate 12.5 mg weekly, folic acid 1 mg daily, Humira 40 mg every 2 weeks, and tramadol 100 mg q.6 hours. The tramadol is prescribed by her primary doctor. She takes the tramadol mostly for left ankle and low back pain that is due to osteoarthritis. She remains on Trintellix, Adderall, clonidine, clonazepam, and Rexulti for her anxiety and depression. Anxiety and depression symptoms seem to be stable. At her last visit she had increased pain in the left knee and was having difficulty walking because of hip pain. I injected the knee and send her for physical therapy. She has now seen PT once. The injection helped quite a bit her left knee pain and some of the hip pain as well. She still has pain in the left ankle where she has osteoarthritis. Current Rheumatology Medication(s): Humira 40 mg every other week sc Methotrexate 12.5 mg weekly p.o. 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 PARKER (obstructive sleep apnea) CTS (carpal tunnel syndrome) Surgical History H/O wisdom tooth extraction History of cholecystectomy Family History Father Myocardial infarct Diabetes Hypertension Kidney disease Dialysis patient Brother Abuse, drug or alcohol Mother Thyroid disease Osteopenia Hypertension Social History Alcohol intake: current Alcohol intake frequency: holidays/special occasions only Patient Tobacco Use Status: Current everyday Tobacco user Cigarettes Per Day: 10 Review of Systems Const Details: Review of Systems Constitutional: Denies fever, chills, weight loss ENT: Denies vision changes, eye pain or eye redness, dental caries, dry mouth GI: Denies nausea, vomiting, diarrhea, abdominal pain, change in BM Pulm: Denies SOB, PAYNE, hemoptysis, wheezing Cards: Denies chest pain, palpitations Skin: Denies Raynaud's, rash, nail changes, photosensitivity, FURNACE TAPPER: Denies headaches, weakness, paresthesias, recurrent falls MSK: as per HPI All other systems reviewed and are unremarkable except noted above Physical Exam Vital Signs: Last Vital Signs Pulse 75 06/24/24 09:20 BP 115/78 06/24/24 09:20 Pulse Ox 97 06/24/24 09:20 Oxygen Delivery Method Room Air 06/24/24 09:20 BMI result Body Mass Index 26.0 Vital signs reviewed Physical Examination CONSTITUITIONAL Patient alert and cooperative. Well appearing and in no apparent painful distress HEENT Conjunctiva and sclera clear. ?Pupils equal round and reactive to light. ?No lymphadenopathy. ? CHEST/RESPIRATORY SYSTEM Normal respiratory effort and able to speak in complete sentences. ?Clear to auscultation bilaterally. ?No crackles, rales, rhonchi, wheezes heard. CARDIAC SYSTEM Regular rate and rhythm. ?S1 and S2 heard no murmurs. ?Radial pulses intact bilaterally MSK Hands: ?Good litigation assistant strength bilaterally. No deformities noted. ?No synovitis noted to the MCPs, PIPs or DIPs. ?TTP of the bilateral 1st MCPs Wrists: ?Full range of motion at the wrists without pain. ?No tenderness to palpation or synovitis noted to the wrists. Elbows: Full range of motion without pain. No tenderness, weakness, swelling, increased warmth or erythema. Shoulders: Full range of motion without pain. No tenderness, weakness, swelling, increased warmth or erythema. Hips: Full range of motion without pain. No pain with CANDELARIA bilateral. Mild pain elicited with FLAIR bilaterally Hip bursa: No tenderness to palpation Knees: ?Full range of motion. ?No tenderness, swelling, increased warmth or erythema.?No effusion or crepitations Ankles: Full range of motion. No swelling noted to the left ankle but there is TTP of the left ankle joint? Feet: ?Negative squeeze test. ?No tenderness to palpation or swelling of the MTPs. Tender points:?No tenderness to palpation of the bilateral trapezius, supraspinatus, greater trochanters, anterior costochondral junctions, bilateral gluteal areas, bilateral suboccipital muscle insertions SKIN Skin intact without rashes. Results Reviewed Results Reviewed: Laboratory Tests 11/07/23 02/21/24 13:16 12:37 WBC 8.0 RBC 4.55 Hgb 14.2 Hct 41.4 Plt Count 332 ESR 16 Sodium 141 Potassium 3.6 Chloride 107 Carbon Dioxide 22 BUN 9 Creatinine 0.74 AST 24 ALT 16 Alkaline Phosphatase 75 C-Reactive Protein 0.23 Total Protein 7.5 Hepatitis A IgM Ab Nonreactive Hep Bs Antigen Negative Hep Bs Antibody REACTIVE Hep B Core Total Ab Nonreactive Hepatitis C Ab (EIA) Nonreactive TB Test (T-Spot) Com Negative XR Bilateral Knees 03/2023 FINDINGS: No acute fracture or subluxation. Moderate bilateral tricompartmental osteoarthritis with joint space narrowing, subcortical sclerosis and small marginal osteophytes more noticeable in the medial and patellofemoral compartments of both knees. Trace chondrocalcinosis in the right knee. No osseous erosions. No significant joint effusion. IMPRESSION: 1. No acute fracture or subluxation. 2. Moderate bilateral tricompartmental osteoarthritis. 3. Trace chondrocalcinosis in the right knee. Assessment & Plan Assessment & Plan (1) Seronegative rheumatoid arthritis: Comment: Juvenile onset: Flare at age 3, age 9. RF negative. Pauciarticular involvement. RF/CCP and LEOPOLDO negative More persistent pains at age 21(1995). On methotrexate, sulfasalazine, hydroxychloroquine, sulfasalazine, Enbrel in the past: ? Responses to treatment. Methotrexate started 03/28 04/30 Humira added effective 03/04: methotrexate held for LFT elevations; restarted at a lower dose 06/05 Code(s): M06.00 - Rheumatoid arthritis without rheumatoid factor, unspecified site Category: Medical Plan: #JRA/Seronegative RA Patient with juvenile onset rheumatoid arthritis. Has had a very longstanding history of rheumatoid arthritis. Currently her rheumatoid arthritis is in remission with no evidence of synovitis on examination. I do believe that her current pain is due to osteoarthritic changes involving her L-spine and her left ankle. No changes or escalation of therapy required Plan - Humira 40mg every other week - Methotrexate 12.5mg weekly - Folic acid 1 mg daily - Labs today: CBC, CMP, ESR, CRP, hepatitis panel, T spot - RTC 4 months - Labs before visit: CBC, CMP, ESR, CRP (2) Polyarticular osteoarthritis: Code(s): M15.9 - Polyosteoarthritis, unspecified Plan: #Polyarticular OA Patient with polyarticular osteoarthritis and a back rheumatoid arthritis. Discussed with the patient extensively the diagnosis of osteoarthritis and that there is no cure for it at this time. I will check x-rays of her ankles and her L-spine. Based on the findings of the ankle I will send her to do an ultrasound-guided injection of the left ankle. 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 Limit alcohol and avoid Bactrim ? 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 Plan: #Long-term Use of TNF Inhibitors: Ladan Discussed with the patient the benefits and risks of TNF inhibitors for the management of the rheumatic condition Benefits include reduce pain, maintenance of remission and reduction of flares as well as ?progression of the disease Risks include injection sites/infusion reactions, serious infections (such as bacterial infections, opportunistic infections), malignancy, delaminating syndromes, autoimmune phenomena, CHF exacerbations, palmar plantar psoriasis and cytopenias Recommended rotating injection sites, and holding medication during and for up to 1 week after resolution of a febrile illness or open skin wound Plan I spent 35 minutes reviewing the record and labs, taking a history, examining the patient, discussing the treatment plan and documenting in the medical record Orders: Orders Complete Blood Count Auto Diff 4 Months M06.00 - Rheumatoid arthritis without rheumatoid factor, unspecified site C Reactive Protein 4 Months M06.00 - Rheumatoid arthritis without rheumatoid factor, unspecified site Erythrocyte Sedimentation Rate 4 Months M06.00 - Rheumatoid arthritis without rheumatoid factor, unspecified site Comprehensive Met. Panel Today M06.00 - Rheumatoid arthritis without rheumatoid factor, unspecified site C Reactive Protein Today M06.00 - Rheumatoid arthritis without rheumatoid factor, unspecified site T Spot TB Today M06.00 - Rheumatoid arthritis without rheumatoid factor, unspecified site HIV Ab/Ag Today M06.00 - Rheumatoid arthritis without rheumatoid factor, unspecified site XR ankle RT min 3V Today G89.29 - Other chronic pain, M19.279 - Secondary osteoarthritis, unspecified ankle and foot, M19.90 - Unspecified osteoarthritis, unspecified site, M54.9 - Dorsalgia, unspecified Comprehensive Met. Panel 4 Months M06.00 - Rheumatoid arthritis without rheumatoid factor, unspecified site Complete Blood Count Auto Diff Today M06.00 - Rheumatoid arthritis without rheumatoid factor, unspecified site Erythrocyte Sedimentation Rate Today M06.00 - Rheumatoid arthritis without rheumatoid factor, unspecified site Hepatitis A,B,C Profile Today M06.00 - Rheumatoid arthritis without rheumatoid factor, unspecified site XR DEXA axial skeleton Today M81.0 - Age-related osteoporosis without current pathological fracture XR ankle LT min 3V Today G89.29 - Other chronic pain, M19.279 - Secondary osteoarthritis, unspecified ankle and foot, M19.90 - Unspecified osteoarthritis, unspecified site, M54.9 - Dorsalgia, unspecified XR lumbar spine 4V min Today G89.29 - Other chronic pain, M19.279 - Secondary osteoarthritis, unspecified ankle and foot, M19.90 - Unspecified osteoarthritis, unspecified site, M54.9 - Dorsalgia, unspecified Medications: New diclofenac sodium 1% (Arthritis Pain (diclofenac)) apply to left ankle and bilateral thumbs 4 times day 4 grams topical QID 100 grams 5RF M19.279 - Secondary osteoarthritis, unspecified ankle and foot, M19.90 - Unspecified osteoarthritis, unspecified site folic acid 1 mg PO DAILY 90 tabs 1RF M06.00 - Rheumatoid arthritis without rheumatoid factor, unspecified site Changed From Humira(CF) Pen (adalimumab) 40 mg (0.4 mL) subcut Q2W 56 days 2 ea 3RF NS M06.00 - Rheumatoid arthritis without rheumatoid factor, unspecified site To Humira(CF) Pen (adalimumab) 40 mg (0.4 mL) subcut Q2W 30 days 2 ea 4RF NS M06.00 - Rheumatoid arthritis without rheumatoid factor, unspecified site From methotrexate sodium 12.5 mg (5 x 2.5 mg) PO QWEEK 80 tabs 0RF M06.00 - Rheumatoid arthritis without rheumatoid factor, unspecified site To methotrexate sodium 12.5 mg (5 x 2.5 mg) PO QWEEK 90 days 65 tabs 1RF M06.00 - Rheumatoid arthritis without rheumatoid factor, unspecified site Refilled methotrexate sodium 12.5 mg (5 x 2.5 mg) PO QWEEK 90 days 65 tabs 1RF M06.00 - Rheumatoid arthritis without rheumatoid factor, unspecified site folic acid 1 mg PO DAILY 90 tabs 1RF M06.00 - Rheumatoid arthritis without rheumatoid factor, unspecified site Coding Level of Care Code Est Pt Level 4 (15876) Complex EM visit Add On G2211 Diagnoses Seronegative rheumatoid arthritis M06.00 Polyarticular osteoarthritis M15.9 Encounter for methotrexate monitoring Z51.81; Z79.631 Encounter for monitoring of adalimumab therapy Z51.81; Z79.620
[2024-06-24 09:20] VITALS: BP 115/78; PULSE 75; O2SAT 97; BMI 26.0
--- OUTSIDE RECORDS SUMMARY | 2024-06-24 10:15 | XMS_ITS | Encounter Summary ---
Author Organization [facility] Address [address] [place] [address] Care Team Providers Care Director Life Sciences Name Role Phone Lorin Norton MD Primary Care Provider Ameena Thompson MD Primary Care Provider Giovanna Anguiano Ch MD Primary Care Provider [phone] Encounter Details Date Type Department Care Team Description 07/03/2016 [facility] Medical Records [address] [place] [address] Abstract, Provider Social History Tobacco Use Types [...] on filedocumented in this encounter Care Teams Director Life Sciences Relationship Specialty Start Date End Date Lorin Norton MD PCP - General Internal Medicine 01/25/15 07/15/20 Ameena Medellin MD PCP - General Internal Medicine 07/16/20 10/10/20 Keiko Anguiano MD [address] [place] [id number] PCP - General Internal Medicine 10/11/20 documented as of this encounter
--- OUTSIDE RECORDS SUMMARY | 2024-06-24 10:15 | XMS_ITS | Encounter Summary ---
Author Organization [facility] Address [address] [place] [address] Care Team Providers Care Veterinary Assistant Technician Name Role Phone Tim Flor MD Primary Care Provider Unavail Lorin Mejía MD Primary Care Provider Ameena Thompson MD Primary Care Provider Unavailronen Anguiano Ch MD Primary Care Provider [phone] Encounter Details Date Type Department Care Team Description 10/02/2013 Elevator Constructor Report Medical Records [address] [place] [address] Gerson Tinajero Social History Tobacco Use Types [...] on filedocumented in this encounter Care Teams Veterinary Assistant Technician Relationship Specialty Start Date End Date Tim Flor MD PCP - General 01/06/08 01/24/15 Lorin Norton MD PCP - General Internal Medicine 01/25/15 07/15/20 Ameena Medellin MD PCP - General Internal Medicine 07/16/20 10/10/20 Keiko Anguiano, [address] [place] [address] [id number] PCP - General Internal Medicine 10/11/20 documented as of this encounter
--- OUTSIDE RECORDS SUMMARY | 2024-06-24 10:15 | XMS_ITS | Encounter Summary ---
Author Organization [facility] Address [address] [place] [address] Care Team Providers Care Quilting Machine Operator Name Role Phone Lorin Norton MD Primary Care Provider Ameena Thompson MD Primary Care Provider Giovanna Anguiano Ch MD Primary Care Provider [phone] Encounter Details Date Type Department Care Team Description 08/12/2019 Telephone Rheumatology - [place] [address] [place] [id number] Haile Rodriguez MD Social History Tobacco Use [...] on filedocumented in this encounter Care Teams Quilting Machine Operator Relationship Specialty Start Date End Date Lorin Norton MD PCP - General Internal Medicine 01/25/15 07/15/20 Ameena Medellin MD PCP - General Internal Medicine 07/16/20 10/10/20 Keiko Anguiano MD [address] [place] [id number] PCP - General Internal Medicine 10/11/20 documented as of this encounter
--- OUTSIDE RECORDS SUMMARY | 2024-06-24 10:15 | XMS_ITS | Encounter Summary ---
Author Organization [facility] Address [address] [place] [address] Care Team Providers Care Gutter Mouth Cutter Name Role Phone Tim Flor MD Primary Care Provider Unavail Lorin Mejía MD Primary Care Provider Ameena Thompson MD Primary Care Provider Unavailronen Anguiano Ch MD Primary Care Provider [phone] Encounter Details Date Type Department Care Team Description 08/12/2013 Domestic Violence Advocate Report Medical Records [address] [place] [address] Tuan Mota MD Social History Tobacco Use [...] on filedocumented in this encounter Care Teams Gutter Mouth Cutter Relationship Specialty Start Date End Date Tim Flor MD PCP - General 01/06/08 01/24/15 Lorin Norton MD PCP - General Internal Medicine 01/25/15 07/15/20 Ameena Medellin MD PCP - General Internal Medicine 07/16/20 10/10/20 Keiko Anguiano, [address] [place] [id number] PCP - General Internal Medicine 10/11/20 documented as of this encounter
--- OUTSIDE RECORDS SUMMARY | 2024-06-24 10:15 | XMS_ITS | Encounter Summary ---
Author Organization [facility] Address [address] [place] [address] Care Team Providers Care Lead Inspector Name Role Phone Lorin Norton MD Primary Care Provider Ameena Thompson MD Primary Care Provider Giovanna Anguiano Ch MD Primary Care Provider [phone] Reason for Visit * Reason Comments E-prescribe Rx Request Encounter Details Date Type Department Care Team Description 10/17/2018 Refill Rheumatology - [place] [address] [place] [id number] Haile Rodriguez MD E-prescribe Rx Request Social [...] ? Patients current insurance carrier is: Payor: [employer] [facility] / Plan: [facility] / Product Type: HMO [id number] ? documented in this encounter Plan of Treatment Not on file documented as of this encounter Visit Diagnoses Diagnosis Seronegative rheumatoid arthritis (HCC) Rheumatoid arthritis documented in this encounter Care Teams Lead Inspector Relationship Specialty Start Date End Date Lorin Norton MD PCP - General Internal Medicine 01/25/15 07/15/20 Ameena Medellin MD PCP - General Internal Medicine 07/16/20 10/10/20 Keiko Anguiano MD [address] [place] [id number] PCP - General Internal Medicine 10/11/20 documented as of this encounter
--- OUTSIDE RECORDS SUMMARY | 2024-06-24 10:15 | XMS_ITS | Encounter Summary ---
Author Organization [facility] Address [address] [place] [address] Care Team Providers Care Minor League Baseball Player Name Role Phone Lorin Norton MD Primary Care Provider Ameena Thompson MD Primary Care Provider Giovanna Anguiano Primary Care Provider [phone] Reason for Visit * Reason Onset Date Comments refill request 02/14/2019 Encounter Details Date Type Department Care Team Description 02/14/2019 Refill Adult Medicine - [address] [address] Lorin Norton MD refill request Social History Tobacco Use [...] encounter Miscellaneous Notes * Telephone Encounter - Debby Figueroa M.A. - 02/14/2019 2:29 PM EDT Rx faxed to pharmacy. Please place on UDS calender * Telephone Encounter - Marimar Banks M.A. - 02/14/2019 1:46 PM EDT Last OV 01/10/19, next appt 03/06/19, Patient needs a UDS Controlled substance contract and last issue date of medication reviewed. Patient is due for medication. Lab Results Component Value Date URBENZO POSITIVE 09/23/2008 UROPIATES NEGATIVE 09/23/2008 URBARBITUATE NEGATIVE 09/23/2008 URAMPHETAMIN POSITIVE 09/23/2008 URCOCAINE NEGATIVE 09/23/2008 URMARIJUANA NEGATIVE 09/23/2008 * Telephone Encounter - Dimas Radford - 02/14/2019 10:59 AM EDT Patient would like script to be: E-PRESCRIBED/FAXED TO PHARMACY WHEN WAS THE PATIENT'S LAST APPOINTMENT IN ADULT MEDICINE? 01/10/19 WHEN WAS THE LAST TIME THE PATIENT SAW THEIR PCP? Same as above Does patient have an upcoming appointment? 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
--- OUTSIDE RECORDS SUMMARY | 2024-06-24 10:15 | XMS_ITS | Clinical Summary ---
Author Organization [facility] [address] [facility] l[facility] Address [address] [place] [address] Phone Care Team Providers Care Entertainment Musician Name Role Phone Aby Anguiano MD Primary Care Prov ider Allergies No known active allergies Medications amLODIPine-luis azepril (LOTREL) 5-10 mg per capsule Take 1 Capsule by mouth daily. 4 Active brexpiprazole (Rexulti) 1 mg tablet Take 1 Tablet by mouth daily. 3 Active calcium carbonate-álvaro min D3 600 mg-5 mcg (200 unit) per tablet 1 po bid 9 Active cetirizine (ZyrTEC) 10 mg tablet TAKE 1 TABLET BY MOUTH EVERY DAY 4 Active cloNIDine (CATAPRES) 0.1 mg tablet TAKE 1 TABLET BY MOUTH ONCE A DAY NEEDED ANXIETY 3 Active cloNIDine (CATAPRES) 0.2 mg tablet 3 tablets HS Active cyclobenzaprin e (FLEXERIL) 10 mg tablet Take 1 Tablet by mouth daily as needed for Muscle spasms. 4 Active amphetamine-de xtroamphetamin e (ADDERALL) 10 mg tablet Take 1.5 tablets (15 mg total) by mouth 2 (two) times a day. Take 1 Tablet by mouth 2 times daily. Active fluticasone propionate (FLONASE) 50 mcg/actuation nasal spray INSTILL 2 SPRAYS INTO NOSTRILS DAILY DIRECTED 1 Active folic acid (FOLVITE) 1 mg tablet Take 1 Tablet by mouth daily. 4 Active hydroCHLOROthi azide (HYDRODIURIL) 25 mg tablet Daily Active lamoTRIgine [...] 9 Active methotrexate 25 mg/mL solution Weekly Active traMADoL (ULTRAM) 50 mg tablet TAKE 1 TABLET BY MOUTH TWICE DAILY FOR 15 DAYS NEEDED FOR PAIN Active adalimumab (Humira,CF, Pen) 40 mg/0.4 mL pen Inject 0.4 mL (40 mg total) under the skin every 14 (fourteen) days. Active celecoxib (CeleBREX) 100 mg capsule Take 1 capsule (100 mg total) by mouth 2 (two) times a day. 180 capsule 1 5 Active celecoxib (CeleBREX) 100 mg capsule TAKE 1 CAPSULE BY MOUTH TWICE A DAY 180 capsule 4 025 Discontin ued(Reord er) Active Problems Problem Noted Date Diagnosed Date [...] 08/03/2021 Obstructive sleep apnea 12/13/2020 Overview (01/31/2024): [facility] Home Sleep Apnea Test: Date 11/30/2020; [...] Description 05/08/2024 8:02 AM EST Anesthesia Event [facility] Endoscopy [address] [place] [address] Tony Parham DO Pierce, Trudy A, CRNA 05/08/2024 7:07 AM EST - 05/08/2024 11:59 PM EST Hospital Encounter [facility] Endoscopy [address] [place] [address] Flo Fernandez MD Pierce, Trudy A, CRNA Dasilva, John E, MD Colon cancer screening Discharge Disposition: Home or Self Care 05/06/2024 Telephone Gastroenterology - [address] [address] Flo Fernandez MD 04/11/2024 Telephone Gastroenterology - [address] [address] Juju Novoa [place] 04/11/2024 Telephone Gastroenterology - [address] [address] Flo Fernandez MD from Last 3 Months Immunizations Name Administration [...] Medical History Date Comments RA (rheumatoid arthritis) ([facility]) DX:RA (rheumatoid arthritis) ([facility]) Osteopenia DX:Osteopenia; C OMMENT: Fosamax Depression DX:Depression Seizure ([facility]) DX:Seizure ( C); COMMENT: x 2 JRA (juvenile rheumatoid art hritis) (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 For example, childcare center director or elderly care for an older adult? [...] 9:30 AM EDT Office Visit Adult Medicine [facility] [address] [place] [address] Jeffrey Cruz PA [address] [place] [address] Health Maintenance Due Date Last Done Comments [...] Procedure Name Priority Date/Time Associated Diagnosis Comments EXTERNAL XRAY REPORT Routine 06/18/2024 4:03 PM EST COLONOSCOPY Routine 05/08/2024 8:26 AM EST Colon [...] Recently Relevant to Health Maintenance Results * External Xray Report (06/18/2024 4:03 PM EST) Anatomical Region Laterality Modality Radiographic Demetria ging us Historical Provider MD [facility]ONT XR PROCEDURES Final R esult * COLONOSCOPY Anesthesia - MAC; SP ENDOSCOPY (05/08/2024 8:26 AM EST) Anatomical Region Laterality Modality Endoscopy 05/08/2024 8:05 AM EST Impressions 05/08/2024 8:25 AM EST - The entire examined colon is normal on direct and ? retroflexion views. ? - No specimens collected. Recommendation: ?- Repeat colonoscopy in 10 years for screening ? purposes. Narrative 05/08/2024 8:25 AM EST [facility] GI Patient Name: Carmenza House Procedure Date: [...] neoplasm ? of colon CPT copyright 202 [employer]. All rights reserved. The codes documented in this report are preliminary and upon medical insurance coder review may be revised to meet current compliance requirements. Flo Fernandez MD 05/08/2024 8:25:10 AM This report has been signed electronically.Flo Fernandez MD Number of Addenda: 0 Note Initiated On: 05/08/2024 8:05 AM Scope In: Scope Out: ? Endoscopy Department at [facility] - [address] [place] [address], ? [place] [address] Procedure Note Flo Fernandez MD - 05/08/2024 [facility] GI Patient Name: Carmenza House Procedure Date: [...] for malignantneoplasm of colon CPT copyright 202 [employer]. All rights reserved. The codes documented in this report are preliminary and upon medical insurance coder reviewmay be revised to meet current compliance requirements. Flo Fernandez MD 05/08/2024 8:25:10 AM This report has been signed electronically.Flo Fernandez MD Number of Addenda: 0 Note Initiated On: 05/08/2024 8:05 AM Scope In: Scope Out: Endoscopy Department at [facility] - [address] [place] [phone] IMPRESSION: - The entire examined colon is normal on direct and retroflexion views. - No specimens collected. Recommendation: - Repeat colonoscopy in 10 years for screening purposes. Flo Fernandez MD GI~PROCEDURE ORDERABLES Fin al Result * Hepatitis C antibody (04/22/2024 10:37 AM EST) [facility] Hepatitis C Antibody Negative Negative LAB CHEMISTRY METHOD 04/22/2024 3:00 PM [facility] Blood Venous blood specimen / Unknown Venipuncture / Unknown 04/22/2024 10:37 AM EST 04/22/2024 10:37 AM EST Jeffrey MEDRANO LAB BLOOD ORDERABLES Final Res ult [facility] [address] [place] [address], [place] [phone] * (ABNORMAL) Urinalysis with reflex microscopic (04/22/2024 10:37 AM EST) [facility] Specific Milo Urine 1.020 1.003 - 1.030 LAB URINALYSIS - AUTOMATED METHOD 04/22/2024 2:42 PM [facility] pH, Urine 6.0 5.0 - 8.0 pH LAB URINALYSIS - AUTOMATED METHOD 04/22/2024 2:42 PM [facility] Leukocytes, Urine Small(A) Negative LAB URINALYSIS - AUTOMATED METHOD 04/22/2024 2:42 PM [facility] Nitrite, Urine Positive(A) Negative LAB URINALYSIS - AUTOMATED METHOD 04/22/2024 2:42 PM [facility] Protein, Urine Negative <=Trace mg/dL LAB URINALYSIS - AUTOMATED METHOD 04/22/2024 2:42 PM [facility] Glucose, Urine Negative Negative mg/dL LAB URINALYSIS - AUTOMATED METHOD 04/22/2024 2:42 PM [facility] Ketones, Urine Negative Negative mg/dL LAB URINALYSIS - AUTOMATED METHOD 04/22/2024 2:42 PM [facility] Urobilinogen , Urine 0.2 0.2 - 1.0 mg/dL LAB URINALYSIS - AUTOMATED METHOD 04/22/2024 2:42 PM [facility] Bilirubin, Urine Negative Negative LAB URINALYSIS - AUTOMATED METHOD 04/22/2024 2:42 PM [facility] Blood, Urine Negative Negative LAB URINALYSIS - AUTOMATED METHOD 04/22/2024 2:42 PM [facility] RBC, Urine 2.1 0 - 4 /HPF LAB URINALYSIS - AUTOMATED METHOD 04/22/2024 2:42 PM [facility] WBC, Urine 40.5(H) 0 - 4 /HPF LAB URINALYSIS - AUTOMATED METHOD 04/22/2024 2:42 PM [facility] Squamous Epithelial, Urine >100(H) 0 - 60 /LPF LAB URINALYSIS - AUTOMATED METHOD 04/22/2024 2:42 PM [facility] Bacteria, Urine Many(A) Negative /HPF LAB URINALYSIS - AUTOMATED METHOD 04/22/2024 2:42 PM [facility] Hyaline Casts, Urine 0.00 0 - 3 /LPF LAB URINALYSIS - AUTOMATED METHOD 04/22/2024 2:42 PM [facility] Urine Urine specimen obtained by clean catch procedure / Unknown Non-blood Collection / Unknown 04/22/2024 10:37 AM EST 04/22/2024 10:37 AM EST us Jeffrey MEDRANO LAB URINE ORDERABLES Final Res ult Performing Organization Address [facility]/ZIP Co de Phone Number [facility] [address] [place] [address], [place] [phone] * (ABNORMAL) Thyroid stimulating hormone with reflex to free t4 and free t3 (04/22/2024 10:37 AM EST) TSH 4.41(H) 0.40 - 4.00 mcIU/mL LAB CHEMISTRY METHOD 04/22/2024 2:21 PM EST [facility] Blood Venous blood specimen / Unknown Venipuncture / Unknown 04/22/2024 10:37 AM EST 04/22/2024 10:37 AM EST Jeffrey MEDRANO LAB BLOOD ORDERABLES Final Res ult Performing Organization Address [facility] Co de Phone Number [facility] [address] [place] [address], [place] [phone] * Free thyroxine with reflex to free triiodothyronine (04/22/2024 10:37 AM EST) Free T4 1.14 0.70 - 1.80 ng/dL LAB CHEMISTRY METHOD 04/22/2024 2:46 PM EST [facility] Blood Venous blood specimen / Unknown Venipuncture / Unknown 04/22/2024 10:37 AM EST 04/22/2024 10:37 AM EST us Jeffrey MEDRANO LAB BLOOD ORDERABLES Final Res ult Performing Organization Address [facility] Co de Phone Number [facility] [address] [place] [address], [place] [phone] * (ABNORMAL) Lipid panel with reflex to direct LDL (04/22/2024 10:37 AM EST) Cholesterol 232(H) 0 - 200 mg/dL LAB CHEMISTRY METHOD 04/22/2024 2:13 PM [facility] Triglycerides 168(H) 0 - 150 mg/dL LAB CHEMISTRY METHOD 04/22/2024 2:13 PM [facility] HDL 64 >=40 mg/dL LAB CHEMISTRY METHOD 04/22/2024 2:13 PM [facility] LDL Calculated 134(H) 0 - 100 mg/dL LAB CHEMISTRY METHOD 04/22/2024 2:13 PM [facility] VLDL Cholesterol Joe 33.6 mg/dL LAB CHEMISTRY METHOD 04/22/2024 2:13 PM [facility] Non HDL Chol. (LDL+VLDL) 168(H) <145 mg/dL LAB CHEMISTRY METHOD 04/22/2024 2:13 PM [facility] Chol/HDL Ratio 3.6 0.0 - 4.4 LAB CHEMISTRY METHOD 04/22/2024 2:13 PM [facility] Blood Venous blood specimen / Unknown Venipuncture / Unknown 04/22/2024 10:37 AM EST 04/22/2024 10:37 AM EST us Jeffrey MEDRANO LAB BLOOD ORDERABLES Final Res ult [facility] [address] [place] [address], * (ABNORMAL) CBC auto differential (04/22/2024 10:37 AM EST) Pathologist [facility] WBC 7.5 4.8 - 10.8 K/mcL LAB HEMETOLOGY METHOD 04/22/2024 12:26 PM [facility] RBC 4.40 3.80 - 4.80 M/mcL LAB HEMETOLOGY METHOD 04/22/2024 12:26 PM [facility] Hemoglobin 13.6 11.5 - 16.0 g/dL LAB HEMETOLOGY METHOD 04/22/2024 12:26 PM [facility] Hematocrit 41.4 35.0 - 47.0 % LAB HEMETOLOGY METHOD 04/22/2024 12:26 PM [facility] MCV 94.1 79.0 - 98.0 FL LAB HEMETOLOGY METHOD 04/22/2024 12:26 PM [facility] MCH 30.9 27.0 - 32.0 pcg LAB HEMETOLOGY METHOD 04/22/2024 12:26 PM [facility] MCHC 32.9 32.0 - 37.0 g/dL LAB HEMETOLOGY METHOD 04/22/2024 12:26 PM [facility] RDW 13.0 11.0 - 15.0 % LAB HEMETOLOGY METHOD 04/22/2024 12:26 PM [facility] Platelets 331 130 - 400 K/mcL LAB HEMETOLOGY METHOD 04/22/2024 12:26 PM [facility] MPV 13.6(H) 7.0 - 11.0 FL LAB HEMETOLOGY METHOD 04/22/2024 12:26 PM [facility] NRBC 0.0 <1.0 % LAB HEMETOLOGY METHOD 04/22/2024 12:26 PM [facility] NRBC Absolute 0.00 <0.10 K/mcL LAB HEMETOLOGY METHOD 04/22/2024 12:26 PM [facility] Neutrophils Relative 52.8 % LAB HEMETOLOGY METHOD 04/22/2024 12:26 PM [facility] Lymphocytes Relative 31.6 % LAB HEMETOLOGY METHOD 04/22/2024 12:26 PM [facility] Monocytes Relative 7.6 % LAB HEMETOLOGY METHOD 04/22/2024 12:26 PM [facility] Eosinophils Relative 6.8 % LAB HEMETOLOGY METHOD 04/22/2024 12:26 PM [facility] Basophils Relative 0.9 % LAB HEMETOLOGY METHOD 04/22/2024 12:26 PM [facility] Immature Granulocytes Relative 0.3 % LAB HEMETOLOGY METHOD 04/22/2024 12:26 PM [facility] Neutrophils Absolute 3.98 1.50 - 7.00 K/mcL LAB HEMETOLOGY METHOD 04/22/2024 12:26 PM [facility] Lymphocytes Absolute 2.38 1.00 - 5.00 K/mcL LAB HEMETOLOGY METHOD 04/22/2024 12:26 PM [facility] Monocytes Absolute 0.57 0.20 - 1.00 K/mcL LAB HEMETOLOGY METHOD 04/22/2024 12:26 PM [facility] Eosinophils Absolute 0.51(H) 0.00 - 0.50 K/mcL LAB HEMETOLOGY METHOD 04/22/2024 12:26 PM [facility] Basophils Absolute 0.07 0.00 - 0.20 K/mcL LAB HEMETOLOGY METHOD 04/22/2024 12:26 PM [facility] Immature Granulocytes Absolute 0.02 0.00 - 0.03 K/mcL LAB HEMETOLOGY METHOD 04/22/2024 12:26 PM [facility] Blood Venous blood specimen / Unknown Venipuncture / Unknown 04/22/2024 10:37 AM EST 04/22/2024 10:37 AM EST us Jeffrey MEDRANO LAB BLOOD ORDERABLES Final Res ult [facility] [address] [place] [address], * Vitamin D 1,25 dihydroxy (04/22/2024 10:37 AM EST) [facility] Vitamin D, 1, 25-Dihydroxy 45 20 - 79 pg/mL 04/24/2024 7:51 PM EST [facility] Comment: Vitamin D 1, 25 dihydroxy levels should be primarily used to assess Vitamin D status in patients with renal disease and hypercalcemia. Vitamin D 1,25-dihydroxy levels are generally less than 5 pg/mL in end stage renal disease patients. The preferred initial test for assessing Vitamin D status in the general population is Vitamin D 25-hydroxy (VITD). Test performed at [facility], [address] [place], [place] ??[address] ? [phone] Елена Ritchie MD, PhD - Electronic Maintenance Supervisor Blood Venous blood specimen / Unknown Venipuncture / Unknown 04/22/2024 10:37 AM EST 04/22/2024 10:37 AM EST Jeffrey MEDRANO LAB BLOOD ORDERABLES Final Res ult [facility] [address] [place] [address] * Triiodothyronine free (04/22/2024 10:37 AM EST) [facility] T3, Free 379 230 - 420 pcg/dL LAB CHEMISTRY METHOD 04/22/2024 3:11 PM EST [facility] Blood Venous blood specimen / Unknown Venipuncture / Unknown 04/22/2024 10:37 AM EST 04/22/2024 10:37 AM EST Jeffrey MEDRANO LAB BLOOD ORDERABLES Final Res ult [facility] [address] [place] [address], [place] [phone] * (ABNORMAL) Comprehensive metabolic panel (04/22/2024 10:37 AM EST) Only the most recent of2 resultswithin the time period is included. [facility] Sodium 137 133 - 145 mmol/L LAB CHEMISTRY METHOD 04/22/2024 2:13 PM [facility] Potassium 3.6 3.5 - 5.5 mmol/L LAB CHEMISTRY METHOD 04/22/2024 2:13 PM [facility] Chloride 105 96 - 110 mmol/L LAB CHEMISTRY METHOD 04/22/2024 2:13 PM [facility] CO2 29 21 - 32 mmol/L LAB CHEMISTRY METHOD 04/22/2024 2:13 PM [facility] Anion Gap 3 3 - 11 LAB CHEMISTRY METHOD 04/22/2024 2:13 PM [facility] Glucose 101(H) 70 - 100 mg/dL LAB CHEMISTRY METHOD 04/22/2024 2:13 PM [facility] BUN 8 5 - 25 mg/dL LAB CHEMISTRY METHOD 04/22/2024 2:13 PM [facility] Creatinine 0.88 0.50 - 1.10 mg/dL LAB CHEMISTRY METHOD 04/22/2024 2:13 PM [facility] eGFR 81 >=60 mL/min/1. 73m2 LAB CHEMISTRY METHOD 04/22/2024 2:13 PM [facility] Comment:Calculation based on the??Chronic Kidney Disease Epidemiology Collaboration (CKD-EPI) equation refit??without adjustment for race. BUN/Creatinine Ratio 9.1 LAB CHEMISTRY METHOD 04/22/2024 2:13 PM [facility] Calcium 8.8 8.5 - 10.5 mg/dL LAB CHEMISTRY METHOD 04/22/2024 2:13 PM [facility] AST (SGOT) 16 10 - 42 unit/L LAB CHEMISTRY METHOD 04/22/2024 2:13 PM [facility] ALT (SGPT) 23 10 - 60 unit/L LAB CHEMISTRY METHOD 04/22/2024 2:13 PM [facility] Alkaline Phosphatase 71 42 - 121 unit/L LAB CHEMISTRY METHOD 04/22/2024 2:13 PM EST [facility] Total Protein 7.4 6.0 - 8.0 g/dL LAB CHEMISTRY METHOD 04/22/2024 2:13 PM EST [facility] Albumin 4.1 3.2 - 5.0 g/dL LAB CHEMISTRY METHOD 04/22/2024 2:13 PM [facility] Total Bilirubin 0.3 0.0 - 1.4 mg/dL LAB CHEMISTRY METHOD 04/22/2024 2:13 PM EST [facility] Blood Venous blood specimen / Unknown Venipuncture / Unknown 04/22/2024 10:37 AM EST 04/22/2024 10:37 AM EST Jeffrey MEDRANO LAB BLOOD ORDERABLES Final Res ult [facility] [address] [place] [address], * Cervical Cancer Screening: HPV (10/20/2022) Cervical Cancer Screening: HPV No interpretation with Negative, abstracted Historical Provider HEALTH MAINTENANCE Final Result from Last 3 Months or Most Recently Relevant to Health Maintenance Insurance [facility] MEDICARE Member Subscriber Plan / Payer (Ef fective 2018-Present) Name:Carmenza oHuse Relation to Subscriber:Self Name:Carmenza House Payer ID:[id number] Group ID:[id number] Type:Not on file Address: [place] [address] [address] [place] [phone] Care Teams Entertainment Musician Relationship Specialty Start Date End Date Aby Anguiano MD [address] [place] [id number] PCP - General Internal Medicine 10/11/20
--- OUTSIDE RECORDS SUMMARY | 2024-06-24 10:15 | XMS_ITS | Encounter Summary ---
Author Organization [facility] Address [address] [place] [address] Care Team Providers Care Etcher Machine Name Role Phone Tim Flor MD Primary Care Provider Unavail Lorin Mejía MD Primary Care Provider Ameena Thompson MD Primary Care Provider Unavailronen Anguiano Ch MD Primary Care Provider [phone] Encounter Details Date Type Department Care Team Description 04/29/2014 [facility] CAND[facility] DIP[facility] Report Medical Records [address] [place] [address] Abstract, Provider Social History Tobacco Use Types [...] on filedocumented in this encounter Care Teams Etcher Machine Relationship Specialty Start Date End Date Tim Flor MD PCP - General 01/06/08 01/24/15 Lorin Norton MD PCP - General Internal Medicine 01/25/15 07/15/20 Ameena Medellin MD PCP - General Internal Medicine 07/16/20 10/10/20 Keiko Anguiano, [address] [place] [address] [id number] PCP - General Internal Medicine 10/11/20 documented as of this encounter
--- OUTSIDE RECORDS SUMMARY | 2024-06-24 10:15 | XMS_ITS | Encounter Summary ---
Author Organization [facility] Address [address] [place] [address] Care Team Providers Care Automated Equipment Engineer Technician Name Role Phone Lorin Norton MD Primary Care Provider Ameena Thompson MD Primary Care Provider Giovanna Anguiano Ch MD Primary Care Provider [phone] Reason for Visit * Reason Comments E-prescribe Rx Request Encounter Details Date Type Department Care Team Description 03/17/2019 Refill Rheumatology - [place] [address] [place] [id number] Haile Rodriguez MD E-prescribe Rx Request Social [...] Telephone Encounter - Lizette Duncan M.A. - 03/17/2019 1:31 PM EST Lab Results Component Value Date WBC 10.9 03/06/2019 HGB 15.4 03/06/2019 HCT 46.4 03/06/2019 MCV 96.1 03/06/2019 PLTCT 314 03/06/2019 Lab Results Component Value Date ALB 4.6 03/06/2019 SGOT 55 03/06/2019 SGPT 76 03/06/2019 TBILI 0.5 03/06/2019 DBILI 0.1 08/18/2016 IBILI 0.2 08/18/2016 ALKPHOS 84 03/06/2019 TP 7.6 03/06/2019 * Telephone Encounter - Jacquelyn Hobbs - 03/17/2019 12:09 PM EST Patient would like script to be: E-PRESCRIBED/FAXED TO PHARMACY WHEN WAS THE PATIENT'S LAST APPOINTMENT IN ADULT MEDICINE? [id number] WHEN WAS THE LAST TIME THE PATIENT SAW THEIR PCP? Same as above Does patient have an upcoming appointment? Yes [id number] (THE MEDICATION REQUESTED IS ON THE MED [...] N/A Patients current insurance carrier is: Payor: [facility] MCR / Plan: ONE CARE [facility] / Product Type: HMO [id number] documented in this encounter Plan of Treatment Not on file documented as of this encounter Visit Diagnoses Diagnosis Seronegative rheumatoid arthritis (HCC) Rheumatoid arthritis documented in this encounter Care Teams Automated Equipment Engineer Technician Relationship Specialty Start Date End Date Lorin Norton MD PCP - General Internal Medicine 01/25/15 07/15/20 Ameena Medellin MD PCP - General Internal Medicine 07/16/20 10/10/20 Keiko Anguiano, [address] [facility] [place] [place] [address] PCP - General Internal Medicine 10/11/20 documented as of this encounter
--- OUTSIDE RECORDS SUMMARY | 2024-06-24 10:15 | XMS_ITS | Encounter Summary ---
Author Organization [facility] Address [address] [place] [address] Care Team Providers Care Business Initiatives Manager Name Role Phone Ameena Medellin MD Primary Care Provider Giovanna Anguiano Ch MD Primary Care Provider [phone] Reason for Referral * EXTERNAL (Routine) - Authorized/Booked Specialty Diagnoses / Procedures Referred By Contmahin bo Referred To Contact Podiatry Diagnoses Osteoarthritis of left ankle and foot Seronegative rheumatoid arthritis (HCC) Procedures REFERRAL TO PODIATRY (OUT OF NETWORK) Haile Rodriguez MD [address] [place] [id number] External Podiatry Referral ID Status Reason Start Date Expiration Date V isits Requested Visits Authorized [id number] Authorized/B ooked 07/16/2020 11/03/2020 1 1 Encounter Details Date Type Department Care Team Description 07/16/2020 Telephone Rheumatology - [address] [address] Haile Rodriguez MD Social History Tobacco Use [...] arthritis documented in this encounter Care Teams Business Initiatives Manager Relationship Specialty Start Date End Date Ameena Medellin MD PCP - General Internal Medicine 07/16/20 10/10/20 Keiko Anguiano MD [address] [place] [address] PCP - General Internal Medicine 10/11/20 documented as of this encounter
--- OUTSIDE RECORDS SUMMARY | 2024-06-24 10:15 | XMS_ITS | Encounter Summary ---
Author Organization [facility] Address [address] [place] [address] Care Team Providers Care Hat Blocker Name Role Phone Tim Flor MD Primary Care Provider Unavail Lorin Mejía MD Primary Care Provider UnavailAmeena Magaña MD Primary Care Provider Unavaila christi Anguiano Ch MD Primary Care Provider +1 -[phone] Reason for Visit * Reason Comments E-prescribe Rx Request Encounter Details Date Type Department Care Team Description 02/27/2014 Refill Rheumatology - [place] [address] [place] [address] Haile Rodriguez MD E-prescribe Rx Request Social [...] encounter Miscellaneous Notes * Telephone Encounter - Luci Lora MD - 02/27/2014 11:52 AM EST Last refill was 02/02 she is not due until 03/05 * Telephone Encounter - Maria D Anderson - 02/27/2014 9:04 AM EST Patient would like script to be: E-PRESCRIBED/FAXED TO PHARMACY WHEN WAS THE PATIENT'S LAST APPOINTMENT IN ADULT MEDICINE? 01/22/14 WHEN WAS THE LAST TIME THE PATIENT SAW THEIR PCP? Same as above Does patient have an upcoming appointment? Yes 03/05/14 Dr Rodriguez (THE MEDICATION REQUESTED IS ON THE MED LIST ABOVE) All of the medications requested were on the CURRENT MEDS list Did you check the Pharmacy information above?: YES Patient wants: 90 -day supply Is this a mail order prescription request ? NO Patients current insurance carrier is: [place] / Product Type: MEDICARE [id number] documented in this encounter Plan of Treatment Not on file documented as of this encounter Visit Diagnoses Not on filedocumented in this encounter Care Teams Hat Blocker Relationship Specialty Start Date End Date Tim Flor MD PCP - General 01/06/08 01/24/15 Lorin Norton MD PCP - General Internal Medicine 01/25/15 07/15/20 Ameena Medellin MD PCP - General Internal Medicine 07/16/20 10/10/20 Keiko Anguiano MD [address] [place] [address] PCP - General Internal Medicine 10/11/20 documented as of this encounter
--- OUTSIDE RECORDS SUMMARY | 2024-06-24 10:15 | XMS_ITS | Encounter Summary ---
Author Organization [facility] Address [address] [place] [address] Care Team Providers Care Training Representative Name Role Phone Lorin Norton MD Primary Care Provider Ameena Thompson MD Primary Care Provider Giovanna Anguiano Ch MD Primary Care Provider +1 -[phone] Reason for Visit * Reason Comments E-prescribe Rx Request Encounter Details Date Type Department Care Team Description 06/24/2019 Refill Rheumatology - [place] [address] [place] [address] Haile Rodriguez MD E-prescribe Rx Request Social [...] N/A Patients current insurance carrier is: Payor: [employer] MCR / Plan: [facility] / Product Type: HMO [id number] * Telephone Encounter - Gwendolyn Abbott - [...] N/A Patients current insurance carrier is: Payor: [employer] [facility] [employer] MCR / Plan: [facility] / Product Type: HMO [id number] documented in this encounter Plan of Treatment Not on file documented as of this encounter Visit Diagnoses Diagnosis Seronegative rheumatoid arthritis (HCC) Rheumatoid arthritis documented in this encounter Care Teams Training Representative Relationship Specialty Start Date End Date Lorin Norton MD PCP - General Internal Medicine 01/25/15 07/15/20 Ameena Medellin MD PCP - General Internal Medicine 07/16/20 10/10/20 Keiko Anguiano MD [address] [place] [address] PCP - General Internal Medicine 10/11/20 documented as of this encounter
--- OUTSIDE RECORDS SUMMARY | 2024-06-24 10:15 | XMS_ITS | Encounter Summary ---
Author Organization [facility] Address [address] [place] [address] Care Team Providers Care Pottery Machine Operator Name Role Phone Lorin Norton MD Primary Care Provider Ameena Thompson MD Primary Care Provider Giovanna Anguiano Ch MD Primary Care Provider +1 -[phone] Encounter Details Date Type Department Care Team Description 09/11/2019 [facility] Medical Records [address] [place] [address] Abstract, Provider Social History Tobacco Use Types [...] on filedocumented in this encounter Care Teams Pottery Machine Operator Relationship Specialty Start Date End Date Lorin Norton MD PCP - General Internal Medicine 01/25/15 07/15/20 Ameena Medellin MD PCP - General Internal Medicine 07/16/20 10/10/20 Keiko Anguiano MD [address] [place] [address] PCP - General Internal Medicine 10/11/20 documented as of this encounter
--- OUTSIDE RECORDS SUMMARY | 2024-06-24 10:15 | XMS_ITS | Encounter Summary ---
Author Organization [facility] Address [address] [place] [address] Care Team Providers Care Speech Therapy Director Name Role Phone Lorin Norton MD Primary Care Provider Ameena Thompson MD Primary Care Provider Giovanna Anguiano Ch MD Primary Care Provider [phone] -[phone] Reason for Visit * Reason Comments E-prescribe Rx Request Encounter Details Date Type Department Care Team Description 03/18/2019 Refill Rheumatology - [place] [address] [place] [address] Haile Rodriguez MD E-prescribe Rx Request Social [...] arthritis documented in this encounter Care Teams Speech Therapy Director Relationship Specialty Start Date End Date Lorin Norton MD PCP - General Internal Medicine 01/25/15 07/15/20 Ameena Medellin MD PCP - General Internal Medicine 07/16/20 10/10/20 Keiko Anguiano MD [address] [place] [address] PCP - General Internal Medicine 10/11/20 documented as of this encounter
--- OUTSIDE RECORDS SUMMARY | 2024-06-24 10:15 | XMS_ITS | Encounter Summary ---
Author Organization [facility] Address [address] [place] [address] Care Team Providers Care Enrollment Services Dean Name Role Phone Lorin Norton MD Primary Care Provider Ameena Thompson MD Primary Care Provider Giovanna Anguiano Ch MD Primary Care Provider +1 -[phone] Encounter Details Date Type Department Care Team Description 06/18/2019 [facility] Medical Records [address] [place] [address] Abstract, Provider Social History Tobacco Use Types [...] on filedocumented in this encounter Care Teams Enrollment Services Dean Relationship Specialty Start Date End Date Lorin Norton MD PCP - General Internal Medicine 01/25/15 07/15/20 Ameena Medellin MD PCP - General Internal Medicine 07/16/20 10/10/20 Keiko Anguiano MD [address] [place] [address] PCP - General Internal Medicine 10/11/20 documented as of this encounter
--- OUTSIDE RECORDS SUMMARY | 2024-06-24 10:15 | XMS_ITS | Encounter Summary ---
Author Organization [facility] Address [address] [place] [address] Care Team Providers Care Facility Service Associate Name Role Phone Keiko Anguiano MD Primary Care Provider [phone] -[phone] Encounter Details Date Type Department Care Team Description 02/27/2022 [facility] Medical Records [address] [place] [address] Abstract, Provider Social History Tobacco Use Types [...] on filedocumented in this encounter Care Teams Facility Service Associate Relationship Specialty Start Date End Date Keiko Anguiano MD [address] [place] [address] PCP - General Internal Medicine 10/11/20 documented as of this encounter
--- OUTSIDE RECORDS SUMMARY | 2024-06-24 10:15 | XMS_ITS | Encounter Summary ---
Author Organization [facility] Address [address] [place] [address] Care Team Providers Care Case Worker Name Role Phone Tim Flor MD Primary Care Provider Unavail Lorin Mejía MD Primary Care Provider Ameena Thompson MD Primary Care Provider Giovanna Anguiano Ch MD Primary Care Provider +1 -[phone] Encounter Details Date Type Department Care Team Description 10/06/2013 Release of Information Medical Records [address] [place] [address] Abstract, Provider Social History Tobacco Use Types [...] on filedocumented in this encounter Care Teams Case Worker Relationship Specialty Start Date End Date Tim Flor MD PCP - General 01/06/08 01/24/15 Lorin Norton MD PCP - General Internal Medicine 01/25/15 07/15/20 Ameena Medellin MD PCP - General Internal Medicine 07/16/20 10/10/20 Keiko Anguiano MD [address] [place] [address] PCP - General Internal Medicine 10/11/20 documented as of this encounter
--- OUTSIDE RECORDS SUMMARY | 2024-06-24 10:16 | XMS_ITS | Encounter Summary ---
Author Organization [facility] Address [address] [place] [address] Care Team Providers Care Warehouse Receiving Supervisor Name Role Phone Keiko Anguiano MD Primary Care Provider [phone] -[phone] Encounter Details Date Type Department Care Team Description 12/27/2023 Refill Adult Medicine - [place] [address] [place] [address] Jeffrey Cruz PA-C [address] [place] [address] Social History Tobacco Use Types Packs/Day Years [...] arthritis documented in this encounter Care Teams Warehouse Receiving Supervisor Relationship Specialty Start Date End Date Keiko Anguiano MD [address] [place] [address] PCP - General Internal Medicine 10/11/20 documented as of this encounter
--- OUTSIDE RECORDS SUMMARY | 2024-06-24 10:16 | XMS_ITS | Encounter Summary ---
Author Organization [facility] Address [address] [place] [address] Care Team Providers Care Travelers' Aid Worker Name Role Phone Lorin Norton MD Primary Care Provider Ameena Thompson MD Primary Care Provider Giovanna Anguiano Ch MD Primary Care Provider +1 -[phone] Encounter Details Date Type Department Care Team Description 02/18/2020 [facility] Medical Records [address] [place] [address] Abstract, Provider Social History Tobacco Use Types [...] on filedocumented in this encounter Care Teams Travelers' Aid Worker Relationship Specialty Start Date End Date Lorin Norton MD PCP - General Internal Medicine 01/25/15 07/15/20 Ameena Medellin MD PCP - General Internal Medicine 07/16/20 10/10/20 Keiko Anguiano, [address] [place] [address] [facility] [address] PCP - General Internal Medicine 10/11/20 documented as of this encounter
--- OUTSIDE RECORDS SUMMARY | 2024-06-24 10:16 | XMS_ITS | Patient Health Record ---
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) Active confirmed Plan Of Treatment Pending Test Test Name Order Date X ray : Ankle, left 3V 10/14/2021 X ray : Foot, left 3V 10/14/2021 Insurance Providers Payer Name Payer Address Payer Phone Subscriber Number Group Number Insured Name Patient Relationship to Insured Coverage Start Date Coverage End Date [facility] [employer] Claims [address] [place] [phone] [id number] Carmenza Alexis i Self - patient is the insured Medical (General) History Medical History History ICD Code Anxiety Arthritis Depression Gall bladder problems High blood pressure Numbness Psychiatric disorder Reflux ( GERD) ptsd Surgical History Surgery Date(Month/Year) gall bladder 1997
--- OUTSIDE RECORDS SUMMARY | 2024-06-24 10:16 | XMS_ITS | Encounter Summary ---
Author Organization [facility] Address [address] [place] [address] Care Team Providers Care Washery Engineer Name Role Phone Lorin Norton MD Primary Care Provider Ameena Thompson MD Primary Care Provider Giovanna Anguiano Ch MD Primary Care Provider [phone] -[phone] Reason for Visit * Reason Comments E-prescribe Rx Request Encounter Details Date Type Department Care Team Description 04/15/2020 Refill Rheumatology - [place] [address] [place] [address] Haile Rodriguez MD E-prescribe Rx Request Social [...] 9:21 AM EST Lesli, please call patient [phone] (home) [phone] (work) Is she taking the Chantix? We got the starter pack in February so she should just be on 1 mg daily at this point. In that case she would need just the [address] Rodriguez * Telephone Encounter - Johanna Sage L.P.N. - 04/15/2020 9:08 AM EST [facility] report reviewed today for [facility] documented in this encounter Plan of Treatment Not on file documented as of this encounter Visit Diagnoses Diagnosis Osteoarthritis of ankle and foot, left Osteoarthritis of left ankle and foot Tobacco use disorder documented in this encounter Care Teams Washery Engineer Relationship Specialty Start Date End Date Lorin Norton MD PCP - General Internal Medicine 01/25/15 07/15/20 Ameena Medellin MD PCP - General Internal Medicine 07/16/20 10/10/20 Keiko Anguiano MD [address] [place] [address] PCP - General Internal Medicine 10/11/20 documented as of this encounter
--- OUTSIDE RECORDS SUMMARY | 2024-06-24 10:16 | XMS_ITS | Encounter Summary ---
Author Organization [facility] Address [address] [place] [address] Care Team Providers Care Welt Stitcher Name Role Phone Lorin Norton MD Primary Care Provider Ameena Thompson MD Primary Care Provider Giovanna Anguaino Ch MD Primary Care Provider +1 -[phone] Encounter Details Date Type Department Care Team Description 11/10/2015 Controlled Substance Contract with Plan Medical Records [address] [place] [address] Lorin Norton MD Social History Tobacco Use [...] on filedocumented in this encounter Care Teams Welt Stitcher Relationship Specialty Start Date End Date Lorin Norton MD PCP - General Internal Medicine 01/25/15 07/15/20 Ameena Medellin MD PCP - General Internal Medicine 07/16/20 10/10/20 Keiko Anguiano MD [address] [place] [address] PCP - General Internal Medicine 10/11/20 documented as of this encounter
--- OUTSIDE RECORDS SUMMARY | 2024-06-24 10:16 | XMS_ITS | Encounter Summary ---
Author Organization [facility] Address [address] [place] [address] Care Team Providers Care Women Specialist Name Role Phone Keiko Anguiano MD Primary Care Provider [phone] -[phone] Encounter Details Date Type Department Care Team Description 12/27/2023 Refill Adult Medicine - [place] [address] [place] [address] Jeffrey Cruz PA-C [address] [place] [address] Social History Tobacco Use Types Packs/Day Years [...] on filedocumented in this encounter Care Teams Women Specialist Relationship Specialty Start Date End Date Keiko Anguiano MD [address] [place] [address] PCP - General Internal Medicine 10/11/20 documented as of this encounter
--- OUTSIDE RECORDS SUMMARY | 2024-06-24 10:16 | XMS_ITS | Encounter Summary ---
Author Organization [facility] Address [address] [place] [address] Care Team Providers Care Studio Sales Associate Name Role Phone Tim Flor MD Primary Care Provider Unavail Lorin Mejía MD Primary Care Provider UnavailAmenea Magaña MD Primary Care Provider Unavaila christi Anguiano Ch MD Primary Care Provider +1 -[phone] Reason for Referral * Specialist (Routine) - Authorized/Booked Specialty Diagnoses / Procedures Referred By Contmahin bo Referred To Contact Rheumatology Procedures REFERRAL TO RHEUMATOLOGY Tim Flor MD Schumacher, James R., MD Referral ID Status Reason Start Date Expiration Date V isits Requested Visits Authorized NOT REQUIRED Authorized/ Booked 01/29/2013 01/29/2014 1 1 Reason for Visit * Reason Onset Date Comments Mechanical Detailer Feedback 01/29/2013 Dr Rodriguez Encounter Details Date Type Department Care Team Description 01/29/2013 Telephone Medicine/Pediatrics - [address] [phone] Tim Flor MD Mechanical Detailer Feedback (Dr Rodriguez) Social History Tobacco Use [...] referral needs to start: Tim Flor Payor: [employer]IC[employer] Plan: [employer] Product Type: MEDICARE [id number] documented in this encounter Plan of Treatment Not on file documented as of this encounter Visit Diagnoses Not on filedocumented in this encounter Care Teams Studio Sales Associate Relationship Specialty Start Date End Date Tim Flor MD PCP - General 01/06/08 01/24/15 Lorin Norton MD PCP - General Internal Medicine 01/25/15 07/15/20 Ameena Medellin MD PCP - General Internal Medicine 07/16/20 10/10/20 Keiko Anguiano MD [address] [place] [address] [facility] [address] PCP - General Internal Medicine 10/11/20 documented as of this encounter
--- OUTSIDE RECORDS SUMMARY | 2024-06-24 10:16 | XMS_ITS | Encounter Summary ---
Author Organization [facility] Address [address] [place] [address] Care Team Providers Care Nitrocellulose Operator Name Role Phone Lorin Norton MD Primary Care Provider Ameena Thompson MD Primary Care Provider Giovanna Anguiano Ch MD Primary Care Provider [phone] -[phone] Encounter Details Date Type Department Care Team Description 06/15/2020 Orders Only Medical Records [address] [place] [address] Ameena Medellin MD Social History Tobacco Use Types Packs/Day [...] Date/Time Associated Diagnosis Comments OUTSIDE MAMMO Routine 06/01/2020 documented in this encounter Results * OUTSIDE MAMMO (06/01/2020) Ameena Medellin MD RADIOLOGY documented in this encounter Visit Diagnoses Not on filedocumented in this encounter Care Teams Nitrocellulose Operator Relationship Specialty Start Date End Date Lorin Norton MD PCP - General Internal Medicine 01/25/15 07/15/20 Ameena Medellin MD PCP - General Internal Medicine 07/16/20 10/10/20 Keiko Anguiano, [address] [place] [address] PCP - General Internal Medicine 10/11/20 documented as of this encounter
--- OUTSIDE RECORDS SUMMARY | 2024-06-24 10:16 | XMS_ITS | Encounter Summary ---
Author Organization [facility] Address [address] [place] [address] Care Team Providers Care Lead Embedded Software Engineer Name Role Phone Tim Flor MD Primary Care Provider Unavail Lorin Mejía MD Primary Care Provider Ameena Thompson MD Primary Care Provider Unavailronen Anguiano Ch MD Primary Care Provider +1 -[phone] Encounter Details Date Type Department Care Team Description 06/11/2012 Emergency Physician Report Medical Records [address] [place] [address] Toby Cleaning MD Social History Tobacco Use [...] filedocumented in this encounter Care Teams Lead Embedded Software Engineer Relationship Specialty Start Date End Date Tim Flor MD PCP - General 01/06/08 01/24/15 Lorin Norton MD PCP - General Internal Medicine 01/25/15 07/15/20 Ameena Medellin MD PCP - General Internal Medicine 07/16/20 10/10/20 Keiko Anguiano, [address] [place] [id number] PCP - General Internal Medicine 10/11/20 documented as of this encounter
--- OUTSIDE RECORDS SUMMARY | 2024-06-24 10:16 | XMS_ITS | Encounter Summary ---
Author Organization [facility] Address [address] [place] [address] Care Team Providers Care Photographer Scientific Name Role Phone Lorin Norton MD Primary Care Provider Ameena Thompson MD Primary Care Provider Giovanna Anguiano Ch MD Primary Care Provider +1 -[phone] Encounter Details Date Type Department Care Team Description 01/14/2016 [facility] Medical Records [address] [place] [address] Abstract, Provider Social History Tobacco Use Types [...] on filedocumented in this encounter Care Teams Photographer Scientific Relationship Specialty Start Date End Date Lorin Norton MD PCP - General Internal Medicine 01/25/15 07/15/20 Ameena Medellin MD PCP - General Internal Medicine 07/16/20 10/10/20 Keiko Anguiano MD [address] [place] [address] PCP - General Internal Medicine 10/11/20 documented as of this encounter
--- OUTSIDE RECORDS SUMMARY | 2024-06-24 10:16 | XMS_ITS | Encounter Summary ---
Author Organization [facility] Address [address] [place] [address] Care Team Providers Care Varnish Melter Helper Name Role Phone Lorin Norton MD Primary Care Provider Ameena Thompson MD Primary Care Provider Giovanna Anguiano Ch MD Primary Care Provider +1 -[phone] Encounter Details Date Type Department Care Team Description 09/03/2015 Release of Information Medical Records [address] [place] [address] Abstract, Provider Social History Tobacco Use Types [...] on filedocumented in this encounter Care Teams Varnish Melter Helper Relationship Specialty Start Date End Date Lorin Norton MD PCP - General Internal Medicine 01/25/15 07/15/20 Ameena Medellin MD PCP - General Internal Medicine 07/16/20 10/10/20 Keiko Anguiano MD [address] [place] [address] PCP - General Internal Medicine 10/11/20 documented as of this encounter
--- OUTSIDE RECORDS SUMMARY | 2024-06-24 10:16 | XMS_ITS | Encounter Summary ---
Author Organization [facility] Address [address] [place] [address] Care Team Providers Care Die Fitter Name Role Phone Keiko Anguiano MD Primary Care Provider +1 -[phone] Reason for Referral * EXTERNAL (Priority) - Authorized/Booked Specialty Diagnoses / Procedures Referred By Susana bo Referred To Contact PAIN MANAGEMENT / Pain Management Procedures REFERRAL TO PAIN MANAGEMENT Jeffrey Cruz PA-C [address] [place] [address] Default, Provider Referral ID Status Reason Start Date Expiration Date V isits Requested Visits Authorized [id number] Authorized/B ooked 01/01/2024 12/31/2024 1 1 Encounter Details Date Type Department Care Team Description 12/31/2023 Pt. Non Urgent Medic al Question Adult Medicine - [place] [address] [place] [address] Jeffrey Cruz PA-C [address] [place] [address] Social History Tobacco Use Types Packs/Day Years [...] [facility]. I've tried dealing with the pain but has gotten worse and was wondering if I can get a referral for the [facility] pain management center at [address] [place] [address]. I spoke to them and they take my insurance,they just said I needed a referral. Thank you, Carmenza pastrana documented in this encounter Plan of Treatment Not on file documented as of this encounter Visit Diagnoses Not on filedocumented in this encounter Care Teams Die Fitter Relationship Specialty Start Date End Date Keiko Anguiano MD [address] [place] [address] PCP - General Internal Medicine 10/11/20 documented as of this encounter
--- OUTSIDE RECORDS SUMMARY | 2024-06-24 10:16 | XMS_ITS | Encounter Summary ---
Author Organization [facility] Address [address] [place] [address] Care Team Providers Care Mint Machine Operator Name Role Phone Lorin Norton MD Primary Care Provider Ameena Thompson MD Primary Care Provider Giovanna Anguiano Ch MD Primary Care Provider +1 -[phone] Encounter Details Date Type Department Care Team Description 01/24/2018 Release of Information Medical Records [address] [place] [address] Abstract, Provider Social History Tobacco Use Types [...] on filedocumented in this encounter Care Teams Mint Machine Operator Relationship Specialty Start Date End Date Lorin Norton MD PCP - General Internal Medicine 01/25/15 07/15/20 Ameena Medellin MD PCP - General Internal Medicine 07/16/20 10/10/20 Keiko Anguiano MD [address] [place] [address] PCP - General Internal Medicine 10/11/20 documented as of this encounter
--- OUTSIDE RECORDS SUMMARY | 2024-06-24 10:16 | XMS_ITS | Encounter Summary ---
Author Organization [facility] Address [address] [place] [address] Care Team Providers Care Property Condition Assessor Name Role Phone Lorin Norton MD Primary Care Provider Ameena Thompson MD Primary Care Provider Giovanna Anguiano Ch MD Primary Care Provider +1 -[phone] Encounter Details Date Type Department Care Team Description 04/20/2020 [facility] Medical Records [address] [place] [address] Abstract, Provider Social History Tobacco Use Types [...] on filedocumented in this encounter Care Teams Property Condition Assessor Relationship Specialty Start Date End Date Lorin Norton MD PCP - General Internal Medicine 01/25/15 07/15/20 Ameena Medellin MD PCP - General Internal Medicine 07/16/20 10/10/20 Keiko Anguiano MD [address] [place] [address] PCP - General Internal Medicine 10/11/20 documented as of this encounter
--- OUTSIDE RECORDS SUMMARY | 2024-06-24 10:16 | XMS_ITS | Encounter Summary ---
Author Organization [facility] Address [address] [place] [address] Care Team Providers Care Spray Blender Name Role Phone Keiko Anguiano MD Primary Care Provider +1 -[phone] Reason for Visit * Reason Comments E-prescribe Rx Request Encounter Details Date Type Department Care Team Description 04/16/2022 Refill Adult Medicine - [place] [address] [place] [address] Keiko Anguiano MD [address] [place] [address] E-prescribe Rx Request Social History Tobacco Use [...] encounter Miscellaneous Notes * Telephone Encounter - Paulina Bauman - 04/18/2022 3:09 PM EST Refills Last office visit: 03/02/2022 Last pcp: 11/29/21 Next office visit: 04/26/22 documented in this encounter Plan of Treatment Not on file documented as of this encounter Visit Diagnoses Not on filedocumented in this encounter Care Teams Spray Blender Relationship Specialty Start Date End Date Keiko Anguiano MD [facility] [place] [address] PCP - General Internal Medicine 10/11/20 documented as of this encounter
--- OUTSIDE RECORDS SUMMARY | 2024-06-24 10:16 | XMS_ITS | Encounter Summary ---
Author Organization [facility] Address [address] [place] [address] Care Team Providers Care Studio Grip Name Role Phone Keiko Anguiano MD Primary Care Provider +1 -[phone] Encounter Details Date Type Department Care Team Description 12/27/2023 Refill Adult Medicine - [place] [address] [place] [address] Jeffrey Curz PA-C [address] [place] [address] Social History Tobacco Use Types Packs/Day Years [...] arthritis documented in this encounter Care Teams Studio Grip Relationship Specialty Start Date End Date Keiko Anguiano MD [address] [place] [address] PCP - General Internal Medicine 10/11/20 documented as of this encounter
--- OUTSIDE RECORDS SUMMARY | 2024-06-24 10:16 | XMS_ITS | Encounter Summary ---
Author Organization [facility] Address [address] [place] [address] Care Team Providers Care Field Cashier Name Role Phone Lorin Norton MD Primary Care Provider Ameena Thompson MD Primary Care Provider Giovanna Anguiano Ch MD Primary Care Provider +1 -[phone] Encounter Details Date Type Department Care Team Description 03/13/2018 Technical Communication Teacher Report Medical Records [address] [place] [address] Chayo Carter PA-C Social History Tobacco Use Types Packs/Day [...] on filedocumented in this encounter Care Teams Field Cashier Relationship Specialty Start Date End Date Lorin Norton MD PCP - General Internal Medicine 01/25/15 07/15/20 Ameena Medellin MD PCP - General Internal Medicine 07/16/20 10/10/20 Keiko Anguiano MD [address] [place] [address] PCP - General Internal Medicine 10/11/20 documented as of this encounter
--- OUTSIDE RECORDS SUMMARY | 2024-06-24 10:17 | XMS_ITS | Encounter Summary ---
Author Organization [facility] Address [address] [place] [address] Care Team Providers Care Vocational Director Name Role Phone Keiko Anguiano MD Primary Care Provider +1 -[phone] Encounter Details Date Type Department Care Team Description 01/01/2023 Brake Holder Report Medical Records [address] [place] [address] Haile Rodriguez MD Social History Tobacco Use [...] suspected to have Coronavirus/COVID-19? No / Unsure 01/03/2023 2:20 PM EDT documented as of this encounter Plan of Treatment Not on file documented as of this encounter Visit Diagnoses Not on filedocumented in this encounter Care Teams Vocational Director Relationship Specialty Start Date End Date Keiko Anguiano MD [address] [place] [address] PCP - General Internal Medicine 10/11/20 documented as of this encounter
--- OUTSIDE RECORDS SUMMARY | 2024-06-24 10:17 | XMS_ITS | Encounter Summary ---
Author Organization [facility] Address [address] [place] [address] Care Team Providers Care Senior Consulting Manager Name Role Phone Keiko Anguiano MD Primary Care Provider +1 -[phone] Encounter Details Date Type Department Care Team Description 08/09/2021 [facility] Medical Records [address] [place] [address] Abstract, Provider Social History Tobacco Use Types [...] on filedocumented in this encounter Care Teams Senior Consulting Manager Relationship Specialty Start Date End Date Keiko Anguiano MD [address] [place] [address] PCP - General Internal Medicine 10/11/20 documented as of this encounter
--- OUTSIDE RECORDS SUMMARY | 2024-06-24 10:17 | XMS_ITS | Encounter Summary ---
Author Organization [facility] Address [address] [place] [address] Care Team Providers Care Patient Service Specialist Name Role Phone Keiko Anguiano MD Primary Care Provider +1 -[phone] Encounter Details Date Type Department Care Team Description 02/17/2021 [facility] Medical Records [address] [place] [address] Abstract, Provider Social History Tobacco Use Types [...] on filedocumented in this encounter Care Teams Patient Service Specialist Relationship Specialty Start Date End Date Keiko Anguiano, [address] [place] [address] PCP - General Internal Medicine 10/11/20 documented as of this encounter
--- OUTSIDE RECORDS SUMMARY | 2024-06-24 10:17 | XMS_ITS | Encounter Summary ---
Author Organization [facility] Address [address] [place] [address] Care Team Providers Care Billing Clinician Name Role Phone Keiko Anguiano MD Primary Care Provider +1 -[phone] Encounter Details Date Type Department Care Team Description 04/10/2023 Orders Only Adult Medicine - [place] [address] [place] [address] Breana de la vega Ch, MD [address] [place] [address] Osteoarthritis of ankle and foot, left Social [...] left documented in this encounter Care Teams Billing Clinician Relationship Specialty Start Date End Date Keiko Anguiano MD [address] [place] [address] PCP - General Internal Medicine 10/11/20 documented as of this encounter
--- OUTSIDE RECORDS SUMMARY | 2024-06-24 10:17 | XMS_ITS | Encounter Summary ---
Author Organization [facility] Address [address] [place] [address] Care Team Providers Care Creative Guru Name Role Phone Keiko Anguiano MD Primary Care Provider +1 -[phone] Encounter Details Date Type Department Care Team Description 09/23/2021 Microsoft Infrastructure Consultant Report Medical Records [address] [place] [address] Horacio Barnard MD Social History Tobacco Use Types Packs/Day [...] on filedocumented in this encounter Care Teams Creative Guru Relationship Specialty Start Date End Date Keiko Anguiano MD [address] [place] [address] PCP - General Internal Medicine 10/11/20 documented as of this encounter
--- OUTSIDE RECORDS SUMMARY | 2024-06-24 10:17 | XMS_ITS | Encounter Summary ---
Author Organization [facility] Address [address] [place] [address] Care Team Providers Care Organic Preparation Analyst Name Role Phone Keiko Anguiano MD Primary Care Provider +1 -[phone] Encounter Details Date Type Department Care Team Description 05/24/2022 Grinder And Plater Report Medical Records [address] [place] [address] Horacio Barnard MD Social History Tobacco Use [...] on filedocumented in this encounter Care Teams Organic Preparation Analyst Relationship Specialty Start Date End Date Keiko Anguiano MD [address] [place] [address] PCP - General Internal Medicine 10/11/20 documented as of this encounter
--- OUTSIDE RECORDS SUMMARY | 2024-06-24 10:17 | XMS_ITS | Encounter Summary ---
Author Organization [facility] Address [address] [place] [address] Care Team Providers Care Manager Truck Name Role Phone Keiko Anguiano MD Primary Care Provider +1 -[phone] Encounter Details Date Type Department Care Team Description 04/27/2023 Refill Adult Medicine - [place] [address] [place] [address] Keiko Anguiano MD [address] [place] [address] Social History Tobacco Use Types Packs/Day Years [...] filedocumented in this encounter Care Teams Manager Truck Relationship Specialty Start Date End Date Keiko Anguiano MD [address] [place] [address] PCP - General Internal Medicine 10/11/20 documented as of this encounter
--- OUTSIDE RECORDS SUMMARY | 2024-06-24 10:17 | XMS_ITS | Encounter Summary ---
Author Organization [facility] Address [address] [place] [address] Care Team Providers Care Loader Technician Name Role Phone Lorin Norton MD Primary Care Provider Ameena Thompson MD Primary Care Provider Giovanna Anguiano Ch MD Primary Care Provider +1 -[phone] Encounter Details Date Type Department Care Team Description 05/11/2017 [facility] Medical Records [address] [place] [address] Abstract, Provider Social History Tobacco Use Types [...] on filedocumented in this encounter Care Teams Loader Technician Relationship Specialty Start Date End Date Lorin Norton MD PCP - General Internal Medicine 01/25/15 07/15/20 Ameena Medellin MD PCP - General Internal Medicine 07/16/20 10/10/20 Keiko Anguiano MD [address] [place] [address] PCP - General Internal Medicine 10/11/20 documented as of this encounter
--- OUTSIDE RECORDS SUMMARY | 2024-06-24 10:17 | XMS_ITS | Encounter Summary ---
Author Organization [facility] Address [address] [place] [address] Care Team Providers Care Senior Talent Acquisition Specialist Name Role Phone Keiko Anguiano MD Primary Care Provider +1 -[phone] Encounter Details Date Type Department Care Team Description 04/06/2023 Orders Only Medical Records [address] [place] [address] Haile Rodriguez MD Social History Tobacco Use [...] Name Priority Date/Time Associated Diagnosis Comments OUTSIDE PLAIN FILM Routine 03/27/2023 documented in this encounter Results * OUTSIDE PLAIN FILM (03/27/2023) Haile Rodriguez MD RADIOLOGY documented in this encounter Visit Diagnoses Not on filedocumented in this encounter Care Teams Senior Talent Acquisition Specialist Relationship Specialty Start Date End Date Keiko Anguiano, [address] [place] [address] PCP - General Internal Medicine 10/11/20 documented as of this encounter
--- OUTSIDE RECORDS SUMMARY | 2024-06-24 10:17 | XMS_ITS | Encounter Summary ---
Author Organization [facility] Address [address] [place] [address] Care Team Providers Care Custodial Officer Name Role Phone Keiko Anguiano MD Primary Care Provider +1 -[phone] Reason for Referral * Non LUPE (Routine) - Authorized/Booked Specialty Diagnoses / Procedures Referred By Susana bo Referred To Contact Endocrinology Procedures REFERRAL TO ENDOCRINOLOGY Jeffrey Cruz PA-C [address] [place], [place] [facility]/[address] [address] Referral ID Status Reason Start Date Expiration Date V isits Requested Visits Authorized [id number] Authorized/B ooked 09/29/2022 09/29/2023 1 1 Encounter Details Date Type Department Care Team Description 09/29/2022 Orders Only Adult Medicine - [place] [address] [place] [address] Jeffrey Cruz PA-C [address] [place] [address] Social History Tobacco Use Types Packs/Day Years [...] on filedocumented in this encounter Care Teams Custodial Officer Relationship Specialty Start Date End Date Keiko Anguiano MD [address] [place] [address] PCP - General Internal Medicine 10/11/20 documented as of this encounter
--- OUTSIDE RECORDS SUMMARY | 2024-06-24 10:17 | XMS_ITS | Encounter Summary ---
Author Organization [facility] Address [address] [place] [address] Care Team Providers Care Crab Butcher Name Role Phone Keiko Anguiano MD Primary Care Provider +1 -[phone] Encounter Details Date Type Department Care Team Description 06/20/2023 Telephone Adult Medicine - [place] [address] [place] [address] Jeffrey Cruz PA-C [address] [place] [address] Social History Tobacco Use Types Packs/Day Years [...] on filedocumented in this encounter Care Teams Crab Butcher Relationship Specialty Start Date End Date Keiko Anguiano, [address] [place] [address] [facility] [place] [address] PCP - General Internal Medicine 10/11/20 documented as of this encounter
--- OUTSIDE RECORDS SUMMARY | 2024-06-24 10:17 | XMS_ITS | Encounter Summary ---
Author Organization [facility] Address [address] [place] [address] Care Team Providers Care Field Service Technician Poultry Name Role Phone Keiko Anguiano MD Primary Care Provider +1 -[phone] Encounter Details Date Type Department Care Team Description 03/13/2023 Orders Only Medical Records [address] [place] [address] Keiko Anguiano MD [address] [place] [address] Social History Tobacco Use Types Packs/Day Years [...] filedocumented in this encounter Care Teams Field Service Technician Poultry Relationship Specialty Start Date End Date Keiko Anguiano MD [address] [place] [address] PCP - General Internal Medicine 10/11/20 documented as of this encounter
--- OUTSIDE RECORDS SUMMARY | 2024-06-24 10:17 | XMS_ITS | Encounter Summary ---
Author Organization [facility] Address [address] [place] [address] Care Team Providers Care Poultry Farmer Egg Name Role Phone Keiko Anguiano MD Primary Care Provider +1 -[phone] Encounter Details Date Type Department Care Team Description 08/09/2023 Farm Implement Mechanic Report Medical Records [address] [place] [address] Abstract, Provider Social History Tobacco Use Types [...] on filedocumented in this encounter Care Teams Poultry Farmer Egg Relationship Specialty Start Date End Date Keiko Anguiano, [address] [place] [address] PCP - General Internal Medicine 10/11/20 documented as of this encounter
--- OUTSIDE RECORDS SUMMARY | 2024-06-24 10:17 | XMS_ITS | Encounter Summary ---
Author Organization [facility] Address [address] [place] [address] Care Team Providers Care Engraver Jewelry Name Role Phone Kekio Anguiano MD Primary Care Provider +1 -[phone] Encounter Details Date Type Department Care Team Description 03/27/2023 Military Pay Technician Report Medical Records [address] [place] [address] Haile Rodriguez MD Social History Tobacco Use [...] on filedocumented in this encounter Care Teams Engraver Jewelry Relationship Specialty Start Date End Date Keiko Anguiano MD [address] [place] [address] PCP - General Internal Medicine 10/11/20 documented as of this encounter
--- OUTSIDE RECORDS SUMMARY | 2024-06-24 10:17 | XMS_ITS | Encounter Summary ---
Author Organization [facility] Address [address] [place] [address] Care Team Providers Care Machine Cage Maker Name Role Phone Keiko Anguiano MD Primary Care Provider +1 -[phone] Encounter Details Date Type Department Care Team Description 10/09/2022 High School Sports Coach Report Medical Records [address] [place] [address] Haile Rodriguez MD Social History Tobacco Use [...] filedocumented in this encounter Care Teams Machine Cage Maker Relationship Specialty Start Date End Date Keiko Anguiano MD [address] [place] [address] PCP - General Internal Medicine 10/11/20 documented as of this encounter
--- OUTSIDE RECORDS SUMMARY | 2024-06-24 10:17 | XMS_ITS | Encounter Summary ---
Author Organization [facility] Address [address] [place] [address] Care Team Providers Care Money Market Dealer Name Role Phone Keiko Anguiano MD Primary Care Provider +1 -[phone] Reason for Visit * Reason Onset Date Comments [facility] Urine Drug Screen 02/12/2023 Encounter Details Date Type Department Care Team Description 02/12/2023 Telephone Adult Medicine - [place] [address] [place] [address] Keiko Anguiano MD [address] [place] [address] [facility] [place] Screen Social History Tobacco Use [...] to be difficult * Telephone Encounter - Aby Wilcox M.A. - 02/19/2023 8:08 AM EST Pt was advised to complete UDS for 02/15/23 when she had transportation. UDS was NOT completed. Please advise. * Telephone Encounter - Aby Wilcox M.A. - 02/13/2023 1:59 PM EDT Pt advised * Telephone Encounter - Keiko Anguiano MD - 02/13/2023 1:25 PM EDT Okay to wait * Telephone Encounter - Aby Wilcox M.A. - 02/13/2023 1:22 PM EDT [...] and route back to route back to [place] [facility] Refills Pool B ( P [id number] pool # ) documented in this encounter Plan of Treatment Scheduled Orders Name Type Priority Associated Diagnoses Orde r Schedule [facility] DRUG SCREENING OPIATES 1 OR MORE Lab Routine Encounter for long-term (current) use of medications Expected: 02/12/2023, Expires: 02/12/2024 DRUG OF ABUSE SCREEN Lab Routine Encounter for long-term (current) use of medications Expected: 02/12/2023, Expires: 02/12/2024 OXYCODONE, URINE Lab Routine Encounter for long-term (current) use of medications Expected: 02/12/2023, Expires: 02/12/2024 [facility] DRUG SCREENING CANNABINOIDS NATURAL Lab Routine Encounter for long-term (current) use of medications Expected: 02/12/2023, Expires: 02/12/2024 [facility] DRUG SCREENING COCAINE Lab Routine Encounter for long-term (current) use of medications Expected: 02/12/2023, Expires: 02/12/2024 [facility] DRUG SCREEN QUANT AMPHETAMINES 3 OR 4 Lab Routine Encounter for long-term (current) use of medications Expected: 02/12/2023, Expires: 02/12/2024 [facility] DRUG/SUBSTANCE DEFINITIVE QUAL/QUANT NOS 1-3 Lab Routine Encounter for long-term (current) use of medications Expected: 02/12/2023, Expires: 02/12/2024 [facility] DRUG SCREENING BENZODIAZEPINES 1-12 Lab Routine Encounter for long-term (current) use of medications Expected: 02/12/2023, Expires: 02/12/2024 documented as of this encounter Visit Diagnoses Diagnosis Encounter for long-term (current) use of medications- Primary Encounter for long-term (current) use of other medications documented in this encounter Care Teams Money Market Dealer Relationship Specialty Start Date End Date Keiko Anguiano MD [address] [place] [address] PCP - General Internal Medicine 10/11/20 documented as of this encounter
--- OUTSIDE RECORDS SUMMARY | 2024-06-24 10:17 | XMS_ITS | Encounter Summary ---
Author Organization [facility] Address [address] [place] [address] Care Team Providers Care Brim Welt Sewing Machine Operator Name Role Phone Keiko Anguiano MD Primary Care Provider +1 -[phone] Reason for Visit * Reason Comments E-prescribe Rx Request Encounter Details Date Type Department Care Team Description 09/25/2023 Refill Adult Medicine - [place] [address] [place] [address] Keiko Anguiano MD [address] [place] [address] E-prescribe Rx Request Social History Tobacco Use [...] Miscellaneous Notes * Telephone Encounter - Paulina Browne M.A. - 09/25/2023 2:54 PM EDT [facility] 07/06/23 NOV 10/01/23 Rx pended Controlled substance contract and last issue date of medication reviewed. Patient is due for medication. Lab Results Component Value Date URBENZO NONE DETECTED 01/11/2022 UROPIATES NONE DETECTED 01/11/2022 UROXYCODONE NONE DETECTED 01/11/2022 URBARBITUATE NONE DETECTED 01/11/2022 PAINAMPHETAM POSITIVE 01/11/2022 PAINCOCAINE NONE DETECTED 01/11/2022 PAINCANNABIN NONE DETECTED 01/11/2022 08/29/2023 08/09/2023 2 Dextroamp-Amphetamin 15 Mg Tab 60 30 [address] [place] [id number] [facility] (5741) 0/0 T [place] 08/28/2023 08/28/2023 1 Tramadol Hcl 50 Mg Tablet 28 28 Ch Hay [id number] [facility] (14[facility] 0/0 10.00 MME [place] 08/27/2023 08/09/2023 2 Clonazepam 1 Mg Tablet 60 30 [address] [place] [id number] [facility] (5741) 0/2 4.00 LMET [place] 08/02/2023 08/02/2023 1 Dextroamp-Amphetamin 15 Mg Tab 60 30 [address] [place] [id number] [facility] (14[facility] 0/0 [place] 07/31/2023 05/28/2023 1 Clonazepam 1 Mg Tablet 60 30 [address] [place] [id number] [facility] (14[facility] 2/2 4.00 L[place] 07/31/2023 07/31/2023 1 Tramadol Hcl 50 Mg Tablet 56 28 Ch Hay [id number] [facility] ([facility] 0/0 20.00 [place] 07/27/2023 07/27/2023 1 Lorazepam 1 Mg Tablet 6 3 Ne Ren[place] [id number] [facility] (1450[facility] 0/0 2.00 L[place] 07/06/2023 07/02/2023 1 Dextroamp-Amphetamin 15 Mg Tab 60 30 [address] [place] [id number] [facility] (1450[facility] 0/0 [place] 07/03/2023 07/03/2023 1 Tramadol Hcl 50 Mg Tablet 56 28 Ch Hay [id number] [facility] (14[facility] 0/0 20.00 [place] 06/29/2023 05/28/2023 1 Clonazepam 1 Mg Tablet 60 30 Kr [place] [id number] [facility] (14[facility] 1/2 4.00 L[place] 06/07/2023 04/12/2023 1 Clonazepam 0.5 Mg Tablet 90 30 Kr [place] [id number] [facility] (1450[facility] 2/2 3.00 L[place] 06/07/2023 06/07/2023 1 Dextroamp-Amphetamin 15 Mg Tab 60 30 Kr [place] [id number] [facility] (1450[facility] 0/0 [place] 06/05/2023 06/05/2023 1 Tramadol Hcl 50 Mg Tablet 84 28 Ch Martin [id number] [facility] (14[facility] 0/0 30.00 [place] 05/28/2023 05/28/2023 1 Clonazepam 1 Mg Tablet 60 30 [address] [place] [id number] [facility] (14[facility] 0/2 4.00 L[place] 05/10/2023 04/12/2023 1 Clonazepam 0.5 Mg Tablet 90 30 Kr [place] [id number] [facility] (1450) 1/ 3.00 LME [place] * Telephone Encounter - Mirian Coronel - 09/25/2023 2:42 PM EDT Dup documented in this encounter Plan of Treatment Not on file documented as of this encounter Visit Diagnoses Diagnosis Osteoarthritis of ankle and foot, left documented in this encounter Care Teams Brim Welt Sewing Machine Operator Relationship Specialty Start Date End Date Keiko Anguiano MD [address] [place] [address] PCP - General Internal Medicine 10/11/20 documented as of this encounter
--- OUTSIDE RECORDS SUMMARY | 2024-06-24 10:17 | XMS_ITS | Data Portability ---
Author Organization [employer] [employer] Address [address] [place] [phone] Care Team Providers Care Loader Operator Name Role Phone [facility] Referring Provider [phone] Assessment Encounter Date Assessment Date Assessment LastModified by Organization Details LastModified Time 05/16/2023 05/16/2023 I have reviewed and agree with the assessment and plan as documented by the linen supervisor. I provided real time medical direction for this encounter and was immediately available to provide additional phone based assistance as needed. History as noted by linen supervisor. Pt with history of RA on MTX, [...] 2 Ag, QL IA, respiratory specimen 2023 [facility], [address] [place] [address], [phone], 4 13:36:28 rapid flu (A+B) 2023 [facility], [address] [place] [address], [phone], 4 13:36:29 rapid strep group A, throat 2023 [facility], [address] [place] [address], [phone], 4 13:36:30 Referral None recorded. Procedures None recorded. Surgeries None recorded. Imaging None recorded. Medication Orders fluticasone propionate 50 mcg/actuati on nasal spray,suspe nsion 2023 024 [id number], [address] [place], [address], 4 13:36:29 guaifenesin ER 600 mg tablet, extended release 12 hr 2023 024 [facility], [address] [place], [address], 4 13:36:28 benzonatate 100 mg capsule 2023 024 [facility], [address] [place], [address], 4 13:36:28 Patient TargetsNo targets recorded. Patient InstructionsNo instructions recorded. Reason for Referral None Reported. Results Created Date Observation Date Name Description Value Unit Range Abnormal Flag Note LastModifiedBy Organization Detail LastModifiedTime 05/16/19 24 05/16/2023 rapid strep group A, throa t Strep negati ve Not Available Main - [facility] ed [address] [place] [address], [phone], 05/16/2023 13:30:48 05/16/19 24 05/16/2023 rapid flu (A+B) Flu negati ve Not Available [facility] ed [address] [place] [address], [phone], 05/16/2023 13:30:39 05/16/19 24 05/16/2023 rapid SARS CoV 2 Ag, QL IA, respi rator y speci men rapid SARS CoV 2 Ag, QL IA, respiratory specimen negati ve Not Available [facility] ed [address] [place] [address], [phone], 05/16/2023 13:30:26 Result Notes None recorded. Medical [...] Address Organization Details Last Updated DateTime 4 84535.6 g 14 /min 98.4 [degF] 98 /min [...] SNOMED-CT Code Diagnosis ICD10 Code Diagnosis Note [id number] Thomas Garsia MD Main - [facility] [address] [place] [phone] 05/16/2023 13:24:32 05/17/2023 09:29:40 Viral upper respiratory tract infection 618992496 J06.9 Health Concerns Section Related Observation LastModified by Organization Detai ls LastModified Time None Recorded Concern Status LastModified by Organization Details LastModified Time None Recorded Advance Directives Directive None Recorded Payers Encounter Date Sequence Insurance Name Policy Number Policy Sinha Covered Member ID Sinha Member ID Guarantor Name 05/16/2023 1 [facility] - DOS ON OR AFTER 2022 - DUAL ELIGIBLE - ASSISTED OPTIONS AND ONE CARE (MEDICARE REPLACEMENT/AD VANTAGE - HMO) [facility] [id number] [facility] Notes Date Note Type Note Provider Name and Address Organization Details Recorded Time 05/16/2023 text/html This was a supervised home visit with linen supervisor Tuan Martin. CRC Nurse Triage Notes ([facility] [...] .................. .................. .................. .................. .................. .................. ............... System Software Programmer Note From Tuan Martin: PT caox3 complains [...] covid flu and strep via rapid POC. [facility] will Rx flonase, mucinex and benzonatate to pt's local pharmacy. Supportive care including nasal decongestant, fluids, nasal rinse, and red flags and pt education discussed. .................. .................. .................. .................. .................. .................. .................. ............... Disposition: Fulfilled Thomas Garsia MD [address] [facility],[address], [place], [phone], [employer] [facility] [place] 05/16/2023 15:12:32 OBGyn Episode No OBEpisode recorded.
--- OUTSIDE RECORDS SUMMARY | 2024-06-24 10:17 | XMS_ITS | Encounter Summary ---
Author Organization [facility] Address [address] [place] [address] Care Team Providers Care Inspector Insulation Name Role Phone Keiko Anguiano MD Primary Care Provider [phone] Encounter Details Date Type Department Care Team Description 03/05/2023 Pt. Non Urgent Medic al Question Adult Medicine - [place] [address] [place] [address] Keiko Anguiano MD [address] [place] [address] Social History Tobacco Use Types Packs/Day Years [...] on filedocumented in this encounter Care Teams Inspector Insulation Relationship Specialty Start Date End Date Keiko Anguiano MD [address] [place] [address] PCP - General Internal Medicine 10/11/20 documented as of this encounter
--- OUTSIDE RECORDS SUMMARY | 2024-06-24 10:17 | XMS_ITS | Encounter Summary ---
Author Organization [facility] Address [address] [place] [address] Care Team Providers Care Supervisor Last Model Department Name Role Phone Keiko Anguiano MD Primary Care Provider [phone] Encounter Details Date Type Department Care Team Description 06/18/2023 [facility] Medical Records [address] [place] [address] Zach Harris MD Social History Tobacco Use [...] on filedocumented in this encounter Care Teams Supervisor Last Model Department Relationship Specialty Start Date End Date Keiko Anguiano MD [address] [place] [address] PCP - General Internal Medicine 10/11/20 documented as of this encounter
== END 2024-06-24 10:19 | disposition home or self-care (01) ==
LOC: HO.RHE 09:14
PROVIDERS: PCP Internal Medicine; Visit Provider Student in an Organized Health Care Education/Training Program
DX: M06.09 Rheumatoid arthritis without rheumatoid factor, multiple sites (principal); M15.8 Other polyosteoarthritis; Z51.81 Encounter for therapeutic drug level monitoring; Z79.631 Long term (current) use of antimetabolite agent; Z79.620 Long term (current) use of immunosuppressive biologic
CPT/HCPCS: 99214; G2211

== ENCOUNTER 2024-06-24 09:13 | Outpatient (REF) | payer OTHER, SELFPAY ==
--- NOTE | ~2024-06-24 | XR_ITS ---
CLINICAL HISTORY: M54.9 - Dorsalgia, unspecified 3 view left ankle Comparison: None Findings: Bones intact. No dislocations. There are severe degenerative changes with marked joint space narrowing and bony productive changes at the talonavicular joint. No ankle effusion. No radiopaque foreign body. IMPRESSION: There are severe degenerative changes with marked joint space narrowing and bony productive changes at the talonavicular joint. This document has been electronically signed by: Joe López MD on 06/26/2024 07:41:16
--- NOTE | ~2024-06-24 | XR_ITS ---
EXAMINATION: XR LUMBAR SPINE 4 OR MORE VIEWS HISTORY: M54.9 - Dorsalgia, unspecified COMPARISON: There are no prior studies for comparison. FINDINGS: AP, lateral, bilateral oblique, and coned down views of the lumbar spine are submitted. Osseous mineralization is normal. Five nonrib-bearing lumbar vertebral bodies are identified, maintaining normal height without evidence of fracture. There is slight spondylolisthesis of L5 on S1. The intervertebral disc spaces are maintained. IUD is noted in the midline of the pelvis. XR/XR lumbar spine 4V min IMPRESSION: Slight spondylolisthesis of L5 on S1. Electronically signed by: Tre Amor MD 06/25/2024 07:43 AM EDT
--- NOTE | ~2024-06-24 | XR_ITS ---
CLINICAL HISTORY: M54.9 - Dorsalgia, unspecified 3 view right ankle Comparison: None Findings: No acute fractures. Ankle mortise intact. No significant arthritic change or erosions. No ankle effusion. No radiopaque foreign body. IMPRESSION: 1. No acute findings. This document has been electronically signed by: Joe López MD on 06/26/2024 07:41:52
--- OUTSIDE RECORDS SUMMARY | 2024-06-24 13:04 | XMS_ITS | Clinical Summary ---
Author Organization [facility] [address] [facility] lding Address [address] [place] [address] Phone Care Team Providers Care Hat Marker Name Role Phone Aby Anguiano MD Primary [...] 08/03/2021 Obstructive sleep apnea 12/13/2020 Overview (01/31/2024): [facility] Home Sleep Apnea Test: Date [...] Description 05/08/2024 8:02 AM EST Anesthesia Event [facility] Endoscopy [address] [place] [address] Tony Parham DO Pierce, Trudy A, CRNA 05/08/2024 7:07 AM EST - 05/08/2024 11:59 PM EST Hospital Encounter [facility] Endoscopy [address] [place] [address] Flo Fernandez MD Pierce, Trudy A, CRNA Dasilva, John E, MD Colon cancer screening Discharge Disposition: Home or Self Care 05/06/2024 Telephone Gastroenterology - [address] [address] Flo Fernandez MD 04/11/2024 Telephone Gastroenterology - [address] [address] Juju Novoa [place] 04/11/2024 Telephone Gastroenterology - [address] [address] Flo Fernandez MD from Last 3 Months [...] History Date Comments RA (rheumatoid arthritis) ([facility]) DX:RA (rheumatoid arthritis) ([facility]) Osteopenia DX:Osteopenia; C OMMENT: Fosamax Depression DX:Depression Seizure ([facility]) DX:Seizure ( C); COMMENT: x 2 JRA (juvenile rheumatoid art hritis) (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 For example, child nutrition assistant or elderly care for an older adult? [...] AM EDT Office Visit Adult Medicine [facility] [address] [place] [address] Jeffrey Cruz PA [address] [place] [address] Health Maintenance Due Date Last Done Comments [...] ? purposes. Narrative 05/08/2024 8:25 AM EST [facility] GI Patient Name: Carmenza House Procedure [...] neoplasm ? of colon CPT copyright 202 [employer]. All rights reserved. The codes documented in this report are preliminary and upon medical bill processor review may be revised to meet current compliance requirements. Flo Fernandez MD 05/08/2024 8:25:10 AM This report has been signed electronically.Flo Fernandez MD Number of Addenda: 0 Note Initiated On: 05/08/2024 8:05 AM Scope In: Scope Out: ? Endoscopy Department at [facility] - [address] [place] [address], ? [place] [address] Procedure Note Flo Fernandez MD - 05/08/2024 [facility] GI Patient Name: Carmenza House Procedure [...] for malignantneoplasm of colon CPT copyright 202 [employer]. All rights reserved. The codes documented in this report are preliminary and upon medical bill processor reviewmay be revised to meet current compliance requirements. Flo Fernandez MD 05/08/2024 8:25:10 AM This report has been signed electronically.Flo Fernandez MD Number of Addenda: 0 Note Initiated On: 05/08/2024 8:05 AM Scope In: Scope Out: Endoscopy Department at [facility] - [address] [place] [phone] IMPRESSION: - The entire examined colon is normal on direct and retroflexion views. - No specimens collected. Recommendation: - Repeat colonoscopy in 10 years for screening purposes. Flo Fernandez MD GI~PROCEDURE ORDERABLES Fin al Result * Hepatitis C antibody (04/22/2024 10:37 AM EST) [facility] Hepatitis C Antibody Negative Negative LAB CHEMISTRY METHOD 04/22/2024 3:00 PM [facility] Blood Venous blood specimen / Unknown Venipuncture / Unknown 04/22/2024 10:37 AM EST 04/22/2024 10:37 AM EST Jeffrey MEDRANO LAB BLOOD ORDERABLES Final Res ult [facility] [address] [place] [address], [place] [phone] * (ABNORMAL) Urinalysis with reflex microscopic (04/22/2024 10:37 AM EST) [facility] [place] Urine 1.020 1.003 - 1.030 LAB URINALYSIS [...] ORDERABLES Final Res ult Performing Organization Address [facility]/ZIP Co de Phone Number [facility] [address] [place] [address], [place] [phone] * (ABNORMAL) Thyroid stimulating hormone with reflex to free t4 and free t3 (04/22/2024 10:37 AM EST) TSH 4.41(H) 0.40 - 4.00 mcIU/mL LAB CHEMISTRY METHOD 04/22/2024 2:21 PM EST [facility] Blood Venous blood specimen / Unknown Venipuncture / Unknown 04/22/2024 10:37 AM EST 04/22/2024 10:37 AM EST Jeffrey MEDRANO LAB BLOOD ORDERABLES Final Res ult Performing Organization Address [facility] Co de Phone Number [facility] [address] [place] [address], [place] [phone] * Free thyroxine with reflex to free triiodothyronine (04/22/2024 10:37 AM EST) Free T4 1.14 0.70 - 1.80 ng/dL LAB CHEMISTRY METHOD 04/22/2024 2:46 PM EST [facility] Blood Venous blood specimen / Unknown Venipuncture / Unknown 04/22/2024 10:37 AM EST 04/22/2024 10:37 AM EST us Jeffrey MEDRANO LAB BLOOD ORDERABLES Final Res ult Performing Organization Address [facility] Co de Phone Number [facility] [address] [place] [address], [place] [phone] * (ABNORMAL) Lipid panel with reflex to direct LDL (04/22/2024 10:37 AM EST) Cholesterol 232(H) 0 - 200 mg/dL LAB CHEMISTRY METHOD 04/22/2024 2:13 PM [facility] Triglycerides 168(H) 0 - 150 mg/dL LAB CHEMISTRY METHOD 04/22/2024 2:13 PM [facility] HDL 64 >=40 mg/dL LAB [...] MEDRANO LAB BLOOD ORDERABLES Final Res ult [facility] [address] [place] [address], * (ABNORMAL) CBC auto differential (04/22/2024 10:37 AM EST) Pathologist [facility] WBC 7.5 4.8 - 10.8 K/mcL LAB [...] 04/22/2024 12:26 PM [facility] Neutrophils Absolute 3.98 1.50 - [...] MEDRANO LAB BLOOD ORDERABLES Final Res ult [facility] [address] [place] [address], * Vitamin D 1,25 dihydroxy (04/22/2024 10:37 AM EST) [facility] Vitamin D, 1, 25-Dihydroxy 45 20 - 79 pg/mL 04/24/2024 7:51 PM EST [facility] Comment: Vitamin D 1, 25 dihydroxy levels should be primarily used to assess Vitamin D status in patients with renal disease and hypercalcemia. Vitamin D 1,25-dihydroxy levels are generally less than 5 pg/mL in end stage renal disease patients. The preferred initial test for assessing Vitamin D status in the general population is Vitamin D 25-hydroxy (VITD). Test performed at [facility], [address] [place], [place] ??[address] ? [phone] Елена Ritchie MD, PhD - Dairy Equipment Specialist Blood Venous blood specimen / Unknown Venipuncture / Unknown 04/22/2024 10:37 AM EST 04/22/2024 10:37 AM EST Jeffrey MEDRANO LAB BLOOD ORDERABLES Final Res ult [facility] [address] [place] [address] * Triiodothyronine free (04/22/2024 10:37 AM EST) [facility] T3, Free 379 230 - 420 pcg/dL LAB CHEMISTRY METHOD 04/22/2024 3:11 PM EST [facility] Blood Venous blood specimen / Unknown Venipuncture / Unknown 04/22/2024 10:37 AM EST 04/22/2024 10:37 AM EST Jeffrey MEDRANO LAB BLOOD ORDERABLES Final Res ult [facility] [address] [place] [address], [place] [phone] * (ABNORMAL) Comprehensive metabolic panel (04/22/2024 10:37 AM EST) Only the most recent of2 resultswithin the time period is included. [facility] Sodium 137 133 - 145 mmol/L LAB CHEMISTRY METHOD 04/22/2024 2:13 PM [facility] Potassium 3.6 3.5 - 5.5 mmol/L LAB CHEMISTRY METHOD 04/22/2024 2:13 PM [facility] Chloride 105 96 - 110 mmol/L LAB CHEMISTRY METHOD 04/22/2024 2:13 PM [facility] CO2 29 21 - 32 [...] LAB CHEMISTRY METHOD 04/22/2024 2:13 PM EST [facility] Total Protein 7.4 6.0 - 8.0 g/dL LAB CHEMISTRY METHOD 04/22/2024 2:13 PM EST [facility] Albumin 4.1 3.2 - 5.0 g/dL LAB CHEMISTRY METHOD 04/22/2024 2:13 PM [facility] Total Bilirubin 0.3 0.0 - 1.4 mg/dL LAB CHEMISTRY METHOD 04/22/2024 2:13 PM EST [facility] Blood Venous blood specimen / Unknown Venipuncture / Unknown 04/22/2024 10:37 AM EST 04/22/2024 10:37 AM EST Jeffrey MEDRANO LAB BLOOD ORDERABLES Final Res ult [facility] [address] [place] [address], * Cervical Cancer Screening: HPV (10/20/2022) Cervical Cancer Screening: HPV No interpretation with Negative, abstracted Historical Provider HEALTH MAINTENANCE Final Result from Last 3 Months or Most Recently Relevant to Health Maintenance Insurance [facility] MEDIC[facility] Member Subscriber Plan / Payer (Ef fective 2018-Present) Name:Carmenza House Relation to Subscriber:Self Name:Carmenza House Payer ID:[id number] Group ID:[id number] Type:Not on file Address: [place] [address] [address] [place] [id number] Care Teams Hat Marker Relationship Specialty Start Date End Date Aby Anguiano MD [address] [place] [address] PCP - General Internal Medicine 10/11/20
== END 2024-06-24 09:14 | disposition home or self-care (01) ==
LOC: HO.XRAY 09:13
PROVIDERS: PCP Internal Medicine; Visit Provider Student in an Organized Health Care Education/Training Program
DX: Z13.89 Encounter for screening for other disorder (principal)
CPT/HCPCS: 72110; 73610

== ENCOUNTER 2024-06-24 10:31 | Outpatient (REF) | payer OTHER, SELFPAY ==
[2024-06-24 11:42] LABS: MANUAL DIFF FLAG NO
[2024-06-24 11:46] LABS: Basophils Absolute Auto 0.1 X10*3/uL (0.0-0.2); Basophils Percent Auto 0.9 % (0-2); Eosinophils Absolute Auto 0.4 X10*3/uL (0.0-0.4); Eosinophils Percent Auto 3.6 % (0-4); Hemoglobin 13.4 g/dl (12.0-16.0); Imm Gran Abs Auto 0.02 X10*3/uL (0.00-0.03); Imm Gran Pct Auto 0.2 % (0.0-0.4); Lymphocytes Absolute Auto 1.4 X10*3/uL (1.2-4.9); Lymphocytes Percent Auto 14.8 % (20-40); Mean Corpuscular HGB Conc 32.7 g/dl (31.0-35.0); Mean Corpuscular Hemoglobin 30.5 pg (27.0-33.0); Mean Corpuscular Volume 93.2 fL (80.0-98.0); Mean Platelet Volume 11.7 fL (9.4-12.3); Monocytes Absolute Auto 0.9 X10*3/uL (0.1-1.2); Monocytes Percent Auto 9.1 % (2-11); Neutrophils Percent Auto 71.4 % (45-73); Platelet Count 277 X10*3/uL (160-400); Red Cell Distribution Width 13.2 % (11.0-16.0); White Blood Count 9.8 X10*3/uL (4.8-10.8)
[2024-06-24 12:02] LABS: Alanine Aminotransferase 31 U/L (0-31); Alkaline Phosphatase 74 U/L (39-117); Anion Gap 9 (12-20); Aspartate Amino Transferase 31 U/L (5-31); Bilirubin Total 0.2 mg/dL (0.0-1.0); Blood Urea Nitrogen 7 mg/dL (9-16); C Reactive Protein 0.23 mg/dL (< or = 0.50); Calcium 8.9 mg/dL (8.4-10.2); Carbon Dioxide 28 mmol/L (22-29); Chloride 106 mmol/L (96-108); Estimated Glomerular Filt Rate > 60; Glucose Random 101 mg/dL (60-115); Sodium 139 mmol/L (135-145); Total Protein 7.4 g/dL (6.5-8.0)
[2024-06-24 12:24] LABS: Erythrocyte Sedimentation Rate 14 MM/HR (0-20)
--- OUTSIDE RECORDS SUMMARY | 2024-06-24 12:33 | XMS_ITS | Clinical Summary ---
Author Organization [facility] [address] [facility] Address [address] [place] [address] Phone Care Team Providers Care Mash Filter Operator Name Role Phone Aby Anugiano MD Primary Care Prov ider Allergies No [...] 08/03/2021 Obstructive sleep apnea 12/13/2020 Overview (01/31/2024): [facility] Home Sleep Apnea Test: Date 11/30/2020; [...] Description 05/08/2024 8:02 AM EST Anesthesia Event [facility] Endoscopy [address] [place] [address] Tony Parham DO Pierce, Trudy A, CRNA 05/08/2024 7:07 AM EST - 05/08/2024 11:59 PM EST Hospital Encounter [facility] Endoscopy [address] [place] [address] Flo Fernandez MD Pierce, Trudy A, CRNA Dasilva, John E, MD Colon cancer screening Discharge Disposition: Home or Self Care 05/06/2024 Telephone Gastroenterology - [address] [address] Flo Fernandez MD 04/11/2024 Telephone Gastroenterology - [address] [phone] Juju Novoa [place] 04/11/2024 Telephone Gastroenterology - [address] [address] Flo Fernandez MD from Last 3 Months [...] Medical History Date Comments RA (rheumatoid arthritis) ([facility]) DX:RA (rheumatoid arthritis) ([facility]) Osteopenia DX:Osteopenia; C OMMENT: Fosamax Depression DX:Depression Seizure ([facility]) DX:Seizure ( C); COMMENT: x 2 JRA (juvenile rheumatoid art hritis) ([facility]) 03/03/2008 DX:JRA (juvenile rheumatoid arthritis) ([facility]) Insomnia, unspecified 03/03/2008 DX:Insomni a, unspecified Depressive disorder, not els ewhere classified 03/03/2008 DX:Depressive disorder, not elsewhere classified Vitamin D deficiency DX:Vitamin D deficiency Anemia DX:Anemia Elevated serum alkaline phos phatase level DX:Elevated serum alkaline phosphatase level Allergic rhinitis 08/27/2013 DX:Allergic rh initis long term acute care registered nurse current use of immunosuppressive drug 07/11/2019 DX:long term acute care registered nurse current use of immunosuppressive drug Subclinical hypothyroidism [...] care for your loved ones. For example, child adolescent care or elderly care for an older adult? [...] 9:30 AM EDT Office Visit Adult Medicine [facility] [address] [place] [address] Jeffrey Cruz PA [address] [place] [address] Health Maintenance Due Date Last Done Comments [...] ? purposes. Narrative 05/08/2024 8:25 AM EST [facility] GI Patient Name: [facility] Procedure [...] neoplasm ? of colon CPT copyright 202 [employer]. All rights reserved. The codes documented in this report are preliminary and upon hogshead packer review may be revised to meet current compliance requirements. Flo Fernandez MD 05/08/2024 8:25:10 AM This report has been signed electronically.Flo Fernandez MD Number of Addenda: 0 Note Initiated On: 05/08/2024 8:05 AM Scope In: Scope Out: ? Endoscopy Department at [facility] - [address] [place] [address], ? [place] [address] Procedure Note Flo Fernandez MD - 05/08/2024 [facility] GI Patient Name: [facility] Procedure [...] for malignantneoplasm of colon CPT copyright 202 [employer]. All rights reserved. The codes documented in this report are preliminary and upon hogshead packer reviewmay be revised to meet current compliance requirements. Flo Fernandez MD 05/08/2024 8:25:10 AM This report has been signed electronically.Flo Fernandez MD Number of Addenda: 0 Note Initiated On: 05/08/2024 8:05 AM Scope In: Scope Out: Endoscopy Department at [facility] - [address] [place] [phone] IMPRESSION: - The entire examined colon is normal on direct and retroflexion views. - No specimens collected. Recommendation: - Repeat colonoscopy in 10 years for screening purposes. Flo Fernandez MD GI~PROCEDURE ORDERABLES Fin al Result * Hepatitis C antibody (04/22/2024 10:37 AM EST) [facility] Hepatitis C Antibody Negative Negative LAB CHEMISTRY METHOD 04/22/2024 3:00 PM [facility] Blood Venous blood specimen / Unknown Venipuncture / Unknown 04/22/2024 10:37 AM EST 04/22/2024 10:37 AM EST Jeffrey MEDRANO LAB BLOOD ORDERABLES Final Res ult [facility] [address] [place] [address], [place] [phone] * (ABNORMAL) Urinalysis with reflex microscopic (04/22/2024 10:37 AM EST) [facility] Specific [place] Urine 1.020 1.003 - 1.030 LAB URINALYSIS - AUTOMATED METHOD 04/22/2024 2:42 PM [facility] pH, Urine 6.0 5.0 - 8.0 pH LAB URINALYSIS - AUTOMATED METHOD 04/22/2024 2:42 PM [facility] Leukocytes, Urine Small(A) Negative LAB URINALYSIS - AUTOMATED METHOD 04/22/2024 2:42 PM [facility] Nitrite, Urine Positive(A) Negative LAB URINALYSIS - AUTOMATED METHOD 04/22/2024 2:42 PM [facility] Protein, Urine Negative <=Trace mg/dL LAB URINALYSIS - AUTOMATED METHOD 04/22/2024 2:42 PM [facility] Glucose, Urine Negative Negative mg/dL LAB URINALYSIS - AUTOMATED METHOD 04/22/2024 2:42 PM [facility] Ketones, Urine Negative Negative mg/dL LAB URINALYSIS - AUTOMATED METHOD 04/22/2024 2:42 PM [facility] Urobilinogen , Urine 0.2 0.2 - 1.0 mg/dL LAB URINALYSIS - AUTOMATED METHOD 04/22/2024 2:42 PM [facility] Bilirubin, Urine Negative Negative LAB URINALYSIS - AUTOMATED METHOD 04/22/2024 2:42 PM [facility] Blood, Urine Negative Negative LAB URINALYSIS - AUTOMATED METHOD 04/22/2024 2:42 PM [facility] RBC, Urine 2.1 0 - 4 /HPF LAB URINALYSIS - AUTOMATED METHOD 04/22/2024 2:42 PM [facility] WBC, Urine 40.5(H) 0 - 4 /HPF LAB URINALYSIS - AUTOMATED METHOD 04/22/2024 2:42 PM [facility] Squamous Epithelial, Urine >100(H) 0 - 60 /LPF LAB URINALYSIS - AUTOMATED METHOD 04/22/2024 2:42 PM [facility] Bacteria, Urine Many(A) Negative /HPF LAB URINALYSIS - AUTOMATED METHOD 04/22/2024 2:42 PM [facility] Hyaline Casts, Urine 0.00 0 - 3 /LPF LAB URINALYSIS - AUTOMATED METHOD 04/22/2024 2:42 PM [facility] Urine Urine specimen obtained by clean catch procedure / Unknown Non-blood Collection / Unknown 04/22/2024 10:37 AM EST 04/22/2024 10:37 AM EST us Jeffrey MEDRANO LAB URINE ORDERABLES Final Res ult Performing Organization Address [facility]/ZIP Co de Phone Number [facility] [address] [place] [address], [place] [phone] * (ABNORMAL) Thyroid stimulating hormone with reflex to free t4 and free t3 (04/22/2024 10:37 AM EST) TSH 4.41(H) 0.40 - 4.00 mcIU/mL LAB CHEMISTRY METHOD 04/22/2024 2:21 PM EST [facility] Blood Venous blood specimen / Unknown Venipuncture / Unknown 04/22/2024 10:37 AM EST 04/22/2024 10:37 AM EST Jeffrey MEDRANO LAB BLOOD ORDERABLES Final Res ult Performing Organization Address [facility] Co de Phone Number [facility] [address] [place] [address], [place] [phone] * Free thyroxine with reflex to free triiodothyronine (04/22/2024 10:37 AM EST) Free T4 1.14 0.70 - 1.80 ng/dL LAB CHEMISTRY METHOD 04/22/2024 2:46 PM EST [facility] Blood Venous blood specimen / Unknown Venipuncture / Unknown 04/22/2024 10:37 AM EST 04/22/2024 10:37 AM EST us Jeffrey MEDRANO LAB BLOOD ORDERABLES Final Res ult Performing Organization Address [facility] Co de Phone Number [facility] [address] [place] [address], [place] [phone] * (ABNORMAL) Lipid panel with reflex to direct LDL (04/22/2024 10:37 AM EST) Cholesterol 232(H) 0 - 200 mg/dL LAB CHEMISTRY METHOD 04/22/2024 2:13 PM [facility] Triglycerides 168(H) 0 - 150 mg/dL LAB CHEMISTRY METHOD 04/22/2024 2:13 PM [facility] HDL 64 >=40 mg/dL LAB CHEMISTRY METHOD 04/22/2024 2:13 PM [facility] LDL Calculated 134(H) 0 - 100 mg/dL LAB CHEMISTRY METHOD 04/22/2024 2:13 PM [facility] VLDL Cholesterol Joe 33.6 mg/dL LAB CHEMISTRY METHOD 04/22/2024 2:13 PM [facility] Non HDL Chol. (LDL+VLDL) 168(H) <145 mg/dL LAB CHEMISTRY METHOD 04/22/2024 2:13 PM [facility] Chol/HDL Ratio 3.6 0.0 - 4.4 LAB CHEMISTRY METHOD 04/22/2024 2:13 PM [facility] Blood Venous blood specimen / Unknown Venipuncture / Unknown 04/22/2024 10:37 AM EST 04/22/2024 10:37 AM EST us Jeffrey MEDRANO LAB BLOOD ORDERABLES Final Res ult [facility] [address] [place] [address], * (ABNORMAL) CBC auto differential (04/22/2024 10:37 AM EST) Pathologist [facility] WBC 7.5 4.8 - 10.8 K/mcL LAB HEMETOLOGY METHOD 04/22/2024 12:26 PM [facility] RBC 4.40 3.80 - 4.80 M/mcL LAB HEMETOLOGY METHOD 04/22/2024 12:26 PM [facility] Hemoglobin 13.6 11.5 - 16.0 g/dL LAB HEMETOLOGY METHOD 04/22/2024 12:26 PM [facility] Hematocrit 41.4 35.0 - 47.0 % LAB HEMETOLOGY METHOD 04/22/2024 12:26 PM [facility] MCV 94.1 79.0 - 98.0 FL LAB HEMETOLOGY METHOD 04/22/2024 12:26 PM [facility] MCH 30.9 27.0 - 32.0 pcg LAB HEMETOLOGY METHOD 04/22/2024 12:26 PM [facility] MCHC 32.9 32.0 - 37.0 g/dL LAB HEMETOLOGY METHOD 04/22/2024 12:26 PM [facility] RDW 13.0 11.0 - 15.0 % LAB HEMETOLOGY METHOD 04/22/2024 12:26 PM [facility] Platelets 331 130 - 400 K/mcL LAB HEMETOLOGY METHOD 04/22/2024 12:26 PM [facility] MPV 13.6(H) 7.0 - 11.0 FL LAB HEMETOLOGY METHOD 04/22/2024 12:26 PM [facility] NRBC 0.0 <1.0 % LAB HEMETOLOGY METHOD 04/22/2024 12:26 PM [facility] NRBC Absolute 0.00 <0.10 K/mcL LAB HEMETOLOGY METHOD 04/22/2024 12:26 PM [facility] Neutrophils Relative 52.8 % LAB HEMETOLOGY METHOD 04/22/2024 12:26 PM [facility] Lymphocytes Relative 31.6 % LAB HEMETOLOGY METHOD 04/22/2024 12:26 PM [facility] Monocytes Relative 7.6 % LAB HEMETOLOGY METHOD 04/22/2024 12:26 PM [facility] Eosinophils Relative 6.8 % LAB HEMETOLOGY METHOD 04/22/2024 12:26 PM [facility] Basophils Relative 0.9 % LAB HEMETOLOGY METHOD 04/22/2024 12:26 PM [facility] Immature Granulocytes Relative 0.3 % LAB HEMETOLOGY METHOD 04/22/2024 12:26 PM [facility] Neutrophils Absolute 3.98 1.50 - 7.00 K/mcL LAB HEMETOLOGY METHOD 04/22/2024 12:26 PM [facility] Lymphocytes Absolute 2.38 1.00 - 5.00 K/mcL LAB HEMETOLOGY METHOD 04/22/2024 12:26 PM [facility] Monocytes Absolute 0.57 0.20 - 1.00 K/mcL LAB HEMETOLOGY METHOD 04/22/2024 12:26 PM [facility] Eosinophils Absolute 0.51(H) 0.00 - 0.50 K/mcL LAB HEMETOLOGY METHOD 04/22/2024 12:26 PM [facility] Basophils Absolute 0.07 0.00 - 0.20 K/mcL LAB HEMETOLOGY METHOD 04/22/2024 12:26 PM [facility] Immature Granulocytes Absolute 0.02 0.00 - 0.03 K/mcL LAB HEMETOLOGY METHOD 04/22/2024 12:26 PM [facility] Blood Venous blood specimen / Unknown Venipuncture / Unknown 04/22/2024 10:37 AM EST 04/22/2024 10:37 AM EST us Jeffrey MEDRANO LAB BLOOD ORDERABLES Final Res ult [facility] [address] [place] [address], * Vitamin D 1,25 dihydroxy (04/22/2024 10:37 AM EST) [facility] Vitamin D, 1, 25-Dihydroxy 45 20 - 79 pg/mL 04/24/2024 7:51 PM EST [facility] Comment: Vitamin D 1, 25 dihydroxy levels should be primarily used to assess Vitamin D status in patients with renal disease and hypercalcemia. Vitamin D 1,25-dihydroxy levels are generally less than 5 pg/mL in end stage renal disease patients. The preferred initial test for assessing Vitamin D status in the general population is Vitamin D 25-hydroxy (VITD). Test performed at [facility], [address] [place], [place] ??[address] ? [phone] Елена Ritchie MD, PhD - Computer Numerical Control Grinder Blood Venous blood specimen / Unknown Venipuncture / Unknown 04/22/2024 10:37 AM EST 04/22/2024 10:37 AM EST Jeffrey MEDRANO LAB BLOOD ORDERABLES Final Res ult [facility] [address] [place] [address] * Triiodothyronine free (04/22/2024 10:37 AM EST) [facility] T3, Free 379 230 - 420 pcg/dL LAB CHEMISTRY METHOD 04/22/2024 3:11 PM EST [facility] Blood Venous blood specimen / Unknown Venipuncture / Unknown 04/22/2024 10:37 AM EST 04/22/2024 10:37 AM EST Jeffrey MEDRANO LAB BLOOD ORDERABLES Final Res ult [facility] [address] [place] [address], [place] [phone] * (ABNORMAL) Comprehensive metabolic panel (04/22/2024 10:37 AM EST) Only the most recent of2 resultswithin the time period is included. [facility] Sodium 137 133 - 145 mmol/L LAB CHEMISTRY METHOD 04/22/2024 2:13 PM [facility] Potassium 3.6 3.5 - 5.5 mmol/L LAB CHEMISTRY METHOD 04/22/2024 2:13 PM [facility] Chloride 105 96 - 110 mmol/L LAB CHEMISTRY METHOD 04/22/2024 2:13 PM [facility] CO2 29 21 - 32 mmol/L LAB CHEMISTRY METHOD 04/22/2024 2:13 PM [facility] Anion Gap 3 3 - 11 LAB CHEMISTRY METHOD 04/22/2024 2:13 PM [facility] Glucose 101(H) 70 - 100 mg/dL LAB CHEMISTRY METHOD 04/22/2024 2:13 PM [facility] BUN 8 5 - 25 mg/dL LAB CHEMISTRY METHOD 04/22/2024 2:13 PM [facility] Creatinine 0.88 0.50 - 1.10 mg/dL LAB CHEMISTRY METHOD 04/22/2024 2:13 PM [facility] eGFR 81 >=60 mL/min/1. 73m2 LAB CHEMISTRY METHOD 04/22/2024 2:13 PM [facility] Comment:Calculation based on the??Chronic Kidney Disease Epidemiology Collaboration (CKD-EPI) equation refit??without adjustment for race. BUN/Creatinine Ratio 9.1 LAB CHEMISTRY METHOD 04/22/2024 2:13 PM [facility] Calcium 8.8 8.5 - 10.5 mg/dL LAB CHEMISTRY METHOD 04/22/2024 2:13 PM [facility] AST (SGOT) 16 10 - 42 unit/L LAB CHEMISTRY METHOD 04/22/2024 2:13 PM [facility] ALT (SGPT) 23 10 - 60 unit/L LAB CHEMISTRY METHOD 04/22/2024 2:13 PM [facility] Alkaline Phosphatase 71 42 - 121 unit/L LAB CHEMISTRY METHOD 04/22/2024 2:13 PM EST [facility] Total Protein 7.4 6.0 - 8.0 g/dL LAB CHEMISTRY METHOD 04/22/2024 2:13 PM EST [facility] Albumin 4.1 3.2 - 5.0 g/dL LAB CHEMISTRY METHOD 04/22/2024 2:13 PM [facility] Total Bilirubin 0.3 0.0 - 1.4 mg/dL LAB CHEMISTRY METHOD 04/22/2024 2:13 PM EST [facility] Blood Venous blood specimen / Unknown Venipuncture / Unknown 04/22/2024 10:37 AM EST 04/22/2024 10:37 AM EST Jeffrey MEDRANO LAB BLOOD ORDERABLES Final Res ult [facility] [address] [place] [address], * Cervical Cancer Screening: HPV (10/20/2022) Cervical Cancer Screening: HPV No interpretation with Negative, abstracted Historical Provider HEALTH MAINTENANCE Final Result from Last 3 Months or Most Recently Relevant to Health Maintenance Insurance [facility] MEDICARE Member Subscriber Plan / Payer (Ef fective 2018-Present) Name:[facility] Relation to Subscriber:Self Name:[facility] Payer ID:[id number] Group ID:[id number] Type:Not on file Address: [place] [address] [address] [phone] Care Teams Mash Filter Operator Relationship Specialty Start Date End Date Aby Anguiano MD [address] [place] [address] PCP - General Internal Medicine 10/11/20
[2024-06-24 13:05] LABS: HBS Num1 12.56 mIU/mL (0-7.99); HBsAGNum1 0.42 S/CO (0.00-0.99); HIV AB/AG Nonreactive (Nonreactive); HIV Num 1 0.05 S/CO (0.00-0.99); Hepatitis A Antibody IgM 0.17 Index (0-0.79); Hepatitis B Core Antibody Nonreactive (Nonreactive); Hepatitis B Surface Antigen Negative (Negative); ~HepC Num1 0.11 S/CO (0.00-0.79); ~Hepatitis A Antibody IgM Nonreactive (Nonreactive); ~Hepatitis B Surface Antibody REACTIVE (Nonreactive); ~Hepatitis C Antibody Nonreactive (Nonreactive)
[2024-06-27 00:24] LABS: TS Negative Control Passed; TS Panel A 0; TS Panel B 0; TS Positive Control Passed; TSpotTB Negative (Negative)
== END 2024-06-24 10:32 | disposition home or self-care (01) ==
LOC: HO.10HDL 10:31
PROVIDERS: Visit Provider Student in an Organized Health Care Education/Training Program
DX: M54.9 Dorsalgia, unspecified (principal); M06.00 Rheumatoid arthritis without rheumatoid factor, unspecified site; G89.29 Other chronic pain; M19.279 Secondary osteoarthritis, unspecified ankle and foot; M19.90 Unspecified osteoarthritis, unspecified site; Z51.81 Encounter for therapeutic drug level monitoring; Z79.631 Long term (current) use of antimetabolite agent; Z79.620 Long term (current) use of immunosuppressive biologic
CPT/HCPCS: 36415; 72110; 73610; 80053; 85025; 85652; 86140; 86481; 86704; 86706; 86709; 86803; 87340; 87389; 99212

== ENCOUNTER → 2024-06-24 10:53 | Outpatient (BNV) | payer OTHER, SELFPAY | PROVIDERS: PCP Internal Medicine; Visit Provider Radiology Diagnostic Radiology | DX: M19.071 Primary osteoarthritis, right ankle and foot (principal); M19.072 Primary osteoarthritis, left ankle and foot | CPT/HCPCS: 72110; 73610 ==

== ENCOUNTER 2024-08-08 08:57 | Outpatient (REF) | payer OTHER, SELFPAY ==
--- NOTE | ~2024-08-08 | MM_ITS ---
EXAMINATION: DXA BONE DENSITY AXIAL HISTORY: M81.0 - Age-related osteoporosis without current pathological fracture TECHNIQUE: [employer] [place] Dual energy absorptiometry (DEXA) of the lumbar spine, total left hip, and femoral neck was performed. COMPARISON: There are no prior studies for comparison. FINDINGS: The bone mineral density of the lumbar spine is 1.024 with a T-score of -1.3, and a Z-score of -0.6. This is indicative of osteopenia. The bone mineral density of the left total hip is 0.797 with a T-score of -1.7, and a Z-score of -1.0. This is indicative of osteopenia. The bone mineral density of the left femoral neck is 0.928 with a T-score of -0.8, and a Z-score of 0.2. This is indicative of normal bone mineral density. FRACTURE RISK: The FRAX index suggests a risk of major osteoporotic fracture of 7.4%, and of hip fracture 0.7%. MM/XR DEXA axial skeleton IMPRESSION: Based on bone mineral density, and according to World Health Organization (WHO) criteria, the diagnosis is consistent with osteopenia. All bone density values are in grams per centimeter squared (g/cm2). Statistically, 68% of repeat scans fall within 1 SD (+/- 0.010 g/cm2 for AP spine L1-L4) and 1 SD (+/- 0.012 g/cm2 for femur total) FRAX is a trademark of the [employer]'s [place] for Metabolic Bone Disease, a World Health Organization (WHO) Collaborating Center. Electronically signed by: Tre Amor MD 08/08/2024 11:29 AM EDT
--- OUTSIDE RECORDS SUMMARY | 2024-08-08 09:03 | XMS_ITS | Encounter Summary ---
Author Organization [facility] Address [address] [place] [address] Care Team Providers Care Shingle Trimmer Name Role Phone Keiko Anguiano MD Primary Care Provider [phone] Encounter Details Date Type Department Care Team Description 11/17/2021 Coordinator Hotels Report Medical Records [address] [place] [address] Wali Sawyer MD Social History Tobacco Use [...] on filedocumented in this encounter Care Teams Shingle Trimmer Relationship Specialty Start Date End Date Keiko Anguiano MD [address] [place] [address] PCP - General Internal Medicine 10/11/20 documented as of this encounter
--- OUTSIDE RECORDS SUMMARY | 2024-08-08 09:03 | XMS_ITS | Encounter Summary ---
Author Organization [facility] Address [address] [place] [address] Care Team Providers Care Taste Tester Name Role Phone Lorin Norton MD Primary Care Provider Ameena Thompson MD Primary Care Provider Giovanna Anguiano Ch MD Primary Care Provider [phone] Reason for Visit * Reason Comments E-prescribe Rx Request Encounter Details Date Type Department Care Team Description 10/17/2018 Refill Rheumatology - [place] [address] [place] [address] Haile Rodriguez MD E-prescribe Rx Request Social [...] ? Patients current insurance carrier is: Payor: [employer] [facility] MCR / Plan: [facility] / Product Type: HMO [id number] ? documented in this encounter Plan of Treatment Not on file documented as of this encounter Visit Diagnoses Diagnosis Seronegative rheumatoid arthritis (HCC) Rheumatoid arthritis documented in this encounter Care Teams Taste Tester Relationship Specialty Start Date End Date Lorin Norton MD PCP - General Internal Medicine 01/25/15 07/15/20 Ameena Medellin MD PCP - General Internal Medicine 07/16/20 10/10/20 Keiko Anguiano MD [address] [place] [address] PCP - General Internal Medicine 10/11/20 documented as of this encounter
--- OUTSIDE RECORDS SUMMARY | 2024-08-08 09:03 | XMS_ITS | Encounter Summary ---
Author Organization [facility] Address [address] [place] [address] Care Team Providers Care Health And Nutrition Specialist Name Role Phone Lorin Norton MD Primary Care Provider Ameena Thompson MD Primary Care Provider Giovanna Anguiano Ch MD Primary Care Provider [phone] Encounter Details Date Type Department Care Team Description 03/21/2019 [facility] Medical Records [address] [place] [address] Abstract, Provider Social History Tobacco Use Types [...] on filedocumented in this encounter Care Teams Health And Nutrition Specialist Relationship Specialty Start Date End Date Lorin Norton MD PCP - General Internal Medicine 01/25/15 07/15/20 Ameena Medellin MD PCP - General Internal Medicine 07/16/20 10/10/20 Keiko Anguiano MD [address] [place] [address] PCP - General Internal Medicine 10/11/20 documented as of this encounter
--- OUTSIDE RECORDS SUMMARY | 2024-08-08 09:03 | XMS_ITS | Encounter Summary ---
Author Organization [facility] Address [address] [place] [address] Care Team Providers Care Supervisor Bottle House Cleaners Name Role Phone Ameena Medellin MD Primary Care Provider Giovanna Anguiano Ch MD Primary Care Provider [phone] Reason for Visit * Reason Onset Date Comments Prior Authorization 08/27/2020 Encounter Details Date Type Department Care Team Description 08/27/2020 Telephone Rheumatology - [place] [address] [place] [address] Haile Rodriguez MD Prior Authorization Social History [...] Approval dates to pharmacy Script faxed to [facility] Papers filed. Patient notified Provider notified * Telephone Encounter - Haile Rodriguez MD - 08/29/2020 8:25 PM EDT CMMeds form completed on line Haile Rodriguez MD * Telephone Encounter - Johanna SanchezPHerbieN. - 08/27/2020 11:33 AM EDT Prior authorization CCA filled out on CMM and forwarded to provider. Humira pen 40 mg /0.4 ml ID # [id number] To be faxed to [facility] Special[facility] pharmacy documented in this encounter Plan of Treatment Not on file documented as of this encounter Visit Diagnoses Diagnosis Seronegative rheumatoid arthritis (HCC)- Primary Rheumatoid arthritis documented in this encounter Care Teams Supervisor Bottle House Cleaners Relationship Specialty Start Date End Date Ameena Medellin MD PCP - General Internal Medicine 07/16/20 10/10/20 Keiko Anguiano MD [address] [place] [address] PCP - General Internal Medicine 10/11/20 documented as of this encounter
--- OUTSIDE RECORDS SUMMARY | 2024-08-08 09:03 | XMS_ITS | Encounter Summary ---
Author Organization [facility] Address [address] [place] [address] Care Team Providers Care Office Agent Name Role Phone Lorin Norton MD Primary Care Provider Ameena Thompson MD Primary Care Provider Giovanna Anguiano Ch MD Primary Care Provider [phone] Reason for Visit * Reason Comments E-prescribe Rx Request Encounter Details Date Type Department Care Team Description 03/17/2019 Refill Medicine/Pediatrics - [address] [address] Jase Lemos MD E-prescribe Rx Request Social [...] N/A Patients current insurance carrier is: Payor: [employer] [facility] MCR / Plan: [facility] / Product Type: HMO [id number] documented in this encounter Plan of Treatment Not on file documented as of this encounter Visit Diagnoses Not on filedocumented in this encounter Care Teams Office Agent Relationship Specialty Start Date End Date Lorin Norton MD PCP - General Internal Medicine 01/25/15 07/15/20 Ameena Medellin MD PCP - General Internal Medicine 07/16/20 10/10/20 Keiko Anguiano, [address] [place] [address] PCP - General Internal Medicine 10/11/20 documented as of this encounter
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
--- OUTSIDE RECORDS SUMMARY | 2024-08-08 09:03 | XMS_ITS | Encounter Summary ---
Author Organization [facility] Address [address] [place] [address] Care Team Providers Care Mold Construction Supervisor Name Role Phone Tim Flor MD Primary Care Provider Unavail Lorin Mejía MD Primary Care Provider Ameena Thompson MD Primary Care Provider Unavailronen Anguiano Ch MD Primary Care Provider [phone] Encounter Details Date Type Department Care Team Description 04/29/2014 COAL BAGGER/[facility] Report Medical Records [address] [place] [address] Abstract, Provider Social History Tobacco Use Types [...] on filedocumented in this encounter Care Teams Mold Construction Supervisor Relationship Specialty Start Date End Date Tim Flor MD PCP - General 01/06/08 01/24/15 Lorin Norton MD PCP - General Internal Medicine 01/25/15 07/15/20 Ameena Medellin MD PCP - General Internal Medicine 07/16/20 10/10/20 Keiko Anguiano, [address] [place] [address] [phone] PCP - General Internal Medicine 10/11/20 documented as of this encounter
--- OUTSIDE RECORDS SUMMARY | 2024-08-08 09:03 | XMS_ITS | Encounter Summary ---
Author Organization [facility] Address [address] [place] [address] Care Team Providers Care Manager Shop Name Role Phone Tim Flor MD Primary Care Provider Unavail Lorin Mejía MD Primary Care Provider Ameena Thompson MD Primary Care Provider Unavailronen Anguiano Ch MD Primary Care Provider [phone] Encounter Details Date Type Department Care Team Description 08/12/2013 Health Care Marketing Specialist Report Medical Records [address] [place] [address] Tuan Mota MD Social History Tobacco Use [...] filedocumented in this encounter Care Teams Manager Shop Relationship Specialty Start Date End Date Tim Flor MD PCP - General 01/06/08 01/24/15 Lorin Norton MD PCP - General Internal Medicine 01/25/15 07/15/20 Ameena Medellin MD PCP - General Internal Medicine 07/16/20 10/10/20 Keiko Anguiano, [address] [place] [address] [id number] PCP - General Internal Medicine 10/11/20 documented as of this encounter
--- OUTSIDE RECORDS SUMMARY | 2024-08-08 09:03 | XMS_ITS | Encounter Summary ---
Author Organization [facility] Address [address] [place] [address] Care Team Providers Care Clay Temperer Name Role Phone Lorin Norton MD Primary Care Provider Ameena Thompson MD Primary Care Provider Giovanna Anguiano Ch MD Primary Care Provider [phone] Encounter Details Date Type Department Care Team Description 12/24/2018 [facility] Medical Records [address] [place] [address] Abstract, Provider Social History Tobacco Use Types [...] on filedocumented in this encounter Care Teams Clay Temperer Relationship Specialty Start Date End Date Lorin Norton MD PCP - General Internal Medicine 01/25/15 07/15/20 Ameena Medellin MD PCP - General Internal Medicine 07/16/20 10/10/20 Keiko Anguiano MD [address] [place] [id number] PCP - General Internal Medicine 10/11/20 documented as of this encounter
--- OUTSIDE RECORDS SUMMARY | 2024-08-08 09:03 | XMS_ITS | Encounter Summary ---
Author Organization [facility] Address [address] [place] [address] Care Team Providers Care Humanities Coordinator Name Role Phone Tim Flor MD Primary Care Provider Unavail Lorin Mejía MD Primary Care Provider Ameena Thompson MD Primary Care Provider Unavailronen Anguiano Ch MD Primary Care Provider [phone] Encounter Details Date Type Department Care Team Description 10/02/2013 Test Equipment Mechanic Report Medical Records [address] [place] [address] Gerson Tinajero Social History Tobacco Use Types [...] on filedocumented in this encounter Care Teams Humanities Coordinator Relationship Specialty Start Date End Date Tim Flor MD PCP - General 01/06/08 01/24/15 Lorin Norton MD PCP - General Internal Medicine 01/25/15 07/15/20 Ameena Medellin MD PCP - General Internal Medicine 07/16/20 10/10/20 Keiko Anguiano, [address] [place] [address] [id number] PCP - General Internal Medicine 10/11/20 documented as of this encounter
--- OUTSIDE RECORDS SUMMARY | 2024-08-08 09:03 | XMS_ITS | Encounter Summary ---
Author Organization [facility] Address [address] [place] [address] Care Team Providers Care Automobile Parker Name Role Phone Lorin Norton MD Primary Care Provider Ameena Thompson MD Primary Care Provider Giovanna Anguiano Ch MD Primary Care Provider [phone] Reason for Visit * Reason Onset Date Comments Prior Authorization 08/11/2019 FUADIRA APPRO DELLA Encounter Details Date Type Department Care Team Description 08/11/2019 Telephone Rheumatology - [address] [address] Haile Rodriguez MD Prior Authorization (HUMIRA APPROVED) [...] on filedocumented in this encounter Care Teams Automobile Parker Relationship Specialty Start Date End Date Lorin Norton MD PCP - General Internal Medicine 01/25/15 07/15/20 Ameena Medellin MD PCP - General Internal Medicine 07/16/20 10/10/20 Keiko Anguiano MD [address] [place] [id number] PCP - General Internal Medicine 10/11/20 documented as of this encounter
--- OUTSIDE RECORDS SUMMARY | 2024-08-08 09:03 | XMS_ITS | Encounter Summary ---
Author Organization [facility] Address [address] [place] [address] Care Team Providers Care Watch Train Assembler Name Role Phone Lorin Norton MD Primary Care Provider Ameena Thompson MD Primary Care Provider Giovanna Anguiano Ch MD Primary Care Provider [phone] Reason for Visit * Reason Comments E-prescribe Rx Request Encounter Details Date Type Department Care Team Description 06/24/2019 Refill Rheumatology - [place] [address] [place] [id number] Haile Rodriguez MD E-prescribe Rx Request Social [...] Miscellaneous Notes * Telephone Encounter - Lizette Dnucan M.A. - 06/24/2019 2:05 PM EDT Last [...] N/A Patients current insurance carrier is: Payor: [employer] MCR / Plan: [facility] / Product Type: HMO [id number] * Telephone Encounter - Gwendolyn Abbott - [...] N/A Patients current insurance carrier is: Payor: [employer] [facility] [employer] MCR / Plan: [facility] / Product Type: HMO [id number] documented in this encounter Plan of Treatment Not on file documented as of this encounter Visit Diagnoses Diagnosis Seronegative rheumatoid arthritis (HCC) Rheumatoid arthritis documented in this encounter Care Teams Watch Train Assembler Relationship Specialty Start Date End Date Lorin Norton MD PCP - General Internal Medicine 01/25/15 07/15/20 Ameena Medellin MD PCP - General Internal Medicine 07/16/20 10/10/20 Keiko Anguiano MD [address] [place] [id number] PCP - General Internal Medicine 10/11/20 documented as of this encounter
--- OUTSIDE RECORDS SUMMARY | 2024-08-08 09:03 | XMS_ITS | Encounter Summary ---
Author Organization [facility] Address [address] [place] [address] Care Team Providers Care Interdisciplinary Professor Name Role Phone Lorin Norton MD Primary Care Provider Ameena Thompson MD Primary Care Provider Giovanna Anguiano Ch MD Primary Care Provider [phone] Encounter Details Date Type Department Care Team Description 04/02/2015 DIRECTORY OPERATOR/[facility] Report Medical Records [address] [place] [address] Abstract, Provider Social History Tobacco Use Types Packs/Day Years Used Date Smoking Tobacco: Every Day Cigarettes 0.5 17 Smokeless Tobacco: Never Alcohol Use Standard [...] on filedocumented in this encounter Care Teams Interdisciplinary Professor Relationship Specialty Start Date End Date Lorin Norton MD PCP - General Internal Medicine 01/25/15 07/15/20 Ameena Medellin MD PCP - General Internal Medicine 07/16/20 10/10/20 Keiko Anguiano MD [address] [place] [phone] PCP - General Internal Medicine 10/11/20 documented as of this encounter
--- OUTSIDE RECORDS SUMMARY | 2024-08-08 09:03 | XMS_ITS | Encounter Summary ---
Author Organization [facility] Address [address] [place] [address] Care Team Providers Care Chain Carrier Name Role Phone Lorin Norton MD Primary Care Provider Ameena Thompson MD Primary Care Provider Giovanna Anguiano Ch MD Primary Care Provider [phone] Encounter Details Date Type Department Care Team Description 10/24/2016 [facility] Medical Records [address] [place] [address] Abstract, Provider Social History Tobacco Use Types [...] on filedocumented in this encounter Care Teams Chain Carrier Relationship Specialty Start Date End Date Lorin Norton MD PCP - General Internal Medicine 01/25/15 07/15/20 Ameena Medellin MD PCP - General Internal Medicine 07/16/20 10/10/20 Keiko Anguiano MD [address] [place] [phone] PCP - General Internal Medicine 10/11/20 documented as of this encounter
--- OUTSIDE RECORDS SUMMARY | 2024-08-08 09:03 | XMS_ITS | Encounter Summary ---
Author Organization [facility] Address [address] [place] [address] Care Team Providers Care Track Service Person Name Role Phone Tim Flor MD Primary Care Provider Unavail Lorin Mejía MD Primary Care Provider Ameena Thompson MD Primary Care Provider Giovanna Anguiano Ch MD Primary Care Provider [phone] Encounter Details Date Type Department Care Team Description 10/06/2013 Release of Information Medical Records [address] [place] [address] Abstract, Provider Social History Tobacco Use Types [...] on filedocumented in this encounter Care Teams Track Service Person Relationship Specialty Start Date End Date Tim Flor MD PCP - General 01/06/08 01/24/15 Lorin Norton MD PCP - General Internal Medicine 01/25/15 07/15/20 Ameena Medellin MD PCP - General Internal Medicine 07/16/20 10/10/20 Keiko Anguiano MD [address] [place] [id number] PCP - General Internal Medicine 10/11/20 documented as of this encounter
--- OUTSIDE RECORDS SUMMARY | 2024-08-08 09:03 | XMS_ITS | Encounter Summary ---
Author Organization [facility] [facility] Address [address] [place] [address] Care Team Providers Care Computer Forensics Investigator Name Role Phone Lorin Norton MD Primary Care Provider Ameena Thompson MD Primary Care Provider Giovanna Anguiano Ch MD Primary Care Provider [phone] Encounter Details Date Type Department Care Team Description 02/15/2017 [facility] Medical Records [address] [place] [address] Abstract, Provider Social History Tobacco Use Types [...] on filedocumented in this encounter Care Teams Computer Forensics Investigator Relationship Specialty Start Date End Date Lorin Norton MD PCP - General Internal Medicine 01/25/15 07/15/20 Ameena Medellin MD PCP - General Internal Medicine 07/16/20 10/10/20 Keiko Anguiano MD [address] [place] [phone] PCP - General Internal Medicine 10/11/20 documented as of this encounter
--- OUTSIDE RECORDS SUMMARY | 2024-08-08 09:04 | XMS_ITS | Encounter Summary ---
Author Organization [facility] Address [address] [place] [address] Care Team Providers Care Police Commanding Officer Name Role Phone Lorin Norton MD Primary Care Provider Ameena Thompson MD Primary Care Provider Giovanna Anguiano Ch MD Primary Care Provider [phone] Encounter Details Date Type Department Care Team Description 07/09/2018 [facility] Medical Records [address] [place] [address] Abstract, Provider Social History Tobacco Use Types [...] on filedocumented in this encounter Care Teams Police Commanding Officer Relationship Specialty Start Date End Date Lorin Norton MD PCP - General Internal Medicine 01/25/15 07/15/20 Ameena Medellin MD PCP - General Internal Medicine 07/16/20 10/10/20 Keiko Anguiano MD [address] [place] [phone] PCP - General Internal Medicine 10/11/20 documented as of this encounter
--- OUTSIDE RECORDS SUMMARY | 2024-08-08 09:04 | XMS_ITS | Encounter Summary ---
Author Organization [facility] Address [address] [place] [address] Care Team Providers Care Data Entry Analyst Name Role Phone Lorin Norton MD Primary Care Provider Ameena Thompson MD Primary Care Provider Giovanna Anguiano Ch MD Primary Care Provider +1 -[phone] Encounter Details Date Type Department Care Team Description 02/18/2018 [facility] Medical Records [address] [place] [address] Abstract, Provider Social History Tobacco Use Types [...] filedocumented in this encounter Care Teams Data Entry Analyst Relationship Specialty Start Date End Date Lorin Norton MD PCP - General Internal Medicine 01/25/15 07/15/20 Ameena Medellin MD PCP - General Internal Medicine 07/16/20 10/10/20 Keiko Anguiano MD [address] [place] [address] PCP - General Internal Medicine 10/11/20 documented as of this encounter
--- OUTSIDE RECORDS SUMMARY | 2024-08-08 09:04 | XMS_ITS | Encounter Summary ---
Author Organization [facility] Address [address] [place] [address] Care Team Providers Care Baggage Porter Head Name Role Phone Tim Flor MD Primary Care Provider Unavail Lorin Mejía MD Primary Care Provider Ameena Thompson MD Primary Care Provider Unavailronen Anguiano Ch MD Primary Care Provider +1 -[phone] Encounter Details Date Type Department Care Team Description 05/22/2012 Restaurant Cook Report Medical Records [address] [place] [address] Jeffrey Dejesus Social History Tobacco Use Types [...] on filedocumented in this encounter Care Teams Baggage Porter Head Relationship Specialty Start Date End Date Tim Flor MD PCP - General 01/06/08 01/24/15 Lorin Norton MD PCP - General Internal Medicine 01/25/15 07/15/20 Ameena Medellin MD PCP - General Internal Medicine 07/16/20 10/10/20 Keiko Anguiano MD [address] [place] [address] PCP - General Internal Medicine 10/11/20 documented as of this encounter
--- OUTSIDE RECORDS SUMMARY | 2024-08-08 09:04 | XMS_ITS | Encounter Summary ---
Author Organization [facility] Address [address] [place] [address] Care Team Providers Care Top Trimmer Name Role Phone Keiko Anguiano MD Primary Care Provider +1 -[phone] Encounter Details Date Type Department Care Team Description 06/18/2023 [facility] Medical Records [address] [place] [address] Zach Harris MD Social History Tobacco Use [...] on filedocumented in this encounter Care Teams Top Trimmer Relationship Specialty Start Date End Date Keiko Anguiano MD [address] [place] [address] PCP - General Internal Medicine 10/11/20 documented as of this encounter
--- OUTSIDE RECORDS SUMMARY | 2024-08-08 09:04 | XMS_ITS | Encounter Summary ---
Author Organization [facility] Address [address] [place] [address] Care Team Providers Care Director Of Physical Security Name Role Phone Lorin Norton MD Primary Care Provider Ameena Thompson MD Primary Care Provider Giovanna Anguiano Ch MD Primary Care Provider +1 -[phone] Encounter Details Date Type Department Care Team Description 06/15/2020 Orders Only Medical Records [address] [place] [address] Ameena Medellin MD Social History Tobacco Use [...] filedocumented in this encounter Care Teams Director Of Physical Security Relationship Specialty Start Date End Date Lorin Norton MD PCP - General Internal Medicine 01/25/15 07/15/20 Ameena Medellin MD PCP - General Internal Medicine 07/16/20 10/10/20 Keiko Anguiano, [address] [place] [address] PCP - General Internal Medicine 10/11/20 documented as of this encounter
--- OUTSIDE RECORDS SUMMARY | 2024-08-08 09:04 | XMS_ITS | Encounter Summary ---
Author Organization [facility] Address [address] [place] [address] Care Team Providers Care Silver Plater Name Role Phone Tim Flor MD Primary Care Provider Unavail Lorin Mejía MD Primary Care Provider Ameena Thompson MD Primary Care Provider Giovanna Anguiano Ch MD Primary Care Provider +1 -[phone] Encounter Details Date Type Department Care Team Description 04/05/2011 Business Doc Medical Records [address] [place] [address] Abstract, Provider Social History Tobacco Use Types [...] on filedocumented in this encounter Care Teams Silver Plater Relationship Specialty Start Date End Date Tim Flor MD PCP - General 01/06/08 01/24/15 Lorin Norton MD PCP - General Internal Medicine 01/25/15 07/15/20 Ameena Medellin MD PCP - General Internal Medicine 07/16/20 10/10/20 Keiko Anguiano MD [address] [place] [address] [id number] PCP - General Internal Medicine 10/11/20 documented as of this encounter
--- OUTSIDE RECORDS SUMMARY | 2024-08-08 09:04 | XMS_ITS | Encounter Summary ---
Author Organization [facility] Address [address] [place] [address] Care Team Providers Care Carpenter Mate Name Role Phone Keiko Anguiano MD Primary Care Provider +1 -[phone] Encounter Details Date Type Department Care Team Description 12/27/2023 Refill Adult Medicine - [place] [address] [place] [address] Jeffrey Cruz PA-C [address] [place] [address] Social History Tobacco Use Types Packs/Day Years [...] arthritis documented in this encounter Care Teams Carpenter Mate Relationship Specialty Start Date End Date Keiko Anguiano MD [address] [place] [address] PCP - General Internal Medicine 10/11/20 documented as of this encounter
--- OUTSIDE RECORDS SUMMARY | 2024-08-08 09:04 | XMS_ITS | Encounter Summary ---
Author Organization [facility] Address [address] [place] [address] Care Team Providers Care Director Of Group Sales Name Role Phone Lorin Norton MD Primary Care Provider Ameena Thompson MD Primary Care Provider Giovanna Anguiano Ch MD Primary Care Provider +1 -[phone] Reason for Visit * Reason Onset Date Comments refill request 04/15/2020 Encounter Details Date Type Department Care Team Description 04/15/2020 Refill Rheumatology - [place] [address] [place] [address] Haile Rodriguez MD refill request Social History [...] N/A Patients current insurance carrier is: Payor: 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
--- OUTSIDE RECORDS SUMMARY | 2024-08-08 09:04 | XMS_ITS | Data Portability ---
Author Organization [facility] Address [address] [place] [address] Care Team Providers Care Compliance Examiner Name Role Phone [facility] Referring Provider [phone] Assessment Encounter Date Assessment Date Assessment LastModified by Organization Details LastModified Time 05/16/2023 05/16/2023 I have reviewed and agree with the assessment and plan as documented by the hoop punch operator helper. I provided real time medical direction for this encounter and was immediately available to provide additional phone based assistance as needed. History as noted by hoop punch operator helper. Pt with history of RA on MTX, [...] 2 Ag, QL [place], respiratory specimen [facility], [address] [place] [address], [phone] 4 13:36:28 rapid flu (A+B) 2023 024 [facility] Main - [facility], [address] [place] [address], [id number] 4 13:36:29 rapid strep group A, throat 2023 024 [facility] Main - [facility], [address] [place] [address], [phone] 13:36:30 Referral None recorded. Procedures None recorded. Surgeries None recorded. Imaging None recorded. Medication Orders fluticasone propionate 50 mcg/actuati on nasal spray,suspe nsion 2023 024 [facility][id number], [address] [place], [address], 4 13:36:29 guaifenesin ER 600 mg tablet, extended release 12 hr 2023 024 [facility], [address] [place], [address], 4 13:36:28 benzonatate 100 mg capsule 2023 024 [facility] [address] [place], [address], 4 13:36:28 Patient TargetsNo targets recorded. Patient InstructionsNo instructions recorded. Reason for Referral None Reported. Results Created Date Observation Date Name Description Value Unit Range Abnormal Flag Note LastModifiedBy Organization Detail LastModifiedTime 05/16/19 24 05/16/2023 rapid strep group A, throa t Strep negati ve Not Available Main - [facility] [address] [place] [address], [id number] 05/16/2023 13:30:48 05/16/19 24 05/16/2023 rapid flu (A+B) Flu negati ve Not Available Main - [facility] ed [address] [place] [address], [id number] 05/16/2023 13:30:39 05/16/19 24 05/16/2023 rapid SARS CoV 2 Ag, QL IA, respi rator y speci men rapid SARS CoV 2 Ag, QL IA, respiratory specimen negati ve Not Available Main - [facility] ed [address] [place] [address], [id number] 05/16/2023 13:30:26 Result Notes None recorded. Medical [...] Address Organization Details Last Updated DateTime 4 41553.6 g 14 /min 98.4 [degF] 98 /min 167.64 cm 98 % 98 % 124 mm[Hg] 86 mm[Hg] Not Available [facility] - production 4 13:24:49 Social History None recorded. Functional Status None recorded. Mental Status None recorded. Family History Nothing Reported. Medical History No medical history recorded. Gynecological HistoryNo gynecological history recorded. Obstetrics History GPAL:G 0 P 0 0 0 0 Past Encounters Encounter ID Performer Location Encounter Start Date Encounter Closed Date Diagnosis/Indication Diagnosis SNOMED-CT Code Diagnosis ICD10 Code Diagnosis Note [id number] Thomas Garsia MD Main - [facility] [address] [place] [phone] 05/16/2023 13:24:32 05/17/2023 09:29:40 Viral upper respiratory tract infection 273517241 J06.9 Health Concerns Section Related Observation LastModified by Organization Detai ls LastModified Time None Recorded Concern Status LastModified by Organization Details LastModified Time None Recorded Advance Directives Directive None Recorded Payers Encounter Date Sequence Insurance Name Policy Number Policy Sinha Covered Member ID Sinha Member ID Guarantor Name 05/16/2023 1 [facility] - DOS ON OR AFTER 2022 - DUAL ELIGIBLE - INTERMEDIATE OPTIONS AND ONE CARE (MEDICARE REPLACEMENT/AD VANTAGE - HMO) [facility] [id number] [facility] Notes Date Note Type Note Provider Name and Address Organization Details Recorded Time 05/16/2023 text/html This was a supervised home visit with hoop punch operator helper Tuan Martin. [facility] Nurse Triage Notes (Padmini Marin): Reason For [...] .................. .................. .................. .................. .................. .................. ............... Curbstone Setter Note From Tuan Martin: PT caox3 complains [...] covid flu and strep via rapid POC. [facility] will Rx flonase, mucinex and benzonatate to pt's local pharmacy. Supportive care including nasal decongestant, fluids, nasal rinse, and red flags and pt education discussed. .................. .................. .................. .................. .................. .................. .................. ............... Disposition: Fulfilled Thomas Grasia MD [address] [facility],[address], [place], [address], [facility] 05/16/2023 15:12:32 OBGyn Episode No OBEpisode recorded.
--- OUTSIDE RECORDS SUMMARY | 2024-08-08 09:04 | XMS_ITS | Encounter Summary ---
Author Organization [facility] Address [address] [place] [address] Care Team Providers Care Cement And Concrete Plant Worker Name Role Phone Keiko Anguiano MD Primary Care Provider +1 -[phone] Encounter Details Date Type Department Care Team Description 06/26/2022 Flower Grader Report Medical Records [address] [place] [address] Haile Rodriguez MD Social History Tobacco Use [...] filedocumented in this encounter Care Teams Cement And Concrete Plant Worker Relationship Specialty Start Date End Date Keiko Anguiano MD [address] [place] [address] PCP - General Internal Medicine 10/11/20 documented as of this encounter
--- OUTSIDE RECORDS SUMMARY | 2024-08-08 09:04 | XMS_ITS | Encounter Summary ---
Author Organization [facility] Address [address] [place] [address] Care Team Providers Care Engine Research Engineer Name Role Phone Keiko Anguiano MD Primary Care Provider +1 -[phone] Encounter Details Date Type Department Care Team Description 10/09/2022 Strip Cleaner Report Medical Records [address] [place] [address] Haile Rodriguez MD Social History Tobacco Use [...] on filedocumented in this encounter Care Teams Engine Research Engineer Relationship Specialty Start Date End Date Keiko Anguiano MD [address] [place] [address] PCP - General Internal Medicine 10/11/20 documented as of this encounter
--- OUTSIDE RECORDS SUMMARY | 2024-08-08 09:04 | XMS_ITS | Encounter Summary ---
Author Organization [facility] Address [address] [place] [address] Care Team Providers Care Director Hr Communications Name Role Phone Keiko Anguiano MD Primary Care Provider +1 -[phone] Encounter Details Date Type Department Care Team Description 12/27/2023 Refill Adult Medicine - [place] [address] [place] [address] Jeffrey Cruz PA-C [address] [place] [address] Social History Tobacco Use Types Packs/Day Years [...] filedocumented in this encounter Care Teams Director Hr Communications Relationship Specialty Start Date End Date Keiko Anguiano MD [address] [place] [address] PCP - General Internal Medicine 10/11/20 documented as of this encounter
--- OUTSIDE RECORDS SUMMARY | 2024-08-08 09:04 | XMS_ITS | Encounter Summary ---
Author Organization [facility] Address [address] [place] [address] Care Team Providers Care Music Critic Name Role Phone Keiko Anguiano MD Primary Care Provider +1 -[phone] Encounter Details Date Type Department Care Team Description 03/27/2023 Employer Relations Representative Report Medical Records [address] [place] [address] Haile Rodriguez MD Social History Tobacco Use [...] on filedocumented in this encounter Care Teams Music Critic Relationship Specialty Start Date End Date Keiko Anguiano MD [address] [place] [address] PCP - General Internal Medicine 10/11/20 documented as of this encounter
--- OUTSIDE RECORDS SUMMARY | 2024-08-08 09:04 | XMS_ITS | Encounter Summary ---
Author Organization [facility] Address [address] [place] [address] Care Team Providers Care Avionics Technician Name Role Phone Keiko Anguiano MD Primary Care Provider +1 -[phone] Encounter Details Date Type Department Care Team Description 12/27/2023 Refill Adult Medicine - [place] [address] [place] [address] Jeffrey Cruz PA-C [address] [place] [address] Social History Tobacco Use Types Packs/Day Years [...] arthritis documented in this encounter Care Teams Avionics Technician Relationship Specialty Start Date End Date Keiko Anguiano MD [address] [place] [address] PCP - General Internal Medicine 10/11/20 documented as of this encounter
--- OUTSIDE RECORDS SUMMARY | 2024-08-08 09:04 | XMS_ITS | Encounter Summary ---
Author Organization [facility] Address [address] [place] [address] Care Team Providers Care Heating Mechanic Name Role Phone Tim Flor MD Primary Care Provider Unavail Lorin Mejía MD Primary Care Provider Ameena Thompson MD Primary Care Provider Unavailronen Anguaino Ch MD Primary Care Provider +1 -[phone] Encounter Details Date Type Department Care Team Description 08/18/2014 MANAGER CAFE/MassPat Report Medical Records [address] [place] [address] Abstract, Provider Social History Tobacco Use Types [...] on filedocumented in this encounter Care Teams Heating Mechanic Relationship Specialty Start Date End Date Tim Flor MD PCP - General 01/06/08 01/24/15 Lorin Norton MD PCP - General Internal Medicine 01/25/15 07/15/20 Ameena Medellin MD PCP - General Internal Medicine 07/16/20 10/10/20 Keiko Anguiano, [address] [place] [address] [id number] PCP - General Internal Medicine 10/11/20 documented as of this encounter
--- OUTSIDE RECORDS SUMMARY | 2024-08-08 09:04 | XMS_ITS | Encounter Summary ---
Author Organization [facility] Address [address] [place] [address] Care Team Providers Care Customs Brokerage Manager Name Role Phone Lorin Norton MD Primary Care Provider Ameena Thompson MD Primary Care Provider Giovanna Anguiano Ch MD Primary Care Provider +1 -[phone] Encounter Details Date Type Department Care Team Description 01/22/2018 [facility] Medical Records [address] [place] [address] Abstract, Provider Social History Tobacco Use Types [...] on filedocumented in this encounter Care Teams Customs Brokerage Manager Relationship Specialty Start Date End Date Lorin Norton MD PCP - General Internal Medicine 01/25/15 07/15/20 Ameena Medellin MD PCP - General Internal Medicine 07/16/20 10/10/20 Keiko Anguiano MD [address] [place] [address] PCP - General Internal Medicine 10/11/20 documented as of this encounter
--- OUTSIDE RECORDS SUMMARY | 2024-08-08 09:04 | XMS_ITS | Encounter Summary ---
Author Organization [facility] Address [address] [place] [address] Care Team Providers Care Department Head College Or University Name Role Phone Keiko Anguiano MD Primary Care Provider +1 -[phone] Encounter Details Date Type Department Care Team Description 10/08/2023 Pt. Non Urgent Medic al Question Adult Medicine - [place] [address] [place] [address] Jeffrey Cruz PA-C [address] [place] [address] Social History Tobacco Use Types Packs/Day Years [...] on filedocumented in this encounter Care Teams Department Head College Or University Relationship Specialty Start Date End Date Keiko Anguiano MD [address] [place] [address] PCP - General Internal Medicine 10/11/20 documented as of this encounter
--- OUTSIDE RECORDS SUMMARY | 2024-08-08 09:04 | XMS_ITS | Encounter Summary ---
Author Organization [facility] Address [address] [place] [address] Care Team Providers Care Leather Whitener Name Role Phone Keiko Anguiano MD Primary Care Provider +1 -[phone] Encounter Details Date Type Department Care Team Description 05/17/2021 PNO Controlled Substance Contract Medical Records [address] [place] [address] Abstract, Provider Social History Tobacco Use Types [...] on filedocumented in this encounter Care Teams Leather Whitener Relationship Specialty Start Date End Date Keiko Anguiano MD [address] [place] [address] PCP - General Internal Medicine 10/11/20 documented as of this encounter
--- OUTSIDE RECORDS SUMMARY | 2024-08-08 09:04 | XMS_ITS | Encounter Summary ---
Author Organization [facility] Address [address] [place] [address] Care Team Providers Care Hearing Aid Mechanic Name Role Phone Keiko Anguiano MD Primary Care Provider +1 -[phone] Encounter Details Date Type Department Care Team Description 05/24/2022 Healthcare Economics Manager Report Medical Records [address] [place] [address] Horacio Barnard MD Social History Tobacco Use [...] on filedocumented in this encounter Care Teams Hearing Aid Mechanic Relationship Specialty Start Date End Date Keiko Anguiano MD [address] [place] [address] PCP - General Internal Medicine 10/11/20 documented as of this encounter
--- OUTSIDE RECORDS SUMMARY | 2024-08-08 09:04 | XMS_ITS | Encounter Summary ---
Author Organization [facility] Address [address] [place] [address] Care Team Providers Care Mortgage Assistant Name Role Phone Keiko Anguiano MD Primary Care Provider +1 -[phone] Encounter Details Date Type Department Care Team Description 12/27/2023 Refill Adult Medicine - [place] [address] [place] [address] Jeffery Cruz PA-C [address] [place] [address] Social History Tobacco Use Types Packs/Day Years [...] on filedocumented in this encounter Care Teams Mortgage Assistant Relationship Specialty Start Date End Date Keiko Anguiano MD [address] [place] [address] PCP - General Internal Medicine 10/11/20 documented as of this encounter
--- OUTSIDE RECORDS SUMMARY | 2024-08-08 09:04 | XMS_ITS | Clinical Summary ---
Author Organization [facility] Address [address] [place] [address] Care Team Providers Care Hunting And Fishing Guide Name Role Phone Keiko Anguiano MD Primary Care Provider +1 -[phone] Allergies No known active allergies Medications Medication [...] sleep apnea mild AHI 9 12/13 Overview: [facility] Home Sleep Apnea Test: Date 11/30/2020; [...] hypoventilation by 2020 home sleep apnea test. emt intermediate current use of immunosuppressi ve drug 07/11/2019 [...] Brother Diabetes Father Kidney disease Hypertension Father [place] Father Arthritis Maternal Grandmother Arthritis Mother [place] [...] 05/13/2021, 04/29/2020, Additional history exists Covid-19 Vaccine (2022-05 4 season) 2023 08/15/2020, 08/15/2020, 07/25/2020, Additional history exists BMI CHECK/ADVISE 04/16/2024 03/02/2022, , 02/28/2021, Additional history exists MAMMOGRAM 08/28/2024 08/29/2023, 08/14, 08/25/2022, Additional history exists INFLUENZA (Season Ended) 2024 023, 02/28/2021, 03/15/2020, Additional history exists CERVICAL CANCER SCREENING 10/20/20252022, 08/29/2017, 08/28/2013 (External Completion of Vaccination per patient) CHOLESTEROL SCREENING 03/02/2027 03/02/2022 , 05/13/2021, 04/29/2020, Additional history exists DTAP/TDAP/TD (4 - Td or Tdap) 04/29/2030, 10/07/2018, 03/30/2010 PNEUMOCOCCAL VACCINE FOR HIG H RISK PATIENTS (#1) 2040 03/30/2010 Care Teams Hunting And Fishing Guide Relationship Specialty Start Date End Date Keiko Anguiano, [address] [place] [address] PCP - General Internal Medicine 10/11/20
--- OUTSIDE RECORDS SUMMARY | 2024-08-08 09:04 | XMS_ITS | Encounter Summary ---
Author Organization [facility] Address [address] [place] [address] Care Team Providers Care Swatch Cutter Name Role Phone Keiko Anguiano MD Primary Care Provider +1 -[phone] Reason for Visit * Reason Comments E-prescribe Rx Request Encounter Details Date Type Department Care Team Description 04/11/2022 Refill Adult Medicine - [place] [address] [place] [address] Keiko Anguiano MD [address] [place] [address] E-prescribe Rx Request Social History Tobacco Use [...] NONE DETECTED 01/11/2022 PAINCANNABIN NONE DETECTED 01/11/2022 TALCER * Telephone Encounter - Guille Bryant - [...] N/A Patients current insurance carrier is: Payor: [employer] [facility] [employer]I[facility] MCR / Plan: [facility] / Product Type: HMO Onr-fmm-Mhnupae documented in this encounter Plan of Treatment Not on file documented as of this encounter Visit Diagnoses Diagnosis Osteoarthritis of ankle and foot, left documented in this encounter Care Teams Swatch Cutter Relationship Specialty Start Date End Date Keiko Anguiano MD [address] [place] [address] PCP - General Internal Medicine 10/11/20 documented as of this encounter
--- OUTSIDE RECORDS SUMMARY | 2024-08-08 09:04 | XMS_ITS | Encounter Summary ---
Author Organization [facility] Address [address] [place] [address] Care Team Providers Care Aurist Name Role Phone Keiko Anguiano MD Primary Care Provider +1 -[phone] Encounter Details Date Type Department Care Team Description 03/13/2023 Orders Only Medical Records [address] [place] [address] Keiko Anguiano MD [address] [place] [address] Social History Tobacco Use Types Packs/Day Years [...] on filedocumented in this encounter Care Teams Aurist Relationship Specialty Start Date End Date Keiko Anguiano MD [address] [place] [address] PCP - General Internal Medicine 10/11/20 documented as of this encounter
--- OUTSIDE RECORDS SUMMARY | 2024-08-08 09:04 | XMS_ITS | Encounter Summary ---
Author Organization [facility] Address [address] [place] [address] Care Team Providers Care Director Security Management Name Role Phone Lorin Norton MD Primary Care Provider Ameena Thompson MD Primary Care Provider Giovanna Anguiano Ch MD Primary Care Provider +1 -[phone] Encounter Details Date Type Department Care Team Description 04/25/2018 Release of Information Medical Records [address] [place] [address] Abstract, Provider Social History Tobacco Use Types [...] filedocumented in this encounter Care Teams Director Security Management Relationship Specialty Start Date End Date Lorin Norton MD PCP - General Internal Medicine 01/25/15 07/15/20 Ameena Medellin MD PCP - General Internal Medicine 07/16/20 10/10/20 Keiko Anguiano MD [address] [place] [address] PCP - General Internal Medicine 10/11/20 documented as of this encounter
--- OUTSIDE RECORDS SUMMARY | 2024-08-08 09:04 | XMS_ITS | Encounter Summary ---
Author Organization [facility] Address [address] [place] [address] Care Team Providers Care Rag Boiler Name Role Phone Tim Flor MD Primary Care Provider Unavail Lorin Mejía MD Primary Care Provider UnavailAmeena Magaña MD Primary Care Provider Unavaila christi Anguiano Ch MD Primary Care Provider +1 -[phone] Reason for Referral * Specialist (Routine) - Authorized/Booked Specialty Diagnoses / Procedures Referred By Contmahin bo Referred To Contact Rheumatology Procedures REFERRAL TO RHEUMATOLOGY Tim Flor MD Schumacher, James R., MD Referral ID Status Reason Start Date Expiration Date V isits Requested Visits Authorized NOT REQUIRED Authorized/ Booked 01/29/2013 01/29/2014 1 1 Reason for Visit * Reason Onset Date Comments Emt Paramedic Feedback 01/29/2013 Dr Rodriguez Encounter Details Date Type Department Care Team Description 01/29/2013 Telephone Medicine/Pediatrics - [address] [id number] Tim Flor MD Emt Paramedic Feedback (Dr Rodriguez) Social History Tobacco Use [...] referral needs to start: Tim Flor Payor: MEDICARE-Get Fractal Plan: MEDICARE-Get Fractal Product Type: MEDICARE [id number] documented in this encounter Plan of Treatment Not on file documented as of this encounter Visit Diagnoses Not on filedocumented in this encounter Care Teams Rag Boiler Relationship Specialty Start Date End Date Tim Flor MD PCP - General 01/06/08 01/24/15 Lorin Norton MD PCP - General Internal Medicine 01/25/15 07/15/20 Ameena Medellin MD PCP - General Internal Medicine 07/16/20 10/10/20 Keiko Anguiano MD [address] [place] [address] [facility] [address] PCP - General Internal Medicine 10/11/20 documented as of this encounter
--- OUTSIDE RECORDS SUMMARY | 2024-08-08 09:04 | XMS_ITS | Encounter Summary ---
Author Organization [facility] Address [address] [place] [address] Care Team Providers Care Health Safety Specialist Name Role Phone Keiko Anguiano MD Primary Care Provider +1 -[phone] Encounter Details Date Type Department Care Team Description 08/09/2021 [facility] Medical Records [address] [place] [address] Abstract, Provider Social History Tobacco Use Types [...] filedocumented in this encounter Care Teams Health Safety Specialist Relationship Specialty Start Date End Date Keiko Anguiano MD [address] [place] [address] PCP - General Internal Medicine 10/11/20 documented as of this encounter
--- OUTSIDE RECORDS SUMMARY | 2024-08-08 09:04 | XMS_ITS | Encounter Summary ---
Author Organization [facility] Address [address] [place] [address] Care Team Providers Care Pre Assembly Wirer Name Role Phone Lorin Norton MD Primary Care Provider Ameena Thompson MD Primary Care Provider Giovanna Anguiano Ch MD Primary Care Provider +1 -[phone] Encounter Details Date Type Department Care Team Description 02/18/2020 [facility] Records [address] [place] [address] Abstract, Provider Social History Tobacco Use Types [...] on filedocumented in this encounter Care Teams Pre Assembly Wirer Relationship Specialty Start Date End Date Lorin Norton MD PCP - General Internal Medicine 01/25/15 07/15/20 Ameena Medellin MD PCP - General Internal Medicine 07/16/20 10/10/20 Keiko Anguiano, [address] [place] [address] [place] [address] PCP - General Internal Medicine 10/11/20 documented as of this encounter
--- OUTSIDE RECORDS SUMMARY | 2024-08-08 09:04 | XMS_ITS | Encounter Summary ---
Author Organization [facility] Address [address] [place] [address] Care Team Providers Care Slaughterer Religious Ritual Name Role Phone Keiko Anguiano MD Primary Care Provider +1 -[phone] Encounter Details Date Type Department Care Team Description 04/27/2023 Refill Adult Medicine - [place] [address] [place] [address] Keiko Anguiano MD [address] [place] [address] Social History Tobacco Use Types Packs/Day Years [...] on filedocumented in this encounter Care Teams Slaughterer Religious Ritual Relationship Specialty Start Date End Date Keiko Anguiano MD [address] [place] [address] PCP - General Internal Medicine 10/11/20 documented as of this encounter
--- OUTSIDE RECORDS SUMMARY | 2024-08-08 09:04 | XMS_ITS | Encounter Summary ---
Author Organization [facility] Address [address] [place] [address] Care Team Providers Care Spiritual Advisor Name Role Phone Keiko Anguiano MD Primary Care Provider [phone] -[phone] Reason for Visit * Reason Comments E-prescribe Rx Request Encounter Details Date Type Department Care Team Description 04/16/2022 Refill Adult Medicine - [place] [address] [place] [address] Keiko Anguiano MD [address] [place] [address] E-prescribe Rx Request Social History Tobacco Use [...] on filedocumented in this encounter Care Teams Spiritual Advisor Relationship Specialty Start Date End Date Keiko Anguiano MD [facility] [place] [address] PCP - General Internal Medicine 10/11/20 documented as of this encounter
--- OUTSIDE RECORDS SUMMARY | 2024-08-08 09:04 | XMS_ITS | Encounter Summary ---
Author Organization [facility] Address [address] [place] [address] Care Team Providers Care Pharm Tech Name Role Phone Lorin Norton MD Primary Care Provider Ameena Thompson MD Primary Care Provider Giovanna Anguiano Ch MD Primary Care Provider +1 -[phone] Reason for Visit * Reason Onset Date Comments Medication 04/15/2020 Encounter Details Date Type Department Care Team Description 04/15/2020 Telephone Rheumatology - [place] [address] [place] [address] Haile Rodriguez MD Medication Social History Tobacco Use Types Packs/Day Years [...] Encounter - Johanna Sage L.P.N. - 04/15/2020 9:36 AM EST Message left for patient to return my call. Johanna Sage L.P.N. [id number] Re Chanitx, did she complete starter kit documented in this encounter Plan of Treatment Not on file documented as of this encounter Visit Diagnoses Not on filedocumented in this encounter Care Teams Pharm Tech Relationship Specialty Start Date End Date Lorin Norton MD PCP - General Internal Medicine 01/25/15 07/15/20 Ameena Medellin MD PCP - General Internal Medicine 07/16/20 10/10/20 Keiko Anguiano MD [address] [place] [address] PCP - General Internal Medicine 10/11/20 documented as of this encounter
--- OUTSIDE RECORDS SUMMARY | 2024-08-08 09:04 | XMS_ITS | Encounter Summary ---
Author Organization [facility] Address [address] [place] [address] Care Team Providers Care Quality Assurance Specialist Name Role Phone Keiko Anguiano MD Primary Care Provider +1 -[phone] Reason for Visit * Reason Comments E-prescribe Rx Request Encounter Details Date Type Department Care Team Description 09/25/2023 Refill Adult Medicine - [place] [address] [place] [address] Keiko Anguiano MD [address] [place] [address] E-prescribe Rx Request Social History Tobacco Use [...] 15 Mg Tab 60 30 [address] [place] [id number] [facility] (5741) 0/0 T [place] 08/28/2023 08/28/2023 1 Tramadol Hcl 50 Mg Tablet 28 28 Ch Hay [id number] [facility] (1450[facility] 0/0 10.00 MME [place] 08/27/2023 08/09/2023 2 Clonazepam 1 Mg Tablet 60 30 [address] [place] [id number] [facility] (5741) 0/2 4.00 LMET [place] 08/02/2023 08/02/2023 1 Dextroamp-Amphetamin 15 Mg Tab 60 30 Kr [place] [id number] [facility] (1450[facility] [place] 07/31/2023 05/28/2023 1 Clonazepam 1 Mg Tablet 60 30 Kr [place] [id number] [facility] (1450) 2/2 4.00 LME [place] 07/31/2023 07/31/2023 1 Tramadol Hcl 50 Mg Tablet 56 28 Ch Hay [id number] [facility] (1450) 0/0 20.00 [place] 07/27/2023 07/27/2023 1 Lorazepam 1 Mg Tablet 6 3 Ne Renetta [id number] [facility] (1450) 0/0 2.00 L[place] 07/06/2023 07/02/2023 1 Dextroamp-Amphetamin 15 Mg Tab 60 30 Kr [place] [id number] [facility] (1450[facility] 0/[place] 07/03/2023 07/03/2023 1 Tramadol Hcl 50 Mg Tablet 56 28 Ch Hay [id number] [facility] (1450) 0/0 20.00 [place] 06/29/2023 05/28/2023 1 Clonazepam 1 Mg Tablet 60 30 Kr [place] [id number] [facility] (1450) 1/2 4.00 LME [place] 06/07/2023 04/12/2023 1 Clonazepam 0.5 Mg Tablet 90 30 Kr [place] [id number] [facility] (1450) 2/2 3.00 L[place] 06/07/2023 06/07/2023 1 Dextroamp-Amphetamin 15 Mg Tab 60 30 Kr [place] [id number] [facility] (1450[facility] 0/[place] 06/05/2023 06/05/2023 1 Tramadol Hcl 50 Mg Tablet 84 28 Ch Martin [id number] [facility] (1450) 0/0 30.00 [place] 05/28/2023 05/28/2023 1 Clonazepam 1 Mg Tablet 60 30 Kr [place] [id number] [facility] (1450) 0/2 4.00 L[place] 05/10/2023 04/12/2023 1 Clonazepam 0.5 Mg Tablet 90 30 Kr [place] [id number] [facility] (1450) 1/ 3.00 LME [place] * Telephone Encounter - Mirian Coronel - 09/25/2023 2:42 PM EDT Dup documented in this encounter Plan of Treatment Not on file documented as of this encounter Visit Diagnoses Diagnosis Osteoarthritis of ankle and foot, left documented in this encounter Care Teams Quality Assurance Specialist Relationship Specialty Start Date End Date Keiko Anguiano MD [address] [place] [address] PCP - General Internal Medicine 10/11/20 documented as of this encounter
--- OUTSIDE RECORDS SUMMARY | 2024-08-08 09:04 | XMS_ITS | Patient Health Record ---
Author Organization [facility] Address [address] [place] [address] Care Team Providers Care Maintenance Coordinator Name Role Phone Aby Sarkar Primary Care Provide r Theron Ayala Unavailable [phone] Allergies No Known Allergies Reason For Referral [...] primary osteoarthritis of the ankle and/or foot (922777172) Primary osteoarthritis , left ankle and foot (M19.072) Active confirmed Problem [id number] JRA (juvenile rheumatoid arthritis) (M08.00) Active confirmed Plan Of Treatment Pending Test Test Name Order Date X ray : Ankle, left 3V 10/14/2021 X ray : Foot, left 3V 10/14/2021 Insurance Providers Payer Name Payer Address Payer Phone Subscriber Number Group Number Insured Name Patient Relationship to Insured Coverage Start Date Coverage End Date [facility] [employer] Claims [address] [place] [phone] [id number] Carmenza Alexis i Self - patient is the insured Medical (General) History Medical History History ICD Code Anxiety Arthritis Depression Gall bladder problems High blood pressure Numbness Psychiatric disorder Reflux ( GERD) ptsd Surgical History Surgery Date(Month/Year) gall bladder 1997
--- OUTSIDE RECORDS SUMMARY | 2024-08-08 09:04 | XMS_ITS | Encounter Summary ---
Author Organization [facility] Address [address] [place] [address] Care Team Providers Care Ethanol Maintenance Mechanic Name Role Phone Keiko Anguiano MD Primary Care Provider [phone] -[phone] Reason for Visit * Reason Comments E-prescribe Rx Request Encounter Details Date Type Department Care Team Description 10/24/2021 Refill Adult Medicine - [place] [address] [place] [address] Keiko Anguiano MD [address] [place] [address] E-prescribe Rx Request Social History Tobacco Use [...] left documented in this encounter Care Teams Ethanol Maintenance Mechanic Relationship Specialty Start Date End Date Keiko Anguiano MD [address] [place] [address] PCP - General Internal Medicine 10/11/20 documented as of this encounter
--- OUTSIDE RECORDS SUMMARY | 2024-08-08 09:04 | XMS_ITS | Encounter Summary ---
Author Organization [facility] Address [address] [place] [address] Care Team Providers Care Rv Service Technician Name Role Phone Lorin Norton MD Primary Care Provider Ameena Thompson MD Primary Care Provider Giovanna Anguiano Ch MD Primary Care Provider +1 -[phone] Encounter Details Date Type Department Care Team Description 2018 [facility] Medical Records [address] [place] [address] Abstract, Provider Social History Tobacco Use Types [...] on filedocumented in this encounter Care Teams Rv Service Technician Relationship Specialty Start Date End Date Lorin Norton MD PCP - General Internal Medicine 01/25/15 07/15/20 Ameena Medellin MD PCP - General Internal Medicine 07/16/20 10/10/20 Keiko Anguiano MD [address] [place] [address] PCP - General Internal Medicine 10/11/20 documented as of this encounter
--- OUTSIDE RECORDS SUMMARY | 2024-08-08 09:04 | XMS_ITS | Encounter Summary ---
Author Organization [facility] Address [address] [place] [address] Care Team Providers Care Concrete Buster Operator Name Role Phone Lorin Norton MD Primary Care Provider Ameena Thompson MD Primary Care Provider Giovanna Anguiano Ch MD Primary Care Provider +1 -[phone] Encounter Details Date Type Department Care Team Description 03/13/2018 Youth Career Specialist Report Medical Records [address] [place] [address] Chayo Carter PA-C Social History Tobacco Use [...] on filedocumented in this encounter Care Teams Concrete Buster Operator Relationship Specialty Start Date End Date Lorin Norton MD PCP - General Internal Medicine 01/25/15 07/15/20 Ameena Medellin MD PCP - General Internal Medicine 07/16/20 10/10/20 Keiko Anguiano MD [address] [place] [address] PCP - General Internal Medicine 10/11/20 documented as of this encounter
--- OUTSIDE RECORDS SUMMARY | 2024-08-08 09:04 | XMS_ITS | Encounter Summary ---
Author Organization [facility] Address [address] [place] [address] Care Team Providers Care Hull And Deck Remover Name Role Phone Keiko Anguiano MD Primary Care Provider +1 -[phone] Encounter Details Date Type Department Care Team Description 10/03/2022 [facility] Medical Records [address] [place] [address] Abstract, Provider Social History Tobacco Use Types [...] on filedocumented in this encounter Care Teams Hull And Deck Remover Relationship Specialty Start Date End Date Keiko Anguiano MD [address] [place] [address] PCP - General Internal Medicine 10/11/20 documented as of this encounter
--- OUTSIDE RECORDS SUMMARY | 2024-08-08 09:04 | XMS_ITS | Encounter Summary ---
Author Organization [facility] Address [address] [place] [address] Care Team Providers Care Capacity Planner Name Role Phone Keiko Anguiano MD Primary Care Provider +1 -[phone] Encounter Details Date Type Department Care Team Description 10/14/2021 Torch Straightener And Heater Report Medical Records [address] [place] [address] Theron Colunga Social History Tobacco Use Types [...] on filedocumented in this encounter Care Teams Capacity Planner Relationship Specialty Start Date End Date Keiko Anguiano MD [address] [place] [address] PCP - General Internal Medicine 10/11/20 documented as of this encounter
--- OUTSIDE RECORDS SUMMARY | 2024-08-08 09:04 | XMS_ITS | Encounter Summary ---
Author Organization [facility] Address [address] [place] [address] Care Team Providers Care Carpenters Helper Name Role Phone Lorin Norton MD Primary Care Provider Ameena Thompson MD Primary Care Provider Giovanna Anguiano Ch MD Primary Care Provider +1 -[phone] Encounter Details Date Type Department Care Team Description 03/14/2016 [facility] Medical Records [address] [place] [address] Abstract, Provider Social History Tobacco Use Types [...] on filedocumented in this encounter Care Teams Carpenters Helper Relationship Specialty Start Date End Date Lorin Norton MD PCP - General Internal Medicine 01/25/15 07/15/20 Ameena Medellin MD PCP - General Internal Medicine 07/16/20 10/10/20 Keiko Anguaino MD [address] [place] [address] PCP - General Internal Medicine 10/11/20 documented as of this encounter
--- OUTSIDE RECORDS SUMMARY | 2024-08-08 09:04 | XMS_ITS | Encounter Summary ---
Author Organization [facility] Address [address] [place] [address] Care Team Providers Care Hematology Nurse Name Role Phone Tim Flor MD Primary Care Provider Unavail oLrin Mejía MD Primary Care Provider Ameena Thompson MD Primary Care Provider Unavailronen Anguiano Ch MD Primary Care Provider +1 -[phone] Encounter Details Date Type Department Care Team Description 12/12/2011 Store Associate Report Medical Records [address] [place] [address] Toby Cleaning MD Social History Tobacco Use [...] on filedocumented in this encounter Care Teams Hematology Nurse Relationship Specialty Start Date End Date Tim Flor MD PCP - General 01/06/08 01/24/15 Lorin Norton MD PCP - General Internal Medicine 01/25/15 07/15/20 Ameena Medellin MD PCP - General Internal Medicine 07/16/20 10/10/20 Keiko Anguiano, [address] [place] [id number] PCP - General Internal Medicine 10/11/20 documented as of this encounter
--- OUTSIDE RECORDS SUMMARY | 2024-08-08 09:05 | XMS_ITS | Encounter Summary ---
Author Organization [facility] Address [address] [place] [address] Care Team Providers Care Emulsion Operator Name Role Phone Keiko Anguiano MD Primary Care Provider +1 -[phone] Encounter Details Date Type Department Care Team Description 01/01/2023 Art Class Model Report Medical Records [address] [place] [address] Haile Rodriguez MD Social History Tobacco Use [...] on filedocumented in this encounter Care Teams Emulsion Operator Relationship Specialty Start Date End Date Keiko Anguiano MD [address] [place] [address] PCP - General Internal Medicine 10/11/20 documented as of this encounter
--- OUTSIDE RECORDS SUMMARY | 2024-08-08 09:05 | XMS_ITS | Encounter Summary ---
Author Organization [facility] Address [address] [place] [address] Care Team Providers Care Power Shovel Mechanic Name Role Phone Keiko Anguiano MD Primary Care Provider +1 -[phone] Encounter Details Date Type Department Care Team Description 03/05/2023 Pt. Non Urgent Medic al Question Adult Medicine - [place] [address] [place] [address] Keiko Anguiano MD [address] [place] [address] Social History Tobacco Use Types Packs/Day Years [...] in this encounter Care Teams Power Shovel Mechanic Relationship Specialty Start Date End Date Keiko Anguiano MD [address] [place] [address] PCP - General Internal Medicine 10/11/20 documented as of this encounter
--- NOTE | 2024-08-08 09:42 | PCN2_ITS ---
Brief Operative Note Date of procedure: 08/08/24 Pre-op diagnosis: left ankle OA Post-op diagnosis: same Procedure: Date: 08/08/24 Study Type: Limited Ultrasound with Guidance of needle placement Indication: Pain in left ankle Study Site: Left ankle pain Equipment: [employer] Brief History: Patient with longstanding RA now complicated by ankle OA Relevant meds: ?Humira and Methotrexate XR Images reviewed Findings: ?Orthogonal views of the anterior and lateral tibiotalar joint as well as the anterior subtalar joint were obtained in grayscale and Doppler. Procedure: ?After obtaining informed consent for an ultrasound-guided glucocorticoid injection of the left ankle, the tibiotalar joint was imaged with ultrasound. The location of the dorsalis pedis artery was identified. ?The area of injection was sterilely prepped with chloraprep and anesthetized with lidocaine spray. ?A 22 gauge 1.5 in needle was advanced into the synovial cavity under direct ultrasound visualization using in plane technique. ?40 mg of kenolog with 1cc 2% lidocaine was injected. ?The procedure was well tolerated. 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
[2024-08-08] MEDS: Triamcinolone Acetonide 40 MG/ML VIAL INTRAARTIC (10:00)
[2024-08-08] MEDS: Lidocaine HCl 2 % MPF 5 ML VIAL SUBCUT (10:01)
== END 2024-08-08 08:58 | disposition home or self-care (01) ==
LOC: HO.US 08:57
PROVIDERS: PCP Internal Medicine; Visit Provider Student in an Organized Health Care Education/Training Program
DX: M19.272 Secondary osteoarthritis, left ankle and foot (principal); M81.0 Age-related osteoporosis without current pathological fracture
CPT/HCPCS: 20606; 20611; 77080; J2003; J3301

== ENCOUNTER → 2024-08-08 08:57 | Outpatient (BNV) | payer OTHER, SELFPAY | PROVIDERS: PCP Internal Medicine; Visit Provider Student in an Organized Health Care Education/Training Program | DX: M25.572 Pain in left ankle and joints of left foot (principal) | CPT/HCPCS: 20605; 76942 ==

== ENCOUNTER → 2024-08-08 10:30 | Outpatient (BNV) | payer OTHER, SELFPAY | PROVIDERS: PCP Internal Medicine; Visit Provider Radiology Diagnostic Radiology | DX: E28.39 Other primary ovarian failure (principal) | CPT/HCPCS: 77080 ==

== ENCOUNTER 2024-08-11 09:42 | Outpatient (AMB) | payer OTHER, SELFPAY ==
--- NOTE | 2024-08-11 09:49 | MHC.OFFVIS ---
Vital Signs 08/11/24 09:55 Height 4 ft 11 in Weight 121 lb 8 oz BMI 24.5 BP 180/110 H Blood Pressure Location Rt brachial Position Sitting Pulse 110 H Pulse Source Pulse Oximeter Pulse Oximetry (%) 98 Oxygen Delivery Method Room Air Intake Visit Reasons: Pill count Intake Note: Carmenza comes in today for a pill count to tramadol, patient should have 32 tablets and presents with 35 tablets which she last took today 08/11/24 at 7am. Pain today 09/23 Translator And Interpreter Required: No Accompanied by: Self / Same As Patient Allergies No Known Allergies Allergy (Verified 08/11/24 09:57) HPI Comments Details: Patient presents today for pill count. Patient is supposed to have #32 pills, in her possession she has #35 pills. This demonstrates a responsible attitude in regards to the medication regimen. Patient reports adequate analgesia on current pain regime without any side effects. Patient reports current medication regime allows her to be more functional and less symptomatic. She follows with Rheumatology regularly and recently received left ankle steroid injection for OA with partial relief so far. Recent bone scan showed osteopenia, she has been taking vitamin D and calcium supplement and tries to do tolerable exercise with weight resistance. Denies any fever or chills, shortness of breaths, chest pain, weakness, bladder or bowel dysfunction, saddle anesthesia, constipation, nausea, sedation, dizziness, or urinary retention. Denies any changes to medications, medical history or recent hospitalizations. Past Procedures: 08/09/23: Left tibiotalar steroid joint injection using ultrasound guidance--Dr. Sarabia 04/24/24: Right knee arthrogram and Durolane [id number]% ongoing pain relief by Dr. Choi 02/22/24: Left knee Durolane [id number]-53-02% ongoing pain relief by Dr. 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 She reports pending evaluation by Orthopedics for potential left ankle fusion. 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 Today we are focusing on bilateral knee pain which significantly affects her daily activities, functioning, mobility, sleep and social interactions. She completed physical therapy at [facility] 9 months with improved function but no pain relief. Pain is constant which she rates at 8-9/10. Bilateral knee pain is localized to anterior aspects both knees with tenderness and occasional swelling per patient. No significant swelling or effusion today. Denies any fever or chills, back pain, instability, knee locking or buckling, bladder or bowel dysfunction or saddle anesthesia. Location: bilateral hands, knees, feet and hips Duration: Chronic pain for years, worsening since September when titrated off Tramadol Characteristics of symptom or complaint: Aching, stabbing, throbbing, shooting, sharp, burning, tingling, tight Aggravating or associated factors: Movements, climbing stairs, bending, standing, walking, cold weather Relieving factors: nothing was on tramadol 100 mg QID since 1996, NSAIDs Treatment: PT, chiropractic manipulation, TENS unit, cortisone injections-multiple [facility], [facility] Medical History Hypertension Osteopenia Seizures Anemia Insomnia Depression with anxiety Hypercholesteremia Spina bifida occulta JRA (juvenile rheumatoid arthritis) Seronegative rheumatoid arthritis 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 PARKER (obstructive sleep apnea) CTS (carpal tunnel syndrome) Surgical History H/O wisdom tooth extraction History of cholecystectomy Family History Father Myocardial infarct Diabetes Hypertension Kidney disease Dialysis patient Brother Abuse, drug or alcohol Mother Thyroid disease Osteopenia Hypertension Social History Alcohol intake: current Alcohol intake frequency: holidays/special occasions only Patient Tobacco Use Status: Current everyday Tobacco user Cigarettes Per Day: 10 Review of Systems Const All systems reviewed & are unremarkable except as noted in HPI and below Reports as per HPI, Denies body aches, Denies chills, Denies difficulty sleeping, Denies fatigue, Denies fever(s), Denies malaise, Denies weakness and Denies weight loss Card Denies chest pain, Denies chest pain with activity, Denies pedal edema, Denies claudication, Denies radiating jaw, neck or arm pain, Denies palpitations, Denies dyspnea on exertion and Denies orthopnea Resp Denies dyspnea on exertion Neuro Denies weakness Endo Denies fatigue and Denies palpitations Physical Exam Vital Signs: Last Vital Signs Pulse 110 H 08/11/24 09:55 BP 180/110 H 08/11/24 09:55 Pulse Ox 98 08/11/24 09:55 Oxygen Delivery Method Room Air 08/11/24 09:55 BMI result Body Mass Index 24.5 General: Appears afebrile. Alert and oriented. Mood and affect appropriate. Follows and participates in conversation appropriately. Respiratory effort is unlabored. No cough. Able to transition from sit to stand unassisted. Ambulates with bilaterally normal heel strike and toe off. Extrem General: Yes capillary refill normal, Yes no clubbing, cyanosis or edema and Yes no calf tenderness Psych Appearance: grossly normal and well kempt Mental Status: mental status grossly normal Speech and movement: Normal speech and movement present and Clear speech present Affect: normal affect Attitude: cooperative Thought process: Normal thought process present Thought content: Normal thought content present, suicidality (none), no hallucinations and No Depressive thoughts present Insight: Good insight present (Psych) Judgement: Good judgement present (Psych) Results Reviewed Results Reviewed: XR knee Bilateral 3V 03/27/23 CLINICAL HISTORY: Rheumatoid arthritis. COMPARISON: No similar priors. TECHNIQUE: 3 views of each knee. FINDINGS: No acute fracture or subluxation. Moderate bilateral tricompartmental osteoarthritis with joint space narrowing, subcortical sclerosis and small marginal osteophytes more noticeable in the medial and patellofemoral compartments of both knees. Trace chondrocalcinosis in the right knee. No osseous erosions. No significant joint effusion. IMPRESSION: 1. No acute fracture or subluxation. 2. Moderate bilateral tricompartmental osteoarthritis. 3. Trace chondrocalcinosis in the right knee. XR hip BI 1V w/wo pel 04/22/24 5 view, pelvis and bilateral hips Comparison: None Findings: No acute fracture or dislocation. No significant arthritic change. The soft tissues are unremarkable. There is an intrauterine device within the pelvis. IMPRESSION: No acute findings. DEXA axial skeleton 08/08/24 IMPRESSION: Based on bone mineral density, and according to World Health Organization (WHO) criteria, the diagnosis is consistent with osteopenia. Assessment & Plan Assessment & Plan (1) Bilateral knee pain: Code(s): M25.561 - Pain in right knee; M25.562 - Pain in left knee Category: Medical (2) Opioid contract exists: Code(s): Z79.891 - halfway (current) use of opiate analgesic Category: Medical (3) Chronic pain syndrome: Code(s): G89.4 - Chronic pain syndrome Category: Medical (4) Bilateral hip pain: Code(s): M25.551 - Pain in right hip; M25.552 - Pain in left hip Category: Medical (5) Osteoarthritis of foot, left: Comment: OA at left ankle and foot due to RA Code(s): M19.072 - Primary osteoarthritis, left ankle and foot Category: Medical (6) Osteoarthritis of knees, bilateral: Code(s): M17.0 - Bilateral primary osteoarthritis of knee Category: Medical Qualifiers: Osteoarthritis type: other secondary Qualified Code(s): M17.4 - Other bilateral secondary osteoarthritis of knee Plan Patient has shown accountability for her medication regimen and the pill count was accurate. There is no evidence of misuse, abuse or diversion at this time. [facility] Medical Management reviewed. Script sent for tramadol with increased dose of 50 mg QID prn with advanced date of 08/18/24. Patient has Narcan at home. Patient is aware of monitoring for side effects. All questions were answered and the patient is in agreement with the plan. Follow up in 8 weeks for a pill count or sooner if needed. Medications: Refilled tramadol Partial Fill upon patient request. 50 mg PO Q6H 30 days PRN 120 tabs 1RF pain G89.4 - Chronic pain syndrome, M06.00 - Rheumatoid arthritis without rheumatoid factor, unspecified site, M25.561 - Pain in right knee, M25.562 - Pain in left knee, Z79.891 - halfway (current) use of opiate analgesic Coding Level of Care Code Est Pt Level 4 (50973) Complex EM visit Add On G2211 Diagnoses Bilateral knee pain M25.561; M25.562 Opioid contract exists Z79.891 Chronic pain syndrome G89.4 Bilateral hip pain M25.551; M25.552 Osteoarthritis of foot, left M19.072 Other secondary osteoarthritis of both knees M17.4 Osteoarthritis type: other secondary
[2024-08-11 09:55] VITALS: BP 180/110; PULSE 110; O2SAT 98; BMI 24.5
--- OUTSIDE RECORDS SUMMARY | 2024-08-11 10:54 | XMS_ITS | Clinical Summary ---
Author Organization [facility] [address] [facility] l[address] Address [address] [place] [address] Phone Care Team Providers Care Cooler Supervisor Name Role Phone Aby Anguiano MD Primary [...] 08/03/2021 Obstructive sleep apnea 12/13/2020 Overview (01/31/2024): [facility] Home Sleep Apnea Test: Date [...] Allergic rhinitis 08/27/2013 Seronegative rheumatoid arth ritis ([facility] V24, [facility] V28) 04/22/2013 Overview (01/31/2024): Juvenile onset: [...] unspecified 03/03/2008 JRA (juvenile rheumatoid art hritis) ([facility] V24, [facility] V28) 03/03/2008 Overview (01/31/2024): Flare at [...] History Date Comments RA (rheumatoid arthritis) (C ID/[facility] V24, [facility] V28) DX:RA (rheumatoid arthritis) ([facility]) Osteopenia DX:Osteopenia; C OMMENT: Fosamax Depression DX:Depression Seizure ([facility] V24, [facility] V28) DX:Seizure ([facility]); COMMENT: x 2 JRA (juvenile rheumatoid art hritis) ([facility] V24, [facility] V28) 03/03/2008 DX:JRA (juvenile rheumatoid arthritis) ([facility]) Insomnia, unspecified 03/03/2008 DX:Insomni a, unspecified Depressive disorder, not els ewhere classified 03/03/2008 DX:Depressive disorder, not elsewhere classified Vitamin D deficiency DX:Vitamin D deficiency Anemia DX:Anemia Elevated serum alkaline phos phatase level DX:Elevated serum alkaline phosphatase level Allergic rhinitis 08/27/2013 DX: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 For example, child care development specialist or elderly care for an older [...] 9:30 AM EDT Office Visit Adult Medicine [facility] [address] [place] [address] Jeffrey Cruz PA [address] [place] [address] Health Maintenance Due Date Last Done Comments [...] R esult * COLONOSCOPY Anesthesia - MAC; [facility] ENDOSCOPY (05/08/2024 8:26 AM EST) Anatomical Region Laterality Modality Endoscopy 05/08/2024 8:05 AM EST Impressions 05/08/2024 8:25 AM EST - The entire examined colon is normal on direct and ? retroflexion views. ? - No specimens collected. Recommendation: ?- Repeat colonoscopy in 10 years for screening ? purposes. Narrative 05/08/2024 8:25 AM EST [facility] GI Patient Name: Carmenza House Procedure [...] neoplasm ? of colon CPT copyright 2020 [employer]. All rights reserved. The codes documented in this report are preliminary and upon security sales consultant review may be revised to meet current compliance requirements. Flo Fernandez MD 05/08/2024 8:25:10 AM This report has been signed electronically.Flo Fernandez MD Number of Addenda: 0 Note Initiated On: 05/08/2024 8:05 AM Scope In: Scope Out: ? Endoscopy Department at [facility] - [address] [place] [address], ? [place] [address] Procedure Note Flo Fernandez MD - 05/08/2024 [facility] GI Patient Name: Carmenza House Procedure [...] for malignantneoplasm of colon CPT copyright 2020 [employer]. All rights reserved. The codes documented in this report are preliminary and upon security sales consultant reviewmay be revised to meet current compliance requirements. Flo Fernandez MD 05/08/2024 8:25:10 AM This report has been signed electronically.Flo Fernandez MD Number of Addenda: 0 Note Initiated On: 05/08/2024 8:05 AM Scope In: Scope Out: Endoscopy Department at [facility] - [address] [place] [phone] IMPRESSION: - The entire examined colon is normal on direct and retroflexion views. - No specimens collected. Recommendation: - Repeat colonoscopy in 10 years for screening purposes. Flo Fernandez MD GI~PROCEDURE ORDERABLES Fin al Result * Hepatitis C antibody (04/22/2024 10:37 AM EST) Hepatitis C Antibody Negative Negative LAB CHEMISTRY METHOD 04/22/2024 3:[address] [facility] Blood Venous blood specimen / Unknown Venipuncture / Unknown 04/22/2024 10:37 AM EST 04/22/2024 10:37 AM EST Jeffrey MEDRANO LAB BLOOD ORDERABLES Final Res ult [facility] [address] [place] [address], * (ABNORMAL) Lipid panel with reflex to direct LDL (04/22/2024 10:37 AM EST) Cholesterol 232(H) 0 - 200 mg/dL LAB CHEMISTRY METHOD 04/22/2024 2:[address] [facility] Triglycerides 168(H) 0 - 150 mg/dL LAB CHEMISTRY METHOD 04/22/2024 2:13 PM [facility] HDL 64 >=40 mg/dL LAB CHEMISTRY METHOD 04/22/2024 2:[address] [facility] LDL Calculated 134(H) 0 - 100 mg/dL LAB CHEMISTRY METHOD 04/22/2024 2:[address] [facility] VLDL Cholesterol Joe 33.6 mg/dL LAB CHEMISTRY METHOD 04/22/2024 2:13 PM [facility] Non HDL Chol. (LDL+VLDL) 168(H) <145 mg/dL LAB CHEMISTRY METHOD 04/22/2024 2:13 PM [facility] Chol/HDL Ratio 3.6 0.0 - 4.4 LAB CHEMISTRY METHOD 04/22/2024 2:13 PM [facility] Blood Venous blood specimen / Unknown Venipuncture / Unknown 04/22/2024 10:37 AM EST 04/22/2024 10:37 AM EST us Jeffrey MEDRANO LAB BLOOD ORDERABLES Final Res ult [facility] [address] [place] [address], * (ABNORMAL) Comprehensive metabolic panel (04/22/2024 10:37 AM EST) [facility] Sodium 137 133 - 145 mmol/L LAB CHEMISTRY METHOD 04/22/2024 2:[address] [facility] Potassium 3.6 3.5 - 5.5 mmol/L LAB CHEMISTRY METHOD 04/22/2024 2:13 PM [facility] Chloride 105 96 - 110 mmol/L LAB CHEMISTRY METHOD 04/22/2024 2:13 PM [facility] CO2 29 21 - 32 mmol/L LAB CHEMISTRY METHOD 04/22/2024 2:13 PM [facility] Anion Gap 3 3 - 11 LAB CHEMISTRY METHOD 04/22/2024 2:13 PM [facility] Glucose 101(H) 70 - 100 mg/dL LAB CHEMISTRY METHOD 04/22/2024 2:13 PM [facility] BUN 8 5 - 25 mg/dL LAB CHEMISTRY METHOD 04/22/2024 2:13 PM [facility] Creatinine 0.88 0.50 - 1.10 mg/dL LAB CHEMISTRY METHOD 04/22/2024 2:13 PM [facility] eGFR 81 >=60 mL/min/1. 73m2 LAB CHEMISTRY METHOD 04/22/2024 2:13 PM [facility] Comment:Calculation based on the??Chronic Kidney Disease Epidemiology Collaboration (CKD-EPI) equation refit??without adjustment for race. BUN/Creatinine Ratio 9.1 LAB CHEMISTRY METHOD 04/22/2024 2:13 PM [facility] Calcium 8.8 8.5 - 10.5 mg/dL LAB CHEMISTRY METHOD 04/22/2024 2:13 PM [facility] AST (SGOT) 16 10 - 42 unit/L LAB CHEMISTRY METHOD 04/22/2024 2:13 PM [facility] ALT (SGPT) 23 10 - 60 unit/L LAB CHEMISTRY METHOD 04/22/2024 2:13 PM [facility] Alkaline Phosphatase 71 42 - 121 unit/L LAB CHEMISTRY METHOD 04/22/2024 2:13 PM [facility] Total Protein 7.4 6.0 - 8.0 g/dL LAB CHEMISTRY METHOD 04/22/2024 2:13 PM [facility] Albumin 4.1 3.2 - 5.0 g/dL LAB CHEMISTRY METHOD 04/22/2024 2:[address] [facility] Total Bilirubin 0.3 0.0 - 1.4 mg/dL LAB CHEMISTRY METHOD 04/22/2024 2:[address] [facility] Blood Venous blood specimen / Unknown Venipuncture / Unknown 04/22/2024 10:37 AM EST 04/22/2024 10:37 AM EST Jeffrey MEDRANO LAB BLOOD ORDERABLES Final Res ult [facility] [address] [place] [address], [place] [phone] * Cervical Cancer Screening: HPV (10/20/2022) Pathologist [facility] Cervical Cancer Screening: HPV No interpretation with Negative, abstracted Historical Provider HEALTH MAINTENANCE Final Result from Last 3 Months or Most Recently Relevant to Health Maintenance Insurance [facility] MEDICARE Member Subscriber Plan / Payer (Ef fective 2018-Present) Name:Carmenza House Relation to Subscriber:Self Name:Carmenza House Payer ID:[id number] Group ID:[id number] Type:Not on file Address: [place] [address] [place] [id number] Care Teams Cooler Supervisor Relationship Specialty Start Date End Date Aby Anguiano MD [address] [place] [phone] PCP - General Internal Medicine 10/11/20
--- OUTSIDE RECORDS SUMMARY | 2024-08-11 10:55 | XMS_ITS | Data Portability ---
Author Organization [facility] [employer] Address [address] [place] [phone] Care Team Providers Care Welt Rougher Name Role Phone [facility] Referring Provider Assessment Encounter Date Assessment Date Assessment LastModified by Organization Details LastModified Time 05/16/2023 05/16/2023 I have reviewed and agree with the assessment and plan as documented by the trackless trolley driver. I provided real time medical direction for this encounter and was immediately available to provide additional phone based assistance as needed. History as noted by trackless trolley driver. Pt with history of RA on MTX, [...] Ag, QL IA, respiratory specimen [facility]23 024 [facility] - [facility], [address] [place] [address], [phone] 4 13:36:28 rapid flu (A+B) 2023 024 [facility] Main - [facility], [address] [place] [address], [phone] 4 13:36:29 rapid strep group A, throat 2023 024 [facility] Main - [facility], [address] [place] [address], [phone] 13:36:30 Referral None recorded. Procedures None recorded. Surgeries None recorded. Imaging None recorded. Medication Orders fluticasone propionate 50 mcg/actuati on nasal spray,suspe nsion 2023 024 [id number], [address] [place], [phone], 4 13:36:29 guaifenesin ER 600 mg tablet, extended release 12 hr 2023 024 [facility], [address] [place], [address], 4 13:36:28 benzonatate 100 mg capsule 2023 024 [facility] [address] [place], [address], 4 13:36:28 Patient TargetsNo targets recorded. Patient InstructionsNo instructions recorded. Reason for Referral None Reported. Results Created Date Observation Date Name Description Value Unit Range Abnormal Flag Note LastModifiedBy Organization Detail LastModifiedTime 05/16/19 24 05/16/2023 rapid strep group A, throa t Strep negati ve Not Available Main - [facility] [address] [place] [address], [phone] 05/16/2023 13:30:48 05/16/19 24 05/16/2023 rapid flu (A+B) Flu negati ve Not Available Main - [facility] ed [address] [place] [address], [phone] 05/16/2023 13:30:39 05/16/19 24 05/16/2023 rapid SARS CoV 2 Ag, QL IA, respi rator y speci men rapid SARS CoV 2 Ag, QL IA, respiratory specimen negati ve Not Available Main - [facility] ed [address] [place] [address], [phone] 05/16/2023 13:30:26 Result Notes None recorded. Medical [...] Address Organization Details Last Updated DateTime 4 38656.6 g 14 /min 98.4 [degF] 98 /min [...] SNOMED-CT Code Diagnosis ICD10 Code Diagnosis Note 71525 Thoams Garsia MD Main - [facility] [address] [place] [phone] 05/16/2023 13:24:32 05/17/2023 09:29:40 Viral upper respiratory tract infection 544705884 J06.9 Health Concerns Section Related Observation LastModified by Organization Detai ls LastModified Time None Recorded Concern Status LastModified by Organization Details LastModified Time None Recorded Advance Directives Directive None Recorded Payers Encounter Date Sequence Insurance Name Policy Number Policy Sinha Covered Member ID Sinha Member ID Guarantor Name 05/16/2023 1 [facility] [employer] - DOS ON OR AFTER 2022 - DUAL ELIGIBLE - [employer] OPTIONS AND ONE [employer] (MEDICARE REPLACEMENT/AD VANTAGE - HMO) Carmenza House [id number] Carmenza House Notes Date Note Type Note Provider Name and Address Organization Details Recorded Time 05/16/2023 text/html This was a supervised home visit with trackless trolley driver Tuan Martin. [facility] Nurse Triage Notes (Padmini Marin): Reason [...] .................. .................. .................. .................. .................. .................. ............... Machine Compositor Note From Tuan Martin: PT caox3 complains [...] ............... Disposition: Fulfilled Thomas Garsia MD [address] [facility], [place], [phone], [employer] retargeting - [facility] 05/16/2023 15:12:32 OBGyn Episode No OBEpisode recorded.
--- OUTSIDE RECORDS SUMMARY | 2024-08-11 10:55 | XMS_ITS | Patient Health Record ---
Author Organization [facility] Address [address] [address] Care Team Providers Care Computer Forwarding System Markup Clerk Name Role Phone Aby Sarkar Primary Care Provide r Theron Ayala Unavailable [phone] Allergies No Known Allergies Reason For Referral [...] primary osteoarthritis of the ankle and/or foot (850559937) Primary osteoarthritis , left ankle and foot (M19.072) Active confirmed Problem [id number] JRA (juvenile rheumatoid arthritis) (M08.00) Active confirmed Plan Of Treatment Pending Test Test Name Order Date X ray : Ankle, left 3V 10/14/2021 X ray : Foot, left 3V 10/14/2021 Insurance Providers Payer Name Payer Address Payer Phone Subscriber Number Group Number Insured Name Patient Relationship to Insured Coverage Start Date Coverage End Date [facility] [employer] Claims [address] [place] [address] [phone] [id number] Carmenza Alexis i Self - patient is the insured Medical (General) History Medical History History ICD Code Anxiety Arthritis Depression Gall bladder problems High blood pressure Numbness Psychiatric disorder Reflux ( GERD) ptsd Surgical History Surgery Date(Month/Year) gall bladder 1997
== END 2024-08-11 10:04 | disposition home or self-care (01) ==
LOC: HO.PMC 09:43
PROVIDERS: PCP Internal Medicine; Visit Provider Nurse Practitioner Family
DX: M25.561 Pain in right knee (principal); M25.562 Pain in left knee; Z79.891 Long term (current) use of opiate analgesic; G89.4 Chronic pain syndrome; M25.551 Pain in right hip; M25.552 Pain in left hip; M19.072 Primary osteoarthritis, left ankle and foot; M17.4 Other bilateral secondary osteoarthritis of knee
CPT/HCPCS: 99214; G2211

== ENCOUNTER → 2024-08-11 09:42 | Outpatient (BNVA) | payer OTHER, SELFPAY | PROVIDERS: PCP Internal Medicine; Visit Provider Nurse Practitioner Family | DX: M25.551 Pain in right hip (principal); M25.552 Pain in left hip; M19.072 Primary osteoarthritis, left ankle and foot; M17.4 Other bilateral secondary osteoarthritis of knee; M06.00 Rheumatoid arthritis without rheumatoid factor, unspecified site; G89.4 Chronic pain syndrome; Z51.81 Encounter for therapeutic drug level monitoring; Z79.891 Long term (current) use of opiate analgesic | CPT/HCPCS: 99212 ==

== ENCOUNTER 2024-09-09 10:01 | Outpatient (AMB) | payer OTHER, SELFPAY ==
--- NOTE | 2024-09-09 10:03 | MHC.OFFVIS ---
Vital Signs 09/09/24 10:12 Height 4 ft 11 in Weight 119 lb 2 oz BMI 24.1 BP 155/95 H Blood Pressure Location Rt brachial Position Sitting Pulse 116 H Pulse Source Pulse Oximeter Pulse Oximetry (%) 100 Oxygen Delivery Method Room Air Intake Visit Reasons: Pill count/random UDS Intake Note: Carmenza comes in today for a pill count to Tramadol, patient should have 32 tablets and presents with 35 tablets which she last took today 09/09/24 at 6:30am. Pain today 10/23 Patient will also go for a random UDS today, aware that she needs to go to the lab on the first floor of this building today 09/09/24 before 12pm. 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 Patient is supposed to have #32 pills, in her possession she has #35 pills. This demonstrates a responsible attitude in regards to the medication regimen. Patient reports reasonable analgesia on current pain regime without any side effects. Patient follows with Rheumatology regularly and had left ankle steroid injection for OA with minimal relief. She also reports pending Dermatology evaluation for multiple small skin lumps in her lower extremities. Patient also plans to follow up with her ObGyn provider for ongoing hot flushes and sweating related to perimenopause. Denies any fever or chills, shortness of breaths, chest pain, weakness, bladder or bowel dysfunction, saddle anesthesia, constipation, nausea, sedation, dizziness, or urinary retention. Denies any changes to medications, medical history or recent hospitalizations. Past Procedures: 08/09/23: Left tibiotalar steroid joint injection using ultrasound guidance--Dr. Sarabia 04/24/24: Right knee arthrogram and Durolane [id number]% ongoing pain relief by Dr. Choi 02/22/24: Left knee Durolane [id number]% ongoing pain relief by Dr. 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 She reports pending evaluation by Orthopedics for potential left ankle fusion. 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 Today we are focusing on bilateral knee pain which significantly affects her daily activities, functioning, mobility, sleep and social interactions. She completed physical therapy at [facility] 9 months with improved function but no pain relief. Pain is constant which she rates at 8-9/10. Bilateral knee pain is localized to anterior aspects both knees with tenderness and occasional swelling per patient. No significant swelling or effusion today. Denies any fever or chills, back pain, instability, knee locking or buckling, bladder or bowel dysfunction or saddle anesthesia. Location: bilateral hands, knees, feet and hips Duration: Chronic pain for years, worsening since September when titrated off Tramadol Characteristics of symptom or complaint: Aching, stabbing, throbbing, shooting, sharp, burning, tingling, tight Aggravating or associated factors: Movements, climbing stairs, bending, standing, walking, cold weather Relieving factors: nothing was on tramadol 100 mg QID since 1996, NSAIDs Treatment: PT, chiropractic manipulation, TENS unit, cortisone injections-multiple [facility] Medical History Hypertension Osteopenia Seizures Anemia Insomnia Depression with anxiety Hypercholesteremia Spina bifida occulta JRA (juvenile rheumatoid arthritis) Seronegative rheumatoid arthritis 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 PARKER (obstructive sleep apnea) CTS (carpal tunnel syndrome) Surgical History H/O wisdom tooth extraction History of cholecystectomy Family History Father Myocardial infarct Diabetes Hypertension Kidney disease Dialysis patient Brother Abuse, drug or alcohol Mother Thyroid disease Osteopenia Hypertension Social History Alcohol intake: current Alcohol intake frequency: holidays/special occasions only Patient Tobacco Use Status: Current everyday Tobacco user Cigarettes Per Day: 10 Review of Systems Const All systems reviewed & are unremarkable except as noted in HPI and below Physical Exam Vital Signs: Last Vital Signs Pulse 116 H 09/09/24 10:12 BP 155/95 H 09/09/24 10:12 Pulse Ox 100 09/09/24 10:12 Oxygen Delivery Method Room Air 09/09/24 10:12 BMI result Body Mass Index 24.1 General: Appears afebrile. No acute distress. Alert and oriented. No confused. Mood and affect appropriate. Pleasant. Follows and participates in conversation appropriately. Respiratory effort is unlabored. No cough. Able to transition from sit to stand unassisted. Ambulates with bilaterally normal heel strike and toe off. Extrem General: Yes capillary refill normal, Yes no clubbing, cyanosis or edema and Yes no calf tenderness Psych Appearance: grossly normal Mental Status: mental status grossly normal Speech and movement: Normal speech and movement present Affect: normal affect Attitude: cooperative Thought process: Normal thought process present Thought content: Normal thought content present, suicidality (none), no hallucinations and Depressive thoughts present Insight: Good insight present (Psych) Judgement: Good judgement present (Psych) Results Reviewed Results Reviewed: XR knee Bilateral 3V 03/27/23 CLINICAL HISTORY: Rheumatoid arthritis. COMPARISON: No similar priors. TECHNIQUE: 3 views of each knee. FINDINGS: No acute fracture or subluxation. Moderate bilateral tricompartmental osteoarthritis with joint space narrowing, subcortical sclerosis and small marginal osteophytes more noticeable in the medial and patellofemoral compartments of both knees. Trace chondrocalcinosis in the right knee. No osseous erosions. No significant joint effusion. IMPRESSION: 1. No acute fracture or subluxation. 2. Moderate bilateral tricompartmental osteoarthritis. 3. Trace chondrocalcinosis in the right knee. XR hip BI 1V w/wo pel 04/22/24 5 view, pelvis and bilateral hips Comparison: None Findings: No acute fracture or dislocation. No significant arthritic change. The soft tissues are unremarkable. There is an intrauterine device within the pelvis. IMPRESSION: No acute findings. DEXA axial skeleton 08/08/24 IMPRESSION: Based on bone mineral density, and according to World Health Organization (WHO) criteria, the diagnosis is consistent with osteopenia. 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 Category: Medical (3) Chronic pain syndrome: Code(s): G89.4 - Chronic pain syndrome Category: Medical (4) Bilateral hip pain: Code(s): M25.551 - Pain in right hip; M25.552 - Pain in left hip Category: Medical (5) Osteoarthritis of foot, left: Comment: OA at left ankle and foot due to RA Code(s): M19.072 - Primary osteoarthritis, left ankle and foot Category: Medical (6) Osteoarthritis of knees, bilateral: Code(s): M17.0 - Bilateral primary osteoarthritis of knee Category: Medical Qualifiers: Osteoarthritis type: other secondary Qualified Code(s): M17.4 - Other bilateral secondary osteoarthritis of knee Plan Patient has shown accountability for her medication regimen and the pill count was accurate. There is no evidence of misuse, abuse or diversion at this time. MassPat reviewed. Will obtain random UDS today. Script sent for tramadol with increased dose of 50 mg QID prn with advanced date of 09/17/24. Patient has Narcan at home. Patient is aware of monitoring for side effects. Discussed with the patient the risks associated with benzodiazepine (clonazepam) and opioid use. She is aware and verbalized an agreement to take the medications at least two hours apart. All questions were answered and the patient is in agreement with the plan. Follow up in 8 weeks for a pill count/UDS review or sooner if needed. Medications: Refilled tramadol Partial Fill upon patient request. 50 mg PO Q6H 30 days PRN 120 tabs 1RF pain G89.4 - Chronic pain syndrome, M06.00 - Rheumatoid arthritis without rheumatoid factor, unspecified site, M25.561 - Pain in right knee, M25.562 - Pain in left knee, Z79.891 - assisted (current) use of opiate analgesic Coding Level of Care Code Est Pt Level 4 (15951) Complex EM visit Add On G2211 Diagnoses Bilateral knee pain M25.561; M25.562 Opioid contract exists Z79.891 Chronic pain syndrome G89.4 Bilateral hip pain M25.551; M25.552 Osteoarthritis of foot, left M19.072 Other secondary osteoarthritis of both knees M17.4 Osteoarthritis type: other secondary
[2024-09-09 10:12] VITALS: BP 155/95; PULSE 116; O2SAT 100; BMI 24.1
--- OUTSIDE RECORDS SUMMARY | 2024-09-09 10:43 | XMS_ITS | Encounter Summary ---
Author Organization [facility] Address [address] [place] [address] Care Team Providers Care Plastic Sheets Finishing Supervisor Name Role Phone Lorin Norton MD Primary Care Provider Ameena Thompson MD Primary Care Provider Giovanna Anguiano Ch MD Primary Care Provider [phone] Reason for Visit * Reason Comments E-prescribe Rx Request Encounter Details Date Type Department Care Team Description 03/17/2019 Refill Rheumatology - [place] [address] [place] [id number] Haile Rodriguez MD E-prescribe Rx Request Social [...] THE PATIENT'S LAST APPOINTMENT IN ADULT MEDICINE? [id number] WHEN WAS THE LAST TIME THE PATIENT SAW THEIR PCP? Same as above Does patient have an upcoming appointment? Yes [id number] (THE MEDICATION REQUESTED IS ON THE MED [...] N/A Patients current insurance carrier is: Payor: [facility] MCR / Plan: [employer] [facility] / Product Type: HMO [id number] documented in this encounter Plan of Treatment Not on file documented as of this encounter Visit Diagnoses Diagnosis Seronegative rheumatoid arthritis (HCC) Rheumatoid arthritis documented in this encounter Care Teams Plastic Sheets Finishing Supervisor Relationship Specialty Start Date End Date Lorin Norton MD PCP - General Internal Medicine 01/25/15 07/15/20 Ameena Medellin MD PCP - General Internal Medicine 07/16/20 10/10/20 Keiko Anguiano, [address] [facility] [place] [id number] PCP - General Internal Medicine 10/11/20 documented as of this encounter
== END 2024-09-09 10:22 | disposition home or self-care (01) ==
LOC: HO.PMC 10:02
PROVIDERS: PCP Internal Medicine; Visit Provider Nurse Practitioner Family
DX: M25.561 Pain in right knee (principal); M25.562 Pain in left knee; Z79.891 Long term (current) use of opiate analgesic; G89.4 Chronic pain syndrome; M25.551 Pain in right hip; M25.552 Pain in left hip; M19.072 Primary osteoarthritis, left ankle and foot; M17.4 Other bilateral secondary osteoarthritis of knee
CPT/HCPCS: 99214; G2211

== ENCOUNTER → 2024-09-09 10:01 | Outpatient (BNVA) | payer OTHER, SELFPAY | PROVIDERS: PCP Internal Medicine; Visit Provider Nurse Practitioner Family | DX: M17.4 Other bilateral secondary osteoarthritis of knee (principal); M06.00 Rheumatoid arthritis without rheumatoid factor, unspecified site; M25.551 Pain in right hip; M25.552 Pain in left hip; M19.072 Primary osteoarthritis, left ankle and foot; G89.4 Chronic pain syndrome; Z51.81 Encounter for therapeutic drug level monitoring; Z79.891 Long term (current) use of opiate analgesic | CPT/HCPCS: 99212 ==

== ENCOUNTER 2024-11-06 08:41 | Outpatient (AMB) | payer OTHER, SELFPAY ==
[2024-11-06 08:50] VITALS: BP 142/72; PULSE 113; O2SAT 99; BMI 24.4
--- NOTE | 2024-11-06 08:50 | A.OFFVIS_ITS ---
Vital Signs 11/06/24 08:50 Height 4 ft 11 in Weight 120 lb 13.013 oz BMI 24.4 BP 142/72 H Blood Pressure Location Lt brachial Position Sitting Pulse 113 H Pulse Source Pulse Oximeter Pulse Oximetry (%) 99 Oxygen Delivery Method Room Air Intake Visit Reasons: RA Intake Note: Patient last seen by Doctor Saman Sarabia on 06/24/24. Presents today for FMS/OA follow up and X-ray/lab test results. Patient is in a lot of pain today in hips, knees, and ankles. Allergies No Known Allergies Allergy (Verified 11/06/24 08:52) Medication List - Last Reconciled 11/06/24 by Jazzy Sarabia MD amlodipine-benazepril 5-10 mg 1 cap PO DAILY brexpiprazole (Rexulti) 2 mg PO DAILY calcium carbonate-vitamin D3 600 mg-5 mcg (200 unit) (Calcium 600 + D(3)) 1 tab PO BID celecoxib 100 mg PO BID cetirizine (Allergy Relief (cetirizine)) 10 mg PO DAILY PRN clonazepam 1 mg PO BID clonidine HCl 0.1 mg PO DAILY PRN clonidine HCl 0.2 mg PO BID dextroamphetamine-amphetamine 15 mg 1 tab PO BID diclofenac sodium 1% (Arthritis Pain (diclofenac)) 4 grams topical QID fluticasone propionate 50 mcg/actuation (Allergy Relief (fluticasone)) 2 sprays intranasal DAILY folic acid 1 mg PO DAILY Humira(CF) Pen (adalimumab) 40 mg (0.4 mL) subcut Q2W 30 days NS hydrochlorothiazide 25 mg PO DAILY lamotrigine 200 mg PO BID levonorgestrel (Mirena) intrauterine methotrexate sodium 12.5 mg (5 x 2.5 mg) PO QWEEK 90 days naloxone 4 mg/actuation 0 sprays intranasal omeprazole 20 mg PO DAILY pravastatin 40 mg PO DAILY tramadol 50 mg PO Q6H PRN 30 days vortioxetine (Trintellix) 20 mg PO DAILY HPI Comments Details: Patient is a 49-year-old female with hypertension, hyperlipidemia, seizure disorder, depression with anxiety, osteopenia, polyarticular osteoarthritis, and juvenile rheumatoid arthritis/seronegative rheumatoid arthritis here today for follow up Interval History: Patient last seen 06/24/24 with me - C/o pain to ankles and hips - Pain attributed to degenerative disease - Seeing pain management, tramadol not helpful Since then - received left ankle steroid injection under US guidance (tibiotalar joint) Today, - Injection did not help the ankle - Gets gel injections from pain management but this also does not help - Continues to complain of bilateral knees and left ankle specifically Rheumatologic History: Juvenile onset: Flare at age 3, age 9. RF negative. Pauciarticular involvement. RF/CCP and LEOPOLDO negative More persistent pains at age 21(1995). On methotrexate, sulfasalazine, hydroxychloroquine, sulfasalazine, Enbrel in the past: ? Responses to treatment. Methotrexate started 03/28 04/30 Humira added effective 03/04: methotrexate held for LFT elevations; restarted at a lower dose 06/05 Most recent history by Dr. Rodriguez 03/2023: The patient returns today for evaluation of her rheumatoid arthritis and osteoarthritis. She remains on methotrexate 12.5 mg weekly, folic acid 1 mg daily, Humira 40 mg every 2 weeks, and tramadol 100 mg q.6 hours. The tramadol is prescribed by her primary doctor. She takes the tramadol mostly for left ankle and low back pain that is due to osteoarthritis. She remains on Trintellix, Adderall, clonidine, clonazepam, and Rexulti for her anxiety and depression. Anxiety and depression symptoms seem to be stable. At her last visit she had increased pain in the left knee and was having difficulty walking because of hip pain. I injected the knee and send her for physical therapy. She has now seen PT once. The injection helped quite a bit her left knee pain and some of the hip pain as well. She still has pain in the left ankle where she has osteoarthritis. Current Rheumatology Medication(s): Humira 40 mg every other week sc Methotrexate 12.5 mg weekly p.o. 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 PARKER (obstructive sleep apnea) CTS (carpal tunnel syndrome) Surgical History H/O wisdom tooth extraction History of cholecystectomy Family History Father Myocardial infarct Diabetes Hypertension Kidney disease Dialysis patient Brother Abuse, drug or alcohol Mother Thyroid disease Osteopenia Hypertension Social History Alcohol intake: current Alcohol intake frequency: holidays/special occasions only Patient Tobacco Use Status: Current everyday Tobacco user Cigarettes Per Day: 10 Review of Systems Const Details: Review of Systems Constitutional: Denies fever, chills, weight loss ENT: Denies vision changes, eye pain or eye redness, dental caries, dry mouth GI: Denies nausea, vomiting, diarrhea, abdominal pain, change in BM Pulm: Denies SOB, PAYNE, hemoptysis, wheezing Cards: Denies chest pain, palpitations Skin: Denies Raynaud's, rash, nail changes, photosensitivity, APARTMENT LOCATOR: Denies headaches, weakness, paresthesias, recurrent falls MSK: as per HPI All other systems reviewed and are unremarkable except noted above Physical Exam Exam Exam: Vital signs reviewed Physical Examination CONSTITUITIONAL Patient alert and cooperative. Well appearing and in no apparent painful distress MSK Hands * Right Hand: Able to make a fist. No swelling or tenderness to palpation of these joints. No deformities noted. * Left Hand: Able to make a fist. No swelling or tenderness to palpation of these joints. No deformities noted. Wrists * Right Wrist: Full ROM. 70 degrees of wrist flexion, 80 degrees of wrist extension. No swelling or TTP * Left Wrist: Full ROM. 70 degrees of wrist flexion, 80 degrees of wrist extension. No swelling or TTP Elbows * Right Elbow: Full ROM. No swelling or TTP. No TTP of the medial and lateral ep icondyles * Left Elbow: Full ROM. No swelling or TTP. No TTP of the medial and lateral epicondyles Shoulders * Right shoulder: Full ROM. No swelling noted. No TTP of the AC joint, subacromial bursa or posterior shoulder * Left shoulder: Full ROM. No swelling noted. No TTP of the AC joint, subacromial bursa or posterior shoulder Knees * Right knee: Full ROM. No swelling noted. * Left knee: Full ROM. No swelling noted. * TTP of the joint line and pes anserine bilaterally Ankles * Right ankle: Good ankle dorsiflexion and plantar flexion. No swelling. No TTP of the ankle joint * Left ankle: Good ankle dorsiflexion and plantar flexion. No swelling. TTP of the ankle joint Feet * Right foot: Negative squeeze test * Left foot: Negative squeeze test Tender points? * No tenderness to palpation of the bilateral trapezius, supraspinatus, anterior costochondral junctions, bilateral suboccipital muscle insertions SKIN No rashes Vital Signs: Last Vital Signs Pulse 113 H 11/06/24 08:50 BP 142/72 H 11/06/24 08:50 Pulse Ox 99 11/06/24 08:50 Oxygen Delivery Method Room Air 11/06/24 08:50 BMI result Body Mass Index 24.4 Results Reviewed Results Reviewed: Laboratory Tests 06/24/24 10:35 WBC 9.8 RBC 4.40 Hgb 13.4 Hct 41.0 Plt Count 277 ESR 14 Sodium 139 Potassium 4.0 Chloride 106 Carbon Dioxide 28 BUN 7 L Creatinine 0.76 AST 31 ALT 31 C-Reactive Protein 0.23 Laboratory Tests 06/24/24 06/24/24 10:35 10:38 Hepatitis A IgM Ab Nonreactive Hep Bs Antigen Negative Hep Bs Antibody REACTIVE Hep B Core Total Ab Nonreactive Hepatitis C Ab (EIA) Nonreactive HIV 1&2 Ab/P24 Ag 4thGn Nonreactive TB Test (T-Spot) Com Negative DEXA 07/2024 FINDINGS: The bone mineral density of the lumbar spine is 1.024 with a T-score of -1.3, and a Z-score of -0.6. This is indicative of osteopenia. The bone mineral density of the left total hip is 0.797 with a T-score of -1.7, and a Z-score of -1.0. This is indicative of osteopenia. The bone mineral density of the left femoral neck is 0.928 with a T-score of -0.8, and a Z-score of 0.2. This is indicative of normal bone mineral density. FRACTURE RISK: The FRAX index suggests a risk of major osteoporotic fracture of 7.4%, and of hip fracture 0.7%. Assessment & Plan Assessment & Plan (1) Seronegative rheumatoid arthritis: Comment: Juvenile onset: Flare at age 3, age 9. RF negative. Pauciarticular involvement. RF/CCP and LEOPOLDO negative More persistent pains at age 21(1995). On methotrexate, sulfasalazine, hydroxychloroquine, sulfasalazine, Enbrel in the past: ? Responses to treatment. Methotrexate started 03/28 04/30 Humira added effective 03/04: methotrexate held for LFT elevations; restarted at a lower dose 06/05 Code(s): M06.00 - Rheumatoid arthritis without rheumatoid factor, unspecified site Category: Medical Plan: #JRA/Seronegative RA Patient is a 49 y.o. female with juvenile onset rheumatoid arthritis. Has had a very longstanding history of rheumatoid arthritis. Currently her rheumatoid arthritis is in remission with no evidence of synovitis on examination. I do believe that her current pain is due to degenerative joint disease. No changes or escalation of therapy required Plan - Humira 40mg every other week - Methotrexate 12.5mg weekly - Folic acid 1 mg daily - Labs today: CBC, CMP, ESR, CRP - RTC 4 months - Labs before visit: CBC, CMP, ESR, CRP (2) Polyarticular osteoarthritis: Code(s): M15.9 - Polyosteoarthritis, unspecified Plan: #Polyarticular OA Patient with polyarticular osteoarthritis and a back rheumatoid arthritis. Discussed with the patient extensively the diagnosis of osteoarthritis and that there is no cure for it at this time. We will refer to ortho Plan - Ortho referral (3) Encounter for methotrexate monitoring: Code(s): Z51.81 - Encounter for therapeutic drug level monitoring; Z79.631 - skilled nursing (current) use of antimetabolite agent Plan: #Long-term Current Use of Methotrexate Discussed with patient the benefits and risks of methotrexate for managing their rheumatic condition Benefits include reduced pain, reduced mortality, maintenance of remission and reduction of flares Risks include oral ulcers, photosensitivity, hepatotoxicity, hematologic toxicity, pneumonitis, flu-like symptoms (especially day after administration), nodulosis, lymphomas ? Limit alcohol and avoid Bactrim ? 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 Plan: #Long-term Use of TNF Inhibitors: Humira Discussed with the patient the benefits and risks of TNF inhibitors for the management of the rheumatic condition Benefits include reduce pain, maintenance of remission and reduction of flares as well as ?progression of the disease Risks include injection sites/infusion reactions, serious infections (such as bacterial infections, opportunistic infections), malignancy, delaminating syndromes, autoimmune phenomena, CHF exacerbations, palmar plantar psoriasis and cytopenias Recommended rotating injection sites, and holding medication during and for up to 1 week after resolution of a febrile illness or open skin wound Plan I spent 30 minutes reviewing the record and labs, taking a history, examining the patient, discussing the treatment plan and documenting in the medical record Orders: Referrals Orthopedics Referral M19.072 - Primary osteoarthritis, left ankle and foot Coding Level of Care Code Est Pt Level 4 (34069) Complex EM visit Add On G2211 Diagnoses Seronegative rheumatoid arthritis M06.00 Polyarticular osteoarthritis M15.9 Encounter for methotrexate monitoring Z51.81; Z79.631 Encounter for monitoring of adalimumab therapy Z51.81; Z79.620
--- OUTSIDE RECORDS SUMMARY | 2024-11-06 09:05 | XMS_ITS | Clinical Summary ---
Author Organization [facility] [address] [facility] l[address] Address [address] [place] [address] Phone Care Team Providers Care Arrt Technologist Name Role Phone Aby Anguiano MD Primary [...] SEE ATTACHED FOR DETAILED DIRECTIONS 1 Active pravastatin (PRAVACHOL) 40 mg tablet Take [...] the skin every 14 (fourteen) days. Active cetirizine (ZyrTEC) 10 mg tablet TAKE 1 TABLET BY MOUTH EVERY DAY 90 tablet 1 5 Active omeprazole (PriLOSEC) [address] capsule TAKE 1 CAPSULE BY MOUTH EVERY DAYTAKE 1 CAPSULE BY MOUTH EVERY DAY 90 capsule 5 Active celecoxib (CeleBREX) 100 mg capsule TAKE 1 CAPSULE(100 MG) BY MOUTH TWICE DAILY 180 capsule 5 Active Active Problems Problem Noted Date [...] 08/03/2021 Obstructive sleep apnea 12/13/2020 Overview (01/31/2024): [facility] Home Sleep Apnea Test: Date [...] Allergic rhinitis 08/27/2013 Seronegative rheumatoid arth ritis ([facility] V24, [facility] V28) 04/22/2013 Overview (01/31/2024): Juvenile onset: Flare [...] unspecified 03/03/2008 JRA (juvenile rheumatoid art hritis) ([facility] V24, [facility] V28) 03/03/2008 Overview (01/31/2024): Flare at age [...] History Date Comments RA (rheumatoid arthritis) ([place]/[facility] V24, [facility] V28) DX:RA (rheumatoid arthritis) ([facility]) Osteopenia DX:Osteopenia; C OMMENT: Fosamax Depression DX:Depression Seizure ([facility] V24, [facility] V28) DX:Seizure ([facility]); COMMENT: x 2 JRA (juvenile rheumatoid art hritis) ([facility] V24, [facility] V28) 03/03/2008 DX:JRA (juvenile rheumatoid arthritis) ([facility]) Insomnia, unspecified 03/03/2008 DX:Insomni a, unspecified Depressive disorder, not els ewhere classified 03/03/2008 DX:Depressive disorder, not elsewhere classified Vitamin D deficiency DX:Vitamin D deficiency Anemia DX:Anemia Elevated serum alkaline phos phatase level DX:Elevated serum alkaline phosphatase level Allergic rhinitis 08/27/2013 DX:Allergic rh initis roasterman current use of immunosuppressive drug 07/11/2019 DX:roasterman current use of immunosuppressive drug Subclinical hypothyroidism [...] Date Smoking Tobacco: Every Day Cigarettes 0.5 30.6 Started: 04/1994 Smokeless Tobacco: Never Alcohol Use [...] your loved ones. For example, child care counselor or elderly care for an older adult? [...] 66 05/08/2024 8:46 AM EST Temperature 36.5 C (97.7 F) 05/08/2024 8:26 AM EST Respiratory Rate 23 05/08/2024 8:46 AM EST Oxygen Saturation 100% 05/08/2024 8:46 AM EST Inhaled Oxygen Concentration - - Weight 59 kg (130 lb) 05/08/2024 7:28 AM EST Height 149.9 cm (4' 11 ) 05/08/2024 7:28 AM EST Body Mass Index 26.26 05/08/2024 7:28 AM EST Plan of Treatment Upcoming Encounters Date Type Department Care Team (Late st Contact Info) Description 11/26/2024 9:45 AM EDT Office Visit Adult Medicine [facility] [address] [place] [address] Jeffrey Cruz PA [address] [place] [address] Health Maintenance Due Date Last Done Comments Depression Screening 04/16/2024 03/17/2024 Influenza Vaccine (#1) 2024 , 01/03/2023, 02/28/2021, Additional history exists Social Influencers of Health Screening 03/17/2025 03/17/2024 [...] 5 Years) and At-Risk Patients (6 to 49 Years) Discontinued 03/30/2010 COVID-19 Vaccine Discontinued 08/15/2020, 07/25/2020 Hepatitis C Screening Completed 04/22/2024 HIB Vaccines [...] Name Priority Date/Time Associated Diagnosis Comments EXTERNAL DEXA REPORT 08/08/2024 EXTERNAL DEXA REPORT 08/08/2024 COLONOSCOPY Routine 05/08/2024 8:26 AM EST Colon [...] Relevant to Health Maintenance Results * External Dexa Report (08/08/2024) Only the most recent of2 resultswithin the time period is included. Anatomical Region Laterality Modality Bone Densitometr y us Provider [facility] DXA PROCEDURES Final Result * COLONOSCOPY Anesthesia - MAC; [facility] ENDOSCOPY (05/08/2024 8:26 AM EST) Anatomical Region Laterality Modality Endoscopy 05/08/2024 8:05 AM EST Impressions 05/08/2024 8:25 AM EST - The entire examined colon is normal on direct and retroflexion views. - No specimens collected. Recommendation: - Repeat colonoscopy in 10 years for screening purposes. Narrative 05/08/2024 8:25 AM EST [facility] GI Patient Name: Peri House Procedure Date: 05/08/2024 8:05 AM Date [...] scope was passed under direct vision. Throughout the procedure, the patient's blood pressure, pulse, and oxygen [...] Professional --- Z12.11, Encounter for screening for malignant neoplasm of colon CPT copyright 2020 [employer]. All rights reserved. The codes documented in this report are preliminary and upon fuel agent review may be revised to meet current compliance requirements. Flo Fernandez MD 05/08/2024 8:25:10 AM This report has been signed electronically.Flo Fernandez MD Number of Addenda: 0 Note Initiated On: 05/08/2024 8:05 AM Scope In: Scope Out: Endoscopy Department at [facility] - [address] [place] [phone] Procedure Note Flo Fernandez MD - 05/08/2024 [facility] GI Patient Name: Peri House Procedure Date: 05/08/2024 8:05 AM Date [...] for malignantneoplasm of colon CPT copyright 2020 [employer]. All rights reserved. The codes documented in this report are preliminary and upon fuel agent reviewmay be revised to meet current compliance requirements. Flo Fernandez MD 05/08/2024 8:25:10 AM This report has been signed electronically.Flo Fernandez MD Number of Addenda: 0 Note Initiated On: 05/08/2024 8:05 AM Scope In: Scope Out: Endoscopy Department at [facility] - [address] [place] [phone] IMPRESSION: - The entire examined colon is [...] LAB BLOOD ORDERABLES Final Res ult [facility] [address] [place] [address], [place] [phone] * (ABNORMAL) Lipid panel with reflex to direct LDL (04/22/2024 10:37 AM EST) Pathologist [facility] Cholesterol 232(H) 0 - 200 mg/dL LAB [...] LAB BLOOD ORDERABLES Final Res ult [facility] [address] [place] [address], * (ABNORMAL) Comprehensive metabolic panel (04/22/2024 10:37 AM EST) Sodium 137 133 - 145 mmol/L LAB [...] PM [facility] Comment:Calculation based on the Chronic Kidney Disease Epidemiology Collaboration (CKD-EPI) equation refit without adjustment for race. BUN/Creatinine Ratio 9.1 LAB [...] LAB BLOOD ORDERABLES Final Res ult [facility] [address] [place] [address], [place] [phone] * Cervical Cancer Screening: HPV (10/20/2022) Pathologist [facility] Cervical Cancer Screening: HPV No interpretation with Negative, abstracted Historical Provider HEALTH MAINTENANCE Final Result from Last 3 Months or Most Recently Relevant to Health Maintenance Insurance [facility] MEDIC[facility] Member Subscriber Plan / Payer (Ef fective 2018-Present) Name:PERI HOUSE Relation to Subscriber:Self Name:Peri House Payer ID:[id number] Group ID:[id number] Type:Not on file Address: [place] [address] [place] [phone] Care Teams Arrt Technologist Relationship Specialty Start Date End Date Aby Anguiano MD [address] [place] [id number] PCP - General Internal Medicine 10/11/20
--- OUTSIDE RECORDS SUMMARY | 2024-11-06 09:05 | XMS_ITS | Patient Health Record ---
Author Organization [facility] Address [address] [place] [address] Care Team Providers Care Transition Program Manager Name Role Phone Aby Sarkar Primary Care Provide r Theron Ayala Unavailable [phone] Allergies No Known Allergies Reason For Referral No Information Medications Medication SIG (Take, Route, Frequency, Duration) Notes Start Date End Date Status cloNIDine 0.3 MG/24HR 1 patch to skin Transdermal; Duration: 30 day(s) Active Humira Active Adderall 7.5 MG 1 tablet Orally Twic e a day Active Methotrexate 2.5 MG as directed Orally Active Trintellix 20 MG 1 tablet Orally Once a day; Duration: 30 day(s) Active lamoTRIgine Active KlonoPIN 1 MG 1 tablet Orally Once a day Active Physical Therapy . . . 2-3x/week; Durat ion: 3-4 weeks Active PriLOSEC Active Cetirizine HCl 10 MG 1 tablet Orally Onc e a day; Duration: 30 day(s) Active hydroCHLOROthiazide 25 MG 1 tablet in th e morning Orally Once a day; Duration: 30 day(s) Active Pravastatin Sodium 40 MG 1 tablet Orally Once a day; Duration: 30 day(s) Active Folic Acid Active traMADol [...] primary osteoarthritis of the ankle and/or foot (410134460) Primary osteoarthritis , left ankle and foot (M19.072) Active confirmed Problem JRA (juvenile rheumatoid arthritis) (M08.00) Active confirmed Plan Of Treatment Pending Test Test Name Order Date X ray : Ankle, left 3V 10/14/2021 X ray : Foot, left 3V 10/14/2021 Insurance Providers Payer Name Payer Address Payer Phone Subscriber Number Group Number Insured Name Patient Relationship to Insured Coverage Start Date Coverage End Date [facility] [employer] Claims [address] [place] [phone] [id number] Carmenza Alexis i Self - patient is the insured Medical (General) History Medical History History ICD Code Anxiety Arthritis Depression Gall bladder problems High blood pressure Numbness Psychiatric disorder Reflux ( GERD) ptsd Surgical History Surgery Date(Month/Year) gall bladder 1997
== END 2024-11-06 09:22 | disposition home or self-care (01) ==
LOC: HO.RHE 08:41
PROVIDERS: PCP Internal Medicine; Visit Provider Student in an Organized Health Care Education/Training Program
DX: M06.09 Rheumatoid arthritis without rheumatoid factor, multiple sites (principal); M15.9 Polyosteoarthritis, unspecified; Z51.81 Encounter for therapeutic drug level monitoring; Z79.631 Long term (current) use of antimetabolite agent; Z79.620 Long term (current) use of immunosuppressive biologic
CPT/HCPCS: 99214; G2211

== ENCOUNTER → 2024-11-06 | Outpatient (BNVA) | payer OTHER, SELFPAY | PROVIDERS: PCP Internal Medicine; Visit Provider Student in an Organized Health Care Education/Training Program | DX: M06.09 Rheumatoid arthritis without rheumatoid factor, multiple sites (principal); M08.3 Juvenile rheumatoid polyarthritis (seronegative); M15.9 Polyosteoarthritis, unspecified; M85.80 Other specified disorders of bone density and structure, unspecified site; Z51.81 Encounter for therapeutic drug level monitoring; Z79.631 Long term (current) use of antimetabolite agent; Z79.620 Long term (current) use of immunosuppressive biologic; Z79.899 Other long term (current) drug therapy | CPT/HCPCS: 99212 ==